=== PATIENT | female | born 1975 ===

== ENCOUNTER 2020-05-18 13:13 | Outpatient (REF) | payer MEDICAID, SELFPAY | END 2020-05-18 13:14 | disposition home or self-care (01) | LOC: HO.LAB 13:13 | PROVIDERS: PCP Family Medicine; Visit Provider Internal Medicine | DX: Z20.822 Contact with and (suspected) exposure to COVID-19 (principal) | CPT/HCPCS: 36415; C9803; U0003 ==

== ENCOUNTER 2020-07-07 15:19 | Outpatient (REF) | payer MEDICAID, SELFPAY | END 2020-07-07 15:20 | disposition home or self-care (01) | LOC: HO.LAB 15:19 | PROVIDERS: Visit Provider Internal Medicine | DX: Z20.822 Contact with and (suspected) exposure to COVID-19 (principal) | CPT/HCPCS: 36415; C9803; U0003; U0005 ==

== ENCOUNTER → 2020-09-07 11:08 | Outpatient (BNVA) | payer MEDICAID, SELFPAY | PROVIDERS: PCP Family Medicine; Referring Provider Family Medicine; Visit Provider Surgery | DX: K64.4 Residual hemorrhoidal skin tags (principal); K64.8 Other hemorrhoids | CPT/HCPCS: 46600; 99202 ==

== ENCOUNTER → 2020-11-08 10:01 | Outpatient (BNVA) | payer MEDICAID, SELFPAY | PROVIDERS: PCP Family Medicine; Visit Provider Surgery | DX: L29.0 Pruritus ani (principal) | CPT/HCPCS: 99212 ==

== ENCOUNTER 2020-12-19 09:24 | Outpatient (REF) | payer MEDICAID, SELFPAY ==
--- NOTE | ~2020-12-19 | US_ITS ---
EXAMINATION: US ABDOMEN COMPLETE CLINICAL INFORMATION: Right upper quadrant pain. COMPARISON: None TECHNIQUE: Real-time imaging of the abdominal viscera. FINDINGS: PANCREAS: Normal. ABDOMINAL AORTA: The proximal, mid, and distal segments are normal in caliber. INFERIOR VENA CAVA: Visualized portions are normal. LIVER: There is diffuse increased liver parenchymal echogenicity. No focal hepatic mass is seen. The liver is normal in size and contour. No biliary ductal dilatation. GALLBLADDER: A 5.0 cm maximal diameter is shadowing gallstone is seen. The gallbladder is physiologically distended. No evidence of gallbladder wall thickening or pericholecystic fluid. COMMON BILE DUCT: Normal in caliber measuring 0.3 cm in diameter. RIGHT KIDNEY: At the upper pole, an 8 mm anechoic, simple cyst is seen. No hydronephrosis or renal calculi. The kidney measures 10.7 cm in maximum dimension. LEFT KIDNEY: Normal. No hydronephrosis. No renal calculi or focal parenchymal lesions. The kidney measures 10.7 cm in maximum dimension. SPLEEN: Normal. The spleen measures 11.5 cm in maximum dimension. FREE FLUID: None. US/US abdomen complete IMPRESSION: 1. A large gallstone is seen, without cholecystitis or choledocholithiasis noted. 2. There is generalized increase in hepatic echotexture, consistent with fatty infiltration or hepatocellular disease. Please correlate clinically. No focal hepatic mass or intrahepatic biliary dilatation is seen. 3. A small simple right renal cyst is incidentally noted.
== END 2020-12-19 09:25 | disposition home or self-care (01) ==
LOC: HO.US 09:24
PROVIDERS: Visit Provider Family Medicine
DX: R10.11 Right upper quadrant pain (principal)
CPT/HCPCS: 76700

== ENCOUNTER 2021-01-10 09:30 | Outpatient (REF) | payer MEDICAID, SELFPAY ==
[2021-01-10 11:15] LABS: Blood Urea Nitrogen 12 mg/dL (9-16); Estimated Glomerular Filt Rate > 60
== END 2021-01-10 09:31 | disposition home or self-care (01) ==
LOC: HO.LAB 09:30
PROVIDERS: PCP Family Medicine; Referring Provider Family Medicine; Visit Provider Surgery
DX: R10.9 Unspecified abdominal pain (principal); L29.0 Pruritus ani; E66.01 Morbid (severe) obesity due to excess calories; K80.20 Calculus of gallbladder without cholecystitis without obstruction
CPT/HCPCS: 36415; 82565; 84520; 99212

== ENCOUNTER 2021-01-17 14:42 | Outpatient (REF) | payer MEDICAID, SELFPAY ==
--- NOTE | ~2021-01-17 | CT_ITS ---
EXAMINATION: CT ABDOMEN AND PELVIS WITH CONTRAST CLINICAL INFORMATION: Renal impairment COMPARISON: Ultrasound abdomen from 12/19/2020 TECHNIQUE: Multidetector volumetric images were obtained from the superior aspect of the liver through the pubic symphysis following administration 85 mL of Omnipaque 350 intravenous contrast. Sagittal and coronal reformatted images were obtained on the technologist's workstation. Oral contrast: No This CT examination was performed using dose optimization techniques as appropriate, variously including the following: *Automated exposure control *Adjustment of mA and/or kV according to patient size (this includes techniques or standardized protocols for targeted exams where dose is matched to indication/reason for exam; i.e. extremities or head) *Use of iterative reconstruction technique DLP: 578.2 mGy-cm FINDINGS: LUNG BASES: Atelectasis level of the lingula. The heart is not enlarged. No pericardial effusion. Coarse calcification within the left breast tissue. LIVER, GALLBLADDER, AND BILIARY TREE: The liver is normal in size and shape. Decreased hepatic attenuation suggesting hepatic steatosis. No focal hepatic lesion or biliary ductal dilatation is present. Intraluminal gallbladder calculi without wall thickening or pericholecystic fluid to suggest cholecystitis. PANCREAS: Unremarkable. SPLEEN: Unremarkable. ADRENAL GLANDS: Unremarkable. KIDNEYS AND URETERS: Hypodensity within the lateral aspect of the right renal interpolar region demonstrating fluid attenuation, statistically representing a cyst measuring up to 0.9 cm. The kidneys are normal in size, shape, and attenuation. No hydronephrosis, hydroureter, or calculi seen. No perinephric stranding. BLADDER: Unremarkable. GASTROINTESTINAL TRACT: The small and large bowel are unremarkable. The appendix is definitively visualized. No secondary signs of appendicitis. ABDOMINAL WALL: Fat filled umbilical hernia. LYMPH NODES: No enlarged lymph nodes per size criteria. Multiple subcentimeter nonenlarged lymph nodes are noted in the mid and right abdominal mesentery, nonspecific though may represent an element of mesenteric adenitis in the appropriate clinical setting. VASCULAR: Abdominal aorta is nonaneurysmal. Atherosclerotic calcifications of the abdominal aorta and its branches. PELVIC VISCERA: Anteverted uterus. Mildly prominent left periuterine vessels possibly representing an element of pelvic congestion syndrome. Correlation with symptomatology. OSSEOUS STRUCTURES: Multilevel degenerative changes of the thoracolumbar spine. No large lytic or blastic lesions are noted. Sclerotic focus in the right femoral head likely representing a bone island. Degenerative changes of the bilateral femoral acetabular and sacroiliac joints. CT/CT abdomen pelvis w con IMPRESSION: 1. Multiple subcentimeter nonenlarged lymph nodes are noted in the mid and right abdominal mesentery, nonspecific though may represent an element of mesenteric adenitis in the appropriate clinical setting. 2. Decreased hepatic attenuation suggesting hepatic steatosis. 3. Cholelithiasis without acute cholecystitis. 4. Hypodensity in the right renal interpolar region demonstrating fluid attenuation, statistically representing cysts. 5. Mildly prominent left periuterine vessels possibly representing an element of pelvic congestion syndrome. Correlation with symptomatology.
[2021-01-17] MEDS: iohexoL 350 MG/ML 100 ML INFUS..BTL 85 ML IV (16:44)
== END 2021-01-17 14:43 | disposition home or self-care (01) ==
LOC: HO.CT 14:42
PROVIDERS: Visit Provider Surgery
DX: R10.9 Unspecified abdominal pain (principal)
CPT/HCPCS: 74177; Q9967

== ENCOUNTER 2021-01-19 16:52 | Emergency (ER) | payer MEDICAID, SELFPAY ==
--- NOTE | 2021-01-19 | ECG_ITS ---
Test Reason : CHEST PAIN Blood Pressure : / mmHG Vent. Rate : 066 BPM Atrial Rate : 066 BPM P-R Int : 138 ms QRS Dur : 070 ms QT Int : 406 ms P-R-T Axes : 040 011 019 degrees QTc Int : 425 ms Normal sinus rhythm Normal ECG No previous ECGs available Referred By: Generic ED Physician Electronically Signed By:DAVION MARINA
[2021-01-19 17:08] VITALS: BP 165/80; PULSE 69; RESP 18; TEMP 36.6; O2SAT 97; BMI 39.4
[2021-01-19 19:53] VITALS: BP 140/82; PULSE 74; RESP 16; TEMP 36.4; O2SAT 99
[2021-01-19 19:53] LABS: Glucose, Whole Blood 95 mg/dL (60-115)
[2021-01-19 20:13] LABS: MANUAL DIFF FLAG NO
[2021-01-19 20:14] LABS: Basophils Absolute Auto 0.1 X10*3/uL (0.0-0.2); Basophils Percent Auto 0.6 % (0-2); Eosinophils Absolute Auto 0.6 X10*3/uL (0.0-0.4); Eosinophils Percent Auto 5.3 % (0-4); Hematocrit 44.4 % (37-47); Hemoglobin 14.6 g/dl (12.0-16.0); Imm Gran Abs Auto 0.04 X10*3/uL (0.00-0.03); Imm Gran Pct Auto 0.4 % (0.0-0.4); Lymphocytes Absolute Auto 3.7 X10*3/uL (1.2-4.9); Lymphocytes Percent Auto 33.9 % (20-40); Mean Corpuscular HGB Conc 32.9 g/dl (31.0-35.0); Mean Corpuscular Hemoglobin 28.4 pg (27.0-33.0); Mean Corpuscular Volume 86.4 fL (80-98); Mean Platelet Volume 10.7 fL (9.4-12.3); Monocytes Absolute Auto 0.8 X10*3/uL (0.1-1.2); Monocytes Percent Auto 7.2 % (2-11); Neutrophils Absolute Auto 5.8 X10*3/uL (2.0-8.3); Neutrophils Percent Auto 52.6 % (45-73); Platelet Count 273 X10*3/uL (160-400); Red Blood Count 5.14 X10*6/uL (4.20-5.50); Red Cell Distribution Width 14.6 % (11.0-16.0)
[2021-01-19 20:16] LABS: Appearance Urine CLEAR; Color Urine YELLOW; Glucose Urine UA NEG (NEG); Leukocyte Esterase Urine TRACE (NEG); Nitrite Urine NEG (NEG); UACC Culture Trigger YES; Urine Blood NEG (NEG); Urine Ketones NEG (NEG); Urine Protein NEG (NEG-TRACE)
[2021-01-19 20:18] LABS: UPreg QC Valid YES; Urine Pregnancy NEGATIVE (NEGATIVE)
[2021-01-19 20:31] LABS: Alanine Aminotransferase 69 U/L (0-31); Albumin Level 4.4 g/dL (3.5-5.0); Alkaline Phosphatase 137 U/L (39-117); Anion Gap 13 (12-20); Aspartate Amino Transferase 37 U/L (5-31); Blood Urea Nitrogen 11 mg/dL (9-16); Calcium 9.6 mg/dL (8.4-10.2); Carbon Dioxide 27 mmol/L (22-29); Chloride 106 mmol/L (96-108); Creatinine Clr Calc Pharmacy 76.2; Estimated Glomerular Filt Rate > 60; Glucose Random 98 mg/dL (60-115); Lipase 19 U/L (8-78); Potassium 3.9 mmol/L (3.3-5.1); Sodium 142 mmol/L (135-145); Total Protein 7.7 g/dL (6.5-8.0)
[2021-01-19 20:37] LABS: Squamous Epithelial Cell Urine 2+ /LPF
[2021-01-19 20:38] LABS: Bacteria Urine TRACE /LPF
[2021-01-19 20:39] LABS: Amorphous Sediment Urine 1+ /LPF
--- NOTE | 2021-01-19 20:45 | ED.ABDPAIN ---
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 This is a 45-year-old female came in with a right upper abdominal pain that started 3 weeks ago, pain is progressively getting worse, patient was diagnosed by her PCP with cholelithiasis, patient also was seen and evaluated by Dr. Dixon from General surgery had a CT scan of the abdomen done 2 days ago which showed noncomplicated cholelithiasis. Patient declined any fevers chills, but patient is complaining of nausea and vomiting with severe pain. Related Data Previous Rx's Medication Instructions Recorded menthol 0.44 %-zinc oxide 20.6 % 1 appl TOPICAL QID PRN #71 g 09/07/20 topical ointment (Calmoseptine) docusate sodium 100 mg capsule 100 mg PO DAILY #60 cap 10/30/20 (Colace) psyllium husk (with sugar) 3.4 1 tbsp PO DAILY #575 g 10/30/20 gram/12 gram oral powder (Metamucil (with sugar)) hydrocortisone 2.5 % topical cream 1 appl KS BID-QID PRN #30 g 11/08/20 with perineal applicator (Anusol-HC) Allergies Allergy/AdvReac Type Severity Reaction Status Date / Time No Known Allergies Allergy Verified 01/10/21 09:42 Review of Systems Review of Systems All other systems are reviewed and are negative Constitutional: Reports as per HPI and Reports no additional constitutional complaints Eyes: Reports as per HPI and Reports no additional eye complaints Reports system reviewed and no additional complaints, except as documented Cardiovascular: Reports as per HPI and Reports no additional cardiovascular complaints Respiratory: Reports as per HPI and Reports no additional respiratory complaints Gastrointestinal: Reports as per HPI and Reports no additional gastrointestinal complaints Genitourinary: Reports no additional female genitourinary complaints Musculoskeletal: Reports no additional musculoskeletal complaints Skin/Breast: Reports system reviewed and no additional complaints, except as docu Psychiatric: Reports no additional psychiatric complaints Endocrine: Reports no additional endocrine complaints Hematologic/Lymphatic: Reports no additional hematologic/lymphatic complaints Allergic/Immunologic: Reports no additional allergic/immunologic complaints Reports system reviewed and no additional complaints, except as documented and Reports Abnormal speech present Physical Exam Vital Signs: Vital Signs: Last Vital Signs Temp 97.6 F 01/19/21 19:53 Pulse 74 01/19/21 19:53 Resp 16 01/19/21 19:53 BP 140/82 H 01/19/21 19:53 Pulse Ox 99 01/19/21 19:53 Body Mass Index 39.4 Vital signs have been reviewed as appeared to be correct. Blood pressure normal. Heart rate normal. Respiration rate normal. Temperature normal. Oxygen saturation normal. Appearance: Alert. Oriented X3. No acute distress. Head: Normal external exam. Normocephalic. Atraumatic. No Mena signs noted. No raccoon eyes noted Eyes: PERRLA. EOMI. Conjunctiva and sclera normal. Eyelids normal. ENT: TM's Normal. Pharynx normal. Uvula midline. Moist mucous membranes. No trismus noted. No drooling noted. No muffled voice noted. Neck: Normal inspection. Neck supple. FROM. No adenopathy. Thyroid Normal. No meningeal signs. No neck mass noted. CVS: Normal heart rate and rhythm. Heart sound normal. No murmurs noted. Pulses normal throughout. Respiratory: No respiratory distress. Painless inspiration. Breath sounds normal. No wheezes/rales/rhonchi noted. Chest nontender. No accessory muscle usage noted or decreased air movement noted. Abdomen: Soft, mild right upper quadrant tenderness, no rebound tenderness, no guarding. Bowel sounds normal in all 4 quadrants. No distention noted. No organomegaly noted. No visible injury noted. Back: No CVA tenderness. Full range of motion noted. Skin: Skin warm and dry. Normal skin color. Normal skin turgor. No rashes/lesions/lacerations noted. Extremities: No lower extremity edema. Extremities exhibit normal range of motion. Extremities nontender. Neuro: Oriented X 3. Cranial nerve exam: II-XII are grossly intact No motor deficit. No sensory deficit. Reflexes normal. Course Course Course Narrative: Assessment and plan. This is a 45-year-old female known to have cholelithiasis without acute cholecystitis, patient had a full evaluation by surgery (Dr. Dixon), patient is already scheduled to have surgery on 02/06, the case discussed with Dr. Dixon over the phone who is very familiar with the patient, the plan is to control patient's symptoms in the emergency department then discharged and call Dr. Dixon on Friday to reschedule the surgery to a sooner date. Patient with few WBCs in the urine analysis but no symptoms to indicate UTI. MDM - Abdominal Pain Lab Data Attestation: I reviewed the patient's lab results. Result diagrams: 01/19/21 20:05 01/19/21 20:05 Labs: Lab Results 01/19/21 01/19/21 01/19/21 Range/Units 19:50 20:05 20:05 WBC 11.0 H (4.8-10.8) X10*3/uL RBC 5.14 (4.20-5.50) X10*6/uL Hgb 14.6 (12.0-16.0) g/dl Hct 44.4 (37-47) % MCV 86.4 (80-98) fL MCH 28.4 (27.0-33.0) pg MCHC 32.9 (31.0-35.0) g/dl RDW 14.6 (11.0-16.0) % Plt Count 273 (160-400) X10*3/uL MPV 10.7 (9.4-12.3) fL Immature Gran % (Auto) 0.4 (0.0-0.4) % Neut % (Auto) 52.6 (45-73) % Lymph % (Auto) 33.9 (20-40) % [place] % (Auto) 7.2 (2-11) % Eos % (Auto) 5.3 H (0-4) % Baso % (Auto) 0.6 (0-2) % Lymph # (Auto) 3.7 (1.2-4.9) X10*3/uL [place] # (Auto) 0.8 (0.1-1.2) X10*3/uL Eos # (Auto) 0.6 H (0.0-0.4) X10*3/uL Baso # (Auto) 0.1 (0.0-0.2) X10*3/uL Abs Immat Gran (auto) 0.04 H (0.00-0.03) X10*3/uL Absolute Neuts (auto) 5.8 (2.0-8.3) X10*3/uL Absolute Nucleated RBC 0.000 (0.0-0.012) X10*3/uL Nucleated RBC % (auto) 0.0 (0.0-0.2) /100WBC Sodium 142 (135-145) mmol/L Potassium 3.9 (3.3-5.1) mmol/L Chloride 106 (96-108) mmol/L Carbon Dioxide 27 (22-29) mmol/L Anion Gap 13 (12-20) BUN 11 (9-16) mg/dL Creatinine 0.92 (0.5-1.4) mg/dL Estim Creat Clear Calc 76.2 Estimated GFR > 60 POC Glucose 95 (60-115) mg/dL Random Glucose 98 (60-115) mg/dL Calcium 9.6 (8.4-10.2) mg/dL Total Bilirubin 1.0 (0.0-1.0) mg/dL AST 37 H (5-31) U/L ALT 69 H (0-31) U/L Alkaline Phosphatase 137 H (39-117) U/L Total Protein 7.7 (6.5-8.0) g/dL Albumin 4.4 (3.5-5.0) g/dL Lipase 19 (8-78) U/L Urine Color Urine Appearance Urine pH (5.0-8.0) Ur Specific [place] (1.005-1.025) Urine Protein (NEG-TRACE) MG/DL Urine Glucose (UA) (NEG) MG/DL Urine Ketones (NEG) MG/DL Urine Blood (NEG) Urine Nitrite (NEG) Ur Leukocyte Esterase (NEG) Urine RBC (0) /HPF Urine WBC (0-4) /HPF Ur Squamous Epith Cells /LPF Amorphous Sediment /LPF Urine Bacteria /LPF Urine Test (NEGATIVE) 01/19/21 01/19/21 Range/Units 20:05 20:07 WBC (4.8-10.8) X10*3/uL RBC (4.20-5.50) X10*6/uL Hgb (12.0-16.0) g/dl Hct (37-47) % MCV (80-98) fL MCH (27.0-33.0) pg MCHC (31.0-35.0) g/dl RDW (11.0-16.0) % Plt Count (160-400) X10*3/uL MPV (9.4-12.3) fL Immature Gran % (Auto) (0.0-0.4) % Neut % (Auto) (45-73) % Lymph % (Auto) (20-40) % [place] % (Auto) (2-11) % Eos % (Auto) (0-4) % Baso % (Auto) (0-2) % Lymph # (Auto) (1.2-4.9) X10*3/uL [place] # (Auto) (0.1-1.2) X10*3/uL Eos # (Auto) (0.0-0.4) X10*3/uL Baso # (Auto) (0.0-0.2) X10*3/uL Abs Immat Gran (auto) (0.00-0.03) X10*3/uL Absolute Neuts (auto) (2.0-8.3) X10*3/uL Absolute Nucleated RBC (0.0-0.012) X10*3/uL Nucleated RBC % (auto) (0.0-0.2) /100WBC Sodium (135-145) mmol/L Potassium (3.3-5.1) mmol/L Chloride (96-108) mmol/L Carbon Dioxide (22-29) mmol/L Anion Gap (12-20) BUN (9-16) mg/dL Creatinine (0.5-1.4) mg/dL Estim Creat Clear Calc Estimated GFR POC Glucose (60-115) mg/dL Random Glucose (60-115) mg/dL Calcium (8.4-10.2) mg/dL Total Bilirubin (0.0-1.0) mg/dL AST (5-31) U/L ALT (0-31) U/L Alkaline Phosphatase (39-117) U/L Total Protein (6.5-8.0) g/dL Albumin (3.5-5.0) g/dL Lipase (8-78) U/L Urine Color YELLOW Urine Appearance CLEAR Urine pH 8.0 (5.0-8.0) Ur Specific [place] 1.010 (1.005-1.025) Urine Protein NEG (NEG-TRACE) MG/DL Urine Glucose (UA) NEG (NEG) MG/DL Urine Ketones NEG (NEG) MG/DL Urine Blood NEG (NEG) Urine Nitrite NEG (NEG) Ur Leukocyte Esterase TRACE H (NEG) Urine RBC 1-4 (0) /HPF Urine WBC 5-9 H (0-4) /HPF Ur Squamous Epith Cells 2+ /LPF Amorphous Sediment 1+ /LPF Urine Bacteria TRACE /LPF Urine Test NEGATIVE (NEGATIVE) Discharge Plan Discharge Clinical Impression: Cholelithiasis Qualifiers: Cholelithiasis location: gallbladder Cholecystitis presence: without cholecystitis Biliary obstruction: without biliary obstruction Qualified Code(s): K80.20 - Calculus of gallbladder without cholecystitis without obstruction Patient Disposition: Home, Self-Care Instructions: Gallstones (ED) Additional Instructions: As we discussed call Dr. Dixon office early next week to reschedule the surgical date. Prescriptions: No Action docusate sodium [Colace] 100 mg capsule 100 mg PO DAILY Qty: 60 RF: 0 Metamucil (with sugar) 3.4 gram/12 gram powder 1 tbsp PO DAILY Qty: 575 RF: 0 Calmoseptine 0.44-20.6 % ointment 1 appl topical QID PRN (Reason: skin irritation) Qty: 71 RF: 0 hydrocortisone [Anusol-HC] 2.5 % cream with perineal applicator 1 appl KS BID-QID PRN (Reason: hemorrhoids) Qty: 30 RF: 0 Referrals: Libby Redd MD [Primary Care Provider] - 2 days Bobby Dixon MD [Physician] - 2 days (Call the office in 2 days to reschedule the surgical date.) [facility], LAT[facility] Past Medical History Medical History Gallstones Internal and external bleeding hemorrhoids Left sided abdominal pain Morbid obesity Pruritus ani Surgical History History of tubal ligation Family History Family History Father No problems noted. Sister Breast tumor Sister Pancreatic cancer Social History Social History Alcohol intake: never Advance Directives: No Advance Directives Information Provided: No
[2021-01-19 21:24] VITALS: BP 127/70; PULSE 74; RESP 16; TEMP 36.5; O2SAT 99
[2021-01-19] MEDS: oxyCODONE HCl Immed Release 5 MG TABLET PO (21:24)
== END 2021-01-19 21:26 | disposition home or self-care (01) ==
PROVIDERS: Emergency Provider Emergency Medicine; PCP Family Medicine
DX: K80.20 Calculus of gallbladder without cholecystitis without obstruction (principal); R10.11 Right upper quadrant pain; Z79.899 Other long term (current) drug therapy
CPT/HCPCS: 36415; 80053; 81001; 81025; 82947; 83690; 85025; 87086; 93005; 99284

== ENCOUNTER 2021-01-26 10:54 | Day surgery (SDC) | payer MEDICAID, SELFPAY ==
--- NOTE | 2021-01-25 08:59 | HO.ANESPROP2 ---
Documented by User: Maria R Roque NP 01/25/21 09:00 HPI - Anesthesia Eval Consult details Narrative: 45yo F for Cholecystectomy Laparoscopic, Poss Open PMFSH Active Problems Active Problems: All Active Problems (Updated 01/20/21 @ 00:02 by Background Daemon) Morbid obesity (Acute) Gallstones (Acute) Left sided abdominal pain (Acute) Pruritus ani (Acute) Internal and external bleeding hemorrhoids (Acute) Past Medical History Medical History Gallstones Internal and external bleeding hemorrhoids Left sided abdominal pain Morbid obesity Pruritus ani Family History Family History Father No problems noted. Sister Breast tumor Sister Pancreatic cancer Surgical History Surgical History History of tubal ligation Social History Social History Alcohol intake: never Patient Tobacco Use Status: Never used Tobacco Use of substances other than those prescribed or required for medical reasons: No Are you DNR?: No Advance Directives: No Advance Directives Information Provided: Yes Meds Allergies Allergy/AdvReac Type Severity Reaction Status Date / Time No Known Allergies Allergy Verified 01/26/21 11:09 Exam Exam Date and Time: January 25, 2021 0859 Pertinent Lab Results Pertinent Lab Results: Laboratory Tests 01/19/21 01/19/21 20:05 20:05 WBC 11.0 H Hgb 14.6 Hct 44.4 Plt Count 273 Sodium 142 Potassium 3.9 Chloride 106 Carbon Dioxide 27 BUN 11 Creatinine 0.92 Narrative Narrative: EKG 01/2021 Vent. Rate : 066 BPM ? ? Atrial Rate : 066 BPM ?? P-R Int : 138 ms? QRS Dur : 070 ms ? ? QT Int : 406 ms ? ? ? P-R-T Axes : 040 011 019 degrees ?? QTc Int : 425 ms ? Normal sinus rhythm Normal ECG No previous ECGs available Assessment and Plan Assessment Anesthesia Assessment: Chart Reviewed Documented by User: Jennifer Cervantes MD 01/26/21 11:50 PMF Past Medical History Medical History Gallstones Internal and external bleeding hemorrhoids Left sided abdominal pain Morbid obesity Pruritus ani Family History Family History Father No problems noted. Sister Breast tumor Sister Pancreatic cancer Family history of problems with anesthesia: No Surgical History Surgical History History of tubal ligation History of Problems with Anesthesia: No Social History Social History Alcohol intake: never Patient Tobacco Use Status: Never used Tobacco Use of substances other than those prescribed or required for medical reasons: No Are you DNR?: No Advance Directives: No Advance Directives Information Provided: Yes Meds Allergies Allergy/AdvReac Type Severity Reaction Status Date / Time No Known Allergies Allergy Verified 01/26/21 11:09 Exam Airway Mallampati Class: II TM Dist: >3cm Neck ROM: Full Assessment and Plan Assessment Anesthesia Assessment: Anesthesia Plan Discussed Final Anesthetic Review Family History of Problems with Anesthesia: No History of Problems with Anesthesia: No NPO: Yes ASA Class: II Final Preanesthetic Review: No Changes in Pt Med Stat, Meds/Allgs Chart Reviewed, Consent Obtained/Reviewed and Anes Risks/Benef Reviewed Patient Risk: Low Procedure Risk: Low Assessment/Block/Sedation in SS: Assess/Block/Sedation-SS Anesthetic Plan Anesthetic Plan: GA Disposition: Standard PACU
[2021-01-26] VITALS (12 sets, daily range): BP systolic 116–145; BP diastolic 63–83; PULSE 49–80; RESP 14–20; TEMP 36.1–37; O2SAT 94–100; BMI 39.4
[2021-01-26] MEDS: Lactated Ringers 1,000 ML 100 ML IVCONT (11:27)
[2021-01-26] MEDS: Acetaminophen 325 MG TABLET 650 MG PO ×2 (11:28→14:40)
--- NOTE | 2021-01-26 12:11 | MHC.SHP ---
Pre-Procedural Eval Section A Date of Service: 01/26/21 Section B Chief Complaint: Gallstones Allergies: Allergies Allergy/AdvReac Type Severity Reaction Status Date / Time No Known Allergies Allergy Verified 01/26/21 11:09 Plan I have reviewed the history and physical and performed a pertinent physical examination on my patient. No changes have occurred unless specified. Pt originally scheduled for Feb 06. She wanted this done sooner because of episodes of pain. She went to the ED last wee for one episode, She has a benign exam. She has an anicteric sclerae. CT reviewed -no other intraabdominal pathology.
--- NOTE | 2021-01-26 13:58 | W.PM.OPN ---
Operative Note Operative Note Date of Service: 01/26/21 Narrative: Preop diagnosis: Symptomatic gallstones Postop diagnosis: The same Procedure: Laparoscopic cholecystectomy Surgeon: Bobby Dixon MD training and development assistant: ASH Viera The patient is a 45 year female with gallstones, and periodic right upper quadrant pain and tenderness consistent with symptomatic gallstones. She understood the technique of laparoscopic cholecystectomy and possible open cholecystectomy. She was aware of the risks, benefits, and alternatives She was brought to the operating room and placed supine on the OR table under general anesthesia via endotracheal tube. The abdomen was prepped and draped in the usual sterile fashion. A surgical time-out was done. The patient received Cefotan 2 g IV preoperatively I made a short incision on the supraumbilical margin using a blade 15 and this was carried down through the full-thickness of the skin subcutaneous fat down to the fascia. The fascia was incised. The peritoneum was entered. Through this incision a Skylar port was introduced. Pneumoperitoneum was introduced to a pressure of 15 mm hg. From here on the rest of procedure was then vision with the laparoscope. With laparoscopic visualization, I proceeded to then insert a 5/12 mm port through a small incision in the epigastric area below the subcostal margin. 5 mm port introduced through small incisions below the subcostal margin along the anterior axillary line and the midclavicular line. Graspers were placed through these working ports. The patient is placed in head-up and [id number] position. The gallbladder was seen and this was supple and not inflamed. I was able to apply a grasper at the fundus and this was used to retract the gallbladder cephalad. By doing so was able to expose the anterior wall and there was note of filmy adhesions covering the anterior wall. We had to carefully dissect this with the [place] dissector to completely expose the anterior wall. By doing so was able to apply another grasper towards the pouch of the gallbladder and this was used to retract the gallbladder laterally. At this point therefore the gallbladder was being retracted in a cephalad and lateral fashion to put the cystic duct on stretch. I proceeded to gently dissect the fibroid areolar tissue surrounding the cystic duct until was able to clearly define this. This was done with the [place] dissector. By doing so was able to achieve a critical view of the hepatocystic triangle. I could see the cystic artery as well but there were no other structures in this area. With the confluence of the cystic duct with the neck of the gallbladder confirmed, I applied clips on the cystic duct with 2 clips being applied distally. The cystic duct was transected between clips using Endo scissors I gently dissected the thick artery with the [place] dissector. Once this was clearly define, applied clips as well with 2 clips being applied distally and the cystic artery was retracted in clips. With traction on the gallbladder away from the liver bed, I proceeded to then divide across the hilum with the cautery spatula. I then incised the peritoneum of the gallbladder with the electrocautery spatula and proceeded to gently define a plane of dissection between the gallbladder wall and the liver bed along this incision. We carefully the gallbladder from the liver bed along this plane using a combination of blunt dissection with the tip of the spatula and electrocautery itself. We proceeded with this dissection all way to the fundus until the entire gallbladder was completely . The gallbladder was retrieved through an endobag through the umbilical incision. I then reinserted all ports and re-insufflated. Examined all 4 quadrants and there was no other pathology or obvious bowel injury Examination of the have subhepatic space did not reveal any bleeding. Once hemostasis was therefore confirmed, proceeded to desufflate the port sites. I removed the ports under vision with laparoscope. The umbilical port was removed last. The fascia of the umbilical incision was closed with [id number] Dexon 0 stitch. Skin closure was achieved on all incisions using Dexon 4-0 subcuticular sutures. Steri-Strips and dressings were applied. All incisions were infiltrated with Marcaine 0.5% for postop analgesia. The procedure was then completed. The patient tolerated procedure well. There were no complication noted. Initial and final counts of sponges and instruments were correct. Estimated blood loss was about 20 cc The patient was extubated without difficulty and transferred to the recovery room with stable vital signs.
--- NOTE | 2021-01-26 14:07 | P.BOP_ITS ---
Brief Operative Note Date of Service: 01/26/21 Pre-op diagnosis: Gallstones Post-op diagnosis: same Procedure: Laparoscopic cholecystectomy Surgeon: Bobby Dixon MD Anesthesia: GETA Was an Nuclear Fuels Reclamation Engineer used for this Procedure?: Yes Nuclear Fuels Reclamation Engineer: Agatha Viera Estimated blood loss (mL): 20 Pathology: other (Gallbladder) Condition: stable Disposition: PACU
[2021-01-26] MEDS: oxyCODONE HCl Immed Release 5 MG TABLET PO (14:39)
[2021-01-26] MEDS: fentaNYL citrate/PF 100 MCG/2 ML VIAL 50 MCG IVPUSH (14:45)
== END 2021-01-26 16:28 | disposition home or self-care (01) ==
PROVIDERS: Visit Provider Surgery
PROC: 0FT44ZZ Resection of Gallbladder, Percutaneous Endoscopic Approach (ICD-10-PCS; CPT 47562; principal; 2021-01-26 13:00)
DX: K80.10 Calculus of gallbladder with chronic cholecystitis without obstruction (principal)
CPT/HCPCS: 47562; 88304; J0690; J1100; J1885; J2250; J2405; J3010

== ENCOUNTER → 2021-02-07 10:57 | Outpatient (BNVA) | payer MEDICAID, SELFPAY | PROVIDERS: PCP Family Medicine; Referring Provider Family Medicine; Visit Provider Surgery | DX: Z48.815 Encounter for surgical aftercare following surgery on the digestive system (principal); Z90.49 Acquired absence of other specified parts of digestive tract | CPT/HCPCS: 99212 ==

== ENCOUNTER 2021-03-15 10:19 | Emergency (ER) | payer MEDICAID, SELFPAY ==
--- NOTE | ~2021-03-15 | CT_ITS ---
EXAMINATION: CT ABDOMEN AND PELVIS WITHOUT CONTRAST CLINICAL INFORMATION: Right-sided flank pain. Recent lap cholecystectomy. COMPARISON: CT of the abdomen and pelvis done on 01/17/2021. TECHNIQUE: Multidetector volumetric imaging was performed from the superior aspect of the liver through the pubic symphysis. Sagittal and coronal reformatted images were obtained on the technologist's workstation. This CT examination was performed using dose optimization techniques as appropriate, variously including the following: *Automated exposure control *Adjustment of mA and/or kV according to patient size (this includes techniques or standardized protocols for targeted exams where dose is matched to indication/reason for exam; i.e. extremities or head) *Use of iterative reconstruction technique DLP: 852 mGy-cm FINDINGS: LUNG BASES: The visualized lung bases are unremarkable. LIVER, GALLBLADDER, AND BILIARY TREE: Diffuse hepatic hypodensity consistent with hepatic steatosis is present. No superimposed focal liver lesion on this nonenhanced study. The gallbladder is surgically absent. No evidence of any fluid collection within the gallbladder bed. No evidence of any intrahepatic or extrahepatic biliary ductal dilatation. PANCREAS: Unremarkable. SPLEEN: Unremarkable. ADRENAL GLANDS: Unremarkable. KIDNEYS AND URETERS: The kidneys are normal in size, shape, and attenuation. No hydronephrosis, hydroureter, or calculi seen. No perinephric stranding. BLADDER: Unremarkable. GASTROINTESTINAL TRACT: The small and large bowel are unremarkable. The appendix is unremarkable. ABDOMINAL WALL: No significant hernia is appreciated. 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 No change. VASCULAR: Unremarkable. PELVIC VISCERA: There is no pelvic mass present. No evidence of any free fluid and/or free air. OSSEOUS STRUCTURES: No suspicious focal lesion. CT/CT abdomen pelvis wo con IMPRESSION: 1. Surgically absent gallbladder the prior study dated 01/17/2021. No CT evidence of any fluid collection at the gallbladder bed or biliary ductal dilatation identified. 2. Diffuse hepatic steatosis. 3. Morphologically normal-appearing appendix. 4. Hazy appearance of the small bowel mesentery associated with subcentimeter lymph nodes, unchanged 01/17/2021.
[2021-03-15 10:29] VITALS: BP 141/69; PULSE 74; RESP 19; TEMP 36.6; O2SAT 98; BMI 39.0
[2021-03-15 12:31] LABS: MANUAL DIFF FLAG NO
[2021-03-15 12:32] LABS: Basophils Absolute Auto 0.1 X10*3/uL (0.0-0.2); Basophils Percent Auto 0.5 % (0-2); Eosinophils Absolute Auto 0.5 X10*3/uL (0.0-0.4); Eosinophils Percent Auto 5.2 % (0-4); Hematocrit 44.2 % (37.0-47.0); Hemoglobin 14.1 g/dl (12.0-16.0); Imm Gran Abs Auto 0.02 X10*3/uL (0.00-0.03); Imm Gran Pct Auto 0.2 % (0.0-0.4); Lymphocytes Percent Auto 32.4 % (20-40); Mean Corpuscular HGB Conc 31.9 g/dl (31.0-35.0); Mean Corpuscular Hemoglobin 28.3 pg (27.0-33.0); Mean Corpuscular Volume 88.8 fL (80.0-98.0); Mean Platelet Volume 10.5 fL (9.4-12.3); Monocytes Absolute Auto 0.7 X10*3/uL (0.1-1.2); Monocytes Percent Auto 7.6 % (2-11); Neutrophils Absolute Auto 4.9 x10*3/uL (2.0-8.3); Neutrophils Percent Auto 54.1 % (45-73); Platelet Count 250 X10*3/uL (160-400); Red Blood Count 4.98 X10*6/uL (4.20-5.50); Red Cell Distribution Width 15.1 % (11.0-16.0); White Blood Count 9.2 X10*3/uL (4.8-10.8)
[2021-03-15 12:37] LABS: Appearance Urine CLEAR; Color Urine YELLOW; Glucose Urine UA NEG (NEG); Leukocyte Esterase Urine NEG (NEG); Nitrite Urine NEG (NEG); Urine Blood NEG (NEG); Urine Ketones NEG (NEG); Urine Protein NEG (NEG-TRACE)
[2021-03-15 12:52] LABS: Alanine Aminotransferase 67 U/L (0-31); Albumin Level 4.3 g/dL (3.5-5.0); Alkaline Phosphatase 130 U/L (39-117); Anion Gap 12 (12-20); Aspartate Amino Transferase 37 U/L (5-31); Bilirubin Total 0.9 mg/dL (0.0-1.0); Blood Urea Nitrogen 15 mg/dL (9-16); Calcium 9.6 mg/dL (8.4-10.2); Carbon Dioxide 28 mmol/L (22-29); Chloride 106 mmol/L (96-108); Creatinine Clr Calc Pharmacy 86.1; Estimated Glomerular Filt Rate > 60; Glucose Random 96 mg/dL (60-115); Sodium 142 mmol/L (135-145); Total Protein 7.6 g/dL (6.5-8.0)
--- NOTE | 2021-03-15 13:48 | ED_ITS ---
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 Patient denies radiation of pain. No bowel or bladder incontinence. No saddle anesthesia. No numbness or tingling lower extremities. No abdominal pain, nausea, vomiting, diarrhea, urinary symptoms. No fevers or chills. Has not tried [id number] medication. Of note patient had a laparoscopic cholecystectomy on January [address] Dixon. No leg swelling or pain, no sob/cough. Related Data Previous Rx's Medication Instructions Recorded menthol 0.44 %-zinc oxide 20.6 % 1 appl TOPICAL QID PRN #71 g 09/07/20 topical ointment (Calmoseptine) docusate sodium 100 mg capsule 100 mg PO DAILY #60 cap 10/30/20 (Colace) psyllium husk (with sugar) 3.4 1 tbsp PO DAILY #575 g 10/30/20 gram/12 gram oral powder (Metamucil (with sugar)) hydrocortisone 2.5 % topical cream 1 appl ND BID-QID PRN #30 g 11/08/20 with perineal applicator (Anusol-HC) oxycodone-acetaminophen 5 mg-325 1 tab PO TID PRN #20 tab 01/22/21 mg tablet (Percocet) ibuprofen 600 mg tablet 600 mg PO Q6H PRN #30 tab 01/26/21 oxycodone-acetaminophen 5 mg-325 1 tab PO Q4-6H PRN #30 tab 01/26/21 mg tablet (Percocet) cyclobenzaprine 10 mg tablet 10 mg PO TID PRN #10 tab 03/15/21 ibuprofen 600 mg tablet 600 mg PO Q8H PRN #20 tab 03/15/21 lidocaine 5 % topical patch 1 patch TOPICAL DAILY #15 ea 03/15/21 (Lidoderm) Allergies Allergy/AdvReac Type Severity Reaction Status Date / Time No Known Allergies Allergy Verified 02/07/21 10:59 Review of Systems Review of Systems: Yes all other systems are reviewed and are negative Constitutional: Constitutional: Reports no additional constitutional complaints, Denies body ache(s), Denies chills, Denies fever(s), Denies headache(s) and Denies weakness Eyes: Eyes: Reports no additional eye complaints and Denies change in vision ENT: Reports system reviewed and no additional complaints, except as documented, Denies dizziness, Denies headache(s), Denies nasal congestion, Denies nasal discharge and Denies neck pain Cardiovascular: Cardiovascular: Reports no additional cardiovascular complaints, Denies chest pain, Denies leg edema and Denies dyspnea Respiratory: Respiratory: Reports no additional respiratory complaints, Denies cough and Denies dyspnea Gastrointestinal: Gastrointestinal: Reports no additional gastrointestinal complaints, Denies abdominal pain, Denies diarrhea, Denies nausea and Denies vomiting Genitourinary: Genitourinary: Reports no additional female genitourinary complaints and Denies urinary incontinence Musculoskeletal: Musculoskeletal: Reports no additional musculoskeletal complaints, Reports back pain, Denies arthralgias, Denies joint swelling, Denies neck pain, Denies numbness and Denies tingling Integumentary/Breasts: Skin/Breast: Reports system reviewed and no additional complaints, except as docu and Denies rash Neurologic: Reports system reviewed and no additional complaints, except as documented, Denies Abnormal speech present, Denies dizziness, Denies headache(s), Denies numbness, Denies tingling and Denies weakness PMFSH Past Medical History Attestation statement: The following information was validated with the patient. Source: old records reviewed and nursing notes reviewed Medical History Gallstones Internal and external bleeding hemorrhoids Left sided abdominal pain Morbid obesity Pruritus ani Surgical History History of laparoscopic cholecystectomy History of tubal ligation Family History Family History Father No problems noted. Sister Breast tumor Sister Pancreatic cancer Social History Social History Alcohol intake: never Patient Tobacco Use Status: Never used Tobacco Advance Directives: No Physical Exam Vital Signs: Vital Signs: Last Vital Signs Temp 98 F 03/15/21 16:21 Pulse 57 03/15/21 16:21 Resp 20 03/15/21 16:21 BP 146/87 H 03/15/21 16:21 Pulse Ox 94 03/15/21 16:21 Body Mass Index 39.0 Const: General: cooperative, healthy appearing, comfortable and no acute distress Orientation/consciousness: patient oriented x3 Limitations: no limitations HENMT: Head: Yes normal to inspection Ears: hearing grossly normal bilaterally General nose exam: Normal external nose present Face and sinus: Yes normal facial exam Mouth: Normal oral and palatal mucosa present Throat: Yes posterior oropharynx normal Eyes: General: appearance normal, both eyes and all related structures Pupils: Equal, round and reactive pupils present Neck: Neck: Yes normal visual inspection Chest: Chest palpation & inspection: normal inspection of the chest Resp: Effort & Inspection: normal respiratory effort Auscultation: clear to auscultation bilaterally Cardio: Rate: regular rate Rhythm: regular rhythm Peripheral pulses: Peripheral pulses 2+ throughout GI: Inspection: Yes normal to inspection Palpation (GI): Soft to palpation and nontender Auscultation: normal bowel sounds Back/Spine/Pelvis: Other: Right sided thoracic tenderness from midthoracic to lumbar spine with no midline tenderness, step-offs or deformities. Pain is worsened with rotation of the trunk and flexion extension of the lumbar spine. No pain with straight leg raise. Thoracic/Lumbar Spine: thoracic and lumbar spine normal to inspection Skin: General skin exam: no rashes or lesions noted Neuro: General: patient oriented x3, no focal motor deficits and normal sensation to monofilament Cranial nerves: Yes CN's II-XII intact bilaterally, Yes Equal, round and reactive pupils present, Yes Bilaterally intact EOM present, Yes Nystagmus not present, Yes Normal facial strength present and Yes Midline tongue present Cognition (Neuro): normal cognition Speech: No Abnormal speech present Gait exam (Neuro): Normal gait present Motor exam (neuro): 5/5 motor strength present throughout Sensory Exam: Normal double simultaneous stimulation for sensation Deep tendon reflexes (DTR's): Right patellar reflex intensity grade: 2+ and Left patellar reflex intensity grade: 2+ Extrem: General: Yes normal to inspection, Yes no pedal edema and Yes no calf tenderness Course Course Course Narrative: Atraumatic right-sided back pain for 2 weeks. Patient is 6 weeks postoperative from a cholecystectomy. Will need labs, UA, pain control 1640-Labs/UA negative. D dimer negative so less likely PE. CT A/P shows no acute finding. Pain is improved after 1 dose of Toradol. Likely musculoskeletal. Reviewed worrisome signs and symptoms of when to return to the emergency department. Comfortable discharge home. MDM - Female Genitourinary MDM Narrative Medical decision making narrative: MS pain, renal colic, pyelonephritis, PE (less likely with negative d dimer, no tachypnea/hypoxia or tachycardia) Medical Records Attestation: I reviewed the patient's medical records. Lab Data Attestation: I reviewed the patient's lab results. Result diagrams: 03/15/21 12:03/15/21 12: Labs: Lab Results 03/15/21 03/15/21 03/15/21 Range/Units 12:22 12:22 12:25 WBC 9.2 (4.8-10.8) X10*3/uL RBC 4.98 (4.20-5.50) X10*6/uL Hgb 14.1 (12.0-16.0) g/dl Hct 44.2 (37.0-47.0) % MCV 88.8 (80.0-98.0) fL MCH 28.3 (27.0-33.0) pg MCHC 31.9 (31.0-35.0) g/dl RDW 15.1 (11.0-16.0) % Plt Count 250 (160-400) X10*3/uL MPV 10.5 (9.4-12.3) fL Immature Gran % (Auto) 0.2 (0.0-0.4) % Neut % (Auto) 54.1 (45-73) % Lymph % (Auto) 32.4 (20-40) % Jewell % (Auto) 7.6 (2-11) % Eos % (Auto) 5.2 H (0-4) % Baso % (Auto) 0.5 (0-2) % Lymph # (Auto) 3.0 (1.2-4.9) X10*3/uL Jewell # (Auto) 0.7 (0.1-1.2) X10*3/uL Eos # (Auto) 0.5 H (0.0-0.4) X10*3/uL Baso # (Auto) 0.1 (0.0-0.2) X10*3/uL Abs Immat Gran (auto) 0.02 (0.00-0.03) X10*3/uL Absolute Neuts (auto) 4.9 (2.0-8.3) x10*3/uL Absolute Nucleated RBC 0.000 (0.0-0.012) X10*3/uL Nucleated RBC % (auto) 0.0 (0.0-0.2) /100WBC PT (9.9-13.0) SEC INR (0.9-1.1) D-Dimer NG/ML Sodium 142 (135-145) mmol/L Potassium 4.0 (3.3-5.1) mmol/L Chloride 106 (96-108) mmol/L Carbon Dioxide 28 (22-29) mmol/L Anion Gap 12 (12-20) BUN 15 (9-16) mg/dL Creatinine 0.81 (0.5-1.4) mg/dL Estim Creat Clear Calc 86.1 Estimated GFR > 60 Random Glucose 96 (60-115) mg/dL Calcium 9.6 (8.4-10.2) mg/dL Total Bilirubin 0.9 (0.0-1.0) mg/dL AST 37 H (5-31) U/L ALT 67 H (0-31) U/L Alkaline Phosphatase 130 H (39-117) U/L Total Protein 7.6 (6.5-8.0) g/dL Albumin 4.3 (3.5-5.0) g/dL Urine Color YELLOW Urine Appearance CLEAR Urine pH 6.0 (5.0-8.0) Ur Specific Callery 1.020 (1.005-1.025) Urine Protein NEG (NEG-TRACE) MG/DL Urine Glucose (UA) NEG (NEG) MG/DL Urine Ketones NEG (NEG) MG/DL Urine Blood NEG (NEG) Urine Nitrite NEG (NEG) Ur Leukocyte Esterase NEG (NEG) Urine Test (NEGATIVE) 03/15/21 03/15/21 Range/Units 12:25 14:08 WBC (4.8-10.8) X10*3/uL RBC (4.20-5.50) X10*6/uL Hgb (12.0-16.0) g/dl Hct (37.0-47.0) % MCV (80.0-98.0) fL MCH (27.0-33.0) pg MCHC (31.0-35.0) g/dl RDW (11.0-16.0) % Plt Count (160-400) X10*3/uL MPV (9.4-12.3) fL Immature Gran % (Auto) (0.0-0.4) % Neut % (Auto) (45-73) % Lymph % (Auto) (20-40) % Jewell % (Auto) (2-11) % Eos % (Auto) (0-4) % Baso % (Auto) (0-2) % Lymph # (Auto) (1.2-4.9) X10*3/uL Jewell # (Auto) (0.1-1.2) X10*3/uL Eos # (Auto) (0.0-0.4) X10*3/uL Baso # (Auto) (0.0-0.2) X10*3/uL Abs Immat Gran (auto) (0.00-0.03) X10*3/uL Absolute Neuts (auto) (2.0-8.3) x10*3/uL Absolute Nucleated RBC (0.0-0.012) X10*3/uL Nucleated RBC % (auto) (0.0-0.2) /100WBC PT 11.4 (9.9-13.0) SEC INR 1.0 (0.9-1.1) D-Dimer < 200 NG/ML Sodium (135-145) mmol/L Potassium (3.3-5.1) mmol/L Chloride (96-108) mmol/L Carbon Dioxide (22-29) mmol/L Anion Gap (12-20) BUN (9-16) mg/dL Creatinine (0.5-1.4) mg/dL Estim Creat Clear Calc Estimated GFR Random Glucose (60-115) mg/dL Calcium (8.4-10.2) mg/dL Total Bilirubin (0.0-1.0) mg/dL AST (5-31) U/L ALT (0-31) U/L Alkaline Phosphatase (39-117) U/L Total Protein (6.5-8.0) g/dL Albumin (3.5-5.0) g/dL Urine Color Urine Appearance Urine pH (5.0-8.0) Ur Specific Callery (1.005-1.025) Urine Protein (NEG-TRACE) MG/DL Urine Glucose (UA) (NEG) MG/DL Urine Ketones (NEG) MG/DL Urine Blood (NEG) Urine Nitrite (NEG) Ur Leukocyte Esterase (NEG) Urine Test NEGATIVE (NEGATIVE) Imaging Data CT scan - abdomen: Attestation: I personally reviewed and interpreted this imaging study as follows: Radiologist's impression: [address] [address] [address] Scan Report Signed Patient: Jany Welsh I MR#: [id number] : 1975 Acct:[id number] Age/Sex: 45 / F ADM Date: 03/15/21 Loc: .ED Attending Dr: Ordering Physician: Ariadna Blankenship NP Date of Service: 03/15/21 Procedure(s): CT abdomen pelvis wo con Accession Number(s): [id number] cc: Ariadna Blankenship NP~ EXAMINATION: CT ABDOMEN AND PELVIS WITHOUT CONTRAST? CLINICAL INFORMATION: Right-sided flank pain. Recent lap cholecystectomy.? COMPARISON: CT of the abdomen and pelvis done on 01/17/2021.? TECHNIQUE: Multidetector volumetric imaging was performed from the superior aspect of the liver through the pubic symphysis. Sagittal and coronal reformatted images were obtained on the technologist's workstation.? This CT examination was performed using dose optimization techniques as appropriate, variously including the following: *Automated exposure control *Adjustment of mA and/or kV according to patient size (this includes techniques or standardized protocols for targeted exams where dose is matched to indication/reason for exam; i.e. extremities or head) *Use of iterative reconstruction technique DLP: 852 mGy-cm FINDINGS: LUNG BASES: The visualized lung bases are unremarkable.? LIVER, GALLBLADDER, AND BILIARY TREE: Diffuse hepatic hypodensity consistent with hepatic steatosis is present. No superimposed focal liver lesion on this nonenhanced study. The gallbladder is surgically absent. No evidence of any fluid collection within the gallbladder bed. No evidence of any intrahepatic or extrahepatic biliary ductal dilatation.? PANCREAS: Unremarkable.? SPLEEN: Unremarkable.? ADRENAL GLANDS: Unremarkable.? KIDNEYS AND URETERS: The kidneys are normal in size, shape, and attenuation. No hydronephrosis, hydroureter, or calculi seen. No perinephric stranding. ? BLADDER: Unremarkable.? GASTROINTESTINAL TRACT: The small and large bowel are unremarkable. The appendix is unremarkable. ABDOMINAL WALL: No significant hernia is appreciated.? 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 No change. VASCULAR: Unremarkable. PELVIC VISCERA: There is no pelvic mass present. No evidence of any free fluid and/or free air.? OSSEOUS STRUCTURES: No suspicious focal lesion.? CT/CT abdomen pelvis wo con IMPRESSION: ? 1. Surgically absent gallbladder the prior study dated 01/17/2021. No CT evidence of any fluid collection at the gallbladder bed or biliary ductal dilatation identified. 2. Diffuse hepatic steatosis. 3. Morphologically normal-appearing appendix. 4. Hazy appearance of the small bowel mesentery associated with subcentimeter lymph nodes, unchanged 01/17/2021. Discharge Plan Discharge Clinical Impression: Strain of lumbar region Patient Disposition: Home, Self-Care Instructions: Acute Low Back Pain (ED) Additional Instructions: heat to area gentle stretching no heavy lifting or bending Prescriptions: New lidocaine [Lidoderm] 5 % adhesive patch,medicated 1 patch topical DAILY Qty: 15 RF: 0 ibuprofen 600 mg tablet 600 mg PO Q8H PRN (Reason: pain) Qty: 20 RF: 0 cyclobenzaprine 10 mg tablet 10 mg PO TID PRN (Reason: muscle spasm) Qty: 10 RF: 0 No Action docusate sodium [Colace] 100 mg capsule 100 mg PO DAILY Qty: 60 RF: 0 Metamucil (with sugar) 3.4 gram/12 gram powder 1 tbsp PO DAILY Qty: 575 RF: 0 oxycodone-acetaminophen [Percocet] 5-325 mg tablet 1 tab PO TID PRN (Reason: pain) Qty: 20 RF: 0 oxycodone-acetaminophen [Percocet] 5-325 mg tablet 1 tab PO Q4-6H PRN (Reason: pain) Qty: 30 RF: 0 ibuprofen 600 mg tablet 600 mg PO Q6H PRN (Reason: pain) Qty: 30 RF: 0 Calmoseptine 0.44-20.6 % ointment 1 appl topical QID PRN (Reason: skin irritation) Qty: 71 RF: 0 hydrocortisone [Anusol-HC] 2.5 % cream with perineal applicator 1 appl ND BID-QID PRN (Reason: hemorrhoids) Qty: 30 RF: 0 Referrals: Libby Redd MD [Primary Care Provider] - 2 days Interventions: ED Discharge Assessment Last Done: 03/15/21 16:37 Discharge Date/Time: 03/15/21 16:40
[2021-03-15] MEDS: Ketorolac Tromethamine 15 MG/ML VIAL 30 MG IVPUSH (14:13)
[2021-03-15 14:18] VITALS: BP 139/78; PULSE 80; RESP 18; TEMP 37.2; O2SAT 97
[2021-03-15 14:23] LABS: Prothrombin Time 11.4 SEC (9.9-13.0)
[2021-03-15 14:37] LABS: D Dimer < 200 NG/ML
[2021-03-15 15:05] LABS: UPreg QC Valid YES
[2021-03-15 15:06] LABS: Urine Pregnancy NEGATIVE (NEGATIVE)
[2021-03-15 16:21] VITALS: BP 146/87; PULSE 57; RESP 20; TEMP 36.6; O2SAT 94
== END 2021-03-15 16:40 | disposition home or self-care (01) ==
PROVIDERS: Nurse Practitioner Family; Emergency Provider Emergency Medicine; PCP Family Medicine
DX: S39.012A Strain of muscle, fascia and tendon of lower back, initial encounter (principal); R10.9 Unspecified abdominal pain; X58.XXXA Exposure to other specified factors, initial encounter; Y93.9 Activity, unspecified; Y92.9 Unspecified place or not applicable; Y99.9 Unspecified external cause status
CPT/HCPCS: 36415; 74176; 80053; 81003; 81025; 85025; 85379; 85610; 96374; 99284; J1885

== ENCOUNTER 2021-10-04 07:34 | Outpatient (REF) | payer MEDICAID, SELFPAY ==
[2021-10-04 08:51] LABS: MANUAL DIFF FLAG NO
[2021-10-04 09:44] LABS: Basophils Absolute Auto 0.1 X10*3/uL (0.0-0.2); Basophils Percent Auto 0.5 % (0-2); Eosinophils Absolute Auto 0.4 X10*3/uL (0.0-0.4); Eosinophils Percent Auto 4.2 % (0-4); Hematocrit 42.1 % (37.0-47.0); Hemoglobin 13.4 g/dl (12.0-16.0); Imm Gran Abs Auto 0.04 X10*3/uL (0.00-0.03); Imm Gran Pct Auto 0.4 % (0.0-0.4); Lymphocytes Absolute Auto 2.5 X10*3/uL (1.2-4.9); Lymphocytes Percent Auto 24.7 % (20-40); Mean Corpuscular HGB Conc 31.8 g/dl (31.0-35.0); Mean Corpuscular Hemoglobin 28.3 pg (27.0-33.0); Mean Corpuscular Volume 88.8 fL (80.0-98.0); Monocytes Absolute Auto 0.7 X10*3/uL (0.1-1.2); Monocytes Percent Auto 6.6 % (2-11); Neutrophils Absolute Auto 6.4 x10*3/uL (2.0-8.3); Neutrophils Percent Auto 63.6 % (45-73); Platelet Count 240 X10*3/uL (160-400); Red Blood Count 4.74 X10*6/uL (4.20-5.50); Red Cell Distribution Width 14.4 % (11.0-16.0); White Blood Count 10.1 X10*3/uL (4.8-10.8)
[2021-10-04 10:37] LABS: Alanine Aminotransferase 85 U/L (0-31); Albumin Level 3.9 g/dL (3.5-5.0); Alkaline Phosphatase 140 U/L (39-117); Anion Gap 13 (12-20); Aspartate Amino Transferase 48 U/L (5-31); Bilirubin Total 1.1 mg/dL (0.0-1.0); Blood Urea Nitrogen 17 mg/dL (9-16); C Reactive Protein 2.32 mg/dL (< or = 0.50); Calcium 9.4 mg/dL (8.4-10.2); Carbon Dioxide 26 mmol/L (22-29); Chloride 105 mmol/L (96-108); Erythrocyte Sedimentation Rate 39 MM/HR (0-20); Estimated Glomerular Filt Rate > 60; Glucose Random 182 mg/dL (60-115); Potassium 4.9 mmol/L (3.3-5.1); Sodium 139 mmol/L (135-145); Total Protein 7.2 g/dL (6.5-8.0)
[2021-10-04 10:39] LABS: Thyroid Stimulating Hormone 1.47 uIU/mL (0.32-4.0)
== END 2021-10-04 07:35 | disposition home or self-care (01) ==
LOC: HO.LAB 07:34
PROVIDERS: PCP Registered Nurse Community Health; Referring Provider Registered Nurse Community Health; Visit Provider Physician Assistant
DX: K64.4 Residual hemorrhoidal skin tags (principal); K59.09 Other constipation; K64.8 Other hemorrhoids; K21.9 Gastro-esophageal reflux disease without esophagitis; R10.9 Unspecified abdominal pain
CPT/HCPCS: 36415; 80053; 84443; 85025; 85652; 86140; 99202

== ENCOUNTER 2021-11-13 11:11 | Outpatient (REF) | payer MEDICAID, SELFPAY ==
--- NOTE | ~2021-11-13 | US_ITS ---
EXAMINATION: US COMPLETE ABDOMEN WITH LIVER ELASTOGRAPHY CLINICAL INFORMATION: Abdominal pain. Acute hepatic steatosis COMPARISON: Previous abdominal ultrasound December [address] of the abdomen and pelvis March 2021 TECHNIQUE: Real-time imaging of the abdominal viscera. Noninvasive ultrasound liver fibrosis assessment is performed using Catherine ElastPQ point quantification shear wave elastography (2D-SWE) with a C5-2 MHz transducer. Multiple elastography samples are obtained. FINDINGS: PANCREAS: Normal. ABDOMINAL AORTA: The proximal, middle, and distal aortic segments are normal in caliber. INFERIOR VENA CAVA: Visualized portions are normal. LIVER: Liver echotexture is increased. Liver size and contour is normal. No focal lesion or intrahepatic biliary duct dilatation. The right lobe measures 17 cm in length. The left lobe measures 10 cm in length. Portal flow is normal/hepatopedal Shear wave liver elastography median stiffness is 1.4 m/s (reference: normal median stiffness is 1.3 m/s or less). IQR/median stiffness to assess sampling precision is 0.08 (reference: good quality data set is IQR/median stiffness of 0.15 or less). GALLBLADDER: Surgically removed. COMMON BILE DUCT: Normal in caliber measuring 0.3 cm in diameter. RIGHT KIDNEY: There is a 1.1 x 0.9 x 1.4 cm simple cyst in the upper pole. No hydronephrosis. No renal calculi or focal parenchymal lesions. The kidney measures 10.6 cm in maximum dimension. LEFT KIDNEY: Normal. No hydronephrosis. No renal calculi or focal parenchymal lesions. The kidney measures 10.4 cm in maximum dimension. SPLEEN: Normal. The spleen measures 11.2 cm in maximum dimension. FREE FLUID: None. US/US abdomen comp w elastography IMPRESSION: 1. Impression: Echogenic liver probably representing fatty infiltration. Small right renal cyst. 2. Liver elastography: Adequate liver sampling. In the absence of other known clinical signs, rules out compensated advanced chronic liver disease. REFERENCE: Society of Radiologists in Ultrasound Liver Stiffness Thresholds (2020): LIVER STIFFNESS THRESHOLDS: *Liver Stiffness equal or less than 1.3 m/s: High probability of being normal. *Liver Stiffness less than 1.7 m/s: In the absence of other known clinical signs, rules out compensated advanced chronic liver disease. *Liver Stiffness 1.7-2.1 m/s: Suggestive of compensated advanced chronic liver disease but need further test for confirmation. *Liver Stiffness over 2.1 m/s: Rules in compensated advanced chronic liver disease. *Liver Stiffness over 2.4 m/s: Suggestive of clinically significant portal hypertension. QUALITY OF DATA SET: *IQR/Median value equal or less than 0.15 implies a quality data set. *IQR/Median value over 0.15 implies a poor quality data set. SIGNIFICANT CHANGE FROM PRIOR EXAM: Significant change if liver stiffness measurement is 10% or greater from prior exam. OTHER CONSIDERATIONS: The stage of liver fibrosis may be overestimated in the setting of acute hepatitis, liver inflammation, elevated liver function tests, hepatic vascular congestion, obstructive cholestasis, non-fasting state, and infiltrative diseases such as amyloidosis and lymphoma. In some patients with NAFLD, the liver stiffness thresholds for compensated advanced chronic liver disease may be lower. In causes other than viral hepatitis and NAFLD, liver stiffness thresholds are not well established.
== END 2021-11-13 11:12 | disposition home or self-care (01) ==
LOC: HO.US 11:11
PROVIDERS: Visit Provider Physician Assistant
DX: R10.9 Unspecified abdominal pain (principal); K76.0 Fatty (change of) liver, not elsewhere classified
CPT/HCPCS: 76705; 76981

== ENCOUNTER → 2021-11-22 11:23 | Outpatient (BNVA) | payer MEDICAID, SELFPAY | PROVIDERS: PCP Registered Nurse Community Health; Referring Provider Registered Nurse Community Health; Visit Provider Physician Assistant | DX: Z01.818 Encounter for other preprocedural examination (principal); K76.0 Fatty (change of) liver, not elsewhere classified; R10.9 Unspecified abdominal pain; K21.9 Gastro-esophageal reflux disease without esophagitis; K59.09 Other constipation; R79.82 Elevated C-reactive protein (CRP); R74.8 Abnormal levels of other serum enzymes | CPT/HCPCS: 99212 ==

== ENCOUNTER → 2022-05-15 13:41 | Outpatient (BNVA) | payer MEDICAID, SELFPAY | PROVIDERS: PCP Registered Nurse Community Health; Visit Provider Surgery | DX: L29.0 Pruritus ani (principal) | CPT/HCPCS: 99212 ==

== ENCOUNTER 2022-06-26 10:12 | Day surgery (SDC) | payer MEDICAID, SELFPAY ==
[2022-06-26 10:36] VITALS: BMI 37.0
--- NOTE | 2022-06-26 11:17 | MHC.SHP ---
Pre-Procedural Eval Section A Date of Service: 06/26/22 Section B Chief Complaint: reflux disease,constipation,abdominal pain, Relevant Family History (Specify if Yes): No Relevant Social History: None Present Medications: see Short Stay Collaborative assessment Medical History: Significant History (Gallstones Internal and external bleeding hemorrhoids Left sided abdominal pain Morbid obesity Pruritus ani) History of Previous Operations: Relevant previous surgery/procedure and date(s) (History of laparoscopic cholecystectomy History of tubal ligation) Allergies: Allergies Allergy/AdvReac Type Severity Reaction Status Date / Time No Known Allergies Allergy Verified 05/15/22 13:48 Review of Systems Sugical H&P ROS: Negative: Constitution, Cardiovascular, Respiratory, Neurological, Psychiatric, Hem-Onc, Allergic/Immunologic, Gastrointestinal, Genitourinary, Musculoskeletal, Integumentary, Endocrine and Eyes/Ears/Nose/Throat Exam Surgical H&P Exam: Normal: HEENT, Normal: Heart, Normal: Lungs, Normal: Extremities, Normal: Abdomen, Normal: Skin and Normal: Neurological Plan Diagnosis/Plan: Unchanged I have reviewed the history and physical and performed a pertinent physical examination on my patient. No changes have occurred unless specified. Time Spent With Patient Time: Total time managing care of this patient today ____ minutes.
[2022-06-26 11:41] VITALS: BP 114/70; PULSE 62; RESP 18; TEMP 36.4; O2SAT 98
--- NOTE | 2022-06-26 11:57 | HO.ANESPROP2 ---
HPI - Anesthesia Eval Consult details Narrative: 47 yo female patient for EGD, Colonoscopy PMF Active Problems Active Problems: All Active Problems (Updated 11/22/21 @ 13:53 by Bibi Mcclain PA-C) Elevated C-reactive protein (CRP) (Acute) Elevated liver enzymes (Acute) NAFLD (nonalcoholic fatty liver disease) (Acute) Abdominal pain (Acute) Chronic GERD (Acute) Encounter for screening colonoscopy (Acute) Chronic constipation (Acute) Morbid obesity (Acute) Gallstones (Acute) Left sided abdominal pain (Acute) Pruritus ani (Acute) Internal and external bleeding hemorrhoids (Acute) Past Medical History Medical History Gallstones Internal and external bleeding hemorrhoids Left sided abdominal pain Morbid obesity Pruritus ani Family History Family History Father No problems noted. Sister Breast tumor Sister Pancreatic cancer Family history of problems with anesthesia: No Surgical History Surgical History History of laparoscopic cholecystectomy History of tubal ligation History of Problems with Anesthesia: No Social History Social History Household Members: Spouse Alcohol intake: never Patient Tobacco Use Status: Never used Tobacco Use of substances other than those prescribed or required for medical reasons: No Are you DNR?: No Advance Directives: No Advance Directives Information Provided: Yes Meds Allergies Allergy/AdvReac Type Severity Reaction Status Date / Time No Known Allergies Allergy Verified 05/15/22 13:48 Home Medications Medication Instructions Recorded Confirmed Last Taken Type omeprazole 20 mg capsule,delayed 20 mg PO DAILY 10/04/21 05/15/22 Unknown History release polyethylene glycol 3350 17 17 g PO DAILY 10/04/21 05/15/22 Unknown History gram/dose oral powder (Miralax) Exam Exam Date and Time: June 26, 2022 1157 Height,Weight and Vital Signs: Height 5 ft Weight 86.183 kg Last Vital Signs Temp 97.5 F 06/26/22 11:41 Pulse 62 06/26/22 11:41 Resp 18 06/26/22 11:41 BP 114/70 06/26/22 11:41 Pulse Ox 98 06/26/22 11:41 O2 Del Method 06/26/22 11:41 Airway Mallampati Class: II TM Dist: >3cm Neck ROM: Full Loose/Missing/Broken Teeth: No (Denies broken, loose, missing teeth) Heart: RRR Lungs: CTAB Assessment and Plan Final Anesthetic Review Family History of Problems with Anesthesia: No History of Problems with Anesthesia: No Final Preanesthetic Review: No Changes in Pt Med Stat, Meds/Allgs Chart Reviewed, Consent Obtained/Reviewed and Anes Risks/Benef Reviewed Patient Risk: Low Procedure Risk: Low Assessment/Block/Sedation in SS: Assess/Block/Sedation-SS Anesthetic Plan Anesthetic Plan: MAC: Disposition: Standard PACU
--- NOTE | 2022-06-26 12:22 | W.PM.OPN ---
Operative Note Operative Note Date of Service: 06/26/22 Narrative: Operative Information Procedure Description: EGD, Colonoscopy Indication: reflux disease,constipation,abdominal pain, Anesthesia: MAC FLEXIBLE TRANSORAL UPPER GASTROINTESTINAL ENDOSCOPY AND COLONOSCOPY PROCEDURE NOTE UPPER ENDOSCOPY Consent: Indications for the procedure and potential complications of bleeding, perforation, reaction to medications and missed diagnosis were discussed with the patient and informed consent was obtained. Instrument: Olympus GIF H 190 J mid size upper endoscope Monitoring: Vital signs and clinical assessment, continuous EKG monitoring, Pulse oximetry, Carbon Dioxide monitoring and blood pressure monitoring were done throughout the procedure. Procedure: The patient was placed in the left lateral decubitis position and pre-procedure medications were administered and a bite block was placed. The endoscope was inserted into the mouth and advanced under direct vision to the third part of duodenum. A careful inspection was made as the upper endoscope was withdrawn including a retroflexed examination of the proximal stomach; Findings and interventions are described below. Findings: Larynx:normal Esophagus: GE junction at 38 cm, diaphragm hiatus at 38 cm, mild erythema at GEJ bx taken from here and distal esophagus in separate jars --lax LES Stomach: Patchy erythema. Biopsies were obtained. Grade 3 flap valve on retroflexed examination of the cardia. Duodenum: Normal bulb and descending duodenum, bx taken Intervention: Biopsies as noted above COLONOSCOPY Instrument: Olympus variable stiffness pediatric scope 190L Colonoscopy Monitoring: Vital signs and clinical assessment, continuous EKG monitoring, Pulse oximetry, Carbon Dioxide monitoring and blood pressure monitoring were done throughout the procedure. Colon withdrawal time was 14 minutes. Procedure: The patient was placed in the left lateral decubitis position and pre-procedure medications were administered. After a digital rectal examination of the ano-rectum, the video colonoscope was inserted into the rectum and advanced through the colon to the cecum/TI. The colonoscope was slowly withdrawn in a retrograde panoramic fashion and the colon mucosa was carefully examined including a retroflexed view of the rectum. Findings and interventions are described below. Procedure Difficulty: easy Findings: Terminal Ileum-normal, bx taken Random colon bx taken lack of colonic movement noted Cecum:normal Ascending Colon: normal Transverse Colon -normal Descending Colon:normal Sigmoid Colon: normal Rectum: Retroflexion with small internal hemorrhoids, grade I--Rectal biopsies taken with hot and cold snare to check for ganglion cells Anorectum - normal Colon preparation: Prescott Bowel Preparation Scale Right colon; 1 Transverse colon: 1-2 Left colon; 2 (0 = Unprepared colon segment with mucosa not seen due to solid stool that cannot be cleared. 1 = Portion of mucosa of the colon segment seen, but other areas of the colon segment not well seen due to staining, residual stool and/or opaque liquid. 2 = Minor amount of residual staining, small fragments of stool and/or opaque liquid, but mucosa of colon segment seen well. 3 = Entire mucosa of colon segment seen well with no residual staining, small fragments of stool or opaque liquid) Impression and Post Procedure Diagnosis: Endoscopy Findings: gastritis esophagitis incompetent LES Colonoscopy Findings: internal hemorrhoids with skin tags colonic inertia Plan: Await Pathology results Repeat Colonoscopy in 1-2 years or earlier if clinically indicated, next time might use reglan with prep or motegrity High fiber diet leaflet avoid straining at stool, epsom salts and sitz bath, anusol supps or cream if h pylori pos then treat Above findings were reviewed with the patient and relevant handouts were provided if indicated.
[2022-06-26 13:25] VITALS: BP 98/47; PULSE 56; RESP 12; TEMP 36.2; O2SAT 100
[2022-06-26 13:40] VITALS: BP 111/58; PULSE 58; RESP 16; TEMP 36.1; O2SAT 100
[2022-06-26 13:55] VITALS: BP 117/59; PULSE 52; RESP 16; TEMP 36.4; O2SAT 100
== END 2022-06-26 14:42 | disposition home or self-care (01) ==
PROVIDERS: PCP Nurse Practitioner Family; Visit Provider Internal Medicine Gastroenterology
PROC: (CPT 45385; principal; 2022-06-26 11:40)
DX: R10.9 Unspecified abdominal pain (principal); K59.01 Slow transit constipation; K64.0 First degree hemorrhoids; K64.4 Residual hemorrhoidal skin tags; L29.0 Pruritus ani; K21.9 Gastro-esophageal reflux disease without esophagitis; K29.50 Unspecified chronic gastritis without bleeding; K22.4 Dyskinesia of esophagus; K20.80 Other esophagitis without bleeding; K44.9 Diaphragmatic hernia without obstruction or gangrene; E66.01 Morbid (severe) obesity due to excess calories; Z68.39 Body mass index [BMI] 39.0-39.9, adult; K80.20 Calculus of gallbladder without cholecystitis without obstruction
CPT/HCPCS: 45385; 45380; 43239; 88305; 88342

== ENCOUNTER → 2022-07-11 09:30 | Outpatient (BNVA) | payer MEDICAID, SELFPAY | PROVIDERS: PCP General Practice; Visit Provider Physician Assistant | DX: K21.9 Gastro-esophageal reflux disease without esophagitis (principal); K59.09 Other constipation; K64.8 Other hemorrhoids | CPT/HCPCS: 99212 ==

== ENCOUNTER 2022-07-18 10:45 | Outpatient (RCR) | payer MEDICAID, SELFPAY | END 2022-07-25 11:21 | disposition home or self-care (01) | LOC: HO.PT 10:45 | PROVIDERS: PCP General Practice; Visit Provider General Practice | DX: M54.41 Lumbago with sciatica, right side (principal) | CPT/HCPCS: 97112; 97162 ==

== ENCOUNTER 2022-08-07 08:03 | Outpatient (REF) | payer MEDICAID, SELFPAY | END 2022-08-07 08:04 | disposition home or self-care (01) | LOC: HO.LNP 08:03 | PROVIDERS: PCP General Practice; Referring Provider General Practice; Visit Provider Physician Assistant | DX: A04.8 Other specified bacterial intestinal infections (principal) | CPT/HCPCS: 83013; 99211 ==

== ENCOUNTER 2022-08-22 09:25 | Outpatient (REF) | payer MEDICAID, SELFPAY ==
[2022-08-22 10:34] LABS: MANUAL DIFF FLAG NO
[2022-08-22 10:56] LABS: Basophils Percent Auto 0.5 % (0-2); Eosinophils Absolute Auto 0.4 X10*3/uL (0.0-0.4); Eosinophils Percent Auto 5.2 % (0-4); Hematocrit 43.5 % (37.0-47.0); Imm Gran Abs Auto 0.02 X10*3/uL (0.00-0.03); Imm Gran Pct Auto 0.3 % (0.0-0.4); Lymphocytes Absolute Auto 2.1 X10*3/uL (1.2-4.9); Lymphocytes Percent Auto 26.5 % (20-40); Mean Corpuscular HGB Conc 32.2 g/dl (31.0-35.0); Mean Corpuscular Hemoglobin 28.5 pg (27.0-33.0); Mean Corpuscular Volume 88.4 fL (80.0-98.0); Mean Platelet Volume 10.5 fL (9.4-12.3); Monocytes Absolute Auto 0.5 X10*3/uL (0.1-1.2); Monocytes Percent Auto 6.2 % (2-11); Neutrophils Absolute Auto 4.8 x10*3/uL (2.0-8.3); Neutrophils Percent Auto 61.3 % (45-73); Platelet Count 241 X10*3/uL (160-400); Red Blood Count 4.92 X10*6/uL (4.20-5.50); Red Cell Distribution Width 14.1 % (11.0-16.0); White Blood Count 7.9 X10*3/uL (4.8-10.8)
[2022-08-22 11:36] LABS: Alanine Aminotransferase 67 U/L (0-31); Albumin Level 4.1 g/dL (3.5-5.0); Alkaline Phosphatase 145 U/L (39-117); Anion Gap 11 (12-20); Aspartate Amino Transferase 41 U/L (5-31); Bilirubin Total 1.4 mg/dL (0.0-1.0); Blood Urea Nitrogen 13 mg/dL (9-16); C Reactive Protein 1.25 mg/dL (< or = 0.50); Calcium 9.3 mg/dL (8.4-10.2); Carbon Dioxide 28 mmol/L (22-29); Chloride 104 mmol/L (96-108); Cholesterol 160 mg/dL; Estimated Glomerular Filt Rate > 60; Glucose Random 156 mg/dL (60-115); HDL Cholesterol 31 mg/dL; LDL Cholesterol Calculated 115 mg/dl; Potassium 4.4 mmol/L (3.3-5.1); Sodium 139 mmol/L (135-145); Total Protein 6.8 g/dL (6.5-8.0); Triglycerides 72 mg/dL
[2022-08-22 11:43] LABS: Thyroid Stimulating Hormone 1.44 uIU/mL (0.32-4.0)
[2022-08-22 11:45] LABS: Erythrocyte Sedimentation Rate 20 MM/HR (0-20)
[2022-08-23 04:26] LABS: HBS Num1 0.45 mIU/mL (0-7.99); HBc Num1 0.14 S/CO (0.00-0.79); HBsAGNum1 0.46 S/CO (0.00-0.99); Hepatitis A Antibody IgM 0.23 Index (0-0.79); Hepatitis B Core Antibody Nonreactive (Nonreactive); Hepatitis B Surface Antigen Negative (Negative); ~HepC Num1 0.54 S/CO (0.00-0.79); ~Hepatitis A Antibody IgM Nonreactive (Nonreactive); ~Hepatitis B Surface Antibody NONREACTIVE (Nonreactive); ~Hepatitis C Antibody Nonreactive (Nonreactive)
[2022-08-26 13:23] LABS: Alpha 1 Anti-trypsin 153 mg/dL (83-199); Ceruloplasmin 30 mg/dL (18-53)
[2022-08-27 12:24] LABS: Anti Nuclear Antibody Screen NEGATIVE (NEGATIVE)
[2022-08-28 14:14] LABS: Mitochondrial Antibodies NEGATIVE (NEGATIVE)
[2022-08-29 14:18] LABS: Smooth Muscle Antibody 22 U (<20)
== END 2022-08-22 09:26 | disposition home or self-care (01) ==
LOC: HO.LAB 09:25
PROVIDERS: PCP General Practice; Visit Provider Physician Assistant
DX: R10.9 Unspecified abdominal pain (principal); K76.0 Fatty (change of) liver, not elsewhere classified; R74.8 Abnormal levels of other serum enzymes; R79.89 Other specified abnormal findings of blood chemistry; K59.09 Other constipation; K58.9 Irritable bowel syndrome, unspecified; R74.01 Elevation of levels of liver transaminase levels; R79.82 Elevated C-reactive protein (CRP); K21.9 Gastro-esophageal reflux disease without esophagitis
CPT/HCPCS: 36415; 80053; 80061; 82103; 82390; 84443; 85025; 85652; 86015; 86038; 86039; 86140; 86255; 86256; 86704; 86706; 86709; 86803; 87340; 99212

== ENCOUNTER 2022-09-11 09:09 | Outpatient (REF) | payer MEDICAID, SELFPAY ==
--- NOTE | ~2022-09-11 | US_ITS ---
EXAMINATION: US ABDOMEN COMPLETE CLINICAL INFORMATION: Unspecified abdominal pain. COMPARISON: Ultrasound abdomen complete 11/13/2021 and 12/19/2020. CT abdomen and pelvis 03/15/2021. TECHNIQUE: Real-time imaging of the abdominal viscera. FINDINGS: PANCREAS: Normal. ABDOMINAL AORTA: The proximal, mid, and distal segments are normal in caliber. INFERIOR VENA CAVA: Visualized portions are normal. LIVER: The liver is normal in size. The liver contour is normal. There is increased liver echogenicity. No focal hepatic lesion. There is no intrahepatic biliary duct dilatation seen. GALLBLADDER: Surgically absent. COMMON BILE DUCT: Normal in caliber measuring 0.4 cm in diameter. RIGHT KIDNEY: There is an anechoic cyst in the upper pole measuring 1.1 x 0.8 x 1.0 cm. No hydronephrosis or renal calculi. The kidney measures 10.0 cm in maximum dimension. LEFT KIDNEY: Normal. No hydronephrosis. No renal calculi or focal parenchymal lesions. The kidney measures 11.0 cm in maximum dimension. SPLEEN: Normal. The spleen measures 10.5 cm in maximum dimension. FREE FLUID: None. US/US abdomen complete IMPRESSION: 1. Anechoic cyst upper pole right kidney. 2. The rest of the abdominal ultrasound is unremarkable.
== END 2022-09-11 09:10 | disposition home or self-care (01) ==
LOC: HO.US 09:09
PROVIDERS: PCP General Practice; Visit Provider Physician Assistant
DX: R10.9 Unspecified abdominal pain (principal); R74.8 Abnormal levels of other serum enzymes; R74.01 Elevation of levels of liver transaminase levels
CPT/HCPCS: 76700

== ENCOUNTER 2022-11-11 12:41 | Outpatient (REF) | payer MEDICAID, SELFPAY ==
[2022-11-13 02:21] LABS: Syphilis Screen Nonreactive (Nonreactive)
== END 2022-11-11 12:42 | disposition home or self-care (01) ==
LOC: HO.HHCL 12:41
PROVIDERS: Visit Provider Emergency Medicine
DX: R21 Rash and other nonspecific skin eruption (principal)
CPT/HCPCS: 36415; 86780

== ENCOUNTER 2022-11-20 09:51 | Outpatient (AMB) | payer MEDICAID, SELFPAY ==
--- NOTE | 2022-11-20 10:03 | A.OFFVIS_ITS ---
Intake Vital Signs 11/20/22 10:10 Height 5 ft Weight 192 lb BMI 37.5 BP 135/68 Blood Pressure Location Lt brachial Position Sitting Pulse 59 Intake Visit Reasons: f/u labs Intake Note: Patient follow up for abdominal pain, lab and US. Patient cc: Nauseas, abdominal pain, bloating, GERD, and Constipation. Multimedia Instructional Designer Required: Yes Multimedia Instructional Designer Name: Sayra [facility] interpeter Accompanied by: Self / Same As Patient Allergies No Known Allergies Allergy (Verified 11/20/22 10:03) Medication List - Last Reconciled 11/20/22 by Bibi Mcclain PA-C bisacodyl (Dulcolax (bisacodyl)) 10 mg WI DAILY PRN cyclobenzaprine 10 mg PO TID PRN docusate sodium (Colace) 100 mg PO DAILY ibuprofen 600 mg PO Q8H PRN pantoprazole 40 mg (2 x 20 mg) PO ONCE 30 days HPI HPI Comments History of Present Illness Details 47-year-old very anxious female follows up with elevated liver enzymes- is present She admits she is very anxious- Reviewed labs ASMA22 ( n-20) Elevation liver enzymes and bilirubin No nausea, vomiting fever or chills PFSH Medical History (Updated 11/20/22 @ 13:49 by Bibi Mcclain PA-C) Gallstones Internal and external bleeding hemorrhoids Left sided abdominal pain Morbid obesity Pruritus ani Surgical History History of esophagogastroduodenoscopy (EGD) History of laparoscopic cholecystectomy History of tubal ligation Hx of colonoscopy Family History Father No problems noted. Sister Breast tumor Sister Pancreatic cancer Social History Household Members: Spouse Alcohol intake: never Patient Tobacco Use Status: Never used Tobacco Review of Systems Const All systems reviewed & are unremarkable except as noted in HPI and below Card Denies chest pain and Denies dyspnea Resp Denies dyspnea GI Reports abdominal pain (Diffuse nonspecific), Denies change in bowel habits, Denies nausea and Denies vomiting Psych Reports anxiety Physical Exam Vital Signs: Last Vital Signs Pulse 59 11/20/22 10:10 BP 135/68 11/20/22 10:10 BMI result Body Mass Index 37.5 Const General: cooperative, healthy appearing, comfortable and no acute distress Orientation/consciousness: patient oriented x3 Limitations: language barrier Eyes Sclerae: sclerae normal Resp Effort & Inspection: normal respiratory effort and able to speak in complete sentences Skin General skin exam: no rashes or lesions noted Neuro General: patient oriented x3 Extrem General: Yes full ROM Psych Appearance: grossly normal and well kempt Mental Status: mental status grossly normal Speech and movement: Normal speech and movement present Affect: Animated affect present and Anxious affect present Attitude: cooperative Thought content: Normal thought content present Results Reviewed Results Reviewed: ddendum Addendum #1 (B):? Repeat H pylori immunostain is negative with appropriate control. Electronically Signed By: Roslyn Mi ? 07/01/22 7614 Diagnosis A.? Duodenum, biopsy:? duodenal mucosa with preserved villi and no specific change. B.? Stomach, biopsy:? Gastric body mucosa with chronic gastritis with moderate activity; negative for H. pylori (repeat stain pending), intestinal metaplasia and dysplasia (see comment). C.? Gastro-esophageal junction, biopsy:? Squamous mucosa with hyperplasia and rare intraepithelial eosinophil (up to 1 per high power field) compatible with reflux, and columnar mucosa with mild chronic active inflammation; negative for intestinal metaplasia and dysplasia. D.? Esophagus, distal, biopsy:? Squamous mucosa with no specific change; no columnar mucosa present. E.? Terminal ileum, biopsy:? Ileal mucosa with no specific change. F.? Colon, random, biopsy:? Colonic mucosa with reactive lymphoid follicles and no specific change; no evidence of microscopic colitis, and one fragment of normal ileal mucosa. G.? Colon, rectum, biopsy:? Colonic mucosa with lymphoid aggregates, lamina propria hemorrhage, and easily identifiable ganglion cells; no evidence for Hirschprung's disease. Comment: (B):? H. pylori immunostain will be repeated; addendum to follow. 11/2021- GALLBLADDER: Surgically removed. COMMON BILE DUCT: Normal in caliber measuring 0.3 cm in diameter. RIGHT KIDNEY: There is a 1.1 x 0.9 x 1.4 cm simple cyst in the upper pole. No hydronephrosis. No renal calculi or focal parenchymal lesions. The kidney measures 10.6 cm in maximum dimension. LEFT KIDNEY: Normal. No hydronephrosis. No renal calculi or focal parenchymal lesions. The kidney measures 10.4 cm in maximum dimension. SPLEEN: Normal. The spleen measures 11.2 cm in maximum dimension. FREE FLUID: None.? US/US abdomen comp w elastography IMPRESSION: 1. Impression: Echogenic liver probably representing fatty infiltration. Small right renal cyst. ? 2. Liver elastography:? Adequate liver sampling.? In the absence of other known clinical signs, rules out compensated advanced chronic liver disease. ? ? REFERENCE: Society of Radiologists in Ultrasound Liver Stiffness Thresholds (2019): US/US abdomen complete IMPRESSION: ? 1.? Anechoic cyst upper pole right kidney. ? 2.? The rest of the abdominal ultrasound is unremarkable. ASMA 22- ? Assessment & Plan Assessment & Plan (1) Elevated liver enzymes: Comment: Elevated liver enzymes minimally elevated ASMA-cont w/u-R/o AIH- Hep B surface antibodies negative candidate for hepatitis-B vaccine ASMA-pos JENNYFER neg Code(s): R74.8 - Abnormal levels of other serum enzymes (2) Chronic GERD: Comment: continue pantoprazole to 40 mg daily reflux precautions-avoid culprits Code(s): K21.9 - Gastro-esophageal reflux disease without esophagitis (3) Chronic constipation: Comment: Improved-consistent with bowel regimen- Continue cream for hemorrhoids Code(s): K59.09 - Other constipation Orders: Orders Liver Panel 4 Weeks R10.11 - Right upper quadrant pain Smooth Muscle Antibody 4 Weeks R74.8 - Abnormal levels of other serum enzymes Patient Instructions: Will follow back in day Dr. Kaye available for consult Repeat liver enzymes before next visit Continue bowel regimen Continue usual medications Encouraged to call with any questions or concerns Multimedia Instructional Designer present-opportunity for questions answered to her satisfaction- Reassured Coding Level of Care Code Est Pt Level 4 (04493) Diagnoses Elevated liver enzymes R74.8 Chronic GERD K21.9 Chronic constipation K59.09 Time Spent (min) 30 Comment interactive web developer-Sayra
[2022-11-20 10:10] VITALS: BP 135/68; PULSE 59; BMI 37.5
== END 2022-11-20 10:58 | disposition home or self-care (01) ==
PROVIDERS: PCP General Practice; Visit Provider Physician Assistant
DX: R74.8 Abnormal levels of other serum enzymes (principal); K21.9 Gastro-esophageal reflux disease without esophagitis; K59.09 Other constipation
CPT/HCPCS: 99214

== ENCOUNTER → 2022-11-20 09:51 | Outpatient (BNVA) | payer MEDICAID, SELFPAY | PROVIDERS: PCP General Practice; Visit Provider Physician Assistant | DX: R74.8 Abnormal levels of other serum enzymes (principal); K21.9 Gastro-esophageal reflux disease without esophagitis; K59.09 Other constipation | CPT/HCPCS: 99214 ==

== ENCOUNTER 2023-01-10 09:40 | Outpatient (REF) | payer MEDICAID, SELFPAY ==
[2023-01-10 14:48] LABS: MANUAL DIFF FLAG NO
[2023-01-10 14:58] LABS: Basophils Absolute Auto 0.1 X10*3/uL (0.0-0.2); Basophils Percent Auto 0.5 % (0-2); Eosinophils Absolute Auto 0.4 X10*3/uL (0.0-0.4); Eosinophils Percent Auto 3.3 % (0-4); Imm Gran Abs Auto 0.04 X10*3/uL (0.00-0.03); Imm Gran Pct Auto 0.4 % (0.0-0.4); Lymphocytes Absolute Auto 1.6 X10*3/uL (1.2-4.9); Lymphocytes Percent Auto 15.5 % (20-40); Mean Corpuscular HGB Conc 31.8 g/dl (31.0-35.0); Mean Corpuscular Hemoglobin 28.3 pg (27.0-33.0); Mean Corpuscular Volume 89.1 fL (80.0-98.0); Mean Platelet Volume 11.7 fL (9.4-12.3); Monocytes Absolute Auto 0.7 X10*3/uL (0.1-1.2); Monocytes Percent Auto 6.8 % (2-11); Neutrophils Absolute Auto 7.8 x10*3/uL (2.0-8.3); Neutrophils Percent Auto 73.5 % (45-73); Platelet Count 217 X10*3/uL (160-400); Red Blood Count 4.94 X10*6/uL (4.20-5.50); Red Cell Distribution Width 14.6 % (11.0-16.0); White Blood Count 10.6 X10*3/uL (4.8-10.8)
[2023-01-10 15:09] LABS: Alanine Aminotransferase 50 U/L (0-31); Alkaline Phosphatase 130 U/L (39-117); Anion Gap 11 (12-20); Aspartate Amino Transferase 31 U/L (5-31); Bilirubin Total 0.9 mg/dL (0.0-1.0); Blood Urea Nitrogen 9 mg/dL (9-16); Calcium 9.5 mg/dL (8.4-10.2); Carbon Dioxide 27 mmol/L (22-29); Chloride 107 mmol/L (96-108); Estimated Glomerular Filt Rate > 60; Glucose Fasting 128 mg/dL (60-99); Potassium 4.1 mmol/L (3.3-5.1); Sodium 141 mmol/L (135-145); Total Protein 7.3 g/dL (6.5-8.0)
[2023-01-13 09:59] LABS: Immunoglobulin G 1145 mg/dL (600-1640)
[2023-01-14 15:12] LABS: Immunoglobulin E 42 kU/L (<OR=114)
[2023-01-15 17:49] LABS: VITAMIN D (1,25 OH) D3 68 pg/mL; Vit D (1,25-Dihydroxy) Total 68 pg/mL (18-72); Vitamin D (1,25 OH) D2 <8 pg/mL
== END 2023-01-10 09:41 | disposition home or self-care (01) ==
LOC: HO.CHCLDS 09:40
PROVIDERS: Visit Provider Family Medicine
DX: R74.01 Elevation of levels of liver transaminase levels (principal); L50.9 Urticaria, unspecified; E55.9 Vitamin D deficiency, unspecified
CPT/HCPCS: 36415; 80053; 82652; 82784; 82785; 85025

== ENCOUNTER 2023-01-16 12:34 | Outpatient (REF) | payer MEDICAID, SELFPAY ==
[2023-01-16 14:45] LABS: Gamma Glutamyl Transpeptidase 53 U/L (7-33); Iron 48 mcg/dL (30-160); Percent Iron Saturation 18 % (15-50); Total Iron Binding Capacity 263 mcg/dL (228-428); Unsaturated Iron Binding 215 ug/dL
[2023-01-16 14:59] LABS: Ferritin 156 ng/mL (10-250); TSH reflex Free T4 1.48 uIU/mL (0.32-4.0)
[2023-01-17 08:57] LABS: HBsAGNum1 0.35 S/CO (0.00-0.99); Hepatitis B Surface Antigen Negative (Negative); ~HepC Num1 0.53 S/CO (0.00-0.79); ~Hepatitis C Antibody Nonreactive (Nonreactive)
[2023-01-20 13:59] LABS: Calcium (PTHI) 9.4 mg/dL (8.6-10.2); PTHI 94 pg/mL (16-77)
[2023-01-21 17:09] LABS: VITAMIN D (1,25 OH) D3 66 pg/mL; Vit D (1,25-Dihydroxy) Total 66 pg/mL (18-72); Vitamin D (1,25 OH) D2 <8 pg/mL
== END 2023-01-16 12:35 | disposition home or self-care (01) ==
LOC: HO.CHCLDS 12:34
PROVIDERS: Visit Provider Family Medicine
DX: R74.01 Elevation of levels of liver transaminase levels (principal)
CPT/HCPCS: 36415; 82652; 82728; 82977; 83540; 83970; 84443; 86803; 87340

== ENCOUNTER 2023-03-17 08:49 | Outpatient (REF) | payer OTHER, SELFPAY ==
--- NOTE | ~2023-03-17 | US_ITS ---
EXAMINATION: US ABDOMEN LIMITED CLINICAL INFORMATION: History of transaminitis, elevated GGT. COMPARISON: Ultrasound abdomen complete 09/11/2022. Ultrasound abdomen complete with liver elastography 11/13/2021. CT abdomen and pelvis without contrast 03/15/2021. TECHNIQUE: Real-time imaging of the right upper quadrant abdominal viscera. Limited visualization due to bowel gas. FINDINGS: PANCREAS: Limited visualization of pancreatic tail and head. Imaged portion of pancreatic body is unremarkable. LIVER: Increased hepatic parenchymal heterogeneity and echogenicity which could be associated with hepatic steatosis or hepatocellular disease and substantially limits visualization. GALLBLADDER: Surgically absent. COMMON BILE DUCT: Normal in caliber measuring 0.5 cm in diameter. RIGHT KIDNEY: A 1.2 x 0.9 x 1.3 cm right renal [id number] pole cyst with benign features. There is no indication for followup imaging. No hydronephrosis or renal calculi. Limited visualization. The kidney measures 10.0 cm in maximum dimension. FREE FLUID: None. US/US abdomen limited IMPRESSION: 1. Increased hepatic parenchymal heterogeneity and echogenicity which could be associated with hepatic steatosis or hepatocellular disease and substantially limits visualization. 2. Gallbladder surgically absent.
== END 2023-03-17 08:50 | disposition home or self-care (01) ==
LOC: HO.US 08:49
PROVIDERS: PCP Family Medicine; Visit Provider Family Medicine
DX: K75.4 Autoimmune hepatitis (principal)
CPT/HCPCS: 76705

== ENCOUNTER 2023-06-01 09:33 | Emergency (ER) | payer OTHER, SELFPAY ==
--- NOTE | ~2023-06-01 | XR_ITS ---
EXAMINATION: XR LUMBOSACRAL SPINE CLINICAL INFORMATION: Pain, fall. COMPARISON: CT abdomen/pelvis 03/15/2021. TECHNIQUE: Three views of the lumbosacral spine. FINDINGS: No acute compression deformity or traumatic subluxation of the lumbar spine. Normal appearance of the posterior elements. Nonspecific deformity at the level of the upper sacrum which might be artifactual. Symmetric SI joints. Pelvic rim is intact. No significant paraspinal soft tissue abnormality. XR/XR lumbar spine 2-3V IMPRESSION: Nonspecific deformity of the upper sacrum on the lateral view, unsure if this is an artifactual finding. Recommend correlation with point tenderness and if indicated further evaluation with a CT pelvis without IV contrast.
--- NOTE | ~2023-06-01 | CT_ITS ---
EXAMINATION: CT ABDOMEN AND PELVIS WITHOUT CONTRAST CLINICAL INFORMATION: Right flank pain COMPARISON: Multiple previous including CT scan 03/15/2021 TECHNIQUE: Multidetector volumetric imaging was performed from the superior aspect of the liver through the pubic symphysis. Sagittal and coronal reformatted images were obtained on the technologist's workstation. This CT examination was performed using dose optimization techniques as appropriate, variously including the following: *Automated exposure control *Adjustment of mA and/or kV according to patient size (this includes techniques or standardized protocols for targeted exams where dose is matched to indication/reason for exam; i.e. extremities or head) *Use of iterative reconstruction technique DLP: 711 mGy-cm FINDINGS: LUNG BASES: The visualized lung bases are unremarkable. LIVER, GALLBLADDER, AND BILIARY TREE: Changes of diffuse metastatic steatosis. No biliary ductal dilatation. No deformity. Clips consistent with cholecystectomy. PANCREAS: Unremarkable. SPLEEN: Unremarkable. ADRENAL GLANDS: Unremarkable. KIDNEYS AND URETERS: The kidneys are normal in size, shape, and attenuation. No hydronephrosis, hydroureter, or calculi seen. No perinephric stranding. BLADDER: Unremarkable. GASTROINTESTINAL TRACT: The small and large bowel are unremarkable. The appendix is unremarkable. ABDOMINAL WALL: No significant hernia is appreciated. LYMPH NODES: Normal. VASCULAR: Unremarkable. PELVIC VISCERA: Unremarkable. OSSEOUS STRUCTURES: Unremarkable. CT/CT abdomen pelvis wo IV con IMPRESSION: No stones or obstructive uropathy. Hepatic steatosis. No fracture. Fleischner guidelines were followed.
--- NOTE | ~2023-06-01 | XR_ITS ---
EXAMINATION: XR RIBS, RIGHT CLINICAL INFORMATION: Pain, tenderness, fall. COMPARISON: None available. TECHNIQUE: 3 views of the right ribs were obtained. FINDINGS: Lungs are clear. No consolidation, pneumothorax, or pleural effusion. The cardiomediastinal silhouette and pulmonary vasculature are normal. Right upper quadrant surgical clips. Osseous structures are unremarkable. Ribs are intact. No fractures are identified. XR/XR ribs RT min 3V w CXR1V IMPRESSION: No acute cardiopulmonary findings. No displaced rib fractures.
[2023-06-01 09:56] VITALS: BP 129/76; PULSE 70; RESP 18; TEMP 37.2; O2SAT 98; BMI 37.6
--- NOTE | 2023-06-01 10:26 | ED_ITS ---
HPI - Back Pain/Injury General Chief Complaint: Back Pain/Injury Stated Complaint: R side back pain Time Seen by Provider: 06/01/23 10:09 Source: patient Mode of arrival: ambulatory Limitations: language barrier ( Yi-speaking certified court/medical interpreter utilized) History of Present Illness HPI Narrative: patient is a 47-year-old female who presents emergency department for evaluation of right-sided back pain. Right mid to lower back radiating into the buttock. Symptom onset was within the past week does not recall the exact day. She does report that she had a fall last week, she was standing on a chair while changing her window curtains and she lost her balance and subsequently fell and her right side struck the back of the chair. She also states she is having urinary frequency. Denies fevers, chills, burning with micturition, Dysuria, hematuria, bladder or bowel dysfunction, numbness or tingling of the perineum or bilateral legs. Denies any recent surgical procedures, any known immune compromising conditions, personal history of cancer, or IV drug usage. she has trialed Tylenol for pain management which does improve her pain some but it does return MD elicited complaint: back pain Related Data Previous Rx's Medication Instructions Recorded docusate sodium 100 mg capsule 100 mg PO DAILY #60 caps 10/30/20 (Colace) cyclobenzaprine 10 mg tablet 10 mg PO TID PRN muscle spasm #10 03/15/21 tabs ibuprofen 600 mg tablet 600 mg PO Q8H PRN pain #20 tabs 03/15/21 bisacodyl 10 mg rectal suppository 10 mg [place] DAILY PRN constipation 10/04/21 (Dulcolax (bisacodyl)) #20 ea pantoprazole 20 mg tablet,delayed 40 mg (2 x 20 mg) PO ONCE 30 days 07/11/22 release #60 tabs cyclobenzaprine 10 mg tablet 10 mg PO TID PRN muscle spasm #20 06/01/23 tabs naproxen 500 mg tablet 500 mg PO BID PRN pain #14 tabs 06/01/23 Allergies Allergy/AdvReac Type Severity Reaction Status Date / Time No Known Allergies Allergy Verified 06/01/23 09:58 Review of Systems 2 Review of Systems: Yes all other systems are reviewed and are negative PMFSH Past Medical History Attestation statement: The following information was validated with the patient. Source: old records reviewed Medical History Morbid obesity Gallstones Left sided abdominal pain Pruritus ani Internal and external bleeding hemorrhoids Surgical History Hx of colonoscopy History of esophagogastroduodenoscopy (EGD) History of laparoscopic cholecystectomy History of tubal ligation Family History Family History Father No problems noted. Sister Breast tumor Sister Pancreatic cancer Social History Social History Household Members: Spouse Alcohol intake: never Patient Tobacco Use Status: Never used Tobacco Advance Directives: No Physical Exam 2 Vital Signs: Vital Signs: Last Vital Signs Temp 98.9 F 06/01/23 09:56 Pulse 70 06/01/23 09:56 Resp 18 06/01/23 09:56 BP 129/76 06/01/23 09:56 Pulse Ox 98 06/01/23 09:56 O2 Del Method Room Air 06/01/23 09:56 BMI result Body Mass Index 37.6 Appearance: Alert.?Oriented to person, place and time. No acute distress.?Normal affect. Eyes: Pupils equal, round and reactive to light.? ENT: Pharynx normal.?? Neck: Normal inspection.? Neck supple.?? CVS: Heart sounds normal. Normal heart rate and rhythm.? Pulses normal; bilateral radial pulses 2+, bilateral posterior tibial/dorsalis pedis pulses 2+.? Respiratory: No respiratory distress.? Lung sounds clear to auscultation bilaterally?? Abdomen: Soft and non-tender. Normoactive bowel sounds. No pulsatile mass.?? Skin: Skin warm and dry.? Normal skin color.? Normal skin turgor.?? Extremities: No lower extremity edema.? No calf ttp? Back: + moderate right-sided thoracic and lumbar region tenderness upon light palpation.No midline spinal tenderness, step-off's, or deformity. Full ROM intact in bilateral lower extremities. Straight leg test Positive on right; Straight leg test negative on left. No rashes, lesions, areas of induration or fluctuance, or signs of infection noted., Neuro: Moves all extremities spontaneously. 5/5 strength in hip extension/flexion, abduction, adduction. Sensation to light touch intact bilaterally. Patellar and Achilles reflex 2+ bilaterally. No ataxia, gait normal and steady.. No focal neuro deficits. Course Reevaluation(s) Reevaluation #1: CBC is without leukocytosis. BMP overall unremarkable, mildly elevated BUN I suspect secondary to slight dehydration urinalysis with high normal spec grav 1+ leukocyte esterase and urine WBCs present, no urine bacteria seen, and there are squamous epithelial cells present. Concern for Likely urogenital contamination versus true urinary tract infection. I suspect that her pain is most consistent with muscular strain/contusion. XR of the ribs is without acute etiology. XR of the lumbar spine revealing nonspecific deformity of the upper sacrum on the lateral view, concern for possible artifactual finding, on physical exam has diffuse tenderness throughout mid/lower back on the right including over the sacrum, will obtain CT for further evaluation Time: 12:46 Reevaluation #2: CT is normal, no evidence of fracture. pain improved with Toradol. Discussed plan of care for discharge home, outpatient follow-up with primary care provider, strict return precautions. Time: 14:57 Medications Administered Discontinued Medications Generic Name Dose Route Start Last Admin Trade Name Freq PRN Reason Stop Dose Admin Ketorolac Tromethamine 30 mg 06/01/23 12:31 06/01/23 12:46 Ketorolac Tromethamine 30 Mg/Ml Vial IM 06/01/23 12:32 30 mg ONCE ONE Administration Medical Decision Making Medical Decision Making [facility] Narrative: patient is a 47-year-old female who presents emergency department for evaluation of right-sided back pain as per HPI, physical exam is notable for exquisite tenderness upon very light palpation all throughout the right thoracic and lumbar region and into the right buttock. I suspect pain is likely secondary to contusion from fall, though no visible hematoma or ecchymosis. will obtain XR of the lumbar spine and ribs However, she is also experiencing urinary frequency, therefore will obtain labs and urinalysis to exclude urinary tract infection / pyelonephritis / ectopic / renal colic. lower suspicion for pelvic infection, appendicitis. Discussed with patient can not completely exclude herniated disc, no neurological deficits, no concern for cauda equina syndrome upon examination, No high-risk past medical history no indication for emergent MRI/CT. low suspicion for spinal infection, epidural abscess, AAA, dissection. Differential Diagnosis Differential Diagnoses: The differential diagnosis associated with the presentation includes ( see narrative above) Admission/Observation Consideration of admission/observation: Escalation of care including admission/observation considered ( see narrative above) Lab Data MDM Lab Attestation statement: I reviewed the patient's lab results. ( see course narrative) 06/01/23 10:50 06/01/23 10:50 Labs: Lab Results 06/01/23 Range/Units 10:50 WBC 8.8 (4.8-10.8) X10*3/uL RBC 5.07 (4.20-5.50) X10*6/uL Hgb 14.5 (12.0-16.0) g/dl Hct 44.3 (37.0-47.0) % MCV 87.4 (80.0-98.0) fL MCH 28.6 (27.0-33.0) pg MCHC 32.7 (31.0-35.0) g/dl RDW 14.3 (11.0-16.0) % Plt Count 243 (160-400) X10*3/uL MPV 10.2 (9.4-12.3) fL Immature Gran % (Auto) 0.3 (0.0-0.4) % Neut % (Auto) 61.7 (45-73) % Lymph % (Auto) 28.1 (20-40) % [place] % (Auto) 5.8 (2-11) % Eos % (Auto) 3.5 (0-4) % Baso % (Auto) 0.6 (0-2) % Lymph # (Auto) 2.5 (1.2-4.9) X10*3/uL [place] # (Auto) 0.5 (0.1-1.2) X10*3/uL Eos # (Auto) 0.3 (0.0-0.4) X10*3/uL Baso # (Auto) 0.1 (0.0-0.2) X10*3/uL Abs Immat Gran (auto) 0.03 (0.00-0.03) X10*3/uL Absolute Neuts (auto) 5.4 (2.0-8.3) x10*3/uL Absolute Nucleated RBC 0.000 (0.0-0.012) X10*3/uL Nucleated RBC % (auto) 0.0 (0.0-0.2) /100WBC Sodium 140 (135-145) mmol/L Potassium 4.2 (3.3-5.1) mmol/L Chloride 105 (96-108) mmol/L Carbon Dioxide 26 (22-29) mmol/L Anion Gap 13 (12-20) BUN 20 H (9-16) mg/dL Creatinine 0.88 (0.5-1.4) mg/dL Estim Creat Clear Calc 76.0 Estimated GFR > 60 Random Glucose 107 (60-115) mg/dL Calcium 9.8 (8.4-10.2) mg/dL Total Bilirubin 1.3 H (0.0-1.0) mg/dL AST 25 (5-31) U/L ALT 35 H (0-31) U/L Alkaline Phosphatase 124 H (39-117) U/L Total Protein 8.1 H (6.5-8.0) g/dL Albumin 4.2 (3.5-5.0) g/dL Urine Color Yellow Urine Appearance Clear Urine pH 6.5 (5.0-9.0) Ur Specific [place] 1.025 (1.005-1.025) Urine Protein Negative (Neg-Trace) mg/dL Urine Glucose (UA) Negative (Negative) mg/dL Urine Ketones Negative (Negative) mg/dL Urine Blood Negative (Negative) Urine Nitrite Negative (Negative) Ur Leukocyte Esterase Small (1+) H (Negative) Urine RBC 0-2 (0-2) /HPF Urine WBC 6-10 H (0-5) /HPF Ur Squamous Epith Cells 6-10 (0-2) /HPF Urine Bacteria None Seen (None Seen) Hyaline Casts 0-2 (0-2) /LPF Urine Test NEGATIVE (NEGATIVE) Independent Interpretation I performed an independent interpretation of an: Plain X-Ray ( I personally interpreted XR imaging and agree with radiologist impression.) Radiology Impression Discussion of test interpretation with radiology: I have reviewed the radiologist's reading. Radiologist Impression: XR/XR ribs RT min 3V w CXR1V IMPRESSION: No acute cardiopulmonary findings. No displaced rib fractures. XR/XR lumbar spine 2-3V IMPRESSION: Nonspecific deformity of the upper sacrum on the lateral view, unsure if this is an artifactual finding. Recommend correlation with point tenderness and if indicated further evaluation with a CT pelvis without IV contrast. CT/CT abdomen pelvis wo IV con IMPRESSION: No stones or obstructive uropathy. Hepatic steatosis. No fracture. Fleischner guidelines were followed. Independent Historian Clinical information obtained from an independent historian. History obtained from or confirmed by: Spouse ( Present who confirms history) External Record Review External record reviewed: Outpatient record Tests considered The following testing was considered but not selected: CT/ MRI deferred, see narrative above Prescription Management I considered prescription management with: Pain Medication Discharge Plan Discharge Clinical Impression: Lumbar radiculopathy Patient Disposition: Home, Self-Care Instructions: Lumbar Radiculopathy (ED), Lower Back Exercises (ED) Additional Instructions: You can take Tylenol 500 mg, 2 tablets (1,000mg) every 4-6 hours as needed for pain, but not to exceed 3 doses daily (3,000mg).? I have also sent a prescription to the pharmacy for naproxen to take twice daily, this is an anti-inflammatory, do not take additional [id number] NSAID; ibuprofen, Aleve, Motrin, Advil, aspirin. for pain that is unrelieved with Tylenol/ naproxen I have sent a prescription for cyclobenzaprine/ Flexeril this is a muscle relaxer. This medication may make you drowsy. He should not drive, drink alcohol, or work while taking this medication. Contact your primary care provider to arrange for a follow-up visit. Return back to emergency department any new or worsening symptoms or concerns. Prescriptions: New naproxen 500 mg tablet 500 mg PO BID PRN (Reason: pain) Qty: 14 0RF cyclobenzaprine 10 mg tablet 10 mg PO TID PRN (Reason: muscle spasm) Qty: 20 0RF No Action docusate sodium [Colace] 100 mg capsule 100 mg PO DAILY Qty: 60 0RF ibuprofen 600 mg tablet 600 mg PO Q8H PRN (Reason: pain) Qty: 20 0RF cyclobenzaprine 10 mg tablet 10 mg PO TID PRN (Reason: muscle spasm) Qty: 10 0RF bisacodyl [Dulcolax (bisacodyl)] 10 mg suppository 10 mg [place] DAILY PRN (Reason: constipation) Qty: 20 0RF pantoprazole 20 mg tablet,delayed release (DR/EC) 40 mg PO ONCE 30 Days Qty: 60 6RF Referrals: Libby Redd MD [Primary Care Provider] -
[2023-06-01 11:02] LABS: MANUAL DIFF FLAG NO
[2023-06-01 11:03] LABS: Basophils Absolute Auto 0.1 X10*3/uL (0.0-0.2); Basophils Percent Auto 0.6 % (0-2); Eosinophils Absolute Auto 0.3 X10*3/uL (0.0-0.4); Eosinophils Percent Auto 3.5 % (0-4); Hematocrit 44.3 % (37.0-47.0); Hemoglobin 14.5 g/dl (12.0-16.0); Imm Gran Abs Auto 0.03 X10*3/uL (0.00-0.03); Imm Gran Pct Auto 0.3 % (0.0-0.4); Lymphocytes Absolute Auto 2.5 X10*3/uL (1.2-4.9); Lymphocytes Percent Auto 28.1 % (20-40); Mean Corpuscular HGB Conc 32.7 g/dl (31.0-35.0); Mean Corpuscular Hemoglobin 28.6 pg (27.0-33.0); Mean Corpuscular Volume 87.4 fL (80.0-98.0); Mean Platelet Volume 10.2 fL (9.4-12.3); Monocytes Absolute Auto 0.5 X10*3/uL (0.1-1.2); Monocytes Percent Auto 5.8 % (2-11); Neutrophils Absolute Auto 5.4 x10*3/uL (2.0-8.3); Neutrophils Percent Auto 61.7 % (45-73); Platelet Count 243 X10*3/uL (160-400); Red Blood Count 5.07 X10*6/uL (4.20-5.50); Red Cell Distribution Width 14.3 % (11.0-16.0); White Blood Count 8.8 X10*3/uL (4.8-10.8)
[2023-06-01 11:05] LABS: Appearance Urine Clear; Color Urine Yellow; Glucose Urine UA Negative (Negative); Leukocyte Esterase Urine Small (1+) (Negative); Nitrite Urine Negative (Negative); PH 6.5 (5.0-9.0); Specific Gravity - Urine 1.025 (1.005-1.025); UMIC TRIGGER UACC YES; Urine Blood Negative (Negative); Urine Ketones Negative (Negative); Urine Protein Negative (Neg-Trace)
[2023-06-01 11:07] LABS: Bacteria Urine None Seen (None Seen); Hyaline Casts Urine 0-2 /LPF (0-2); RBC Urine 0-2 /HPF (0-2); UACC Culture Trigger YES
[2023-06-01 11:08] LABS: UPreg QC Valid YES; Urine Pregnancy NEGATIVE (NEGATIVE)
[2023-06-01 11:26] LABS: Alanine Aminotransferase 35 U/L (0-31); Albumin Level 4.2 g/dL (3.5-5.0); Alkaline Phosphatase 124 U/L (39-117); Anion Gap 13 (12-20); Aspartate Amino Transferase 25 U/L (5-31); Bilirubin Total 1.3 mg/dL (0.0-1.0); Blood Urea Nitrogen 20 mg/dL (9-16); Calcium 9.8 mg/dL (8.4-10.2); Carbon Dioxide 26 mmol/L (22-29); Chloride 105 mmol/L (96-108); Estimated Glomerular Filt Rate > 60; Glucose Random 107 mg/dL (60-115); Potassium 4.2 mmol/L (3.3-5.1); Sodium 140 mmol/L (135-145); Total Protein 8.1 g/dL (6.5-8.0)
[2023-06-01] MEDS: Ketorolac Tromethamine 30 MG/ML VIAL IM (12:46)
== END 2023-06-01 15:15 | disposition home or self-care (01) ==
PROVIDERS: Nurse Practitioner Family; Emergency Provider Emergency Medicine; PCP Family Medicine
DX: M54.16 Radiculopathy, lumbar region (principal); R07.81 Pleurodynia; R35.0 Frequency of micturition; M54.50 Low back pain, unspecified; R10.2 Pelvic and perineal pain; R10.9 Unspecified abdominal pain; Z79.899 Other long term (current) drug therapy
CPT/HCPCS: 36415; 71101; 72100; 74176; 80053; 81001; 81025; 85025; 87086; 96372; 99283; 99284; J1885

== ENCOUNTER 2023-09-08 08:25 | Outpatient (REF) | payer MEDICAID, SELFPAY ==
--- NOTE | ~2023-09-08 | XR_ITS ---
EXAMINATION: XR KNEE, LEFT CLINICAL INFORMATION: Chronic pain of left knee COMPARISON: None available. TECHNIQUE: Four views of the left knee. FINDINGS: No fracture or joint effusion. Alignment is anatomic. Joint spaces are maintained. No abnormal soft tissue calcification. XR/XR knee LT 4V IMPRESSION: Normal left knee.
[2023-09-08 14:16] LABS: MANUAL DIFF FLAG NO
[2023-09-08 14:21] LABS: Basophils Absolute Auto 0.1 X10*3/uL (0.0-0.2); Basophils Percent Auto 0.6 % (0-2); Eosinophils Absolute Auto 0.3 X10*3/uL (0.0-0.4); Eosinophils Percent Auto 3.1 % (0-4); Hematocrit 45.2 % (37.0-47.0); Hemoglobin 14.3 g/dl (12.0-16.0); Imm Gran Abs Auto 0.05 X10*3/uL (0.00-0.03); Imm Gran Pct Auto 0.5 % (0.0-0.4); Lymphocytes Absolute Auto 2.4 X10*3/uL (1.2-4.9); Lymphocytes Percent Auto 25.7 % (20-40); Mean Corpuscular HGB Conc 31.6 g/dl (31.0-35.0); Mean Corpuscular Hemoglobin 28.5 pg (27.0-33.0); Mean Platelet Volume 11.2 fL (9.4-12.3); Monocytes Absolute Auto 0.6 X10*3/uL (0.1-1.2); Neutrophils Percent Auto 64.1 % (45-73); Platelet Count 248 X10*3/uL (160-400); Red Blood Count 5.02 X10*6/uL (4.20-5.50); Red Cell Distribution Width 14.1 % (11.0-16.0); White Blood Count 9.3 X10*3/uL (4.8-10.8)
[2023-09-08 14:45] LABS: Alanine Aminotransferase 38 U/L (0-31); Alkaline Phosphatase 129 U/L (39-117); Anion Gap 13 (12-20); Aspartate Amino Transferase 25 U/L (5-31); Bilirubin Total 0.8 mg/dL (0.0-1.0); Blood Urea Nitrogen 17 mg/dL (9-16); Calcium 9.7 mg/dL (8.4-10.2); Carbon Dioxide 27 mmol/L (22-29); Chloride 105 mmol/L (96-108); Cholesterol 133 mg/dL (<200); Estimated Glomerular Filt Rate > 60; Glucose Random 136 mg/dL (60-115); HDL Cholesterol 35 mg/dL (>40); LDL Cholesterol Calculated 88 mg/dL (<100); Potassium 4.2 mmol/L (3.3-5.1); Sodium 141 mmol/L (135-145); Total Protein 7.8 g/dL (6.5-8.0); Triglycerides 51 mg/dL (<150)
[2023-09-08 14:53] LABS: TSH reflex Free T4 2.17 uIU/mL (0.32-4.0)
[2023-09-08 15:00] LABS: Folate 10.7 ng/mL (> or = 4.0); Vitamin B12 676 pg/mL (200-900)
== END 2023-09-08 08:26 | disposition home or self-care (01) ==
LOC: HO.XRAY 08:25
PROVIDERS: PCP Family Medicine; Visit Provider Family Medicine
DX: M25.562 Pain in left knee (principal); G89.29 Other chronic pain; E66.09 Other obesity due to excess calories; Z68.37 Body mass index [BMI] 37.0-37.9, adult
CPT/HCPCS: 36415; 73564; 80053; 80061; 82607; 82746; 84443; 85025

== ENCOUNTER 2023-10-03 15:56 | Outpatient (REF) | payer MEDICAID, SELFPAY ==
[2023-10-03 19:04] LABS: Influenza A PCR NEGATIVE (Negative); Influenza B PCR NEGATIVE (Negative); Resp Syncy Virus RNA Qual PCR NEGATIVE (Negative); SARS COV2 PCR INHOUSE NEGATIVE (Negative)
== END 2023-10-03 15:57 | disposition home or self-care (01) ==
LOC: HO.CHCLNP 15:56
PROVIDERS: Visit Provider Family Medicine
DX: J06.9 Acute upper respiratory infection, unspecified (principal)
CPT/HCPCS: 0241U; 87070

== ENCOUNTER 2023-10-05 17:30 | Emergency (ER) | payer MEDICAID, SELFPAY ==
--- NOTE | ~2023-10-05 | XR_ITS ---
EXAMINATION: XR CHEST CLINICAL INFORMATION: Coughing. COMPARISON: None available. TECHNIQUE: Frontal view of the chest was obtained. FINDINGS: No significant abnormality is noted involving the heart, lungs, mediastinum, bony thorax or soft tissues. XR/XR chest 1V IMPRESSION: Unremarkable chest examination.
[2023-10-05 17:47] VITALS: BP 136/76; PULSE 89; RESP 20; TEMP 36.3; O2SAT 100; BMI 37.4
--- NOTE | 2023-10-05 17:53 | ED_ITS ---
HPI - General Adult General Chief complaint: General Medical Stated complaint: cough History of Present Illness HPI narrative: Patient left without completion of treatment by ED provider. Related Data Previous Rx's ?Medication ?Instructions ?Recorded docusate sodium 100 mg capsule 100 mg PO DAILY #60 caps 10/30/20 (Colace) cyclobenzaprine 10 mg tablet 10 mg PO TID PRN muscle spasm #10 03/15/21 tabs ibuprofen 600 mg tablet 600 mg PO Q8H PRN pain #20 tabs 03/15/21 bisacodyl 10 mg rectal suppository 10 mg [place] DAILY PRN constipation 10/04/21 (Dulcolax (bisacodyl)) #20 ea pantoprazole 20 mg tablet,delayed 40 mg (2 x 20 mg) PO ONCE 30 days 07/11/22 release #60 tabs cyclobenzaprine 10 mg tablet 10 mg PO TID PRN muscle spasm #20 06/01/23 tabs naproxen 500 mg tablet 500 mg PO BID PRN pain #14 tabs 06/01/23 Allergies Allergy/AdvReac Type Severity Reaction Status Date / Time No Known Allergies Allergy Verified 10/05/23 17:48 [facility] Past Medical History Medical History Morbid obesity Gallstones Left sided abdominal pain Pruritus ani Internal and external bleeding hemorrhoids Surgical History Hx of colonoscopy History of esophagogastroduodenoscopy (EGD) History of laparoscopic cholecystectomy History of tubal ligation Family History Family History Father No problems noted. Sister Breast tumor Sister Pancreatic cancer Social History Social History Household Members: Spouse Alcohol intake: never Patient Tobacco Use Status: Never used Tobacco Advance Directives: No Advance Directives Information Provided: No Physical Exam ED Vital Signs: Vital Signs - 24 hr 10/05/23 17:47 Temperature 97.4 F Pulse Rate 89 Respiratory Rate 20 Blood Pressure 136/76 Pulse Oximetry 100 Oxygen Delivery Method Room Air BMI result Body Mass Index 37.4 Course Course Course Narrative: RME: DOne by ASH Sow. [age] year female presents to ED for coughing with epigastric pain. Patient also states the abdominal pain with rectal bleeding. Patient states stool brown. Patient states blood is bright red. Patient denies any leg swelling, calf pain, pleurisy, recent long travel, or recent surgery. EKG labs chest x-ray ordered. Medical Decision Making Lab Data 10/05/23 18:10 10/05/23 18:10 Labs: Lab Results 10/05/23 Range/Units 18:10 WBC 8.3 (4.8-10.8) X10*3/uL RBC 4.84 (4.20-5.50) X10*6/uL Hgb 13.8 (12.0-16.0) g/dl Hct 41.9 (37.0-47.0) % MCV 86.6 (80.0-98.0) fL MCH 28.5 (27.0-33.0) pg MCHC 32.9 (31.0-35.0) g/dl RDW 14.2 (11.0-16.0) % Plt Count 213 (160-400) X10*3/uL MPV 10.4 (9.4-12.3) fL Immature Gran % (Auto) 0.4 (0.0-0.4) % Neut % (Auto) 60.8 (45-73) % Lymph % (Auto) 27.3 (20-40) % [place] % (Auto) 6.5 (2-11) % Eos % (Auto) 4.4 H (0-4) % Baso % (Auto) 0.6 (0-2) % Lymph # (Auto) 2.3 (1.2-4.9) X10*3/uL [place] # (Auto) 0.5 (0.1-1.2) X10*3/uL Eos # (Auto) 0.4 (0.0-0.4) X10*3/uL Baso # (Auto) 0.1 (0.0-0.2) X10*3/uL Abs Immat Gran (auto) 0.03 (0.00-0.03) X10*3/uL Absolute Neuts (auto) 5.1 (2.0-8.3) x10*3/uL Absolute Nucleated RBC 0.000 (0.0-0.012) X10*3/uL Nucleated RBC % (auto) 0.0 (0.0-0.2) /100WBC Sodium 140 (135-145) mmol/L Potassium 3.6 (3.3-5.1) mmol/L Chloride 105 (96-108) mmol/L Carbon Dioxide 26 (22-29) mmol/L Anion Gap 13 (12-20) BUN 18 H (9-16) mg/dL Creatinine 1.25 (0.5-1.4) mg/dL Estim Creat Clear Calc 54.8 Estimated GFR 45 Random Glucose 149 H (60-115) mg/dL Calcium 9.2 (8.4-10.2) mg/dL Total Bilirubin 1.0 (0.0-1.0) mg/dL AST 41 H (5-31) U/L ALT 60 H (0-31) U/L Alkaline Phosphatase 138 H (39-117) U/L Troponin I High Sens < 2.7 (<3.5-17.0) ng/L Total Protein 7.6 (6.5-8.0) g/dL Albumin 4.1 (3.5-5.0) g/dL Lipase 21 (8-78) U/L Beta HCG, Quant < 2 mIU/mL Influenza Type A (PCR) NEGATIVE (Negative) Influenza Type B (PCR) NEGATIVE (Negative) RSV RNA Qual (PCR) NEGATIVE (Negative) SARS-CoV-2 RNA (RT-PCR) NEGATIVE (Negative) Discharge Plan Discharge Clinical Impression: Abdominal pain Patient Disposition: Left W/O Completing Treatment Prescriptions: No Action docusate sodium [Colace] 100 mg capsule 100 mg PO DAILY Qty: 60 0RF ibuprofen 600 mg tablet 600 mg PO Q8H PRN (Reason: pain) Qty: 20 0RF cyclobenzaprine 10 mg tablet 10 mg PO TID PRN (Reason: muscle spasm) Qty: 10 0RF naproxen 500 mg tablet 500 mg PO BID PRN (Reason: pain) Qty: 14 0RF cyclobenzaprine 10 mg tablet 10 mg PO TID PRN (Reason: muscle spasm) Qty: 20 0RF bisacodyl [Dulcolax (bisacodyl)] 10 mg suppository 10 mg [place] DAILY PRN (Reason: constipation) Qty: 20 0RF pantoprazole 20 mg tablet,delayed release (DR/EC) 40 mg PO ONCE 30 Days Qty: 60 6RF Discharge Date/Time: 10/05/23 23:43
--- NOTE | 2023-10-05 17:53 | ECG_ITS ---
Test Reason : COUGH Blood Pressure : / mmHG Vent. Rate : 076 BPM Atrial Rate : 076 BPM P-R Int : 132 ms QRS Dur : 074 ms QT Int : 366 ms P-R-T Axes : 027 000 010 degrees QTc Int : 411 ms Normal sinus rhythm Minimal voltage criteria for LVH, may be normal variant ( R in aVL ) Cannot rule out Anterior infarct , age undetermined Abnormal ECG When compared with ECG of 19-JAN-2021 17:00, No significant change was found Referred By: Jt Sow Electronically Signed By:LASHA GALVEZ MD
[2023-10-05 18:18] LABS: MANUAL DIFF FLAG NO
[2023-10-05 18:30] LABS: Basophils Absolute Auto 0.1 X10*3/uL (0.0-0.2); Basophils Percent Auto 0.6 % (0-2); Eosinophils Absolute Auto 0.4 X10*3/uL (0.0-0.4); Eosinophils Percent Auto 4.4 % (0-4); Hematocrit 41.9 % (37.0-47.0); Hemoglobin 13.8 g/dl (12.0-16.0); Imm Gran Abs Auto 0.03 X10*3/uL (0.00-0.03); Imm Gran Pct Auto 0.4 % (0.0-0.4); Lymphocytes Absolute Auto 2.3 X10*3/uL (1.2-4.9); Lymphocytes Percent Auto 27.3 % (20-40); Mean Corpuscular HGB Conc 32.9 g/dl (31.0-35.0); Mean Corpuscular Hemoglobin 28.5 pg (27.0-33.0); Mean Corpuscular Volume 86.6 fL (80.0-98.0); Mean Platelet Volume 10.4 fL (9.4-12.3); Monocytes Absolute Auto 0.5 X10*3/uL (0.1-1.2); Monocytes Percent Auto 6.5 % (2-11); Neutrophils Absolute Auto 5.1 x10*3/uL (2.0-8.3); Neutrophils Percent Auto 60.8 % (45-73); Platelet Count 213 X10*3/uL (160-400); Red Blood Count 4.84 X10*6/uL (4.20-5.50); Red Cell Distribution Width 14.2 % (11.0-16.0); White Blood Count 8.3 X10*3/uL (4.8-10.8)
[2023-10-05 18:47] LABS: Alanine Aminotransferase 60 U/L (0-31); Albumin Level 4.1 g/dL (3.5-5.0); Alkaline Phosphatase 138 U/L (39-117); Anion Gap 13 (12-20); Aspartate Amino Transferase 41 U/L (5-31); Blood Urea Nitrogen 18 mg/dL (9-16); Calcium 9.2 mg/dL (8.4-10.2); Carbon Dioxide 26 mmol/L (22-29); Chloride 105 mmol/L (96-108); Creatinine Clr Calc Pharmacy 54.8; Estimated Glomerular Filt Rate 45; Glucose Random 149 mg/dL (60-115); HCG Quantitative < 2 mIU/mL; Lipase 21 U/L (8-78); Potassium 3.6 mmol/L (3.3-5.1); Sodium 140 mmol/L (135-145); Total Protein 7.6 g/dL (6.5-8.0)
[2023-10-05 18:52] LABS: Troponin-I High Sensitivity < 2.7 ng/L (<3.5-17.0)
[2023-10-05 19:00] LABS: Influenza A PCR NEGATIVE (Negative); Influenza B PCR NEGATIVE (Negative); Resp Syncy Virus RNA Qual PCR NEGATIVE (Negative); SARS COV2 PCR INHOUSE NEGATIVE (Negative)
== END 2023-10-05 23:43 | disposition left against medical advice (07) ==
PROVIDERS: Physician Assistant; Emergency Provider Emergency Medicine; PCP Family Medicine
DX: R05.9 Cough, unspecified (principal); R10.9 Unspecified abdominal pain; Z03.818 Encounter for observation for suspected exposure to other biological agents ruled out
CPT/HCPCS: 0241U; 36415; 71045; 80053; 83690; 84484; 84702; 85025; 93005; 99283

== ENCOUNTER → 2023-10-05 17:53 | Outpatient (BNV) | payer MEDICAID, SELFPAY | PROVIDERS: Emergency Provider Emergency Medicine; PCP Family Medicine; Visit Provider Internal Medicine Cardiovascular Disease | DX: R94.31 Abnormal electrocardiogram [ECG] [EKG] (principal) | CPT/HCPCS: 93010 ==

== ENCOUNTER 2023-10-08 15:31 | Outpatient (REF) | payer MEDICAID, SELFPAY ==
--- NOTE | ~2023-10-08 | MR_ITS ---
EXAMINATION: MR KNEE WITHOUT CONTRAST, LEFT CLINICAL INFORMATION: Severe pain and swelling. COMPARISON: X-rays of the left knee September 2023. TECHNIQUE: MRI of the knee without contrast was performed using routine sequences on a high-field scanner. FINDINGS: MENISCI: Medial Meniscus: Possible radial tear along the free edge of the middle third portion of the posterior horn suggested on a single coronal image 8 series 5. Meniscus is otherwise intact. Lateral Meniscus: Intact. LIGAMENTS: Cruciate: Intact. Collateral: Intact. EXTENSOR MECHANISM: Intact. ARTICULAR CARTILAGE/BONE: Patellofemoral Compartment: Normal. Medial Compartment: Minimal surface irregularity of the weightbearing femoral articular cartilage. Tibial cartilage normal. Overall minimal arthrosis. Lateral Compartment: Normal. JOINT FLUID AND BURSAE: Trace joint effusion. No Blevins's cyst. MR/MR knee LT wo con IMPRESSION: 1. Possible small radial tear along the free edge of the posterior horn of the medial meniscus. 2. Minimal arthrosis of the medial compartment. 3. Trace joint effusion.
== END 2023-10-08 15:32 | disposition home or self-care (01) ==
LOC: HO.MRI 15:31
PROVIDERS: PCP Family Medicine; Visit Provider Family Medicine
DX: M25.562 Pain in left knee (principal); G89.29 Other chronic pain
CPT/HCPCS: 73721

== ENCOUNTER 2023-11-28 09:32 | Outpatient (AMB) | payer MEDICAID, SELFPAY ==
--- NOTE | 2023-11-28 09:41 | MHC.OFFVIS ---
Vital Signs 11/28/23 09:44 Height 5 ft 1 in Weight 197 lb BMI 37.2 Intake Visit Reasons: N/P left knee /MRI done Intake Note: Jany is a 48 year old female who presents today as a new patient with complaints of left knee pain. Patient reports that she has had ongoing left knee pain for about 2 months now. Denies injury. MR/MR knee LT wo con IMPRESSION: 1. Possible small radial tear along the free edge of the posterior horn of the medial meniscus. 2. Minimal arthrosis of the medial compartment. 3. Trace joint effusion. Allergies No Known Allergies Allergy (Verified 10/05/23 17:48) HPI HPI N/P left knee /MRI done: Details: Jany is a 48 year old female who presents today as a new patient with complaints of left knee pain. Patient reports that she has had ongoing left knee pain for about 2 months now. Denies injury. She has pain with twisting activities it localized to the medial aspect of the left knee. This has been going on for 5 months. She describes difficulty standing and twisting and has sharp pain when she does so. [facility] Medical History Morbid obesity Gallstones Left sided abdominal pain Pruritus ani Internal and external bleeding hemorrhoids Surgical History Hx of colonoscopy History of esophagogastroduodenoscopy (EGD) History of laparoscopic cholecystectomy History of tubal ligation Family History Father No problems noted. Sister Breast tumor Sister Pancreatic cancer Social History Household Members: Spouse Alcohol intake: never Patient Tobacco Use Status: Never used Tobacco Physical Exam Vital Signs: BMI result Body Mass Index 37.2 Extrem Other: Sharp medial joint line tenderness to palpation. Positive medial Naa's Trace effusion Full range of motion with pain on flexion past 120 degrees Stable to varus and valgus stress Results Reviewed Results Reviewed: 1. radial tear along the free edge of the posterior horn of the medial meniscus. 2. Minimal arthrosis of the medial compartment. 3. Trace joint effusion. Assessment & Plan Assessment & Plan (1) Tear of medial meniscus of left knee: Code(s): S83.242A - Other tear of medial meniscus, current injury, left knee, initial encounter Category: Medical Plan: This is a 48-year-old woman with a six-month history of left knee pain. It is worse with twisting and her MRI shows a small tear at this location. I reviewed these findings with her. Given the duration and severity of her sharp medial-sided symptoms and the MRI findings I recommend knee arthroscopy. I had a long conversation with her regarding the risks, benefits and alternatives including, but not limited to, infection, stiffness, incomplete symptom resolution, medical complications such as blood clots. She expressed understanding and we will proceed forward accordingly. Coding Level of Care Code New Pt Level 4 (34353) Diagnoses Tear of medial meniscus of left knee S83.242A
[2023-11-28 09:44] VITALS: BMI 37.2
== END 2023-11-28 11:36 | disposition home or self-care (01) ==
PROVIDERS: PCP Family Medicine; Referring Provider Family Medicine; Visit Provider Orthopaedic Surgery
DX: S83.242A Other tear of medial meniscus, current injury, left knee, initial encounter (principal)
CPT/HCPCS: 99204

== ENCOUNTER → 2023-11-28 09:32 | Outpatient (BNVA) | payer MEDICAID, SELFPAY | PROVIDERS: PCP Family Medicine; Visit Provider Orthopaedic Surgery | DX: M25.562 Pain in left knee (principal); S83.242A Other tear of medial meniscus, current injury, left knee, initial encounter; X50.1XXA Overexertion from prolonged static or awkward postures, initial encounter; Y93.9 Activity, unspecified; Y92.9 Unspecified place or not applicable; Y99.9 Unspecified external cause status | CPT/HCPCS: 99202 ==

== ENCOUNTER 2023-12-17 05:53 | Day surgery (SDC) | payer MEDICAID, SELFPAY ==
[2023-12-15 12:56] VITALS: BMI 37.2
--- NOTE | 2023-12-16 09:01 | HO.ANESPROP2 ---
Documented by User: Maria R Roque NP 12/16/23 09:02 HPI - Anesthesia Eval Consult details Narrative: 48yo F for Left Knee Arthroscopy Anesthesia Pre-Procedure Meds Is the patient on any of the following meds?: GLP1/DPP4 PMFSH Active Problems Active Problems: All Active Problems Tear of medial meniscus of left knee (Acute) Internal hemorrhoids (Acute) Elevated C-reactive protein (CRP) (Acute) Elevated liver enzymes (Acute) NAFLD (nonalcoholic fatty liver disease) (Acute) Abdominal pain (Acute) Chronic GERD (Acute) Encounter for screening colonoscopy (Acute) Chronic constipation (Acute) Gallstones (Acute) Left sided abdominal pain (Acute) Pruritus ani (Acute) Morbid obesity (Acute) Internal and external bleeding hemorrhoids (Acute) Past Medical History Medical History Asthma Diabetes NAFLD (nonalcoholic fatty liver disease) GERD (gastroesophageal reflux disease) Morbid obesity Internal and external bleeding hemorrhoids Family History Family History Father No problems noted. Sister Breast tumor Sister Pancreatic cancer Family history of problems with anesthesia: No Surgical History Surgical History Hx of colonoscopy History of esophagogastroduodenoscopy (EGD) History of laparoscopic cholecystectomy History of tubal ligation History of Problems with Anesthesia: No Social History Social History Household Members: Spouse Are you a primary care transitions manager to a significant other at home: No Do you presently have visiting nurse or other home services: No Alcohol intake: never Comment: COUNTS CORRECT Patient Tobacco Use Status: Never used Tobacco Meds Allergies Allergy/AdvReac Type Severity Reaction Status Date / Time No Known Allergies Allergy Verified 12/17/23 06:29 Home Medications ?Medication ?Instructions ?Recorded ?Confirmed ?Last Taken ?Type albuterol sulfate 90 mcg/actuation 2 puff inhalation Q4-6H PRN 12/15/23 12/15/23 Unknown History aerosol inhaler (Ventolin HFA) wheezing cholecalciferol (vitamin D3) 25 25 mcg PO QAM 12/15/23 12/15/23 Unknown History mcg (1,000 unit) capsule (Vitamin D3) doxepin 10 mg capsule 10 mg PO BEDTIME 12/15/23 12/15/23 Unknown History dulaglutide 1.5 mg/0.5 mL 1.5 mg subcut QWEEK 12/15/23 12/17/23 12/08/23 History subcutaneous pen injector (Trulicity) fluticasone propionate 50 2 spray intranasal BID 12/15/23 12/15/23 Unknown History mcg/actuation nasal spray,suspension hydroxyzine HCl 25 mg tablet 25 mg PO BEDTIME PRN itch 12/15/23 12/15/23 Unknown History metformin 500 mg tablet,extended 1,000 mg PO BID 12/15/23 12/17/23 12/12/23 History release 24 hr pantoprazole 20 mg tablet,delayed 40 mg PO DAILY 12/15/23 12/15/23 Unknown History release trazodone 50 mg tablet 50 mg PO BEDTIME 12/15/23 12/15/23 Unknown History Exam Height,Weight and Vital Signs: Height 5 ft 1 in Weight 89.358 kg Pertinent Lab Results Pertinent Lab Results: Laboratory Tests 10/05/23 18:10 WBC 8.3 Hgb 13.8 Hct 41.9 Plt Count 213 Sodium 140 Potassium 3.6 Chloride 105 Carbon Dioxide 26 BUN 18 H Creatinine 1.25 Narrative Narrative: EKG 10/2023 Vent. Rate : 076 BPM Atrial Rate : 076 BPM P-R Int : 132 ms QRS Dur : 074 ms QT Int : 366 ms P-R-T Axes : 027 000 010 degrees QTc Int : 411 ms Normal sinus rhythm Minimal voltage criteria for LVH, may be normal variant ( R in aVL ) Cannot rule out Anterior infarct , age undetermined Abnormal ECG When compared with ECG of 19-JAN-2021 17:00, No significant change was found Assessment and Plan Assessment Anesthesia Assessment: Chart Reviewed Final Anesthetic Review Family History of Problems with Anesthesia: No History of Problems with Anesthesia: No Documented by User: Lisa Wetzel MD 12/17/23 08:28 HPI - Anesthesia Eval Anesthesia Pre-Procedure Meds Is the patient on any of the following meds?: GLP1/DPP4 (Last dose of trulicity 12/08/23) If yes to any meds - educate patient: Pt education - increased risk of aspiration and/or euvolemic DKA PMFSH Active Problems Active Problems: All Active Problems Tear of medial meniscus of left knee (Acute) Internal hemorrhoids (Acute) Elevated C-reactive protein (CRP) (Acute) Elevatsed liver enzymes (Acute) NAFLD (nonalcoholic fatty liver disease) (Acute) Abdominal pain (Acute) Chronic GERD (Acute) Encounter for screening colonoscopy (Acute) Chronic constipation (Acute) Gallstones (Acute) Left sided abdominal pain (Acute) Pruritus ani (Acute) Morbid obesity (Acute) Internal and external bleeding hemorrhoids (Acute) Past Medical History Medical History Asthma Diabetes NAFLD (nonalcoholic fatty liver disease) GERD (gastroesophageal reflux disease) Morbid obesity Internal and external bleeding hemorrhoids Family History Family History Father No problems noted. Sister Breast tumor Sister Pancreatic cancer Family history of problems with anesthesia: No Surgical History Surgical History Hx of colonoscopy History of esophagogastroduodenoscopy (EGD) History of laparoscopic cholecystectomy History of tubal ligation History of Problems with Anesthesia: No Social History Social History Household Members: Spouse Are you a primary care transitions manager to a significant other at home: No Do you presently have visiting nurse or other home services: No Alcohol intake: never Comment: COUNTS CORRECT Patient Tobacco Use Status: Never used Tobacco Meds Allergies Allergy/AdvReac Type Severity Reaction Status Date / Time No Known Allergies Allergy Verified 12/17/23 06:29 Home Medications ?Medication ?Instructions ?Recorded ?Confirmed ?Last Taken ?Type albuterol sulfate 90 mcg/actuation 2 puff inhalation Q4-6H PRN 12/15/23 12/15/23 Unknown History aerosol inhaler (Ventolin HFA) wheezing cholecalciferol (vitamin D3) 25 25 mcg PO QAM 12/15/23 12/15/23 Unknown History mcg (1,000 unit) capsule (Vitamin D3) doxepin 10 mg capsule 10 mg PO BEDTIME 12/15/23 12/15/23 Unknown History dulaglutide 1.5 mg/0.5 mL 1.5 mg subcut QWEEK 12/15/23 12/17/23 12/08/23 History subcutaneous pen injector (Trulicity) fluticasone propionate 50 2 spray intranasal BID 12/15/23 12/15/23 Unknown History mcg/actuation nasal spray,suspension hydroxyzine HCl 25 mg tablet 25 mg PO BEDTIME PRN itch 12/15/23 12/15/23 Unknown History metformin 500 mg tablet,extended 1,000 mg PO BID 12/15/23 12/17/23 12/12/23 History release 24 hr pantoprazole 20 mg tablet,delayed 40 mg PO DAILY 12/15/23 12/15/23 Unknown History release trazodone 50 mg tablet 50 mg PO BEDTIME 12/15/23 12/15/23 Unknown History Exam Height,Weight and Vital Signs: Height 5 ft 1 in Weight 89.358 kg Vital Signs Temp Pulse Resp BP Pulse Ox O2 Del Method 12/17/23 06:39 98.7 F 69 16 124/75 96 Room Air Pertinent Lab Results Pertinent Lab Results: Laboratory Tests 10/05/23 18:10 WBC 8.3 Hgb 13.8 Hct 41.9 Plt Count 213 Sodium 140 Potassium 3.6 Chloride 105 Carbon Dioxide 26 BUN 18 H Creatinine 1.25 Lab Results 12/17/23 Range/Units 06:41 POC Glucose 120 H (60-115) mg/dL Airway Mallampati Class: II TM Dist: >3cm Neck ROM: Full Loose/Missing/Broken Teeth: No (Denies broken, loose, missing teeth) Heart: RRR Lungs: CTAB Assessment and Plan Assessment Anesthesia Assessment: Anesthesia Plan Discussed and Chart Reviewed Final Anesthetic Review Family History of Problems with Anesthesia: No History of Problems with Anesthesia: No NPO: Yes ASA Class: II Final Preanesthetic Review: No Changes in Pt Med Stat, Meds/Allgs Chart Reviewed, Consent Obtained/Reviewed and Anes Risks/Benef Reviewed Patient Risk: Intermediate Procedure Risk: Low Assessment/Block/Sedation in SS: Assess/Block/Sedation-SS Anesthetic Plan Anesthetic Plan: GA Disposition: Standard PACU
[2023-12-17] VITALS (10 sets, daily range): BP systolic 92–147; BP diastolic 61–85; PULSE 57–71; RESP 16–18; TEMP 36.2–37.1; O2SAT 92–98
[2023-12-17 06:47] LABS: Glucose, Whole Blood 120 mg/dL (60-115)
[2023-12-17] MEDS: Lactated Ringers 1,000 ML 100 ML IVCONT (07:13)
--- NOTE | 2023-12-17 07:27 | MHC.SHP ---
Pre-Procedural Eval Section A - 24 Hr Update-Section A only Date of Service: 12/17/23 The patient is an INPATIENT: No Changes since office visit: No Cold of Flu in the past 2 weeks, No New Medical Problems, No Changes in Medication and No Patient answered all questions The patient has been examined within 24 hours of the surgical procedure. The History & Physical has been completed within 30 days and I have reviewed it.: Yes Section B - Complete if H&P > 30 days Chief Complaint: Other tear of medial meniscus, current injury Allergies: Allergies Allergy/AdvReac Type Severity Reaction Status Date / Time No Known Allergies Allergy Verified 12/17/23 06:29 Plan I have reviewed the history and physical and performed a pertinent physical examination on my patient. No changes have occurred unless specified. Time Spent With Patient Time: Total time managing care of this patient today ____ minutes.
--- NOTE | 2023-12-17 08:30 | P.BOP_ITS ---
Brief Operative Note Date of Service: 12/17/23 Pre-op diagnosis: Left knee MMT Post-op diagnosis: other (left knee mmt. left knee plica. Left knee MFC chondromalacia) Procedure: Chondroplasty with partial medial meniscectomy and plica excision Implants: none Surgeon: Jossue Blanco MD Anesthesia: GLMA and local Was an Master Control Operator used for this Procedure?: No Estimated blood loss (mL): 5 Tourniquet time (min): 20 IV fluids (mL): 500 Pathology: none sent Condition: stable Disposition: PACU
--- NOTE | 2023-12-17 08:37 | P.OP_ITS ---
Operative Note Operative Note Date of Service: 12/17/23 Narrative: Date of Service: 12/17/23 Pre-op diagnosis: Left knee MMT Post-op diagnosis: other (left knee mmt. left knee plica. Left knee MFC chondromalacia) Procedure: Chondroplasty with partial medial meniscectomy and plica excision Implants: none Surgeon: Jossue Blnaco MD Anesthesia: GLMA and local Was an Swimming Pool Maintenance Supervisor used for this Procedure?: No Estimated blood loss (mL): 5 Tourniquet time (min): 20 IV fluids (mL): 500 Pathology: none sent Condition: stable Disposition: PACU Procedure in detail: Patient was brought to the operating room placed supine on the arthroscopic table and prepped and draped in standard sterile fashion. A time-out was called to identify proper site proper procedure proper surgeon and IV antibiotics per weight were administered. I began by exsanguinating the limb and insufflating tourniquet to 300 mm Hg. Then made a standard anterolateral stab incision. The knee was insufflated with water and 30 degree arthroscope was placed. There was grade 0 fibrillations of the patella and overall suprapatellar pouch and the gutters were clean. There was a medial plica tyhat abstructed my descent into the medial compartment. I descended into the medial compartment anteriorly where I made my medial portal under direct visualization. There was a 1 cm x 1 cm G3 lesion of the weight bearing portion of the MFC. The ticial plateau had G1 changes that were minimal. The meniscus was stable, the root was intact and there were small central tears of the body and posterior horn. These were debrided with a shaver and the chondral damage was also debrided down to stable edges. The plica was then removed with a shaver. The notch and ACL were examined and found to be normal. The lateral compartment was normal. I then removed all instrumentation and closed the portals with skin glue. 25 mL of 2% Marcaine with epinephrine was injected into the joint and the surrounding soft tissues. Patient was then placed in sterile dressing extubated brought recovery room stable condition. There were no known complications.
[2023-12-17] MEDS: fentaNYL citrate/PF 100 MCG/2 ML VIAL 25 MCG IVPUSH (09:15)
[2023-12-17] MEDS: oxyCODONE HCl Immed Release 5 MG TABLET PO (09:20)
== END 2023-12-17 11:09 | disposition home or self-care (01) ==
PROVIDERS: PCP Family Medicine; Visit Provider Orthopaedic Surgery
PROC: (CPT 29870; principal; 2023-12-17 07:30)
DX: S83.242A Other tear of medial meniscus, current injury, left knee, initial encounter (principal); M67.52 Plica syndrome, left knee; M94.262 Chondromalacia, left knee; M17.12 Unilateral primary osteoarthritis, left knee; M25.462 Effusion, left knee; X58.XXXA Exposure to other specified factors, initial encounter; Y93.9 Activity, unspecified; Y92.9 Unspecified place or not applicable; Y99.9 Unspecified external cause status; E11.9 Type 2 diabetes mellitus without complications; J45.909 Unspecified asthma, uncomplicated; K76.0 Fatty (change of) liver, not elsewhere classified; E66.01 Morbid (severe) obesity due to excess calories; Z68.37 Body mass index [BMI] 37.0-37.9, adult; Z79.51 Long term (current) use of inhaled steroids; Z79.85 Long-term (current) use of injectable non-insulin antidiabetic drugs; Z79.899 Other long term (current) drug therapy; Z98.890 Other specified postprocedural states
CPT/HCPCS: 29881; 82947; J0131; J0171; J0690; J1100; J2250; J2405; J2704; J2795; J3010

== ENCOUNTER → 2023-12-17 05:53 | Outpatient (BNV) | payer MEDICAID, SELFPAY | PROVIDERS: PCP Family Medicine; Visit Provider Orthopaedic Surgery | DX: S83.242A Other tear of medial meniscus, current injury, left knee, initial encounter (principal) | CPT/HCPCS: 29881 ==

== ENCOUNTER 2023-12-26 10:25 | Outpatient (AMB) | payer MEDICAID, SELFPAY ==
--- NOTE | 2023-12-26 10:28 | A.OFFVIS_ITS ---
Intake Visit Reasons: PO LT knee 12/17/23 NE Intake Note: Jany is a 48 year old female who presents today for a post op appointment s/p left knee 12/17/23 NE. Patient reports she feels she is doing well. She mentions having some discomfort and some swelling. Allergies No Known Allergies Allergy (Verified 12/17/23 06:29) HPI HPI PO LT knee 12/17/23 NE: Details: 48-year-old female, who is Paraguayan speaking, presents in the office today 9 days status post left knee chondroplasty with partial medial meniscectomy and plica excision, which was performed on 12/17/[address] Blanco.? ? While in the office today, the patient reports she feels she is doing better but does reports mild discomfort and edema. ? PFSH Medical History Asthma Diabetes NAFLD (nonalcoholic fatty liver disease) GERD (gastroesophageal reflux disease) Morbid obesity Internal and external bleeding hemorrhoids Surgical History Hx of colonoscopy History of esophagogastroduodenoscopy (EGD) History of laparoscopic cholecystectomy History of tubal ligation Family History Father No problems noted. Sister Breast tumor Sister Pancreatic cancer Social History Household Members: Spouse Are you a primary patient care representative to a significant other at home: No Do you presently have visiting nurse or other home services: No Alcohol intake: never Comment: COUNTS CORRECT Patient Tobacco Use Status: Never used Tobacco Review of Systems Const All systems reviewed & are unremarkable except as noted in HPI and below Physical Exam Const General: cooperative, healthy appearing and no acute distress Resp Effort & Inspection: normal respiratory effort and able to speak in complete sentences Cardio Rate: regular rate Peripheral pulses: Peripheral pulses 2+ throughout GI Palpation (GI): Soft to palpation Skin Lesions: no lesions Rashes: no rashes Extrem Other: Left knee: Incision site is clean, dry, and intact.? ROM Is 45-60 degrees. NVI. Assessment & Plan Assessment & Plan (1) S/P left knee arthroscopy: Comment: Left knee chondroplasty with partial medial meniscectomy and plica excision 12/17/23 NE Code(s): Z98.890 - Other specified postprocedural states Category: Surgical Plan Ms. Jaime Navarrete is a 48-year-old female, who is [place]ayan speaking, presents in the office today 9 days status post left knee chondroplasty with partial medial meniscectomy and plica excision, which was performed on 12/17/[address] Blanco.? ? While in the office today, the patient reports she feels she is doing better but does reports mild discomfort and edema.? ? I stressed the importance of working on ROM to avoid stiffness. The patient is extremely apprehensive to perform any ROM in the office. I have placed a referral for stat PT. Follow-up will be in four weeks for a ROM check, or sooner if needed. ? Orders: Orders PT Evaluation and Treatment Today S83.242A - Other tear of medial meniscus, current injury, left knee, initial encounter Patient Instructions: Scribed by Lalitha Parekh medical manager, for Key Estevez PA-C on 12/26/2023 at 10:45 am, EST.? Coding Level of Care Code Global (18549) Diagnoses S/P left knee arthroscopy Z98.890
== END 2023-12-26 10:43 | disposition home or self-care (01) ==
LOC: HO.HOS 10:25
PROVIDERS: PCP Family Medicine; Visit Provider Physician Assistant
DX: Z98.890 Other specified postprocedural states (principal)
CPT/HCPCS: 99024

== ENCOUNTER → 2023-12-26 10:25 | Outpatient (BNVA) | payer MEDICAID, SELFPAY | PROVIDERS: PCP Family Medicine; Visit Provider Physician Assistant | DX: S83.242D Other tear of medial meniscus, current injury, left knee, subsequent encounter (principal); X58.XXXD Exposure to other specified factors, subsequent encounter; Z98.890 Other specified postprocedural states | CPT/HCPCS: 99212 ==

== ENCOUNTER 2024-01-30 10:18 | Outpatient (AMB) | payer MEDICAID, SELFPAY ==
--- NOTE | 2024-01-30 10:26 | MHC.OFFVIS ---
Intake Visit Reasons: PO - Left Knee w/ NE 12/17/23 Intake Note: Jany is a 48 year old female who presents today for a post op appointment s/p left knee 12/17/23 NE. Patient continues to ambulate partial weight bearing with crutches as she continues to have significant pain. Allergies No Known Allergies Allergy (Verified 01/30/24 10:36) HPI HPI PO - Left Knee w/ NE 12/17/23: Details: Jany is a 48 year old female who presents today for a post op appointment s/p left knee 12/17/23 NE. Patient continues to ambulate partial weight bearing with crutches as she continues to have significant pain. [facility] Medical History Asthma Diabetes NAFLD (nonalcoholic fatty liver disease) GERD (gastroesophageal reflux disease) Morbid obesity Internal and external bleeding hemorrhoids Surgical History Hx of colonoscopy History of esophagogastroduodenoscopy (EGD) History of laparoscopic cholecystectomy History of tubal ligation Family History Father No problems noted. Sister Breast tumor Sister Pancreatic cancer Social History Household Members: Spouse Are you a primary child care attendant to a significant other at home: No Do you presently have visiting nurse or other home services: No Alcohol intake: never Comment: COUNTS CORRECT Patient Tobacco Use Status: Never used Tobacco Physical Exam Extrem Other: [id number] effusion. 0-90 degrees of motion. Portals clean dry and intact Assessment & Plan Assessment & Plan (1) S/P left knee arthroscopy: Comment: Left knee chondroplasty with partial medial meniscectomy and plica excision 12/17/23 NE Code(s): Z98.890 - Other specified postprocedural states Category: Surgical Plan: Status post knee arthroscopy. She had findings of significant chondromalacia intraoperatively. I explained this to her and how this can lead to slow recovery. Expressed understanding. I recommend aggressive physical therapy and follow up in 6 weeks. Coding Level of Care Code Global (04558) Diagnoses S/P left knee arthroscopy Z98.890
== END 2024-01-30 11:06 | disposition home or self-care (01) ==
PROVIDERS: PCP Family Medicine; Visit Provider Orthopaedic Surgery
DX: Z98.890 Other specified postprocedural states (principal)
CPT/HCPCS: 99024

== ENCOUNTER → 2024-01-30 10:18 | Outpatient (BNVA) | payer MEDICAID, SELFPAY | PROVIDERS: PCP Family Medicine; Visit Provider Orthopaedic Surgery | DX: M25.562 Pain in left knee (principal); Z47.89 Encounter for other orthopedic aftercare; Z98.890 Other specified postprocedural states | CPT/HCPCS: 99212 ==

== ENCOUNTER 2024-03-15 08:26 | Outpatient (AMB) | payer MEDICAID, SELFPAY ==
--- NOTE | 2024-03-15 08:27 | A.OFFVIS_ITS ---
Vital Signs 03/15/24 08:31 Height 5 ft Weight 200 lb BMI 39.1 Intake Visit Reasons: PO - Left Knee w/ NE 12/17/23 Intake Note: Jany is a 48 year old bangladeshi speaking female who presents today for a post op appointment s/p left knee 12/17/23 NE. Slow recovery due to findings of significant chondromalacia intraoperatively was discussed. Patient presents today using one crutch for ambulation due to pain. Increased pain with ambulation of stairs, significantly struggling with this. The left knee is giving out on her but she has not taken any recent falls. She is taking Ibuprofen & Tylenol with no relief. Commissioner Of Conciliation Required: Yes Commissioner Of Conciliation Name: Kera Lund - LMT Allergies No Known Allergies Allergy (Verified 03/15/24 08:33) HPI HPI PO - Left Knee w/ NE 12/17/23: Details: Jany is a 48 year old bangladeshi speaking female who presents today for a post op appointment s/p left knee 12/17/23 NE. Slow recovery due to findings of significant chondromalacia intraoperatively was discussed. Patient presents today using one crutch for ambulation due to pain. Increased pain with ambulation of stairs, significantly struggling with this. The left knee is giving out on her but she has not taken any recent falls. She is taking Ibuprofen & Tylenol with no relief. [facility] Medical History Asthma Diabetes NAFLD (nonalcoholic fatty liver disease) GERD (gastroesophageal reflux disease) Morbid obesity Internal and external bleeding hemorrhoids Surgical History Hx of colonoscopy History of esophagogastroduodenoscopy (EGD) History of laparoscopic cholecystectomy History of tubal ligation Family History Father No problems noted. Sister Breast tumor Sister Pancreatic cancer Social History Household Members: Spouse Are you a primary home care provider to a significant other at home: No Do you presently have visiting nurse or other home services: No Alcohol intake: never Comment: COUNTS CORRECT Patient Tobacco Use Status: Never used Tobacco Physical Exam Vital Signs: BMI result Body Mass Index 39.1 Extrem Other: Motion has improved but still with apef-cm-gtdzolix effusion and tenderness to palpation anterolaterally over the knee. Assessment & Plan Assessment & Plan (1) S/P left knee arthroscopy: Comment: Left knee chondroplasty with partial medial meniscectomy and plica excision 12/17/23 NE Code(s): Z98.890 - Other specified postprocedural states Category: Surgical Plan: Jany is improving but slowly. Her ambulatory capacity is limited because of poor gait mechanics. She continues to have pain and swelling but less than prior. I had a long discussion with her regarding my recommendations which are to continue activity and exercise. I recommend she go to the gym. I explained to her the importance of normalizing her gait and her muscle mechanics. I recommend discontinuing the crutch and I will see her back in 8 weeks. I recommend NSAIDs and ice for swelling. Coding Level of Care Code Global (51538) Diagnoses S/P left knee arthroscopy Z98.890
[2024-03-15 08:31] VITALS: BMI 39.1
== END 2024-03-15 09:07 | disposition home or self-care (01) ==
PROVIDERS: PCP Family Medicine; Visit Provider Orthopaedic Surgery
DX: Z98.890 Other specified postprocedural states (principal)
CPT/HCPCS: 99024

== ENCOUNTER → 2024-03-15 08:26 | Outpatient (BNVA) | payer MEDICAID, SELFPAY | PROVIDERS: PCP Family Medicine; Visit Provider Orthopaedic Surgery | DX: Z47.89 Encounter for other orthopedic aftercare (principal); Z98.890 Other specified postprocedural states | CPT/HCPCS: 99212 ==

== ENCOUNTER 2024-03-29 12:40 | Outpatient (RCR) | payer MEDICAID, SELFPAY ==
--- NOTE | 2024-01-02 14:35 | MHC.PT.EP ---
[facility] [place] [facility] [place] [facility] [place] [facility] [address] John Bassett [address] [phone] F: [phone] F: [phone] F: [phone] F: [phone] Physical Therapy Plan of Care Date of Evaluation: 01/02/24 Date of Surgery: 12/17/23 Diagnosis: LEFT knee tear of medial meniscus s/p chondroplasty with partial medial meniscectomy and plica excision (DOS: 12/17/23) (RS) Assessment: Patient is a pleasant Cypriot speaking 48 y.o. female who is referred to PT by Key Estevez PA-C, surgery performed by Dr. Jossue Blanco MD, with Dx of LEFT knee tear of medial meniscus s/p chondroplasty with partial medial meniscectomy and plica excision (DOS: 12/17/23). Patient impairments include increased post surgical pain and swelling, very limited knee ROM, reduced mobility of patellofemoral and tibiofemoral joint, significant quad weakness, antalgic gait. Patient current functional limitations are needs help with lower body dressing, bathing (to step into tub), cleaning, cooking, driving, walking, stair use. Patient will benefit from skilled PT to address aforementioned impairments and functional limitations to meet established goals. Frequency and Duration: The patient will be seen 2x/week for 6 weeks Short Term Goals: 3 weeks Patient demonstrates consistency and independence with HEP to self manage symptoms. Patient presents with increased L knee extension 0 degrees to normalize gait pattern with LRAD on level surfaces. Patient presents with increased L knee swelling 41cm to be able to perform greater knee flexion AAROM to 60 degrees. Dope Firer Goals: 6 weeks Patient presents with increased L knee flexion AROM 110 degrees to be able to perform sit to stand from low chair without difficulty. Patient presents with increased L knee quad strength 4+/5 to be able to perform stair climbing with railing step over step. Treatment Plan: Modalities to reduce pain, spasms and effusion. Manual therapy to restore motion and function. Therapeutic exercise to improve strength and flexibility. Neuromuscular re-education for posture and balance. Therapeutic activities to return to functional activities of daily living. Electronically signed by: Corona Schmitt PT, DPT Please sign and return to therapist. Thank you for your referral.
--- NOTE | 2024-06-09 15:00 | MHC.PT.DC ---
[facility] [place] Office [place] Office [place] Office [address] John Bassett [address] [phone] F: [phone] F: [phone] F: [phone] F: [phone] Physical Therapy Discharge Report Diagnosis: LEFT knee tear of medial meniscus s/p chondroplasty with partial medial meniscectomy and plica excision (DOS: 12/17/23) (RS) Date of Surgery: 12/17/23 Date of Evaluation: 01/02/24 Date of Discharge: 06/09/24 Treatments to Date: 16 Cancellations to Date: 1 No Shows to Date: 3 Discharge Status: Improved Function Independent with HEP Patient Elected to Stop Recommend MD Follow-up Visit Non-compliance Discharge Summary: Jany last attended PT on 03/29/24 and the assessment read, Jany is showing continued progress with PT interventions as she is slowly gaining ROM and strength in her L knee but remains limited by pain. She is able to tolerate more WBing exercises and we worked on pre-gait movements to then work on normalizing her gait pattern with proper wt shifting. Also working on step ups and mini squats to incorporate function. She is still unable to ambulate without AD without compensations, recommend continued PT to restore functional mobility and normalize gait pattern. Recommend PT 2x/week for 4 weeks. However, Jany did not attend any scheduled PT visits after this session, no showing or cancelling many visits. And is therefore discharged from PT. Electronically signed by: Corona Schmitt, PT, DPT Please sign and return to therapist. Thank you for your referral.
== END 2024-06-09 15:01 | disposition home or self-care (01) ==
LOC: HO.PT 12:40
PROVIDERS: PCP Family Medicine; Visit Provider Physician Assistant
DX: S83.242D Other tear of medial meniscus, current injury, left knee, subsequent encounter (principal)
CPT/HCPCS: 97014; 97110; 97112; 97116; 97140; 97161; 97530; 97535

== ENCOUNTER 2024-04-21 10:15 | Outpatient (REF) | payer MEDICAID, SELFPAY ==
[2024-04-21 14:10] LABS: MANUAL DIFF FLAG NO
[2024-04-21 14:21] LABS: Basophils Absolute Auto 0.1 X10*3/uL (0.0-0.2); Basophils Percent Auto 0.7 % (0-2); Eosinophils Absolute Auto 0.3 X10*3/uL (0.0-0.4); Eosinophils Percent Auto 2.4 % (0-4); Hematocrit 42.8 % (37.0-47.0); Hemoglobin 13.9 g/dl (12.0-16.0); Imm Gran Abs Auto 0.06 X10*3/uL (0.00-0.03); Imm Gran Pct Auto 0.5 % (0.0-0.4); Lymphocytes Absolute Auto 3.4 X10*3/uL (1.2-4.9); Lymphocytes Percent Auto 28.8 % (20-40); Mean Corpuscular HGB Conc 32.5 g/dl (31.0-35.0); Mean Corpuscular Hemoglobin 28.8 pg (27.0-33.0); Mean Corpuscular Volume 88.6 fL (80.0-98.0); Mean Platelet Volume 10.4 fL (9.4-12.3); Monocytes Absolute Auto 0.8 X10*3/uL (0.1-1.2); Monocytes Percent Auto 6.8 % (2-11); Neutrophils Absolute Auto 7.1 x10*3/uL (2.0-8.3); Neutrophils Percent Auto 60.8 % (45-73); Platelet Count 259 X10*3/uL (160-400); Red Blood Count 4.83 X10*6/uL (4.20-5.50); Red Cell Distribution Width 14.5 % (11.0-16.0); White Blood Count 11.6 X10*3/uL (4.8-10.8)
[2024-04-21 14:34] LABS: Alanine Aminotransferase 72 U/L (0-31); Albumin Level 3.9 g/dL (3.5-5.0); Alkaline Phosphatase 109 U/L (39-117); Anion Gap 8 (12-20); Aspartate Amino Transferase 44 U/L (5-31); Blood Urea Nitrogen 14 mg/dL (9-16); Calcium 8.7 mg/dL (8.4-10.2); Carbon Dioxide 29 mmol/L (22-29); Chloride 106 mmol/L (96-108); Cholesterol 134 mg/dL (<200); Estimated Glomerular Filt Rate > 60; Glucose Random 99 mg/dL (60-115); HDL Cholesterol 30 mg/dL (>40); LDL Cholesterol Calculated 90 mg/dL (<100); Potassium 3.9 mmol/L (3.3-5.1); Sodium 139 mmol/L (135-145); Total Protein 7.3 g/dL (6.5-8.0); Triglycerides 72 mg/dL (<150)
== END 2024-04-21 10:16 | disposition home or self-care (01) ==
LOC: HO.CHCLDS 10:15
PROVIDERS: Visit Provider Family Medicine
DX: E11.65 Type 2 diabetes mellitus with hyperglycemia (principal)
CPT/HCPCS: 36415; 80053; 80061; 84443; 85025

== ENCOUNTER 2024-05-10 08:53 | Outpatient (AMB) | payer MEDICAID, SELFPAY ==
[2024-05-10 08:55] VITALS: BMI 39.1
--- NOTE | 2024-05-10 08:55 | MHC.OFFVIS ---
Vital Signs 05/10/24 08:55 Height 5 ft Weight 200 lb BMI 39.1 Intake Visit Reasons: OV - Left Knee 12/17/23 Intake Note: Jany is a 48 year old Mauritian speaking female who presents today for a follow up of her left knee. Hx of Left Knee Arthroscopy (Chondroplasty w/ Partial Medial Menisectomy & Plica Excision) 12/17/2023, Slow recovery due to findings of significant chondromalacia intraoperatively was discussed. Patient continues to ambulate with one crutch, she continues to have pain and swelling of the lateral aspect of the knee. Allergies No Known Allergies Allergy (Verified 05/10/24 08:56) HPI HPI OV - Left Knee 12/17/23: Details: Jany is a 48 year old Mauritian speaking female who presents today for a follow up of her left knee. Hx of Left Knee Arthroscopy (Chondroplasty w/ Partial Medial Menisectomy & Plica Excision) 12/17/2023, Slow recovery due to findings of significant chondromalacia intraoperatively was discussed. Patient continues to ambulate with one crutch, she continues to have pain and swelling of the lateral aspect of the knee. She is mostly worried about falling and feels that she can not walk normally. [facility] Medical History Asthma Diabetes NAFLD (nonalcoholic fatty liver disease) GERD (gastroesophageal reflux disease) Morbid obesity Internal and external bleeding hemorrhoids Surgical History Hx of colonoscopy History of esophagogastroduodenoscopy (EGD) History of laparoscopic cholecystectomy History of tubal ligation Family History Father No problems noted. Sister Breast tumor Sister Pancreatic cancer Social History Household Members: Spouse Are you a primary team primary care physician to a significant other at home: No Do you presently have visiting nurse or other home services: No Alcohol intake: never Comment: COUNTS CORRECT Patient Tobacco Use Status: Never used Tobacco Physical Exam Vital Signs: BMI result Body Mass Index 39.1 Extrem Other: On exam she has 0-125 degrees of motion. Well-healed portals. Mild effusion at worst. Gait antalgia present with abnormal gait. Assessment & Plan Assessment & Plan (1) S/P left knee arthroscopy: Comment: Left knee chondroplasty with partial medial meniscectomy and plica excision 12/17/23 NE Code(s): Z98.890 - Other specified postprocedural states Category: Surgical Plan: This is a 48-year-old woman who has a fear of falling and continues to use a crutch. She feels better but still can not walk normally. I am surprised that she is still using a crutch and a fully understand her fear of falling as she is otherwise as robust in relatively healthy. I had a long discussion with her regarding the importance of regaining normal gait mechanics. I am not sure she can do this on her own and I reordered physical therapy Coding Level of Care Code Est Pt Level 3 (69798) Diagnoses S/P left knee arthroscopy Z98.890
== END 2024-05-10 12:28 | disposition home or self-care (01) ==
PROVIDERS: PCP Family Medicine; Visit Provider Orthopaedic Surgery
DX: S83.242D Other tear of medial meniscus, current injury, left knee, subsequent encounter (principal)
CPT/HCPCS: 99213

== ENCOUNTER → 2024-05-10 08:53 | Outpatient (BNVA) | payer MEDICAID, SELFPAY | PROVIDERS: PCP Family Medicine; Visit Provider Orthopaedic Surgery | DX: Z98.890 Other specified postprocedural states (principal) | CPT/HCPCS: 99212 ==

== ENCOUNTER 2024-05-14 08:32 | Outpatient (REF) | payer MEDICAID, SELFPAY | END 2024-05-14 08:33 | disposition home or self-care (01) | LOC: HO.MAMMO 08:32 | PROVIDERS: PCP Family Medicine; Visit Provider Family Medicine | DX: Z12.31 Encounter for screening mammogram for malignant neoplasm of breast (principal) | CPT/HCPCS: 77063; 77067 ==

== ENCOUNTER → 2024-05-14 09:15 | Outpatient (BNV) | payer MEDICAID, SELFPAY | PROVIDERS: PCP Family Medicine; Visit Provider Internal Medicine | DX: Z12.31 Encounter for screening mammogram for malignant neoplasm of breast (principal) | CPT/HCPCS: 77063; 77067 ==

== ENCOUNTER 2024-05-28 08:19 | Outpatient (AMB) | payer MEDICAID, SELFPAY ==
[2024-05-28 08:21] VITALS: BP 122/70; PULSE 68; O2SAT 98; BMI 36.8
--- NOTE | 2024-05-28 08:21 | MHC.OFFVIS ---
Vital Signs 05/28/24 08:21 Height 5 ft Weight 188 lb 4.396 oz BMI 36.8 BP 122/70 Blood Pressure Location Rt brachial Position Sitting Pulse 68 Pulse Source Pulse Oximeter Pulse Oximetry (%) 98 Oxygen Delivery Method Room Air Intake Visit Reasons: pre colonoscopy/Bibi pt Intake Note: NEW PATIENT Reason; Screening. Prior hx of colo/egd? Via Dr. Kaye 2022. Concerns/Questions? Pt has been having a significant pain in their abdomen which radiates from upper to lower quadrants. Pt also experiences bloating, abd distention, and diarrhea. Community Leader Required: Yes Community Leader Services: Community Leader Offered & Declined Community Leader Name: [id number] Heather Allergies No Known Allergies Allergy (Verified 05/28/24 08:21) HPI HPI pre colonoscopy/Bibi pt: Details: LAST COLONOSCOPY AND UPPER ENDOSCOPY 06/26/21 Findings: Larynx:normal Esophagus: GE junction at 38 cm, diaphragm hiatus at 38 cm, mild erythema at GEJ bx taken from here and distal esophagus in separate jars --lax LES Stomach: Patchy erythema. Biopsies were obtained. Grade 3 flap valve on retroflexed examination of the cardia. Duodenum: Normal bulb and descending duodenum, bx taken Intervention: Biopsies as noted above Findings: Terminal Ileum-normal, bx taken Random colon bx taken lack of colonic movement noted Cecum:normal Ascending Colon: normal Transverse Colon -normal Descending Colon:normal Sigmoid Colon: normal Rectum: Retroflexion with small internal hemorrhoids, grade I--Rectal biopsies taken with hot and cold snare to check for ganglion cells Anorectum - normal Colon preparation: Mcarthur Bowel Preparation Scale Right colon; 1 Transverse colon: 1-2 Left colon; 2 (0 = Unprepared colon segment with mucosa not seen due to solid stool that cannot be cleared. 1 = Portion of mucosa of the colon segment seen, but other areas of the colon segment not well seen due to staining, residual stool and/or opaque liquid. 2 = Minor amount of residual staining, small fragments of stool and/or opaque liquid, but mucosa of colon segment seen well. 3 = Entire mucosa of colon segment seen well with no residual staining, small fragments of stool or opaque liquid) Impression and Post Procedure Diagnosis: Endoscopy Findings: gastritis esophagitis incompetent LES Colonoscopy Findings: internal hemorrhoids with skin tags colonic inertia Plan: Await Pathology results Repeat Colonoscopy in 1-2 years or earlier if clinically indicated, next time might use reglan with prep or motegrity High fiber diet leaflet avoid straining at stool, epsom salts and sitz bath, anusol supps or cream if h pylori pos then treat Patient is here today for evaluation and to discuss going for colonoscopy again. Patient reports ongoing symptoms of postprandial abdominal pain and bloating. Patient reports frequent loose stools, however she is still feels like she is constipated. Her bowel movements are usually after meals. No diarrhea loose. Patient is not taking any fiber. She mostly Naur[place] food. Patient denies any melena, hematochezia, unintentional weight loss or ribbon like stools.? Denies any personal or family history of gastrointestinal disease, colon polyps, or CRC.? Diagnosed with fatty liver. Last liver enzymes 04/21/2024 AST 44 and ALT 72. Workup done in the past by previous GI provider who is no longer here. Patient was previously seen by Lacey ALEMAN. patient reports epigastric pain. Previously on omeprazole now on pantoprazole. Patient reports epigastric pain about 2 hours after she takes the medication. Sometimes reflux is so bad that patient feels like it is coming up all the way to her throat. Patient reports that she was diagnosed with either hernia was she was a child. Patient denies any nausea or vomiting. Reports occasional dyspepsia without dysphagia or odynophagia. [facility] Medical History (Updated 05/28/24 @ 10:22 by MARTÍNEZ Quiroz-ALICIA) Postprandial abdominal bloating Asthma Diabetes NAFLD (nonalcoholic fatty liver disease) GERD (gastroesophageal reflux disease) Morbid obesity Internal and external bleeding hemorrhoids Surgical History Hx of colonoscopy History of esophagogastroduodenoscopy (EGD) History of laparoscopic cholecystectomy History of tubal ligation Family History Father No problems noted. Sister Breast tumor Sister Pancreatic cancer Social History Household Members: Spouse Are you a primary pediatric care coordinator to a significant other at home: No Do you presently have visiting nurse or other home services: No Alcohol intake: never Comment: COUNTS CORRECT Patient Tobacco Use Status: Never used Tobacco Review of Systems Const Denies weight gain and Denies weight loss ENT Reports no additional complaints, Denies dysphagia and Denies odynophagia Card Reports no additional complaints Resp Reports no additional complaints GI Reports abdominal pain, Denies belching, Denies melena, Reports bloating, Denies change in bowel habits, Reports constipation, Denies dysphagia, Denies excessive flatus, Denies dyspepsia, Reports heartburn, Denies diarrhea, Reports loose stools, Denies nausea, Denies odynophagia and Denies vomiting Reports no additional complaints Musc Reports no additional complaints Neuro Reports no additional complaints Psych Reports no additional complaints Endo Reports no additional complaints Physical Exam Vital Signs: Last Vital Signs Pulse 68 05/28/24 08:21 BP 122/70 05/28/24 08:21 Pulse Ox 98 05/28/24 08:21 Oxygen Delivery Method Room Air 05/28/24 08:21 BMI result Body Mass Index 36.8 Const General: healthy appearing and no acute distress Nutritional Appearance: obese Orientation/consciousness: patient oriented x3 Resp Effort & Inspection: normal respiratory effort, able to speak in complete sentences, no tracheal deviation and symmetric chest movement Auscultation: clear to auscultation bilaterally Cardio Rate: regular rate GI Inspection: Yes normal to inspection, No distended and Yes obesity Palpation (GI): Soft to palpation, not firm, nontender and No hepatosplenomegaly present Auscultation: normal bowel sounds General: Yes no CVA tenderness Back/Spine/Pelvis Back: no CVA tenderness Skin General skin exam: elasticity normal, turgor normal and dry skin Neuro General: patient oriented x3 Psych Appearance: grossly normal Mental Status: mental status grossly normal Assessment & Plan Assessment & Plan (1) Screen for colon cancer: Code(s): Z12.11 - Encounter for screening for malignant neoplasm of colon (2) Elevated liver enzymes: Code(s): R74.8 - Abnormal levels of other serum enzymes Category: Medical (3) NAFLD (nonalcoholic fatty liver disease): Comment: Overweight Code(s): K76.0 - Fatty (change of) liver, not elsewhere classified Category: Medical (4) Abdominal pain: Code(s): R10.9 - Unspecified abdominal pain Category: Medical Qualifiers: Abdominal location: epigastric Qualified Code(s): R10.13 - Epigastric pain (5) Chronic GERD: Code(s): K21.9 - Gastro-esophageal reflux disease without esophagitis Category: Medical (6) Chronic constipation: Comment: Improved-consistent with bowel regimen- Continue cream for hemorrhoids Code(s): K59.09 - Other constipation Category: Medical (7) Postprandial abdominal bloating: Code(s): R14.0 - Abdominal distension (gaseous) Category: Medical (8) Postprandial epigastric pain: Code(s): R10.13 - Epigastric pain Plan Patient reports multiple GI symptoms. Postprandial epigastric pain and bloating. Frequent postprandial diarrhea and feeling like she still is not emptying her bowels well. She admits to constipation. Message sent to surgical schedulers to book procedure for patient, however we will send her to get some lab work. Will check H pylori. Currently on pantoprazole and it is not working. Previously was on omeprazole and states that also she did not have a good effect. Patient will start esomeprazole daily. Avoid dietary triggers and late night snacking. Staying upright for minimum 3 hours after meals discussed with patient. Patient will start Citrucel to help her bulk stools every morning after breakfast. She will take Dulcolax tablets to help her with bowel movements. Check B12, folate, vitamin-D level. Transglutaminase celiac. Check liver fibrosis panel and will out autoimmune disorders similar lab work was done back 2021 was all normal except mild elevation smooth muscle will send her for ultrasound with liver elastography as well as upper GI series with barium swallow to check for reflux and hiatal hernia. Discussed with patient low FODMAP diet to help her with bloating. Discussed with patient also weight loss and following low-fat, low carb low-salt and high-protein diet. Patient will follow-up in 10 weeks. We will discuss going for upper endoscopy and colonoscopy as well as review results. Patient is agreeable to plan of care and verbalizes understanding of instructions. She was given the opportunity to ask questions and all questions answered. Thank you for allowing me to participate in her care Orders: Orders H pylori Ag Stool Today K21.9 - Gastro-esophageal reflux disease without esophagitis Transglutaminase IgA Today R10.9 - Unspecified abdominal pain IRON PROFILE Today D64.9 - Anemia, unspecified Ceruloplasmin Today R79.89 - Other specified abnormal findings of blood chemistry Ferritin Today R74.8 - Abnormal levels of other serum enzymes Mitochondrial Antibody Today R79.89 - Other specified abnormal findings of blood chemistry Vitamin D 25-OH (D2 and D3) Today E55.9 - Vitamin D deficiency, unspecified Smooth Muscle Antibody Today R79.89 - Other specified abnormal findings of blood chemistry FL upper GI w Ba Swallow Today K21.9 - Gastro-esophageal reflux disease without esophagitis Liver Fibrosis Pnl Today K76.0 - Fatty (change of) liver, not elsewhere classified Liver Panel Today R74.01 - Elevation of levels of liver transaminase levels Vitamin B12 and Folate Today R19.7 - Diarrhea, unspecified US abdomen chan w elastography Today K76.0 - Fatty (change of) liver, not elsewhere classified Medications: New bisacodyl (Dulcolax (bisacodyl)) 10 mg (2 x 5 mg) PO BEDTIME 180 tabs 4RF methylcellulose (laxative) (Citrucel) take it with full glass of water 500 mg PO DAILY 30 tabs 2RF K59.00 - Constipation, unspecified esomeprazole magnesium (Nexium) 40 mg PO DAILY 30 caps 5RF K21.9 - Gastro-esophageal reflux disease without esophagitis Discontinued docusate sodium (Colace) Discontinued Reason: Patient no longer taking 100 mg PO DAILY 60 caps 0RF bisacodyl (Dulcolax (bisacodyl)) Discontinued Reason: Patient no longer taking 10 mg OK DAILY PRN 20 ea 0RF constipation Coding Level of Care Code Est Pt Level 4 (01096) Complex EM visit Add On G2211 Diagnoses Screen for colon cancer Z12.11 Elevated liver enzymes R74.8 NAFLD (nonalcoholic fatty liver disease) K76.0 Epigastric pain R10.13 Abdominal location: epigastric Chronic GERD K21.9 Chronic constipation K59.09 Postprandial abdominal bloating R14.0 Postprandial epigastric pain R10.13 Time Spent (min) 40 Comment 25 minutes spent with patient and additional 15 minutes spent reviewing her records
--- OUTSIDE RECORDS SUMMARY | 2024-05-28 08:32 | XMS_ITS | Encounter Summary ---
Author Organization [facility] Address [address] [place] [address] Care Team Providers Care Ict Business Analyst Name Role Phone Nina Haider MD Primary Care Provider [phone] Libby Redd MD Primary Care Provider Encounter Details Date Type Department Care Team (Late st Contact Info) Description 07/12/2022 Orders Only [facility] CHC MED & PEDS [address] [place], [place] [phone] Sondra Valera LPN Social History Tobacco Use Types Packs/Day Years Used Date Smoking Tobacco: Never Assessed Comments Unknown Sex and Gender Information Value Date Recorded Sex Assigned at Female 03/04/2022 10:37 AM EDT Legal Sex Female 10:37 AM EDT Gender Identity Female 03/04/2022 10:37 AM EDT Sexual Orientation Straight 06/12/2023 4: 51 PM EST documented as of this encounter Plan of Treatment Upcoming Encounters Date Type Department Care Team (Late Contact Info) Description 05/28/2024 1:30 PM EST Nurse Only [facility] MEDICINE [address] [place], [place] [phone] 09/07/2024 1:00 PM EDT Office Visit [facility] OPTOMETRY [address] [place], [place] [phone] Abel, Shira, OD [address] [place], [place] [phone] documented as of this encounter Visit Diagnoses Not on filedocumented in this encounter Care Teams Ict Business Analyst Relationship Specialty Start Date End Date Nina Haider MD [address] [place] [address] PCP - General Family Medicine 10/31/21 01/08/23 Libby Redd MD [address] [place] [address] PCP - General Family Medicine 01/09/23 documented as of this encounter
--- OUTSIDE RECORDS SUMMARY | 2024-05-28 08:32 | XMS_ITS | Encounter Summary ---
Author Organization [facility] Address [address] [place] [address] Care Team Providers Care Tag Stringer Name Role Phone Nnia Haider MD Primary Care Provider [phone] Libby Redd MD Primary Care Provider [phone] Encounter Details Date Type Department Care Team (Late Contact Info) Description 07/31/2022 Orders Only [facility] CHC MED & PEDS [address] [place], [place] [phone] Sondra Valera LPN Social History Tobacco Use Types Packs/Day Years Used Date Smoking Tobacco: Never Assessed Comments Unknown Sex and Gender Information Value Date Recorded Sex Assigned at Female 03/04/2022 10:37 AM EDT Legal Sex Female 10:37 AM EDT Gender Identity Female 03/04/2022 10:37 AM EDT Sexual Orientation Straight 06/12/2023 4: 51 PM EST COVID-19 Exposure Response Date Recorded In the last 10 days, have yo u been in contact with someone who was confirmed or suspected to have Coronavirus/COVID-19? No / Unsure 08/02/2022 10:49 AM EDT documented as of this encounter Plan of Treatment Upcoming Encounters Date Type Department Care Team (Late Contact Info) Description 05/28/2024 1:30 PM EST Nurse Only [facility] MEDICINE [address] [place], [place] [phone] 09/07/2024 1:00 PM EDT Office Visit [facility] OPTOMETRY [address] [place], [place] [phone] Shira Roman, OD [address] [place] [address] documented as of this encounter Visit Diagnoses Not on filedocumented in this encounter Care Teams Tag Stringer Relationship Specialty Start Date End Date Nnia Haider MD [address] [place] [id number] PCP - General Family Medicine 10/31/21 01/08/23 Libby Redd MD [address] [place] [id number] PCP - General Family Medicine 01/09/23 documented as of this encounter
--- OUTSIDE RECORDS SUMMARY | 2024-05-28 08:32 | XMS_ITS | Clinical Summary ---
Author Organization [employer] Address [address] [facility] [address] [place] [address] Care Team Providers Care Traffic Ii Manager Name Role Phone Libby Redd MD Primary Care Provider [phone] Allergies No known active allergies Medications * This document contains information received from the source organization and may not represent a complete record from that organization. Bisacodyl EC 5 MG EC tablet TAKE 2 TABLETS BY MOUTH AT NOON THE DAY BEFORE PROCEDURE 06/25/19 23 Active bismuth subsalicylate (Pepto Bismol) 262 MG/15ML suspension Take 17 ml orally 4 times a day for 14 days 11/28/19 21 Active SM Fiber Laxative 500 MG tablet Take 1 tablet by mouth in the morning. 90 tablet 3 08/27/19 23 Active Spacer/Aero-Holdi ng Chambers (OptiChamber Liliana) misc 1 each every 4 (four) hours if needed (asthma). 1 each 11/12/19 23 Active Alcohol Swabs padsIndications:T ype 2 diabetes mellitus with hyperglycemia, without long-term current use of insulin (CMS/[facility]) 1 each if needed (to clean skin). 100 each 11 12/05/19 23 Active FREESTYLE LITE test stripIndications: Type 2 diabetes mellitus with hyperglycemia, without long-term current use of insulin (CMS/HCC) Use to check blood sugar twice daily or more as needed 100 each 12 12/05/19 23 Active Blood Glucose Monitoring Suppl (FreeStyle Lite) w/Device kitIndications:Ty pe 2 diabetes mellitus with hyperglycemia, without long-term current use of insulin (CMS/HCC) 1 each in the morning. 1 kit 12/05/19 23 Active triamcinolone (Kenalog) 0.5 % ointment Apply topically 2 times daily. 90 g 01/11/20 23 Active Ventolin HFA 108 (90 Base) MCG/ACT inhaler INHALE 2 PUFFS BY MOUTH EVERY 4 TO 6 HOURS NEEDED FOR WHEEZING 18 g 2 01/11/20 23 Active hydrOXYzine HCl (Atarax) 25 MG tabletIndications :Urticaria Take 1 tablet (25 mg) by mouth if needed at bedtime for itching. 90 tablet 3 02/08/20 23 Active loratadine (Claritin) 10 MG tablet TAKE 1 TABLET BY MOUTH DAILY IN THE MORNING 90 tablet 1 03/05/20 23 Active fluticasone (Flonase) 50 MCG/ACT nasal sprayIndications: Allergic rhinitis, unspecified seasonality, unspecified trigger USE 2 SPRAYS IN EACH NOSTRIL TWICE DAILY 48 g 1 04/03/20 23 Active lidocaine (Lidoderm) 5 % patch Apply 1 patch topically in the morning. Remove & discard patch within 12 hours or as directed by MD. 30 patch 2 06/13/19 24 Active pantoprazole (ProtoNix) 40 MG EC tabletIndications :Gastroesophageal reflux disease without esophagitis Take 1 tablet (40 mg) by mouth before breakfast. Do not crush, chew, or split. 90 tablet 3 09/04/19 24 Active Vitamin D High Potency 25 MCG (1000 UT) capsule TAKE 1 CAPSULE BY MOUTH DAILY IN THE MORNING 90 capsule 1 09/08/19 24 Active fexofenadine (Tianna) 180 MG tabletIndications :Urticaria TAKE 1 TABLET BY MOUTH DAILY NEEDED FOR ALLERGIES 90 tablet 1 09/25/19 24 Active butamben-tetracai ne-benzocaine (Cetacaine) 2-2-14 % spray Apply 1 spray topically if needed for irritation. 20 g 10/03/19 24 Active traZODone (Desyrel) 50 MG tablet TAKE 1 TABLET BY MOUTH EVERY DAY AT BEDTIME 30 tablet 1 11/26/19 24 Active doxepin (SINEquan) 10 MG capsule Take 10 mg by mouth at bedtime. 10/31/19 24 Active metFORMIN XR (Glucophage-XR) 500 MG 24 hr tablet Take 1 tablet (500 mg) by mouth at bedtime. Do not crush, chew, or split. 90 tablet 1 01/29/20 24 Active dulaglutide (Trulicity) 3 MG/0.5ML solution pen-injector Inject 3 mg under the skin 1 (one) time per week. 4 each 01/29/20 24 Active Magnesium 400 MG capsule Take 400 mg by mouth at bedtime. 90 capsule 1 01/29/20 24 Active diclofenac (Cataflam) 50 MG tablet TAKE 1 TABLET BY MOUTH THREE TIMES DAILY 90 tablet 05/21/19 25 Active diclofenac (Cataflam) 50 MG tablet Take 1 tablet (50 mg) by mouth 3 times daily. 90 tablet 04/19/20 24 025 Discontinued Active Problems Problem Noted Date Diagnosed Date Hypertension 04/19/2024 Assessment & Plan (04/19/2024 4:36 PM EST): BP is controlled. Continue on current medications. Dry skin dermatitis 04/19/2024 Assessment & Plan (04/19/2024 4:37 PM EST): Advised to use moisturizer without fragrance for dry skin. 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 Referral to Orthopaedic for further treatment. Advised on Physical Therapy for aid with symptoms. Continue monitoring BP at home and f/u in 3 months. Cough 10/03/2023 Assessment & Plan (10/06/2023 3:32 AM EDT): Pt had a persistent cough at the time of the visit -Prescribed : Guaifenesin-codeine (Robitussin-AC) 100-10 MG/5ML syrup Bpeojmsy-xhwgbzvuhn-rwgbkxqspz (Cetacaine) 2-2-14 % spray Insomnia 10/03/2023 Assessment & Plan (10/06/2023 3:30 AM EDT): Pt was educated on the importance of having a sleep routine. -Advised the pt to do the following: No television and cell phone use at least 30 minutes prior to bed time. Prescribed: Trazodone (Desyrel) 50 MG tablet Internal and external bleeding hemorrhoids 09/03 Metabolic dysfunction-associ ated steatotic liver disease (MASLD) 09/04/2023 Strain of lumbar region 09/04/2023 Chronic pain of left knee 09/04/2023 Assessment & Plan (09/04/2023 1:51 PM EDT): Ordering XR imaging of Left Knee for further investigation of symptoms. Referring Orthopaedic for further evaluation. Discussed possible joint aspiration for later date. Continue current Ibuprofen medication for relief of symptoms. Elevated parathyroid hormone 01/21/2023 Vitamin D deficiency 01/10/2023 Uses Tristanian as primary spoken language 10/19/19 23 Obesity 10/18/2022 Assessment & Plan (04/19/2024 4:38 PM EST): Discussed nutritional and lifestyle modifications to help with weight loss. Assessment & Plan (10/06/2023 3:48 AM EDT): Pt's triglycerides were high. Pt's liver was determined to be inflamed. -Pt was educated in the importance of incorporating healthy life style choices and regular exercise. Pt's BP was 148/88 - f/u in 1 month and asked the pt to monitor BP levels daily using BP monitor already provided. Discussed calorie deficit, recommended reduction of 20-30% of maintenance calories; meat pumper referral offered. Recommended to decrease soda and sugary beverage consumption. Recommended at least 20 g per meal of protein to assist with satiety. Recommended at least 150 min/week of moderate intensity exercise. Assessment & Plan (01/10/2023 9:10 AM EDT): Advised patient to maintain active with physical activity with alternative workout methods. Referred to a Branch Mechanic. History of tubal ligation 10/18/2022 Allergic reaction 10/18/2022 Assessment & Plan (01/10/2023 9:14 AM EDT): Will send labs for allergy testing Assessment & Plan (10/18/2022 11:08 AM EDT): Itchy rash with reaction to plants? Not sure otherwise detergents and soaps are the same - antihistamine, long-acting - steroid cream to lesions Autoimmune hepatitis 10/18/2022 Assessment & Plan (10/18/2022 11:58 AM EDT): Elevated smooth muscle antibody Needs GI followup Other constipation 08/27/2022 Assessment & Plan (08/27/2022 1:17 PM EDT): Increase fiber, supplement sent Schedule RUQ US followup with GI after US exam, for RUQ pain/abnl liver enzymes Apocrine metaplasia of breast 08/09/2022 Assessment & Plan (08/27/2022 1:18 PM EDT): Continue followup with gynecology, Dr Davis, next appt 09/2022 Pap and mammo with this provider Type 2 diabetes mellitus wit h hyperglycemia, without long-term current use of insulin 11/19/2019 Assessment & Plan (04/19/2024 4:39 PM EST): A1c improve, 6.4% today. Referral to Eye care for further evaluation. Follow up in 4 months. Assessment & Plan (03/15/2024 8:19 PM EST): Lab Results Component Value Date HGBA1C 8.6 (A) 01/29/2024 Uncontrolled. Target A1c < 7%. Adjust regimen. F.up in 3 months No future appointments. Assessment & Plan (01/10/2023 9:13 AM EDT): Advised patient of healthy eating to moderate glucose levels. ALT (SGPT) level raised 10/20/2019 Arthritis of hand 10/20/2019 Breast lump 10/20/2019 Encounters * This document contains information received from the source organization and may not represent a complete record from that organization. Date Type Department Care Team Description 05/21/2024 Refill [facility] [address] [place] [address] Libby Redd MD 05/06/2024 Telephone [facility] MEDICINE [address] [place] [address] Libby Redd MD Med Refill 04/27/2024 Telephone [facility] [address] [place] [address] Libby Redd MD 04/19/2024 3:45 PM EST Office Visit [facility] [address] [place] [address] Libby Redd MD Type 2 diabetes mellitus with hyperglycemia, without long-term current use of insulin (CMS/HCC) (Primary Dx); Hypertension, unspecified type; Dry skin dermatitis; Colon cancer screening; Breast cancer screening by mammogram; Encounter for immunization; Dietary counseling; Exercise counseling; Class 3 severe obesity with serious comorbidity and body mass index (BMI) of 50.0 to 59.9 in adult, unspecified obesity type (CMS/HCC) 04/19/2024 Travel 03/05/2024 Patient Outreach [facility] [address] [place] [address] Libby Redd MD Pre-visit Planning (SDOH screening completed on 09/24/2023, Pre-visit planning - LVM//) from Last 3 Months Immunizations Name Administration Dates Next Due Hep A, Adult 04/19/2024 Hep B, adult 10/19/2020,07/27/2020,06/29/2020 Influenza injectable quadriv alent IIV4 with preservative 01/10/2023 Influenza, seasonal, injecta ble, preservative free 01/29/2024 Pneumococcal Conjugate PCV 20 01/29/2024 Tdap 04/19/2024 Family History Medical History Relation Name Comments Diabetes Father Liver cancer Father Diabetes Mother Bone cancer Sister Lupus Sister Relation Name Status Comments Father Mother Sister Social History Tobacco Use Types Packs/Day Years Used Date Smoking Tobacco: Never Passive Smoke Exposure: Never Smokeless Tobacco: Never Tobacco Cessation:Counseling Given: Not Answered Alcohol Use Standard Drinks/Week Comments Never 0 (1 standard drink = 0.6 oz pur e alcohol) Depression Answer Date Recorded Patient Health Questionnaire-9 Score 21 02/05/2024 Patient Health Questionnaire-9 Score 21 02/05/2024 Last PHQ-9: Questionnaire Data Not on file 1 Housing Stability Answer Date Recorded What is your housing situation today? I have tex cutler 09/24/[address] you li ve. Do you have problems with any of the following? None of the above 09/24/2023 Food Insecurity Answer Date Recorded Within the past 12 months, y ou worried that your food would run out before you got money to buy more: Never True 09/24/2023 Within the past 12 months,th e food you bought just didn't last and you didn't have enough money to get more: Never True Transportation Answer Date Recorded In the past 12 months, has l ack of transportation kept you from medical appts, meetings, work or from getting things needed for daily living? No 09/24/2023 Utilities Answer Date Recorded In the past 12 months, has t he electric, gas, oil or water company threatened to shut off services in your home? No 09/24/2023 Depression Answer Date Recorded Patient Health Questionnaire-2 Score 6 02/05/2024 Comments Unknown Sex and Gender Information Value Date Recorded Sex Assigned at Female 03/04/2022 10:37 AM EDT Legal Sex Female 10:37 AM EDT Gender Identity Female 03/04/2022 10:37 AM EDT Sexual Orientation Straight 06/12/2023 4: 51 PM EST Last Filed Vital Signs Vital Sign Reading Time Taken Comments Blood Pressure 134/80 04/19/2024 3:51 PM EST Pulse 76 04/19/2024 3:51 PM EST Temperature 36.6 ??C (97.8 ??F) 04/19/2024 3:51 PM ES T Respiratory Rate 20 04/19/2024 3:51 PM EST Oxygen Saturation 98% 04/19/2024 3:51 PM EST Inhaled Oxygen Concentration - - Weight 91.3 kg (201 lb 3.2 oz) 04/19/2024 3:51 P M EST Height 157.5 cm (5' 2 ) 04/19/2024 3:51 PM EST Body Mass Index 36.8 04/19/2024 3:51 PM EST Plan of Treatment Upcoming Encounters Date Type Department Care Team (Late st Contact Info) Description 05/28/2024 1:30 PM EST Nurse Only [facility] MEDICINE [address] [place] [address] 09/07/2024 1:00 PM EDT Office Visit [facility] OPTOMETRY [address] [place] [address] Shira Roman, OD [address] [place] [address] Health Maintenance Due Date Last Done Comments CT Colonography 1973 FIT DNA/Cologuard 1973 FIT 1973 FOBT 1973 Sigmoidoscopy 1973 Eye Exam 1983 Alcohol/Substance Use Screening 1985 Family Planning (PISQ) 1988 Diabetes: Urine Protein Screening 1992 Pap Smear 1994 Cervical Cancer Screening 2003 HPV/Cotest 2003 Diabetes: Foot Exam 01/08/2023 Zoster Vaccines (1 of 2) 2023 Colonoscopy 06/26/2023 Colorectal Cancer Screening 06/26/2023 Diabetes: Hemoglobin A1C 04/29/2024 024, 10/03/2023, 06/12/2023, Additional history exists Depression Monitoring (PHQ-9) 08/05/2024 02/05/2024, 02/05/2024 SDOH Screening 09/23/2024 09/24/2023 Hepatitis A Vaccines (2 of 2 - Risk 2-dose series) 10/18/2024 04/19/2024 Depression Screening 02/04/2025 02/05/2024, 02/05/20 24 COVID-19 Vaccine ( season) 2025 05/29/2021, 09/15/2020, 08/18/2020 Postponed from 01/04/2024 (Patient Refused) Tobacco Screening 04/19/2025 04/19/2024 Lipid Panel 04/21/2025 04/21/2024, 05/0 10/2023, 08/22/2022, Additional history exists Mammogram 05/14/2026 05/14/2024 DTaP/Tdap/Td Vaccines (2 - Td or Tdap) 04/19/2034 04/19/2024 RSV Patients and Patients Aged 60 years or older (1 - 1-dose 75+ series) 2048 HIV Screening Completed 11/18/2019 Hepatitis B Vaccines Completed 10/19/2020, 07/27/2020, 06/29/2020 Hepatitis C Screening Completed 01/16/2023 , 08/22/2022, 10/14/2019 Influenza Vaccine Completed 01/29/2024, 01/10/2023 Pneumococcal Vaccine: Pediatrics (0 to 5 Years) and At-Risk Patients (6 to 64 Years) Completed 01/29/2024 HIB Vaccines Aged Out No longer eligi ble based on patient's age to complete this topic HPV Vaccines Aged Out No longer eligi ble based on patient's age to complete this topic IPV Vaccines Aged Out No longer eligi ble based on patient's age to complete this topic Meningococcal Vaccine Aged Out No li michelle eligible based on patient's age to complete this topic RSV under 20 months Aged Out No longe r eligible based on patient's age to complete this topic Rotavirus Vaccines Aged Out No longer eligible based on patient's age to complete this topic Procedures Procedure Name Priority Date/Time Associated Diagnosis Comments BI MAMMOGRAM SCREENING TOMOSYNTHESIS BILATERAL Routine 05/14/2024 8:50 AM EST Breast cancer screening by mammogram TSH W/REFLEX TO FT4 Routine 04/21/2024 1 0:16 AM EST Type 2 diabetes mellitus with hyperglycemia, without long-term current use of insulin (CMS/HCC) LIPID PANEL, STANDARD Routine 04/21/2024 10:16 AM EST Type 2 diabetes mellitus with hyperglycemia, without long-term current use of insulin (CMS/HCC) COMPREHENSIVE METABOLIC PANEL Routine 04/21/2024 10:16 AM EST Type 2 diabetes mellitus with hyperglycemia, without long-term current use of insulin (CMS/HCC) CBC WITH AUTO DIFFERENTIAL Routine 04/21/2024 10:16 AM EST Type 2 diabetes mellitus with hyperglycemia, without long-term current use of insulin (CMS/HCC) POCT GLYCATED HEMOGLOBIN, TOTAL Routine 01/29/2024 12:02 PM EDT Type 2 diabetes mellitus with hyperglycemia, without long-term current use of insulin (CMS/HCC) HEPATITIS C ANTIBODY Routine 01/16/2023 12:40 PM EDT Transaminitis HIV 1/2 ANTIGEN/ANTIBODY, FOURTH GENERATION W/RFL Routine 11/18/2019 2:28 PM EDT from Last 3 Months or Most Recently Relevant to Health Maintenance Results * BI Mammogram Screening Tomosynthesis Bilateral (05/14/2024 8:50 AM EST) Anatomical Region Laterality Modality Breast Bilateral Mammography 05/14/2024 8:50 AM EST Narrative 05/21/2024 12:38 PM EST ? [facility] [place] ? [address] ?[place] [address] ? Mammography Report ? Signed ? Patient: Sandoval Navarrete,Jany I ?MR#: [id number] ?? [id number] ? : 1975 ?Acct:[id number] ? Age/Sex: 48 / F ?ADM Date: 01/10/25 ? Loc: HO.MAMMO ? Attending Dr: Libby Redd MD ? Ordering Physician: Libby Redd MD ?Results: 1Nega ?? tive ? Date of Service: /10/25 ?Follow Up: 1 Year From Orig ?? inal Mammogram ? Procedure(s): MM tomosynthesis screening BI ?? Accession Number(s): [id number] ? cc: Libby Redd MD ? EXAMINATION: ?? MM SCREENING DIGITAL BREAST TOMOSYNTHESIS, BILATERAL ? CLINICAL INFORMATION: ? Screening. Asymptomatic. ? COMPARISON: ?? Mammography: Comparison is made with available priors ? TECHNIQUE: ?? Digital breast mammography with tomosynthesis is performed in both the ?? craniocaudal and mediolateral oblique views along with computer-aided ?? detection (CAD). ? FINDINGS: ?? The breasts are heterogeneously dense, which may obscure small masses ?? (ACR BI-RADS breast composition Category c). ? There are no significant masses, abnormal calcifications, or other ?? abnormalities. ? MM/MM tomosynthesis screening BI ?? IMPRESSION: ?? No mammographic evidence of malignancy. ? ASSESSMENT: ? BI-RADS BI-RADS 1 - Negative ? RECOMMENDATION: ?? Routine annual mammography screening. ? 1 year F/U ? This examination should not preclude the clinical evaluation of a ?? suspicious palpable abnormality. ? This patient's information was entered into a reminder system with a ?? target due date for their next mammogram. ? Electronically signed by: ??Radha Aguirre DO ??05/21/2024 12:35 PM EST ?? RP ? Dictated By: ?Radha Aguirre DO ? Signed By: ?<Electronically signed by Radha Aguirre, DO in OV> ? 05/21/24 1235 ? DD/ 0850 ? TD/TT: 05/14/24 0910 ? Insulation Installer: ? Procedure Note Kiki, Image - 05/21/2024 [facility] [address] [place] [address] Dr. [place]ung, [place] [address] Mammography Report Signed Patient: Jany Welsh IMR#: [id number] : 1975Acct:[id number] Age/Sex: 48 / FADM Date: 05/14/24 Loc: HO.MAMMO Attending Dr: Libby Redd MD Ordering Physician: Libby Redd MDResults: 1Nega tive Date of Service: 05/14/24Follow Up: 1 Year From Orig inal Mammogram Procedure(s): MM tomosynthesis screening BI Accession Number(s): [id number] cc: Libby Redd MD EXAMINATION: MM SCREENING DIGITAL BREAST TOMOSYNTHESIS, BILATERAL CLINICAL INFORMATION: Screening. Asymptomatic. COMPARISON: Mammography: Comparison is made with available priors TECHNIQUE: Digital breast mammography with tomosynthesis is performed in both the craniocaudal and mediolateral oblique views along with computer-aided detection (CAD). FINDINGS: The breasts are heterogeneously dense, which may obscure small masses (ACR BI-RADS breast composition Category c). There are no significant masses, abnormal calcifications, or other abnormalities. MM/MM tomosynthesis screening BI IMPRESSION: No mammographic evidence of malignancy. ASSESSMENT: BI-RADS BI-RADS 1 - Negative RECOMMENDATION: Routine annual mammography screening. 1 year F/U This examination should not preclude the clinical evaluation of a suspicious palpable abnormality. This patient's information was entered into a reminder system with a target due date for their next mammogram. Electronically signed by: Radha Aguirre DO 05/21/2024 12:35 PM EST Dictated By: Radha Aguirre DO Signed By: <Electronically signed by Radha Aguirre DO in OV> 05/21/24 1235 DD/ 0850 TD/TT: 05/14/24 0910 Insulation Installer: Libby Redd MD IMG BI PROCEDURES Edited Resu lt - Final * TSH W/Reflex to FT4 (04/21/2024 10:16 AM EST) TSH reflex Free T4 1.00 0.32 - 4.0 uIU/mL [facility] Blood Venous blood specimen / Unknown 04/21/2024 10:16 AM EST 04/21/2024 2:06 PM EST Libby Redd MD LAB BLOOD ORDERABLES Final Re sult [facility] [address] [place], [place] [id number] [phone] * (ABNORMAL) CBC auto differential (04/21/2024 10:16 AM EST) White Blood Count 11.6(H) 4.8 - 10.8 X10*3/uL [facility] Red Blood Count 4.83 4.20 - 5.50 X10*6/uL [facility] Hemoglobin 13.9 12.0 - 16.0 g/dl [facility] Hematocrit 42.8 37.0 - 47.0 % [facility] Mean Corpuscular Volume 88.6 80.0 - 98.0 fL [facility] Mean Corpuscular Hemoglobin 28.8 27.0 - 33.0 pg [facility] Mean Corpuscular HGB Conc 32.5 31.0 - 35.0 g/dl [facility] Red Cell Distribution Width 14.5 11.0 - 16.0 % [facility] Platelet Count 259 160 - 400 X10*3/uL [facility] Mean Platelet Volume 10.4 9.4 - 12.3 fL [facility] Neutrophils Percent Auto 60.8 45 - 73 % [facility] Imm Gran Pct Auto 0.5(H) 0.0 - 0.4 % [facility] Lymphocytes Percent Auto 28.8 20 - 40 % [facility] Monocytes Percent Auto 6.8 2 - 11 % [facility] Eosinophils Percent Auto 2.4 0 - 4 % [facility] Basophils Percent Auto 0.7 0 - 2 % [facility] NRBC Pct Auto 0.0 0.0 - 0.2 /100WBC [facility] Neutrophils Absolute Auto 7.1 2.0 - 8.3 x10*3/uL [facility] Imm Gran Abs Auto 0.06(H) 0.00 - 0.03 X10*3/uL [facility] Lymphocytes Absolute Auto 3.4 1.2 - 4.9 X10*3/uL [facility] Monocytes Absolute Auto 0.8 0.1 - 1.2 X10*3/uL [facility] Eosinophils Absolute Auto 0.3 0.0 - 0.4 X10*3/uL [facility] Basophils Absolute Auto 0.1 0.0 - 0.2 X10*3/uL [facility] NRBC Abs Auto 0.000 0.0 - 0.012 X10*3/uL [facility] Blood Venous blood specimen / Unknown 04/21/2024 10:16 AM EST 04/21/2024 2:06 PM EST us Libby Redd MD LAB BLOOD ORDERABLES Final Re sult [facility] [address] [place] [address] [phone] * (ABNORMAL) Lipid Panel, Standard (04/21/2024 10:16 AM EST) Triglycerides 72 <150 mg/dL [facility] Comment:Desirable Triglyceri de: less than 150 mg/dLBorderline High Triglyceride 150-199 mg/dLHigh Triglyceride: 200-499 mg/dLVery High Triglyceride: greater than or equal to 5OO mg/dL Cholesterol 134 <200 mg/dL [facility] Comment:Desirable Cholestero l: less than 200 mg/dLBorderline High Cholesterol: 200-239 mg/dLHigh Cholesterol: greater than 239 mg/dL LDL Cholesterol Calculated 90 <100 mg/dL [facility] Comment:Desirable LDL: less than 100 mg/dLNear Optimal/Above Optimal LDL: 110- 129 mg/dLBorderline High LDL: 130-159 mg/dLHigh LDL: 160-189 mg/dLVery High LDL: greater than or equal to 190 mg/dL HDL Cholesterol 30(L) >40 mg/dL [facility] Comment:Desirable HDL: great er than 40 mg/dL Note: This HDL assay may give artificially low results in patients with liver disease. Blood Venous blood specimen / Unknown 04/21/2024 10:16 AM EST 04/21/2024 2:06 PM EST us Libby Redd MD LAB BLOOD ORDERABLES Final Re sult [facility] [address] [place] [address] [phone] * (ABNORMAL) Comprehensive Metabolic Panel (04/21/2024 10:16 AM EST) Sodium 139 135 - 145 mmol/L [facility] Potassium 3.9 3.3 - 5.1 mmol/L [facility] Chloride 106 96 - 108 mmol/L [facility] Carbon Dioxide 29 22 - 29 mmol/L [facility] Anion Gap 8(L) 12 - 20 [facility] Urea Nitrogen (BUN) 14 9 - 16 mg/dL [facility] Creatinine, Serum 0.74 0.5 - 1.4 mg/dL [facility] Estimated Glomerular Filt Rate >60 [facility] Comment:Chronic Kidney Disea se: Estimated GFR < 60 mL/min/1.73b5Pmiihe Kidney Disease: Estimated GFR < 15 mL/min/1.73m2 Glucose 99 60 - 115 mg/dL [facility] Calcium 8.7 8.4 - 10.2 mg/dL [facility] Bilirubin, Total 1.0 0.0 - 1.0 mg/dL [facility] Aspartate Amino Transferase 44(H) 5 - 31 U/L [facility] Alanine Aminotransferase 72(H) 0 - 31 U/L [facility] Total Protein 7.3 6.5 - 8.0 g/dL [facility] Albumin Level 3.9 3.5 - 5.0 g/dL [facility] Alkaline Phosphatase 109 39 - 117 U/L [facility] Blood Venous blood specimen / Unknown 04/21/2024 10:16 AM EST 04/21/2024 2:06 PM EST us Libby Redd MD LAB BLOOD ORDERABLES Final Re sult Performing Organization Address [facility] Co de Phone Number [facility] [address] [place] [address] [phone] * (ABNORMAL) POCT HGB A1C (01/29/2024 12:02 PM EDT) Pathologist [facility] Hemoglobin A1C 8.6(A) 4.0 - 6.0 % QC Media Lot # [id number] Lot# Expiration Date [id number] Blood 01/29/2024 12:0 2 PM EDT Libby Redd MD POINT OF CARE TEST ENTER/EDIT ORDERABLES Final Result * Hepatitis C Ab (01/16/2023 12:40 PM EDT) Pathologist [facility] Hepatitis C Antibody Nonreactive Nonreactive [facility] Comment:Antibodies to HCV no t detected; does not exclude early acuteHCV infection. Blood 01/16/2023 12:4 0 PM EDT 01/16/2023 2:08 PM EDT Libby Redd MD LAB BLOOD ORDERABLES Final Re sult Performing Organization Address [facility] Co de Phone Number [facility] [address] [place] [address] [phone] * HIV 1/2 ANTIGEN/ANTIBODY,FOURTH GENERATION W/RFL (11/18/2019 2:28 PM EDT) Pathologist [facility] HIV-1/2 ANTIGEN AND ANTIBODIES, 4TH GENERATION W/ REFLEX NON-REACT LORA NON-REACT LORA [facility] Comment: HIV-1 antigen and HIV-1/HIV-2 antibodies were not detected. There is no laboratory evidence of HIV infection. ?? PLEASE NOTE: This information has been disclosed to you from records whose confidentiality may be protected by state law. ??If your state requires such protection, then the state law prohibits you from making any further disclosure of the information without the specific written consent of the person to whom it pertains, or as otherwise permitted by law. A general authorization for the release of medical or other information is NOT sufficient for this purpose. ? For additional information please refer to http://Kovio.Helixbind/faq/GIX526 (This link is being provided for informational/ educational purposes only.) ? The performance of this assay has not been clinically validated in patients less than 2 years old. ?? HIV-1/2 ANTIGEN AND ANTIBODIES, 4TH GENERATION W/ REFLEX NON-REACT [facility]ACT [facility] Comment: HIV-1 antigen and HIV-1/HIV-2 antibodies were not detected. There is no laboratory evidence of HIV infection. ?? PLEASE NOTE: This information has been disclosed to you from records whose confidentiality may be protected by state law. ??If your state requires such protection, then the state law prohibits you from making any further disclosure of the information without the specific written consent of the person to whom it pertains, or as otherwise permitted by law. A general authorization for the release of medical or other information is NOT sufficient for this purpose. ? For additional information please refer to http://Transporeon/faq/FGA709 (This link is being provided for informational/ educational purposes only.) ? The performance of this assay has not been clinically validated in patients less than 2 years old. ?? HIV-1/2 ANTIGEN AND ANTIBODIES, 4TH GENERATION W/ REFLEX NON-REACT [facility] NON-REACT [facility] Comment: HIV-1 antigen and HIV-1/HIV-2 antibodies were not detected. There is no laboratory evidence of HIV infection. ?? PLEASE NOTE: This information has been disclosed to you from records whose confidentiality may be protected by state law. ??If your state requires such protection, then the state law prohibits you from making any further disclosure of the information without the specific written consent of the person to whom it pertains, or as otherwise permitted by law. A general authorization for the release of medical or other information is NOT sufficient for this purpose. ? For additional information please refer to http://Transporeon/faq/HCN296 (This link is being provided for informational/ educational purposes only.) ? The performance of this assay has not been clinically validated in patients less than 2 years old. ?? HIV-1/2 ANTIGEN AND ANTIBODIES, 4TH GENERATION W/ REFLEX NON-REACT LORA NON-REACT LORA [facility] Comment: HIV-1 antigen and HIV-1/HIV-2 antibodies were not detected. There is no laboratory evidence of HIV infection. ?? PLEASE NOTE: This information has been disclosed to you from records whose confidentiality may be protected by state law. ??If your state requires such protection, then the state law prohibits you from making any further disclosure of the information without the specific written consent of the person to whom it pertains, or as otherwise permitted by law. A general authorization for the release of medical or other information is NOT sufficient for this purpose. ? For additional information please refer to http://education.Helixbind/faq/ZFT271 (This link is being provided for informational/ educational purposes only.) ? The performance of this assay has not been clinically validated in patients less than 2 years old. ?? 11/18/2019 2:28 PM EDT us Kirstin Collier MD LAB BLOOD ORDERABLES Final Resul t [facility] [address] from Last 3 Months or Most Recently Relevant to Health Maintenance Insurance [facility] [address] [address] [facility] C3 Care Teams Traffic Ii Manager Relationship Specialty Start Date End Date Libby Redd MD [address] [place] [id number] PCP - General Family Medicine 01/09/23
--- OUTSIDE RECORDS SUMMARY | 2024-05-28 08:32 | XMS_ITS | Encounter Summary ---
Author Organization [employer] Address [address] [facility] 7t [place] [address] Care Team Providers Care Beverage Inspection Machine Tender Name Role Phone Nina Haider MD Primary Care Provider [phone] Libby Redd MD Primary Care Provider [phone] Encounter Details Date Type Department Care Team (Late st Contact Info) Description 05/08/2022 Telephone [facility] [address] [place] [address] [phone] Nina Haider MD [address], [place] [phone] Social History Tobacco Use Types Packs/Day Years [...] was confirmed or suspected to have Coronavirus/COVID-19? Unable to assess 04/17/2022 2:18 PM EST documented as of this encounter Plan of Treatment Upcoming Encounters Date Type Department Care Team (Late st Contact Info) Description 05/28/2024 1:30 PM EST Nurse Only [facility] [address] [place], [place] [phone] 09/07/2024 1:00 PM EDT Office Visit [facility] OPT[facility] [address] [place] [phone] Shira Roman, OD [address] [place] [address] documented as of this encounter Visit Diagnoses Not on filedocumented in this encounter Care Teams Beverage Inspection Machine Tender Relationship Specialty Start Date End Date Nina Haider MD [address], [place] [phone] PCP - General Family Medicine 10/31/21 01/08/23 Libby Redd MD [address], [place] [phone] PCP - General Family Medicine 01/09/23 documented as of this encounter
--- OUTSIDE RECORDS SUMMARY | 2024-05-28 08:32 | XMS_ITS | Encounter Summary ---
Author Organization [employer] Address 75 [facility] 7t [place] [address] Care Team Providers Care Prototyper Name Role Phone Libby Redd MD Primary Care Provider [phone] Reason for Referral * Consultation (Routine) - Closed Specialty Diagnoses / Procedures Referred By [facility] Referred To Contact Optometry Diagnoses Eye exam, routine Libby Redd MD [address] [place] [address] Phone: tel: fax: [facility] OPTOMETRY [address] [place] [address] Phone: tel: fax: Referral ID Status Reason Start Date Expiration Date V isits Requested Visits Authorized [id number] Closed Consult and Treat 05/07/2024 05/07/2025 1 1 Reason for Visit * Reason Onset Date Comments Med Refill 05/06/2024 Encounter Details Date Type Department Care Team (Late st Contact Info) Description 05/06/2024 Telephone [facility] MEDICINE [address] [place] [address] Libby Redd MD [address] [place], [place] [phone] Med Refill Social History Tobacco Use Types Packs/Day Years Used Date Smoking Tobacco: Never Passive Smoke Exposure: Never Smokeless Tobacco: Never Alcohol Use Standard Drinks/Week Comments Never 0 [...] PM EST documented as of this encounter Miscellaneous Notes * Telephone Encounter - Amee Carter RN - 05/07/2024 2:06 PM EST Referral to optometry at [facility] Vision Center ordered on 05/07/2024. TC placed to pt with [facility] electrician control equipment Korin #[id number] to inform pt that the referral was placed and pt will be contacted to schedule appt. Pt stated understanding and had no further questions or concerns. * Telephone Encounter - Tony Merlos - 05/06/2024 12:57 PM EST Tc from [facility] requesting a vision referral for [facility] vision center. If any questions you can contact pt at [phone]. documented in this encounter Plan of Treatment Upcoming Encounters Date Type Department Care Team (Late st Contact Info) Description 05/28/2024 1:30 PM EST Nurse Only [facility] MEDICINE [address] [place] [address] 09/07/2024 1:00 PM EDT Office Visit [facility] OPTOMETRY [address] [place], [place] [phone] Abel, Shira, OD [address] [place] [address] Scheduled Referrals Name Type Priority Associated Diagnoses Orde r Schedule Referral to Optometry Outpatient Referral Routine Eye exam, routine Expected: 05/07/2024 (Approximate), Expires: 05/07/2025 documented as of this encounter Visit Diagnoses Diagnosis Eye exam, routine documented in this encounter Additional Health Concerns Assessment Noted Time PHQ-9 Depression Total Score: 21 024 8:35 AM EDT documented as of this encounter Care Teams Prototyper Relationship Specialty Start Date End Date Libby Redd MD [address] [place] [address] PCP - General Family Medicine 01/09/23 documented as of this encounter
--- OUTSIDE RECORDS SUMMARY | 2024-05-28 08:32 | XMS_ITS | Encounter Summary ---
Author Organization [employer] Address 75 [facility] 7t [place] [address] Care Team Providers Care Engine Lathe Set Up Operator Name Role Phone Nina Haider MD Primary Care Provider [phone] Libby Redd MD Primary Care Provider [phone] Encounter Details Date Type Department Care Team (Late st Contact Info) Description 08/13/2022 Telephone [facility] MEDICINE [address] [place], [place] [phone] Nina Haider MD [address] [place], [place] [phone] Social History Tobacco Use Types Packs/Day Years Used Date Smoking Tobacco: Never Passive Smoke Exposure: Never Smokeless Tobacco: Never Comments Unknown Sex and Gender Information Value [...] Description 05/28/2024 1:30 PM EST Nurse Only [facility] MEDICINE [address] [place], [place] [phone] 09/07/2024 1:00 PM EDT Office Visit [facility] OPTOMETRY [address] [place] [address] Shira Roman, OD [address] [place] [address] documented as of this encounter Visit Diagnoses Not on filedocumented in this encounter Care Teams Engine Lathe Set Up Operator Relationship Specialty Start Date End Date Nina Haider MD [address] [place] [address] PCP - General Family Medicine 10/31/21 01/08/23 Libby Redd MD [address] [place] [address] PCP - General Family Medicine 01/09/23 documented as of this encounter
--- OUTSIDE RECORDS SUMMARY | 2024-05-28 08:33 | XMS_ITS | Encounter Summary ---
Author Organization [employer] Address 75 [facility] 7t [place] [address] Care Team Providers Care Nutrition Services Aide Name Role Phone Libby Redd MD Primary Care Provider [phone] Reason for Visit * Reason Comments Med Refill Encounter Details Date Type Department Care Team ([facility] st Contact Info) Description 05/21/2024 Refill [facility] PEDS [address] [place], [place] [phone] Libby Redd MD [address] [place] [address] Social History Tobacco Use Types Packs/Day Years [...] Description 05/28/2024 1:30 PM EST Nurse Only [facility] MEDICINE [address] [place] [address] 09/07/2024 1:00 PM EDT Office Visit [facility] OPTOMETRY [address] [place] [address] Abel, Shira, OD [address] [place] [address] documented as of this encounter Visit Diagnoses Not on filedocumented in this encounter Additional Health Concerns Assessment Noted Time PHQ-9 Depression Total Score: 21 024 8:35 AM EDT documented as of this encounter Care Teams Nutrition Services Aide Relationship Specialty Start Date End Date Libby Redd MD [address] [place] [address] PCP - General Family Medicine 01/09/23 documented as of this encounter
--- OUTSIDE RECORDS SUMMARY | 2024-05-28 08:33 | XMS_ITS | Encounter Summary ---
Author Organization [employer] Address [address] [facility] 7t [place] [address] Care Team Providers Care Clinic Licensed Practical Nurse Name Role Phone Nina Haider MD Primary Care Provider [phone] Libby Redd MD Primary Care Provider [phone] Reason for Visit * Reason Onset Date Comments Nurse Triage 10/14/2022 Encounter Details Date Type Department Care Team (Late st Contact Info) Description 10/14/2022 Telephone [facility] MEDICINE [address] [place], [place] [phone] Nina Haider MD [address] [place], [place] [phone] Nurse Triage Social History Tobacco Use Types Packs/Day Years Used Date Smoking Tobacco: Never Passive Smoke Exposure: Never Smokeless Tobacco: Never Alcohol Use Standard Drinks/Week Comments Never 0 (1 standard drink = 0.6 oz pur e alcohol) PHQ-2 Answer Date Recorded Patient Health Questionnaire-2 Score 0 08/26/2022 Depression Answer Date Recorded Patient Health Questionnaire-2 Score 0 08/26/2022 Comments Unknown Sex and Gender Information Value [...] suspected to have Coronavirus/COVID-19? No / Unsure 10/14/2022 3:02 PM EDT documented as of this encounter Miscellaneous Notes * Telephone Encounter - Marleny Coffey RN - 10/14/2022 2:45 PM EDT Triage call with pacific [place] Trimmer [place] [id number] Pt reports wide spread rash all over body. Rash is red, bumpy and very itchy. Pt reports it has increased in itchiness each day. Pt denies fever, sore throat, or difficulty breathing. Pt hasn't changed detergent or started using some other soaps or body wash. Pt is advised to come to [facility] to be seenby provider and Pt agrees. Pt agrees with disposition and home care reviewed. Insurance is verified as active. Protocol Used: Rash or Redness - Widespread (Adult) Protocol-Based Disposition: See in Office or Video Visit Today Video visit not offered Positive Triage Questions: * Severe itching * Patient wants to be seen * All higher-acuity triage questions were negative Care Advice Discussed: * Reassurance and Education - Widespread Rash * Antihistamine Medicines for Moderate to Severe Itching * Reducing the Itch - Oatmeal (Aveeno) Bath * Hydrocortisone Cream for Itching * Contagiousness * Reasons To Call Back - Rash becomes purple or blood-colored or blister-like - Fever occurs or severe itching - You become worse * Telephone Encounter - Juana Nuñez - 10/14/2022 2:29 PM EDT Symptom: Rash or Redness - Widespread Outcome: Schedule a same-day appointment or talk to a nurse or provider today Reason: Caller denied all higher acuity questions The caller accepted this outcome Patient speak indonesian documented in this encounter Plan of Treatment Upcoming Encounters Date Type Department Care Team (Late st Contact Info) Description 05/28/2024 1:30 PM EST Nurse Only [facility] MEDICINE [address] [place] [address] 09/07/2024 1:00 PM EDT Office Visit [facility] OPTOMETRY [address] [place] [address] Shira Roman, OD [address] [place] [address] documented as of this encounter Visit Diagnoses Not on filedocumented in this encounter Care Teams Clinic Licensed Practical Nurse Relationship Specialty Start Date End Date Nina Haider MD [address] [place] [address] PCP - General Family Medicine 10/31/21 01/08/23 Libby Redd MD [address] [place] [address] PCP - General Family Medicine 01/09/23 documented as of this encounter
== END 2024-05-28 11:50 | disposition home or self-care (01) ==
PROVIDERS: PCP Family Medicine; Visit Provider Nurse Practitioner Family
DX: K59.09 Other constipation (principal); K21.9 Gastro-esophageal reflux disease without esophagitis; R74.01 Elevation of levels of liver transaminase levels; Z12.11 Encounter for screening for malignant neoplasm of colon; K76.0 Fatty (change of) liver, not elsewhere classified; R14.0 Abdominal distension (gaseous)
CPT/HCPCS: 99214

== ENCOUNTER → 2024-05-28 08:19 | Outpatient (BNVA) | payer MEDICAID, SELFPAY | PROVIDERS: PCP Family Medicine; Visit Provider Nurse Practitioner Family ==

== ENCOUNTER 2024-05-28 09:16 | Outpatient (REF) | payer MEDICAID, SELFPAY ==
[2024-05-28 12:24] LABS: Folate 18.4 ng/mL (> or = 4.0); Vitamin B12 691 pg/mL (200-900)
[2024-05-28 15:14] LABS: Alanine Aminotransferase 59 U/L (0-31); Albumin Level 3.8 g/dL (3.5-5.0); Alkaline Phosphatase 113 U/L (39-117); Aspartate Amino Transferase 36 U/L (5-31); Bilirubin Direct 0.3 mg/dL (0.0-0.5); Bilirubin Total 0.8 mg/dL (0.0-1.0); Ferritin 162 ng/mL (10-250); Iron 56 mcg/dL (30-160); Percent Iron Saturation 24 % (15-50); Total Iron Binding Capacity 229 mcg/dL (228-428); Total Protein 7.3 g/dL (6.5-8.0); Unsaturated Iron Binding 173 ug/dL
[2024-05-31 15:04] LABS: Ceruloplasmin 28 mg/dL (14-48); Mitochondrial Antibodies NEGATIVE (NEGATIVE)
[2024-05-31 17:18] LABS: Transglutaminase IgA <1.0 U/mL
[2024-06-01 12:13] LABS: Smooth Muscle Antibody <20 U (<20)
[2024-06-01 15:32] LABS: Vitamin D 25-OH, D2 <4 ng/mL; Vitamin D 25-OH, D3 29 ng/mL; Vitamin D 25-OH, Total 29 ng/mL (30-100)
[2024-06-03 22:08] LABS: FIB-ALT 46 U/L (6-29); FIB-Alpha-2-Macroglobulin 123 mg/dL (106-279); FIB-Apolipoprotein A1 115 mg/dL (101-198); FIB-GGT 52 U/L (3-70); FIB-Haptoglobin 178 mg/dL (43-212); FIB-Total Bilirubin 0.7 mg/dL (0.2-1.2); Liver Fibrosis Score 0.14; Liver Fibrosis Stage F0; Nec Inflam Act Grade A0-A1; Nec Inflam Act Score 0.22; Reference ID 5311115
== END 2024-05-28 09:17 | disposition home or self-care (01) ==
LOC: HO.LAB 09:16
PROVIDERS: PCP Family Medicine; Visit Provider Nurse Practitioner Family
DX: R79.89 Other specified abnormal findings of blood chemistry (principal); R74.8 Abnormal levels of other serum enzymes; K76.0 Fatty (change of) liver, not elsewhere classified; R19.7 Diarrhea, unspecified; R10.9 Unspecified abdominal pain; D64.9 Anemia, unspecified; E55.9 Vitamin D deficiency, unspecified; R74.01 Elevation of levels of liver transaminase levels
CPT/HCPCS: 36415; 80076; 81596; 82306; 82390; 82607; 82728; 82746; 83540; 86015; 86364; 86381; 99212

== ENCOUNTER 2024-06-01 11:23 | Outpatient (REF) | payer MEDICAID, SELFPAY | END 2024-06-01 11:24 | disposition home or self-care (01) | LOC: HO.LNP 11:23 | PROVIDERS: Visit Provider Nurse Practitioner Family | DX: K21.9 Gastro-esophageal reflux disease without esophagitis (principal) | CPT/HCPCS: 87338 ==

== ENCOUNTER 2024-08-04 08:38 | Outpatient (REF) | payer MEDICAID, SELFPAY ==
--- NOTE | ~2024-08-04 | US_ITS ---
EXAMINATION: US ABDOMEN LIMITED WITH LIVER ELASTOGRAPHY HISTORY: K76.0 - Fatty (change of) liver, not elsewhere classified TECHNIQUE: Real-time grayscale ultrasound imaging of the right upper quadrant was performed and images were reviewed. COMPARISON: Comparison is made with the prior examination dated 03/17/2023. FINDINGS: Liver: The right lobe of the liver measures 15.9 cm in size. The left lobe of the liver measures 8.7 cm in size. The liver demonstrates increased echotexture, consistent with steatosis. No focal mass or intrahepatic biliary ductal dilatation is identified. There is normal hepatopedal flow in the portal vein. Ultrasound elastography of the liver was performed with 10 separate measurements of the liver parenchyma with the patient in the supine position. Measurements were obtained approximately 2 cm below Bertrand's capsule and perpendicular to the capsule. Images are of satisfactory quality. The median shear wave velocity is 1.24 m/s. The interquartile range/median (IQR/median) is 0.05. Gallbladder and biliary tree: The gallbladder is surgically absent. The common bile duct is normal in caliber measuring 5 mm. Right Kidney: The right kidney measures 10.4 cm in length and demonstrates a 10 x 9 x 11 mm cyst at the upper pole. The right kidney is otherwise unremarkable, without evidence of solid masses, hydronephrosis, or calculi. Pancreas: The pancreatic head, neck, and body are unremarkable. The pancreatic tail is obscured by bowel gas. Abdominal aorta and inferior vena cava: The visualized portions of the abdominal aorta and inferior vena cava are normal in caliber. There is no free fluid in the right upper quadrant. US/US abdomen chan w elastography IMPRESSION: Mild hepatomegaly. Hepatic steatosis. The median shear wave velocity in the liver is 1.24 m/s, corresponding to a median liver stiffness of 4.63 kPa. The IQR/median value is 0.05. This is indicative of a quality data set. Findings are indicative of a normal elastography value with a low likelihood of severe fibrosis or cirrhosis. REFERENCE: Society of Radiologists in Ultrasound Liver Stiffness Thresholds (2019): LIVER STIFFNESS THRESHOLDS: *Shear wave velocity less than 1.3 m/s (Liver Stiffness equal or less than 5 kPa): High probability of being normal. *Shear wave velocity less than 1.7 m/s (Liver Stiffness less than 9 kPa): In the absence of other known clinical signs, rules out compensated advanced chronic liver disease. *Shear wave velocity between 1.7-2.1 m/s (Liver Stiffness 9-13 kPa): Suggestive of compensated advanced chronic liver disease but need further test for confirmation. *Shear wave velocity between 2.1-2.4 m/s (Liver Stiffness 13-17 kPa): Rules in compensated advanced chronic liver disease. *Shear wave velocity greater than 2.4 m/s (Liver Stiffness over 17 kPa): Suggestive of clinically significant portal hypertension. QUALITY OF DATA SET: *IQR/Median value equal or less than 0.15 implies a quality data set. *IQR/Median value over 0.15 implies a poor quality data set. SIGNIFICANT CHANGE FROM PRIOR EXAM: Significant change if liver stiffness measurement is 10% or greater from prior exam. OTHER CONSIDERATIONS: The stage of liver fibrosis may be overestimated in the setting of acute hepatitis, liver inflammation, elevated liver function tests, hepatic vascular congestion, obstructive cholestasis, non-fasting state, and infiltrative diseases such as amyloidosis and lymphoma. In some patients with NAFLD, the liver stiffness thresholds for compensated advanced chronic liver disease may be lower. In causes other than viral hepatitis and NAFLD, liver stiffness thresholds are not well established. Electronically signed by: Charanjit Hayes MD 08/04/2024 09:44 AM EDT
--- OUTSIDE RECORDS SUMMARY | 2024-08-04 09:04 | XMS_ITS | Encounter Summary ---
Author Organization [employer] Address 75 [facility] 7t [place] [address] Care Team Providers Care Software Implementation Project Manager Name Role Phone Nina Haider MD Primary Care Provider [phone] Libby Redd MD Primary Care Provider [phone] Reason for Visit * Reason Onset Date Comments Nurse Triage 10/14/2022 Encounter Details Date Type Department Care Team (Late st Contact Info) Description 10/14/2022 Telephone [facility] MEDICINE [address] [place], [place] [phone] Nina Haider MD [address] [place] [address] [phone] Nurse Triage Social History Tobacco Use Types [...] 2:45 PM EDT Triage call with pacific Neonatal Icu Coordinator ID [id number] Pt reports wide spread rash all over body. Rash is red, bumpy and very itchy. Pt reports it has increased in itchiness each day. Pt denies fever, sore throat, or difficulty breathing. Pt hasn't changed detergent or started using some other soaps or body wash. Pt is advised to come to [facility] to be seenby provider and Pt [...] The caller accepted this outcome Patient speak mosotho documented in this encounter Plan of Treatment Upcoming Encounters Date Type Department Care Team (Late st Contact Info) Description 09/07/2024 1:00 PM EDT Office Visit [facility] OPTOMETRY [address] [place], [place] [phone] AbelShira purvis, OD [address] [place], [place] [phone] documented as of this encounter Visit Diagnoses Not on filedocumented in this encounter Care Teams Software Implementation Project Manager Relationship Specialty Start Date End Date Nina Haider MD [address] [place] [address] PCP - General Family Medicine 10/31/21 01/08/23 Libby Redd MD [address] [place] [address] PCP - General Family Medicine 01/09/23 documented as of this encounter
--- OUTSIDE RECORDS SUMMARY | 2024-08-04 09:04 | XMS_ITS | Clinical Summary ---
Author Organization [employer] Address [address] [place] [address] Care Team Providers Care Casino Operations Supervisor Name Role Phone Libby Redd MD Primary Care Provider [phone] Allergies No known active allergies Medications * [...] morning. 90 tablet 3 08/27/19 23 Active Spacer/Aero-Hold ing Chambers (OptiChamber Liliana) misc 1 each every 4 (four) hours if needed (asthma). 1 each 11/12/19 23 Active Alcohol Swabs padsIndications: Type 2 diabetes mellitus with hyperglycemia, without long-term current use of insulin (CMS/[facility]) 1 each if needed (to clean skin). 100 each 11 12/05/19 23 Active FREESTYLE LITE test stripIndications :Type 2 diabetes mellitus with hyperglycemia, without long-term current use of insulin (CMS/[facility]) Use to check blood sugar twice daily or more as needed 100 each 12 12/05/19 23 Active Blood Glucose Monitoring Suppl (FreeStyle Lite) w/Device kitIndications:T ype 2 diabetes mellitus with hyperglycemia, without [...] 23 Active hydrOXYzine HCl (Atarax) 25 MG tabletIndication s:Urticaria Take 1 tablet (25 mg) by mouth if needed at bedtime for itching. 90 tablet 3 02/08/20 23 Active loratadine (Claritin) 10 MG tablet TAKE 1 TABLET BY MOUTH DAILY IN THE MORNING 90 tablet 1 03/05/20 23 Active fluticasone (Flonase) 50 MCG/ACT nasal sprayIndications :Allergic rhinitis, unspecified seasonality, unspecified trigger USE 2 SPRAYS IN EACH NOSTRIL TWICE DAILY 48 g 1 04/03/20 23 Active pantoprazole (ProtoNix) 40 MG EC tabletIndication s:Gastroesophage al reflux disease without esophagitis Take 1 tablet (40 mg) by mouth before breakfast. Do not crush, chew, or split. 90 tablet 3 09/04/19 24 Active fexofenadine (Tianna) 180 MG tabletIndication s:Urticaria TAKE 1 TABLET BY MOUTH DAILY NEEDED FOR ALLERGIES 90 tablet 1 09/25/19 24 Active butamben-tetraca ine-benzocaine (Cetacaine) 2-2-14 % spray Apply 1 spray topically if needed for irritation. 20 g 10/03/19 24 Active traZODone (Desyrel) 50 MG tablet TAKE 1 TABLET BY MOUTH EVERY DAY AT BEDTIME 30 tablet 1 11/26/19 24 Active doxepin (SINEquan) 10 MG capsule Take 10 mg by mouth at bedtime. 10/31/19 24 Active dulaglutide (Trulicity) 3 MG/0.5ML solution pen-injector Inject 3 mg under the skin 1 (one) time per week. 4 each 01/29/20 24 Active Magnesium 400 MG capsule Take 400 mg by mouth at bedtime. 90 capsule 1 01/29/20 24 Active lidocaine (Lidoderm) 5 % patch Apply 1 patch topically Once per day. Remove & discard patch within 12 hours or as directed by . 30 patch 2 06/08/19 25 Active D3-1000 25 MCG (1000 UT) capsule TAKE 1 CAPSULE BY MOUTH EVERY MORNING 90 capsule 1 06/22/19 25 Active diclofenac (Cataflam) 50 MG tablet Take 1 tablet (50 mg) by mouth 3 times daily. 90 tablet 07/11/19 25 Active magnesium oxide (Mag-Ox) 400 MG tablet TAKE 1 TABLET BY MOUTH AT BEDTIME 90 tablet 1 07/20/19 25 Active metFORMIN XR (Glucophage-XR) 500 MG 24 hr tablet TAKE 1 TABLET BY MOUTH AT BEDTIME. DO NOT BREAK, CRUSH, DISSOLVE OR CHEW 90 tablet 1 07/20/19 25 Active metFORMIN XR (Glucophage-XR) 500 MG 24 hr tablet Take 1 tablet (500 mg) by mouth at bedtime. Do not crush, chew, or split. 90 tablet 1 01/29/20 24 025 Discontinued diclofenac (Cataflam) 50 MG tablet TAKE 1 TABLET BY MOUTH THREE TIMES DAILY 90 tablet 05/21/19 25 025 Discontinued(R eorder (will not trigger notification to Pharmacy)) Active Problems Problem Noted Date Diagnosed Date [...] -Prescribed : Guaifenesin-codeine (Robitussin-AC) 100-10 MG/5ML syrup Unewabmo-ygbbfmmbix-aavicobcdg (Cetacaine) 2-2-14 % spray Insomnia 10/03/2023 Assessment [...] hormone 01/21/2023 Vitamin D deficiency 01/10/2023 Uses French as primary spoken language 10/19/19 23 Obesity [...] recommended reduction of 20-30% of maintenance calories; heavy machinery assembler referral offered. Recommended to decrease soda and sugary beverage consumption. Recommended at least 20 g per meal of protein to assist with satiety. Recommended at least 150 min/week of moderate intensity exercise. Assessment & Plan (01/10/2023 9:10 AM EDT): Advised patient to maintain active with physical activity with alternative workout methods. Referred to a Sawmill Equipment Operator. History of tubal ligation 10/18/2022 Allergic reaction [...] of hand 10/20/2019 Breast lump 10/20/2019 Encounters Date Type Department Care Team Description 07/18/2024 Refill [facility] PEDS [address] [place] [address] Libby Redd MD 07/16/2024 Population [facility] (C3) Department [address] [address] Provider, Population Health Generic 07/10/2024 9:00 AM EST Office Visit [facility] [address] [place] [phone] Name, MD Jh Chronic pain of left knee (Primary Dx); Chondromalacia of knee, left 07/10/2024 Travel 07/09/2024 Telephone [facility] MEDICINE [address] [place] [phone] Libby Redd MD Nurse Triage 06/20/2024 Refill [facility] PED[facility] [address] [place] [address] Libby Redd MD 06/10/2024 Telephone [facility] [address] [place] [address] Libby Redd MD 06/07/2024 Refill [facility] [address] [place] [address] Libby Redd MD 06/07/2024 Telephone [facility] [address] [place] [address] Libby Redd MD Results 05/28/2024 Orders Only GENERIC EXTERNAL DATA DEPARTMENT Provider, Generic External Data 05/21/2024 Refill [facility] [address] [place] [address] Libby Redd MD 05/06/2024 Telephone [facility] [address] [place] [phone] Libby Redd MD Med Refill from Last 3 Months Immunizations Name Administration Dates Next Due Hep A, Adult 04/19/2024 Hep B, adult 10/19/2020,07/27/2020,06/29/2020 Influenza injectable quadriv alent IIV4 with preservative 01/10/2023 Influenza, seasonal, injecta ble, preservative free 01/29/2024 Pneumococcal Conjugate PCV 20 01/29/2024 Tdap 04/19/2024 Zoster, Recombinant 05/28/2024 Family History Medical History Relation Name Comments [...] Sign Reading Time Taken Comments Blood Pressure 130/74 07/10/2024 8:46 AM EST Pulse 73 07/10/2024 8:46 AM EST Temperature 37 ??C (98.6 ??F) 07/10/2024 8:46 AM EST Respiratory Rate 20 07/10/2024 8:46 AM EST Oxygen Saturation 98% 07/10/2024 8:46 AM EST Inhaled Oxygen Concentration - - Weight 93.1 kg (205 lb 4 oz) 07/10/2024 8:46 AM EST Height 157.5 cm (5' 2 ) 07/10/2024 8:46 AM EST Body Mass Index 37.54 07/10/2024 8:46 AM EST Plan of Treatment Upcoming Encounters Date Type Department Care Team (Late st Contact Info) Description 09/07/2024 1:00 PM EDT Office Visit [facility] OPTOMETRY [address] [place] [address] Abel, Shira, OD [address] [place] [address] Health Maintenance Due Date Last Done Comments CT Colonography 1973 FIT DNA/Cologuard 1973 FIT 1973 FOBT 1973 Sigmoidoscopy 1973 Eye Exam 1983 Alcohol/Substance Use Screening 1985 Family Planning (PISQ) 1988 Diabetes: Urine Protein Screening 1992 Pap Smear 1994 Cervical Cancer Screening 2003 HPV/Cotest 2003 Diabetes: Foot Exam 01/08/2023 Colonoscopy 06/26/2023 Colorectal Cancer Screening 06/26/2023 Diabetes: Hemoglobin A1C 04/29/2024 024, 10/03/2023, 06/12/2023, Additional history exists Zoster Vaccines (2 of 2) 07/23/2024 05/28/2024 Depression Monitoring (PHQ-9) 08/05/2024 02/05/2024, 02/05/2024 SDOH Screening 09/23/2024 09/24/2023 Hepatitis A Vaccines (2 of 2 - Risk 2-dose series) 10/18/2024 04/19/2024 Depression Screening 02/04/2025 02/05/2024, 02/05/20 COVID-19 Vaccine ( season) 2025 05/29/2021, 09/15/2020, 08/18/2020 Postponed from 01/04/2024 (Patient Refused) Lipid Panel 04/21/2025 04/21/2024, 05/0 10/2023, 08/22/2022, Additional history exists Tobacco Screening 07/10/2025 07/10/2024 Mammogram 05/14/2026 05/14/2024 DTaP/Tdap/Td Vaccines (2 - Td or Tdap) 04/19/2034 04/19/2024 RSV Patients and Patients Aged 60 years or older (1 - 1-dose 75+ series) 2048 HIV Screening Completed 11/18/2019 Hepatitis B Vaccines Completed 10/19/2020, 07/27/2020, 06/29/2020 Hepatitis C Screening Completed 01/16/2023 , 08/22/2022, 10/14/2019 Influenza Vaccine Completed 01/29/2024, 01/10/2023 Pneumococcal Vaccine: 50+ Years Completed 01/29/2024 HIB Vaccines Aged Out No [...] Procedure Name Priority Date/Time Associated Diagnosis Comments LIVER FIBROSIS, FIBROTEST ACTITEST PANEL Routine 05/28/2024 9:55 AM EST VITAMIN D 25-OH (D2 AND D3) Routine 05/28/2024 9:55 AM EST ACTIN (SMOOTH MUSCLE) ANTIBODY (IGG) Routine 05/28/2024 9:55 AM EST TISSUE TRANSGLUTAMINASE AB, IGA Routine 05/28/2024 9:55 AM EST MITOCHONDRIAL ANTIBODY WITH REFLEX TO TITER Routine 05/28/2024 9:55 AM EST CERULOPLASMIN Routine 05/28/2024 9:55 AM EST IRON AND TOTAL IRON BINDING CAPACITY Routine 05/28/2024 9:55 AM EST HEPATIC FUNCTION PANEL Routine 9:55 AM EST FERRITIN Routine 05/28/2024 9:55 AM EST VITAMIN B12/FOLATE, SERUM PANEL Routine 05/28/2024 9:55 AM EST BI MAMMOGRAM SCREENING TOMOSYNTHESIS BILATERAL Routine 05/14/2024 8:50 AM EST Breast cancer screening by mammogram LIPID PANEL, STANDARD Routine 04/21/2024 10:16 AM [...] Recently Relevant to Health Maintenance Results * (ABNORMAL) VITAMIN D 25-OH (D2 AND D3) (05/28/2024 9:55 AM EST) Vitamin D, 25-OH, D2 <4 ng/mL [facility] Comment:This test was harika agosto and its analytical performancecharacteristics have been determined by [facility] [place], [place]. It hasnot been cleared or approved by the U.S. Food and DrugAdministration. This assay has been validated pursuantto the CLIA regulations and is used for clinicalpurposes.THIS TEST WAS PERFORMED AT:[employer] [id number] [place] [address]MXUREVXRISHI RENNER MD,PHD Vitamin D, 25-OH, D3 29 ng/mL [facility] Comment:This test was develo ped and its analytical performancecharacteristics have been determined by [facility] [place], [place]. It hasnot been cleared or approved by the U.S. Food and DrugAdministration. This assay has been validated pursuantto the CLIA regulations and is used for clinicalpurposes. Vitamin D, 25-OH, Total 29(A) 30 - 100 ng/mL [facility] Comment:Vitamin D, 25-Hydrox y reports concentrations of twocommon forms, 25-OHD2 and 25-OHD3. 25-OHD3 indicatesboth endogenous production and supplementation.25-OHD2 is an indicator of exogenous sources such asdiet or supplementation. Therapy is based onmeasurement of Total 25-OHD, with levels <20 ng/mLindicative of Vitamin D deficiency, while levelsbetween 20 ng/mL and 30 ng/mL suggest insufficiency.Optimal levels are > or = 30 ng/mL.For additional information, please refer tohttp://[email or web address]/faq/[email or web address](This link is being provided for informational/educational purposes only.) 05/28/2024 9:55 AM EST 05/28/2024 9:55 AM EST us Generic External Data Provider LAB BLOOD ORDERAB LES Final Result [facility] [address] [place] [phone] * Vitamin B12 (Cobalamin) and Folate Panel, Serum (05/28/2024 9:55 AM EST) Vitamin B12 691 200 - 900 pg/mL [facility] Comment:NORMAL 200-900 PG/ML INDETERMINATE 160-199 PG/ML DEFICIENT < 160 PG/ML Folate 18.4 > or = 4.0 ng/mL [facility] Comment:Reference Values:> o r = 4.0 ng/mL< 4.0 ng/mL suggests folate deficiency Methotrexate, aminopterin and folinic acid(leucovorin) are chemotherapeutic agents whose molecularstructures are similar to folate; therefore, the Architectfolate assay cannot be used for patients using these drugs. 05/28/2024 9:55 AM EST 05/28/2024 9:55 AM EST us Generic External Data Provider LAB BLOOD ORDERAB LES Final Result [facility] [address] [place] [phone] * (ABNORMAL) Liver Fibrosis (HCV), FibroTest-ActiTest Panel (05/28/2024 9:55 AM EST) Pathologist [facility] Liver Fibrosis Score 0.14 [facility] Liver Fibrosis Stage F0 [facility] Liver Fibrosis Interpretation SEE NOTE [facility] Comment:no fibrosisFibro Nany t Score (f) Metavir Score f>=0 and f<=0.21 : F0 (no fibrosis)f>0.21 and f<=0.27 : F0-F1 (no fibrosis)f>0.27 and f<=0.31 : F1 (minimal fibrosis)f>0.31 and f<=0.48 : F1-F2 (minimal fibrosis)f>0.48 and f<=0.58 : F2 (moderate fibrosis)f>0.58 and f<=0.72 : F3 (advanced fibrosis)f>0.72 and f<=0.74 : F3-F4 (advanced fibrosis)f>0.74 and f<=1.00 : F4 (severe fibrosis) Nec Inflam Act Score 0.22 [facility] Nec Inflam Act Grade A0-A1 [facility] Nec Inflam Act Interpretation SEE NOTE [facility] Comment:no activityActiTest Score (a) Metavir Score a>=0 and a<=0.17 : A0 (no activity)a>0.17 and a<=0.29 : A0-A1 (no activity)a>0.29 and a<=0.36 : A1 (minimal activity)a>0.36 and a<=0.52 : A1-A2 (minimal activity)a>0.52 and a<=0.60 : A2 (significant activity)a>0.60 and a<=0.62 : A2-A3 (significant activity)a>0.62 and a<=1.00 : A3 (severe activity) XSI-Ytlgw-1-Macroglo bulin 123 106 - 279 mg/dL [facility] FIB-Haptoglobin 178 43 - 212 mg/dL [facility] FIB-Apolipoprotein A1 115 101 - 198 mg/dL [facility] FIB-Total Bilirubin 0.7 0.2 - 1.2 mg/dL [facility] FIB-GGT 52 3 - 70 U/L [facility] FIB-ALT 46(A) 6 - 29 U/L [facility] Reference ID [id number] [facility] Footnote SEE NOTE [facility] Comment: The reliability of results is dependent on compliance withthe preanalytical and analytical conditions recommended by[employer]. The tests have to be deferred for: acutehemolysis, acute hepatitis, acute inflammation, extrahepatic cholestasis. The advice of a specialist should besought for interpretation in chronic hemolysis and Gilbert'ssyndrome. The test interpretation is not validated in livertransplant patients. Isolated extreme values of one of thecomponents should lead to caution in interpreting theresults. In case of discordance between a biopsy result cristy test, it is recommended to seek the advice of aspecialist. The causes of these discordances could be due toa flaw of the test or to a flaw in the biopsy: i.e. a liverbiopsy has a 33% variability rate for one fibrosis stage.FibroTest is interpretable for chronic hepatitis B and C,alcoholic and non alcoholic steatosis. ActiTest isinterpretable for chronic hepatitis B and C.The performance characteristics have been determined by[facility]. Ithas not been cleared or approved by the U.S. Food and DrugAdministration. Performance characteristics refer to theanalytical performance of the test.[employer], [employer], the associated logo, [employer] and all associated [employer] are theregistered trademarks of [employer]. All third partymarks - (R) and (TM) - are the property of their respectiveowners. (C) 5878-1697 [employer]. Allrights reserved.THIS TEST WAS PERFORMED AT:[employer] [id number] [facility], [place] ??[phone] CARLOS MD,PHD,ASHLIE 05/28/2024 9:55 AM EST 05/28/2024 9:55 AM EST Generic External Data Provider LAB BLOOD ORDERAB LES Final Result Performing Organization Address City/[facility]/ZIP Co de Phone Number [facility] [address] [place] [phone] * Iron And Total Iron Binding Capacity (05/28/2024 9:55 AM EST) Iron 56 30 - 160 mcg/dL [facility] Total Iron Binding Capacity 229 228 - 428 mcg/dL [facility] Percent Iron Saturation 24 15 - 50 % [facility] Unsaturated Iron Binding 173 ug/dL [facility] 05/28/2024 9:55 AM EST 05/28/2024 9:55 AM EST Generic External Data Provider LAB BLOOD ORDERAB LES Final Result Performing Organization Address [facility] Co de Phone Number [facility] [address] [place] [phone] * Actin (Smooth Muscle) Antibody (IgG) (05/28/2024 9:55 AM EST) Smooth Muscle Antibody <20 <20 U [facility] Comment:Reference Range: <20 U: Negative>or=20 U: PositiveAntibodies recognizing actin are the main componentof smooth muscle antibodies associated with auto- immune liver disease. Actin antibodies are found inapproximately 75% of patients with autoimmunehepatitis (AIH) type 1, approximately 65% of patientswith autoimmune cholangitis, approximately 30% ofpatients with primary biliary cirrhosis andapproximately 2% of healthy controls. High values areclosely correlated with AIH type 1.THIS TEST WAS PERFORMED AT:[id number] [place] [address]CLWIYFRRISHI RENNER MD,PHD 05/28/2024 9:55 AM EST 05/28/2024 9:55 AM EST Generic External Data Provider LAB BLOOD ORDERAB LES Final Result Performing Organization Address [facility] Phone Number [facility] [address] [place] [address] [phone] * Tissue Transglutaminase Antibody, IgA (05/28/2024 9:55 AM EST) Transglutaminase IgA <1.0 U/mL [facility] Comment:Value Interpretatio n----- <15.0 Antibody not detected> or = 15.0 Antibody detectedTHIS TEST WAS PERFORMED AT:[employer] [address] [address]AZITPIAN MEDRANO MD 05/28/2024 9:55 AM EST 05/28/2024 9:55 AM EST Generic External Data Provider LAB BLOOD ORDERAB LES Final Result Performing Organization Address [facility] Co de Phone Number [facility] [address] [place] [address] [phone] * Ceruloplasmin (05/28/2024 9:55 AM EST) Ceruloplasmin 28 14 - 48 mg/dL [facility] Comment:THIS TEST WAS PERFOR MED AT:[employer] [address] [address]KCERJIAN MEDRANO MD 05/28/2024 9:55 AM EST 05/28/2024 9:55 AM EST us Generic External Data Provider LAB BLOOD ORDERAB LES Final Result Performing Organization Address [facility] Co de Phone Number [facility] [address] [place] [phone] * Mitochondrial Antibody with Reflex to Titer (05/28/2024 9:55 AM EST) Mitochondrial Antibodies NEGATIVE NEGATIVE [facility] Comment:THIS TEST WAS PERFOR MED AT:[employer] [address] [address]SFTVYCARMEN MEDRANO MD Mitochondrial Ab Titer TNP [facility] 05/28/2024 9:55 AM EST 05/28/2024 9:55 AM EST us Generic External Data Provider LAB BLOOD ORDERAB LES Final Result Performing Organization Address [facility] Co de Phone Number [facility] [address] [place] [phone] * Ferritin (05/28/2024 9:55 AM EST) Ferritin 162 10 - 250 ng/mL [facility] 05/28/2024 9:55 AM EST 05/28/2024 9:55 AM EST us Generic External Data Provider LAB BLOOD ORDERAB LES Final Result Performing Organization Address [facility] Co de Phone Number [facility] [address] [place] [phone] * (ABNORMAL) Hepatic Function Panel (05/28/2024 9:55 AM EST) Pathologist [facility] Bilirubin, Total 0.8 0.0 - 1.0 mg/dL [facility] Bilirubin, Direct 0.3 0.0 - 0.5 mg/dL [facility] Aspartate Amino Transferase 36(H) 5 - 31 U/L [facility] Alanine Aminotransferase 59(H) 0 - 31 U/L [facility] Total Protein 7.3 6.5 - 8.0 g/dL [facility] Albumin Level 3.8 3.5 - 5.0 g/dL [facility] Alkaline Phosphatase 113 39 - 117 U/L [facility] 05/28/2024 9:55 AM EST 05/28/2024 9:55 AM EST us Generic External Data Provider LAB BLOOD ORDERAB LES Final Result Performing Organization Address City/State/[facility] Co de Phone Number [facility] [address] [place] [phone] * BI Mammogram Screening Tomosynthesis Bilateral (05/14/2024 8:50 AM EST) Anatomical Region Laterality Modality Breast Bilateral Mammography 05/14/2024 8:50 AM EST Narrative 05/21/2024 12:38 PM EST ? [facility] [place] ? [address] ?[place] [address] ? Mammography Report ? Signed ? Patient: Sandoval Navarrete,Jany I ?MR#: M ?? [id number] ? : 1975 ?Acct:[id number] ? Age/Sex: 48 / F ?ADM Date: 01/10/25 ? Loc: HO.MAMMO ? Attending Dr: Libby Redd MD ? Ordering Physician: Libby Redd MD ?Results: 1Nega ?? tive ? Date of Service: 05/14/24 ?Follow Up: 1 Year From Orig ?? inal Mammogram ? Procedure(s): MM tomosynthesis screening BI ?? Accession Number(s): [id number] ? cc: Libby Redd MD ? EXAMINATION: [...] DD/ 0850 ? TD/TT: 05/14/24 0910 ? College Teacher: ? Procedure Note Donotuseinterpreter, Image - 05/21/2024 [facility] [address] [place] [address] Mammography Report Signed Patient: Jany Welsh [facility]#: M [id number] : 1975Acct:[id number] Age/Sex: 48 / FADM Date: 05/14/24 Loc: HO.MAMMO Attending Dr: Libby Redd MD Ordering Physician: Libby Redd MDResults: 1Nega tive Date of Service: 05/14/24Follow Up: 1 Year From Orig inal Mammogram Procedure(s): MM tomosynthesis screening BI Accession Number(s): [id number] cc: Libby Redd MD EXAMINATION: MM SCREENING [...] 05/21/24 1235 DD/ 0850 TD/TT: 05/14/24 0910 College Teacher: us Libby Redd MD IMG BI PROCEDURES Edited Resu lt - Final * (ABNORMAL) Lipid Panel, Standard (04/21/2024 10:16 AM EST) Triglycerides 72 <150 mg/dL [facility] Comment:Desirable Triglyceri de: less than 150 mg/dLBorderline High Triglyceride 150-199 mg/dLHigh Triglyceride: 200-499 mg/dLVery High Triglyceride: greater than or equal to 5OO mg/dL Cholesterol 134 <200 mg/dL [facility] Comment:Desirable Cholestero l: less than 200 mg/dLBorderline High Cholesterol: 200-239 mg/dLHigh Cholesterol: greater than 239 mg/dL LDL Cholesterol Calculated 90 <100 mg/dL [facility] Comment:Desirable LDL: less than 100 mg/dLNear Optimal/Above Optimal LDL: 110- 129 mg/dLBorderline High LDL: 130-159 mg/dLHigh LDL: 160-189 mg/dLVery High LDL: greater than or equal to 190 mg/dL HDL Cholesterol 30(L) >40 mg/dL [facility] Comment:Desirable HDL: great er than 40 mg/dL Note: This HDL assay may give artificially low results in patients with liver disease. Blood Venous blood specimen / Unknown 04/21/2024 10:16 AM EST 04/21/2024 2:06 PM EST Libby Redd MD LAB BLOOD ORDERABLES Final Re sult [facility] [address] [place] [phone] * (ABNORMAL) POCT HGB A1C (01/29/2024 12:02 PM EDT) Hemoglobin A1C 8.6(A) 4.0 - 6.0 % QC Media Lot # [id number] Lot# Expiration Date [id number] Blood 01/29/2024 12:0 2 PM EDT Libby Redd MD POINT OF CARE TEST ENTER/EDIT ORDERABLES Final Result * Hepatitis C Ab (01/16/2023 12:40 PM EDT) Hepatitis C Antibody Nonreactive Nonreactive [facility] Comment:Antibodies to HCV no t detected; does not exclude early acuteHCV infection. Blood 01/16/2023 12:4 0 PM EDT 01/16/2023 2:08 PM EDT us Libby Redd MD LAB BLOOD ORDERABLES Final Re sult [facility] [address] [place] [address] [phone] * HIV 1/2 ANTIGEN/ANTIBODY,FOURTH GENERATION W/RFL (11/18/2019 2:28 PM EDT) HIV-1/2 ANTIGEN AND ANTIBODIES, 4TH GENERATION W/ [...] ? For additional information please refer to http://education.[email or web address]/faq/RXO799 (This link is being provided for informational/ [...] ? For additional information please refer to http://[employer]/faq/YZJ949 (This link is being provided for informational/ [...] ? For additional information please refer to http://[employer]/faq/PPP338 (This link is being provided for informational/ [...] ? For additional information please refer to http://[employer]/faq/SNY368 (This link is being provided for informational/ educational purposes only.) ? The performance of this assay has not been clinically validated in patients less than 2 years old. ?? 11/18/2019 2:28 PM EDT us Kirstin Collier MD LAB BLOOD ORDERABLES Final Resul t [facility] [address] from Last 3 Months or Most Recently Relevant to Health Maintenance [facility] Care Teams Casino Operations Supervisor Relationship Specialty Start Date End Date Libby Redd MD [address] [place] [address] PCP - General Family Medicine 01/09/23
--- OUTSIDE RECORDS SUMMARY | 2024-08-04 09:04 | XMS_ITS | Encounter Summary ---
Author Organization [employer] Address 75 [facility] 7 [place] [address] Care Team Providers Care Social Service Assistant Name Role Phone Nina Haider MD Primary Care Provider [phone] Libby Redd MD Primary Care Provider [phone] Encounter Details Date Type Department Care Team (Late Contact Info) Description 07/12/2022 Orders Only [facility] MED & PEDS [address] [place], [place] [phone] Sondra Valera LPN Social History Tobacco Use [...] Department Care Team (Late Contact Info) Description 09/07/2024 1:00 PM EDT Office Visit [facility] OPTOMETRY [address] [place], [place] [phone] Shira Roman, OD [address] [place], [place] [phone] documented as of this encounter Visit Diagnoses Not on filedocumented in this encounter Care Teams Social Service Assistant Relationship Specialty Start Date End Date Nina Haider MD [address] [place], [place] [phone] PCP - General Family Medicine 10/31/21 01/08/23 Libby Redd MD [address] [place] [address] PCP - General Family Medicine 01/09/23 documented as of this encounter
--- OUTSIDE RECORDS SUMMARY | 2024-08-04 09:04 | XMS_ITS | Encounter Summary ---
Author Organization [employer] Address 75 [facility] 7t [place] [address] Care Team Providers Care Fire Crew Specialist Name Role Phone Nina Haider MD Primary Care Provider [phone] Libby Redd MD Primary Care Provider [phone] Encounter Details Date Type Department Care Team (Late Contact Info) Description 05/08/2022 Telephone [facility] MEDICINE [address] [place] [address] Nina Haider MD [address] [place] [address] Social History Tobacco Use Types Packs/Day Years [...] Description 09/07/2024 1:00 PM EDT Office Visit [facility] OPTOMETRY [address] [place], [place] [phone] Shira Roman, OD [address] [place] [address] documented as of this encounter Visit Diagnoses Not on filedocumented in this encounter Care Teams Fire Crew Specialist Relationship Specialty Start Date End Date Nina Haider MD [address] [place] [address] PCP - General Family Medicine 10/31/21 01/08/23 Libby Redd MD [address] [place] [address] PCP - General Family Medicine 01/09/23 documented as of this encounter
--- OUTSIDE RECORDS SUMMARY | 2024-08-04 09:04 | XMS_ITS | Encounter Summary ---
Author Organization [employer] Address 75 [facility] 7t [place] [address] Care Team Providers Care Industrial Safety And Health Manager Name Role Phone Libby Redd MD Primary Care Provider [phone] Reason for Visit * Reason Onset Date Comments Results 06/07/2024 Encounter Details Date Type Department Care Team ([facility] Contact Info) Description 06/07/2024 Telephone [facility] CHC MED & PEDS [address] [place], [place] [phone] Libby Redd MD [address] [place] [address] Results Social History Tobacco Use Types Packs/Day Years [...] encounter Miscellaneous Notes * Telephone Encounter - Raeann Potts - 06/07/2024 3:19 PM EST TC from pt requesting call back regarding Results. Type of results: mammogram Date when done: 2-3 weeks Facility: [facility] documented in this encounter Plan of Treatment Upcoming Encounters Date Type Department Care Team (Late st Contact Info) Description 09/07/2024 1:00 PM EDT Office Visit [facility] OPTOMETRY [address] [place] [address] Abel, Shira, OD [address] [place] [address] documented as of this encounter Visit Diagnoses Not on filedocumented in this encounter Additional Health Concerns Assessment Noted Time PHQ-9 Depression Total Score: 21 024 8:35 AM EDT documented as of this encounter Care Teams Industrial Safety And Health Manager Relationship Specialty Start Date End Date Libby Redd MD [address] [place] [address] PCP - General Family Medicine 01/09/23 documented as of this encounter
--- OUTSIDE RECORDS SUMMARY | 2024-08-04 09:04 | XMS_ITS | Encounter Summary ---
Author Organization [employer] Address 75 [facility] 7t [place] [address] Care Team Providers Care Coordinate Measuring Machine Technician Name Role Phone Nina Haider MD Primary Care Provider [phone] Libby Redd MD Primary Care Provider Encounter Details Date Type Department Care Team (Late Contact Info) Description 08/13/2022 Telephone [facility] MEDICINE [address] [place] [address] Nina Haider MD [address] [place] [address] Social History Tobacco Use Types Packs/Day Years [...] Description 09/07/2024 1:00 PM EDT Office Visit [facility] OPTOMETRY [address] [place] [address] Shira Roman OD [address] [place] [address] documented as of this encounter Visit Diagnoses Not on filedocumented in this encounter Care Teams Coordinate Measuring Machine Technician Relationship Specialty Start Date End Date Nina Haider MD [address] [place] [address] PCP - General Family Medicine 10/31/21 01/08/23 Libby Redd MD [address] [place] [address] PCP - General Family Medicine 01/09/23 documented as of this encounter
--- OUTSIDE RECORDS SUMMARY | 2024-08-04 09:04 | XMS_ITS | Encounter Summary ---
Author Organization [employer] Address 75 [facility] 7t [place] [address] Care Team Providers Care Optical Instrument Repairer Name Role Phone Nina Haider MD Primary Care Provider [phone] Libby Redd MD Primary Care Provider [phone] Encounter Details Date Type Department Care Team (Late Contact Info) Description 07/31/2022 Orders Only [facility] CHC MED & PEDS [address] [place], [place] [phone] Sondra Valera LPN Social History Tobacco Use [...] Upcoming Encounters Date Type Department Care Team ([facility] Contact Info) Description 09/07/2024 1:00 PM EDT Office Visit [facility] OPTOMETRY [address] [place], [place] [phone] Abel, Shira, OD [address] [place], [place] [phone] documented as of this encounter Visit Diagnoses Not on filedocumented in this encounter Care Teams Optical Instrument Repairer Relationship Specialty Start Date End Date Nina Haider MD [address] [place] [address] PCP - General Family Medicine 10/31/21 01/08/23 Libby Redd MD [address] [place] [address] PCP - General Family Medicine 01/09/23 documented as of this encounter
== END 2024-08-04 08:39 | disposition home or self-care (01) ==
LOC: HO.US 08:38
PROVIDERS: PCP Family Medicine; Visit Provider Nurse Practitioner Family
DX: K76.0 Fatty (change of) liver, not elsewhere classified (principal)
CPT/HCPCS: 76705; 76981

== ENCOUNTER → 2024-08-04 08:41 | Outpatient (BNV) | payer MEDICAID, SELFPAY | PROVIDERS: PCP Family Medicine; Visit Provider Radiology Diagnostic Radiology | DX: R16.0 Hepatomegaly, not elsewhere classified (principal); K76.0 Fatty (change of) liver, not elsewhere classified | CPT/HCPCS: 76705; 76981 ==

== ENCOUNTER 2024-08-13 07:15 | Outpatient (REF) | payer MEDICAID, SELFPAY ==
--- NOTE | ~2024-08-13 | FL_ITS ---
EXAMINATION: XR GI SERIES CLINICAL INFORMATION: Gastroesophageal reflux disease. COMPARISON: None available. TECHNIQUE: Routine upper GI air contrast study with barium swallow was performed in upright and lying position. FINDINGS: Following oral administration of thick barium and effervescent granules is normal propagation of bolus from the oral cavity through the pharynx, esophagus into stomach without any evidence of obstruction, narrowing or stricture. Following placing patient in supine and prone lying there is moderate gastroesophageal reflux without hiatal hernia. The course, caliber and peristalsis of the stomach is normal. Mucosal pattern of the esophagus, stomach and the duodenum is normal. FLUOROSCOPY TIME: 1 minute 54 seconds DOSE AREA PRODUCT: 185 uGy-m2 (microgray-meter squared) FL/FL upper GI w Ba Swallow IMPRESSION: There is moderate gastroesophageal reflux. Otherwise unremarkable upper GI air contrast study. Electronically signed by: Matthew Noland MD 08/13/2024 01:40 PM EDT
== END 2024-08-13 07:16 | disposition home or self-care (01) ==
LOC: HO.XRAY 07:15
PROVIDERS: PCP Family Medicine; Visit Provider Nurse Practitioner Family
DX: K21.9 Gastro-esophageal reflux disease without esophagitis (principal)
CPT/HCPCS: 74240

== ENCOUNTER → 2024-08-13 07:17 | Outpatient (BNV) | payer MEDICAID, SELFPAY | PROVIDERS: PCP Family Medicine; Visit Provider Radiology Diagnostic Radiology | DX: K21.9 Gastro-esophageal reflux disease without esophagitis (principal) | CPT/HCPCS: 74246 ==

== ENCOUNTER 2024-09-13 12:00 | Outpatient (RCR) | payer MEDICAID, SELFPAY ==
--- NOTE | 2024-07-29 09:57 | MHC.PT.EP ---
[facility] [place] Office [place] Office [place] Office [address] John Bassett [address] [phone] F: [phone] F: [phone] F: [phone] F: [phone] Physical Therapy Plan of Care Date of Evaluation: 07/29/24 Date of Surgery: 12/16/24 Diagnosis: chondromalacia of left knee (RL) Assessment: pt is a 49 y/o female presenting to physical therapy w/ referring diagnosis of chondromalacia of left knee. pt's signs and symptoms are more consistent w/ persistent weakness secondary to sedentary lifestyle. We discussed the importance of compliance and resiliency in order to improve her condition. pt verbalized and appeared more motivated to participate in PT at this time. Impairments include pain, decreased range of motion, decreased strength, impaired functional mobility, impaired postural awareness, and altered ambulation mechanics. pt is a good candidate for skilled PT due to age, potential remediation of impairments, typical disease/condition progression and prognosis, comorbidities, and motivation. pt would benefit from skilled PT intervention to provide a tailored strengthening and stretching exercise program, functional training, gait training, postural re-training, neuromuscular re-education, modalities as needed for pain, equipment safety demonstration. Frequency and Duration: The patient will be seen 2x/wk for 5 wks Short Term Goals: pt will be I w/ HEP to promote self-management of condition. pt will improve L knee AROM to at least 100* to promote ease in tolerating sitting position. pt will improve L quad strength by 1 MMT grade to promote ease in sit<>stand transfers without using UE assist. French Cord Binder Goals: pt will ascend/descend 4 stairs using railing and reciprocal pattern to promote ease in accessing her home. pt will report a statistically significant improvement in self-reported outcome measure, LEFI, to promote return to PLOF. pt will ambulate x300' w/o AD and no instability of L knee to promote improved tolerance for community ambulation. Treatment Plan: Modalities to reduce pain, spasms and effusion. Manual therapy to restore motion and function. Therapeutic exercise to improve strength and flexibility. Neuromuscular re-education for posture and balance. Therapeutic activities to return to functional activities of daily living. Electronically signed by: Apurva Faustin PT, DPT Please sign and return to therapist. Thank you for your referral.
--- NOTE | 2024-10-21 15:28 | MHC.PT.DC ---
[facility] [place] Office [place] Office [place] Office [address] John Bassett [address] [phone] F: [phone] F: [phone] F: [phone] F: [phone] Physical Therapy Discharge Report Diagnosis: chondromalacia of left knee (RL) Date of Surgery: 12/16/24 Date of Evaluation: 07/29/24 Date of Discharge: 10/21/24 Treatments to Date: 9 Cancellations to Date: 2 No Shows to Date: 3 Discharge Status: Improved Function Independent with HEP Discharge Summary: The patient took better initiative of her post-operative recovery this plan of care. She progressed to being able to ambulate without an assistive device and navigate a six inch step. She no showed her last scheduled appointment and did not follow-up with any additional visits. She is discharged at this time. Electronically signed by: Apurva Faustin PT, DPT Please sign and return to therapist. Thank you for your referral.
== END 2024-10-21 15:29 | disposition home or self-care (01) ==
LOC: HO.PT 12:00
PROVIDERS: PCP Family Medicine; Visit Provider Internal Medicine Geriatric Medicine
DX: M25.562 Pain in left knee (principal); G89.29 Other chronic pain; M94.262 Chondromalacia, left knee
CPT/HCPCS: 97110; 97112; 97162; 97530

== ENCOUNTER 2024-10-05 17:20 | Outpatient (REF) | payer MEDICAID, SELFPAY ==
--- OUTSIDE RECORDS SUMMARY | 2024-10-05 17:23 | XMS_ITS | Encounter Summary ---
Author Organization [employer] Address [address] [facility] [address] [place] [address] Care Team Providers Care Cyanide Pot Hardener Name Role Phone Nina Haider MD Primary Care Provider [phone] Libby Redd MD Primary Care Provider [phone] Encounter Details Date Type Department Care Team (Late Contact Info) Description 05/08/[address] [facility] MEDICINE [address] [place] [address] Nina Haider MD [address] [place] [address] Social History Tobacco Use Types Packs/Day Years [...] Department Care Team (Late Contact Info) Description 10/20/2024 10:30 AM EDT Office Visit [facility] CHC MED & PEDS [address] [place] [address] Libby Redd MD [address] [place], [place] [phone] documented as of this encounter Visit Diagnoses Not on filedocumented in this encounter Care Teams Cyanide Pot Hardener Relationship Specialty Start Date End Date Nina Haider MD [address] [place] [address] PCP - General Family Medicine 10/31/21 01/08/23 Libby Redd MD [address] [place] [address] PCP - General Family Medicine 01/09/23 documented as of this encounter
[2024-10-11 13:21] LABS: HPV Genotype 16 Negative (Negative); HPV Genotype 18 Negative (Negative); HPV High Risk Negative (Negative)
== END 2024-10-05 17:21 | disposition home or self-care (01) ==
LOC: HO.HHCLNP 17:20
PROVIDERS: Visit Provider Advanced Practice Midwife
DX: Z12.4 Encounter for screening for malignant neoplasm of cervix (principal); Z11.51 Encounter for screening for human papillomavirus (HPV)
CPT/HCPCS: 87626; 88175

== ENCOUNTER 2024-11-26 09:44 | Outpatient (REF) | payer MEDICAID, SELFPAY ==
--- NOTE | ~2024-11-26 | XR_ITS ---
EXAMINATION: XR KNEE, RIGHT CLINICAL INFORMATION: 49 yo F with right knee pain, DJD send to [facility] COMPARISON: None available. TECHNIQUE: AP lateral and sunrise views of the right knee. FINDINGS: No acute cortical disruption or malalignment. Joint space narrowing involving the medial compartment. No suprapatellar bursa joint effusion. Small exostosis at the quadriceps tendon insertion and the patellar tendon insertion. No lytic or blastic lesions. No subcutaneous emphysema. XR/XR knee RT 3V IMPRESSION: Medial compartment osteoarthrosis, mild. Enthesopathy, quadriceps tendon and patellar tendon. Electronically signed by: Trenton Kohli MD 11/26/2024 10:16 AM EDT
[2024-11-26 09:55] LABS: MANUAL DIFF FLAG NO
--- OUTSIDE RECORDS SUMMARY | 2024-11-26 09:59 | XMS_ITS | Encounter Summary ---
Author Organization [employer] Address [address] [facility] 7t [place] [address] Care Team Providers Care Catalogue Clerk Name Role Phone Nina Haider MD Primary Care Provider [phone] Libby Redd MD Primary Care Provider [phone] Encounter Details Date Type Department Care Team (Late st Contact Info) Description 05/08/2022 Telephone [facility] MEDICINE [address] [place], [place] [phone] Nina Haider MD [address] [place], [place] [phone] Social History Tobacco Use Types Packs/Day Years [...] as of this encounter Plan of Treatment Not on file documented as of this encounter Visit Diagnoses Not on filedocumented in this encounter Care Teams Catalogue Clerk Relationship Specialty Start Date End Date Nina Haider MD [address] [place] [address] [phone] PCP - General Family Medicine 10/31/21 01/08/23 Libby Redd MD [address] [place] [phone] PCP - General Family Medicine 01/09/23 Jodee Jean [employer] Nurse Practitioner Gastroenterology 10/20/24 documented as of this encounter
[2024-11-26 10:41] LABS: Hematocrit 42.1 % (37.0-47.0); Hemoglobin 13.8 g/dl (12.0-16.0); Imm Gran Abs Auto 0.06 X10*3/uL (0.00-0.03); Imm Gran Pct Auto 0.6 % (0.0-0.4); Lymphocytes Absolute Auto 2.9 X10*3/uL (1.2-4.9); Mean Corpuscular HGB Conc 32.8 g/dl (31.0-35.0); Mean Corpuscular Hemoglobin 28.6 pg (27.0-33.0); Mean Corpuscular Volume 87.3 fL (80.0-98.0); NRBC Abs Auto 0.000 X10*3/uL (0.0-0.012); NRBC Pct Auto 0.0 /100WBC (0.0-0.2); Platelet Count 239 X10*3/uL (160-400); Red Blood Count 4.82 X10*6/uL (4.20-5.50); White Blood Count 10.2 X10*3/uL (4.8-10.8)
[2024-11-26 11:18] LABS: Alanine Aminotransferase 61 U/L (0-31); Albumin Level 4.3 g/dL (3.5-5.0); Alkaline Phosphatase 134 U/L (39-117); Anion Gap 12 (12-20); Aspartate Amino Transferase 36 U/L (5-31); Blood Urea Nitrogen 14 mg/dL (9-16); Calcium 9.3 mg/dL (8.4-10.2); Carbon Dioxide 28 mmol/L (22-29); Chloride 106 mmol/L (96-108); Estimated Glomerular Filt Rate > 60; Potassium 4.5 mmol/L (3.3-5.1); Sodium 141 mmol/L (135-145); Total Protein 7.4 g/dL (6.5-8.0)
[2024-11-26 11:42] LABS: Folate 11.7 ng/mL (> or = 4.0); Vitamin B12 810 pg/mL (200-900)
== END 2024-11-26 09:45 | disposition home or self-care (01) ==
LOC: HO.LAB 09:44
PROVIDERS: PCP Family Medicine; Visit Provider Family Medicine
DX: E11.65 Type 2 diabetes mellitus with hyperglycemia (principal); E55.9 Vitamin D deficiency, unspecified; M25.561 Pain in right knee; G89.29 Other chronic pain
CPT/HCPCS: 36415; 73562; 80053; 82306; 82607; 82746; 84443; 85025

== ENCOUNTER → 2024-11-26 09:56 | Outpatient (BNV) | payer MEDICAID, SELFPAY | PROVIDERS: PCP Family Medicine; Visit Provider Radiology Diagnostic Radiology | DX: M76.51 Patellar tendinitis, right knee (principal) | CPT/HCPCS: 73562 ==

== ENCOUNTER 2024-12-02 06:45 | Day surgery (SDC) | payer MEDICAID, SELFPAY ==
--- OUTSIDE RECORDS SUMMARY | 2024-08-31 16:35 | XMS_ITS | Encounter Summary ---
Author Organization [employer] Address 75 [facility] 7t [place] [address] Care Team Providers Care Antenna Specialist Name Role Phone Nina Haider MD Primary Care Provider [phone] Libby Redd MD Primary Care Provider [phone] Encounter Details Date Type Department Care Team (Late Contact Info) Description 08/13/2022 Telephone [facility] MEDICINE [address] [place] [address] iNna Haider MD [address] [place] [address] Social History Tobacco Use Types Packs/Day Years [...] Description 09/07/2024 1:00 PM EDT Office Visit [facility] OPTOMETRY [address] [place] [address] Shira Roman OD [address] [place] [address] documented as of this encounter Visit Diagnoses Not on filedocumented in this encounter Care Teams Antenna Specialist Relationship Specialty Start Date End Date Nina Haider MD [address] [place] [address] PCP - General Family Medicine 10/31/21 01/08/23 Libby Redd MD [address] [place] [address] PCP - General Family Medicine 01/09/23 documented as of this encounter
--- OUTSIDE RECORDS SUMMARY | 2024-08-31 16:35 | XMS_ITS | Encounter Summary ---
Author Organization [employer] Address 75 [facility] 7 [place] [address] Care Team Providers Care Arterial Embalmer Name Role Phone Nina Haider MD Primary Care Provider [phone] Libby Redd MD Primary Care Provider [phone] Encounter Details Date Type Department Care Team (Late Contact Info) Description 07/12/2022 Orders Only [facility] CHC MED & PEDS [address] [place], [place] [phone] Sondra Valera LPN Social History Tobacco Use [...] Description 09/07/2024 1:00 PM EDT Office Visit [facility] OPTOMETRY [address] [place], [place] [phone] Shira Roman, OD [address] [place], [place] [phone] documented as of this encounter Visit Diagnoses Not on filedocumented in this encounter Care Teams Arterial Embalmer Relationship Specialty Start Date End Date Nina Haider MD [address] [place], [place] [phone] PCP - General Family Medicine 10/31/21 01/08/23 Libby Redd MD [address] [place] [address] PCP - General Family Medicine 01/09/23 documented as of this encounter
--- OUTSIDE RECORDS SUMMARY | 2024-08-31 16:35 | XMS_ITS | Encounter Summary ---
Author Organization [employer] Address 75 [facility] 7t [place] [address] Care Team Providers Care Flexographic Press Set Up Operator Name Role Phone Nina Haider MD Primary Care Provider [phone] Libby Redd MD Primary Care Provider [phone] Encounter Details Date Type Department Care Team (Late Contact Info) Description 07/31/[address] Orders [address] [facility] CHC MED & PEDS [address] [place], [place] [phone] Sondra Valera LPN Social History Tobacco Use [...] Upcoming Encounters Date Type Department Care Team ([facility] Contact Info) Description 09/07/2024 1:00 PM EDT Office Visit [facility] OPTOMETRY [address] [place], [place] [phone] Abel, Shira, OD [address] [place], [place] [phone] documented as of this encounter Visit Diagnoses Not on filedocumented in this encounter Care Teams Flexographic Press Set Up Operator Relationship Specialty Start Date End Date Nina Haider MD [address] [place] [address] PCP - General Family Medicine 10/31/21 01/08/23 Libby Redd MD [address] [place] [address] PCP - General Family Medicine 01/09/23 documented as of this encounter
--- OUTSIDE RECORDS SUMMARY | 2024-08-31 16:35 | XMS_ITS | Clinical Summary ---
Author Organization [employer] Address [address] [place] [address] Care Team Providers Care Hull Molder Name Role Phone Libby Redd MD Primary Care Provider [phone] Allergies No known active allergies Medications * This document contains information received from the source organization and may not represent a complete record from that organization. Bisacodyl EC 5 MG EC tablet TAKE 2 TABLETS BY MOUTH AT NOON THE DAY BEFORE PROCEDURE 3 Active bismuth subsalicylate (Pepto Bismol) 262 MG/15ML suspension Take 17 ml orally 4 times a day for 14 days 1 Active SM Fiber Laxative 500 MG tablet Take 1 tablet by mouth in the morning. 90 tablet 3 3 Active Spacer/Aero-Holdin g Chambers (OptiChamber Liliana) misc 1 each every 4 (four) hours if needed (asthma). 1 each 3 Active Alcohol Swabs padsIndications:Ty pe 2 diabetes mellitus with hyperglycemia, without long-term current use of insulin (CMS/[facility]) 1 each if needed (to clean skin). 100 each 11 3 Active FREESTYLE LITE test stripIndications:T ype 2 diabetes mellitus with hyperglycemia, without long-term current use of insulin (CMS/HCC) Use to check blood sugar twice daily or more as needed 100 each 12 3 Active Blood Glucose Monitoring Suppl (FreeStyle Lite) w/Device kitIndications:Typ e 2 diabetes mellitus with hyperglycemia, without long-term current use of insulin (CMS/HCC) 1 each in the morning. 1 kit 3 Active triamcinolone (Kenalog) 0.5 % ointment Apply topically 2 times daily. 90 g 3 Active Ventolin HFA 108 (90 Base) MCG/ACT inhaler INHALE 2 PUFFS BY MOUTH EVERY 4 TO 6 HOURS NEEDED FOR WHEEZING 18 g 2 3 Active hydrOXYzine HCl (Atarax) 25 MG tabletIndications: Urticaria Take 1 tablet (25 mg) by mouth if needed at bedtime for itching. 90 tablet 3 3 Active loratadine (Claritin) 10 MG tablet TAKE 1 TABLET BY MOUTH DAILY IN THE MORNING 90 tablet 1 3 Active fluticasone (Flonase) 50 MCG/ACT nasal sprayIndications:A llergic rhinitis, unspecified seasonality, unspecified trigger USE 2 SPRAYS IN EACH NOSTRIL TWICE DAILY 48 g 1 3 Active pantoprazole (ProtoNix) 40 MG EC tabletIndications: Gastroesophageal reflux disease without esophagitis Take 1 tablet (40 mg) by mouth before breakfast. Do not crush, chew, or split. 90 tablet 3 4 Active fexofenadine (Tianna) 180 MG tabletIndications: Urticaria TAKE 1 TABLET BY MOUTH DAILY NEEDED FOR ALLERGIES 90 tablet 1 4 Active butamben-tetracain e-benzocaine (Cetacaine) 2-2-14 % spray Apply 1 spray topically if needed for irritation. 20 g 4 Active traZODone (Desyrel) 50 MG tablet TAKE 1 TABLET BY MOUTH EVERY DAY AT BEDTIME 30 tablet 1 4 Active doxepin (SINEquan) 10 MG capsule Take 10 mg by mouth at bedtime. 4 Active dulaglutide (Trulicity) 3 MG/0.5ML solution pen-injector Inject 3 mg under the skin 1 (one) time per week. 4 each 11 4 Active Magnesium 400 MG capsule Take 400 mg by mouth at bedtime. 90 capsule 1 4 Active lidocaine (Lidoderm) 5 % patch Apply 1 patch topically Once per day. Remove & discard patch within 12 hours or as directed by . 30 patch 2 5 Active D3-1000 25 MCG (1000 UT) capsule TAKE 1 CAPSULE BY MOUTH EVERY MORNING 90 capsule 1 Active diclofenac (Cataflam) 50 MG tablet Take 1 tablet (50 mg) by mouth 3 times daily. 90 tablet Active magnesium oxide (Mag-Ox) 400 MG tablet TAKE 1 TABLET BY MOUTH AT BEDTIME 90 tablet 1 Active metFORMIN XR (Glucophage-XR) 500 MG 24 hr tablet TAKE 1 TABLET BY MOUTH AT BEDTIME. DO NOT BREAK, CRUSH, DISSOLVE OR CHEW 90 tablet 1 5 Active Active Problems Problem Noted Date Diagnosed Date Hypertension 04/19/2024 Assessment & Plan (04/19/2024 4:36 PM EST): BP is controlled. Continue on current medications. Dry skin dermatitis 04/19/2024 Assessment & Plan (04/19/2024 4:37 PM EST): Advised to use moisturizer without fragrance for dry skin. 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 Recommended to decrease soda and sugary beverage consumption. Recommended at least 20 g per meal of protein to assist with satiety. Recommended at least 150 min/week of moderate intensity exercise. Assessment & Plan (01/10/2023 9:10 AM EDT): Advised patient to maintain active with physical activity with alternative workout methods. Referred to a Pallet Sorter. History of tubal ligation 10/18/2022 Allergic reaction [...] Encounters Date Type Department Care Team Description 08/04/2024 Orders Only [facility] External Provider, [facility] 07/18/2024 Refill [facility] [address] [place] [address] Libby Redd MD 07/16/2024 Population Health Risk Score Community Care [facility] ([facility]) Department [address] [place] [phone] Provider, Population Health Generic 07/10/2024 9:00 AM EST Office Visit [facility] [address] [place] [address] NameJh MD Chronic pain of left knee (Primary Dx); Chondromalacia of knee, left 07/10/2024 Travel 07/09/2024 Telephone [facility] [address] [place] [address] Libby Redd MD Nurse Triage 06/20/2024 Refill [facility] [address] [place] [address] Libby Redd MD 06/10/2024 Telephone [facility] [address] [place] [address] Libby Redd MD 06/07/2024 Refill [facility] [address] [place] [address] Libby Redd MD 06/07/2024 Telephone [facility] [address] [place] [address] Libby Redd MD Results from Last 3 Months Immunizations Name Administration Dates Next Due Hep A, Adult 04/19/2024 Hep B, adult 10/19/2020,07/27/2020,06/29/2020 Influenza injectable quadriv alent IIV4 with preservative 01/10/2023 Influenza, seasonal, injecta ble, preservative free 01/29/2024 Pneumococcal Conjugate PCV 20 01/29/2024 Tdap 04/19/2024 Zoster, Recombinant 08/26/2024,05/28/2024 Family History Medical History Relation Name Comments [...] Description 09/07/2024 1:00 PM EDT Office Visit [facility] [address] [place] [address] Shira Roman, OD [address] [place] [address] Health Maintenance Due Date Last Done Comments [...] 04/29/2024 024, 10/03/2023, 06/12/2023, Additional history exists SDOH Screening 09/23/2024 09/24/2023 Hepatitis A Vaccines [...] 01/10/2023 Pneumococcal Vaccine: 50+ Years Completed 01/29/2024 Zoster Vaccines Completed 08/26/2024, 05/28/2024 HIB Vaccines Aged Out No longer eligi [...] Procedure Name Priority Date/Time Associated Diagnosis Comments FL UPPER GI W BARIUM SWALLOW Routine 08/13/2024 7:17 AM EDT US ABDOMEN WAHL W ELASTOGRAPHY Routine 08/04/2024 9:02 AM EDT BI MAMMOGRAM SCREENING TOMOSYNTHESIS BILATERAL Routine 05/14/2024 [...] Recently Relevant to Health Maintenance Results * FL Upper GI w/Barium Swallow (08/13/2024 7:17 AM EDT) Anatomical Region Laterality Modality Body Radiographic Cookie ging 08/13/2024 7:17 AM EDT Narrative 08/13/2024 1:43 PM EDT ? [facility] ?[address] ?[place] [address] ? Fluoroscopy Report ? Signed ? Patient: Sandoval Navarrete,Jany I ?MR#: M ?? [id number] ? : 1975 ?Acct:[id number] ? Age/Sex: 49 / F ?ADM Date: 08/13/24 ? Loc: HO.XRAY ? Attending Dr: Jodee GAONA ? Ordering Physician: Jodee Jean ?? Date of Service: 08/13/24 ?? Procedure(s): FL upper GI w Ba Swallow ?? Accession Number(s): [id number] ? cc: Jodee Jean; Libby Redd MD ? EXAMINATION: ?? XR GI SERIES ? CLINICAL INFORMATION: ?? Gastroesophageal reflux disease. ? COMPARISON: ?? None available. ? TECHNIQUE: ?? Routine upper GI air contrast study with barium swallow was performed ?? in upright and lying position. ? FINDINGS: ?? Following oral administration of thick barium and effervescent granules ?? is normal propagation of bolus from the oral cavity through the ?? pharynx, esophagus into stomach without any evidence of obstruction, ?? narrowing or stricture. ?? Following placing patient in supine and prone lying there is moderate ?? gastroesophageal reflux ??without hiatal hernia. The course, caliber and ?? peristalsis of the stomach is normal. Mucosal pattern of the esophagus, ?? stomach and the duodenum is normal. ? FLUOROSCOPY TIME: ?? 1 minute 54 seconds ? DOSE AREA PRODUCT: ?? 185 uGy-m2 (microgray-meter squared) ? FL/FL upper GI w Ba Swallow ?? IMPRESSION: ?? There is moderate gastroesophageal reflux. Otherwise unremarkable upper ?? GI air contrast study. ? Electronically signed by: ??Matthew Nuzhat MD ??08/13/2024 01:40 PM EDT RP ? Dictated By: ?Nuzhat,Matthew S MD ? Signed By: ?<Electronically signed by Matthew S Nuzhat, MD in OV> ?08/13/24 1340 ? DD/ 0717 ? TD/TT: 08/13/24 0745 ? Legal Collector: MSM ? Procedure Note Donotivaninterpreter, Image - 08/13/[address] [address] Fluoroscopy Report Signed Patient: Jany Welsh IMR#: M [id number] : 1975Acct:[id number] Age/Sex: 49 / FADM Date: 08/13/24 Loc: [facility] Attending Dr: Jodee SOLIZ- Ordering Physician: Jodee Jean Date of Service: 08/13/24 Procedure(s): FL upper GI w Ba Swallow Accession Number(s): [id number] cc: Jodee Jean-ALICIA; Libby Redd MD EXAMINATION: XR GI SERIES CLINICAL INFORMATION: Gastroesophageal reflux disease. COMPARISON: None available. TECHNIQUE: Routine upper GI air contrast study with barium swallow was performed in upright and lying position. FINDINGS: Following oral administration of thick barium and effervescent granules is normal propagation of bolus from the oral cavity through the pharynx, esophagus into stomach without any evidence of obstruction, narrowing or stricture. Following placing patient in supine and prone lying there is moderate gastroesophageal reflux without hiatal hernia. The course, caliber and peristalsis of the stomach is normal. Mucosal pattern of the esophagus, stomach and the duodenum is normal. FLUOROSCOPY TIME: 1 minute 54 seconds DOSE AREA PRODUCT: 185 uGy-m2 (microgray-meter squared) FL/FL upper GI w Ba Swallow IMPRESSION: There is moderate gastroesophageal reflux. Otherwise unremarkable upper GI air contrast study. Electronically signed by: Matthew Noland MD 08/13/2024 01:40 PM EDT Dictated By: Matthew Noland MD Signed By: <Electronically signed by Matthew Noland MD in OV> 08/13/24 1340 DD/ 0717 TD/TT: 08/13/24 0745 Legal Collector: MSM us [facility] External Provider IMG FLU OROSCOPY PROCEDURES Final Result * US ABDOMEN WAHL W ELASTOGRAPHY (08/04/2024 9:02 AM EDT) Anatomical Region Laterality Modality Abdomen Ultrasound 08/04/2024 9:02 AM EDT Narrative 08/04/2024 9:48 AM EDT ? [facility] ?[address] ?[place], [place] [address] ? Ultrasound Report ? Signed ? Patient: Jany Welsh I ?MR#: M ?? [id number] ? : 1975 ?Acct:[id number] ? Age/Sex: 49 / F ?ADM Date: 08/04/24 ? Loc: HO.US ? Attending Dr: Jodee GAONA ? Ordering Physician: Jodee Jean ?? Date of Service: 08/04/24 ?? Procedure(s): US abdomen wahl w elastography ?? Accession Number(s): [id number] ? cc: Jodee Jean; Libby Redd MD ? EXAMINATION: ??US ABDOMEN LIMITED WITH LIVER ELASTOGRAPHY ? HISTORY: K76.0 - Fatty (change of) liver, not elsewhere classified ? TECHNIQUE: Real-time grayscale ultrasound imaging of the right upper ?? quadrant was performed and images were reviewed. ? COMPARISON: Comparison is made with the prior examination dated ?? 03/17/2023. ? FINDINGS: ?? Liver: ?? The right lobe of the liver measures 15.9 cm in size. The left ?? lobe of the liver measures 8.7 cm in size. The liver demonstrates ?? increased echotexture, consistent with steatosis. ??No focal mass or ?? intrahepatic biliary ductal dilatation is identified. ??There is normal ?? hepatopedal flow in the portal vein. ? Ultrasound elastography of the liver was performed with 10 separate ?? measurements of the liver parenchyma with the patient in the supine ?? position. ??Measurements were obtained approximately 2 cm below ?? Bertrand's capsule and perpendicular to the capsule. ??Images are of ?? satisfactory quality. ? The median shear wave velocity is 1.24 m/s. ?? The interquartile range/median (IQR/median) is 0.05. ? Gallbladder and biliary tree: The gallbladder is surgically absent. ? The common bile duct is normal in caliber measuring 5 mm. ? Right Kidney: ??The right kidney measures 10.4 cm in length and ?? demonstrates a 10 x 9 x 11 mm cyst at the upper pole. ??The right kidney ?? is otherwise unremarkable, without evidence of solid masses, ?? hydronephrosis, or calculi. ? Pancreas: The pancreatic head, neck, and body are unremarkable. The ?? pancreatic tail is obscured by bowel gas. ? Abdominal aorta and inferior vena cava: The visualized portions of the ?? abdominal aorta and inferior vena cava are normal in caliber. ? There is no free fluid in the right upper quadrant. ? US/US abdomen wahl w elastography ?? IMPRESSION: ? Mild hepatomegaly. Hepatic steatosis. ? The median shear wave velocity in the liver is 1.24 m/s, corresponding ?? to a median liver stiffness of 4.63 kPa. ??The IQR/median value is 0.05. ?? This is indicative of a quality data set. ?? Findings are indicative of a normal elastography value with a low ?? likelihood of severe fibrosis or cirrhosis. ? REFERENCE: ?? Society of Radiologists in Ultrasound Liver Stiffness Thresholds (2019): ? LIVER STIFFNESS THRESHOLDS: ?? *Shear wave velocity less than 1.3 m/s (Liver Stiffness equal or less ?? than 5 kPa): ??High probability of being normal. ?? *Shear wave velocity less than 1.7 m/s (Liver Stiffness less than 9 ?? kPa): ??In the absence of other known clinical signs, rules out ?? compensated advanced chronic liver disease. ?? *Shear wave velocity between 1.7-2.1 m/s (Liver Stiffness 9-13 kPa): ? Suggestive of compensated advanced chronic liver disease but need ?? further test for confirmation. ?? *Shear wave velocity between 2.1-2.4 m/s (Liver Stiffness 13-17 kPa): ? Rules in compensated advanced chronic liver disease. ?? *Shear wave velocity ??greater than 2.4 m/s (Liver Stiffness over 17 ?? kPa): ??Suggestive of clinically significant portal hypertension. ? QUALITY OF DATA SET: ?? *IQR/Median value equal or less than 0.15 implies a quality data set. ?? *IQR/Median value over 0.15 implies a poor quality data set. ? SIGNIFICANT CHANGE FROM PRIOR EXAM: ?? Significant change if liver stiffness measurement is 10% or greater ?? from prior exam. ? OTHER CONSIDERATIONS: ?? The stage of liver fibrosis may be overestimated in the setting of ?? acute hepatitis, liver inflammation, elevated liver function tests, ?? hepatic vascular congestion, obstructive cholestasis, non-fasting ?? state, and infiltrative diseases such as amyloidosis and lymphoma. ??In ?? some patients with NAFLD, the liver stiffness thresholds for ?? compensated advanced chronic liver disease may be lower. ??In causes ?? other than viral hepatitis and NAFLD, liver stiffness thresholds are ?? not well established. ? Electronically signed by: ??Charanjit Hayes MD ??08/04/2024 09:44 AM EDT ? Dictated By: ?Charanjit Hayes MD ? Signed By: ?<Electronically signed by Charanjit Hayes MD in OV> ?08/04/24 0944 ? DD/ 0902 ? TD/TT: 08/04/24 0911 ? Legal Collector: ? Procedure Note Kiki, Image - 08/04/2024 [place] [address] Ultrasound Report Signed Patient: Jany Welsh [facility]#: M [id number] : 1975Acct:[id number] Age/Sex: 49 / FADM Date: 08/04/24 Loc: HO.US Attending Dr: Jodee GAONA Ordering Physician: Jodee Jean Date of Service: 08/04/24 Procedure(s): US abdomen wahl w elastography Accession Number(s): [id number] cc: Jodee Jean; Libby Redd MD EXAMINATION: US ABDOMEN LIMITED WITH LIVER ELASTOGRAPHY HISTORY: K76.0 - Fatty (change of) liver, not elsewhere classified TECHNIQUE: Real-time grayscale ultrasound imaging of the right upper quadrant was performed and images were reviewed. COMPARISON: Comparison is made with the prior examination dated 03/17/2023. FINDINGS: Liver: The right lobe of the liver measures 15.9 cm in size. The left lobe of the liver measures 8.7 cm in size. The liver demonstrates increased echotexture, consistent with steatosis. No focal mass or intrahepatic biliary ductal dilatation is identified. There is normal hepatopedal flow in the portal vein. Ultrasound elastography of the liver was performed with 10 separate measurements of the liver parenchyma with the patient in the supine position. Measurements were obtained approximately 2 cm below Bertrand's capsule and perpendicular to the capsule. Images are of satisfactory quality. The median shear wave velocity is 1.24 m/s. The interquartile range/median (IQR/median) is 0.05. Gallbladder and biliary tree: The gallbladder is surgically absent. The common bile duct is normal in caliber measuring 5 mm. Right Kidney: The right kidney measures 10.4 cm in length and demonstrates a 10 x 9 x 11 mm cyst at the upper pole. The right kidney is otherwise unremarkable, without evidence of solid masses, hydronephrosis, or calculi. Pancreas: The pancreatic head, neck, and body are unremarkable. The pancreatic tail is obscured by bowel gas. Abdominal aorta and inferior vena cava: The visualized portions of the abdominal aorta and inferior vena cava are normal in caliber. There is no free fluid in the right upper quadrant. US/US abdomen wahl w elastography IMPRESSION: Mild hepatomegaly. Hepatic steatosis. The median shear wave velocity in the liver is 1.24 m/s, corresponding to a median liver stiffness of 4.63 kPa. The IQR/median value is 0.05. This is indicative of a quality data set. Findings are indicative of a normal elastography value with a low likelihood of severe fibrosis or cirrhosis. REFERENCE: Society of Radiologists in Ultrasound Liver Stiffness Thresholds (2019): LIVER STIFFNESS THRESHOLDS: *Shear wave velocity less than 1.3 m/s (Liver Stiffness equal or less than 5 kPa): High probability of being normal. *Shear wave velocity less than 1.7 m/s (Liver Stiffness less than 9 kPa): In the absence of other known clinical signs, rules out compensated advanced chronic liver disease. *Shear wave velocity between 1.7-2.1 m/s (Liver Stiffness 9-13 kPa): Suggestive of compensated advanced chronic liver disease but need further test for confirmation. *Shear wave velocity between 2.1-2.4 m/s (Liver Stiffness 13-17 kPa): Rules in compensated advanced chronic liver disease. *Shear wave velocity greater than 2.4 m/s (Liver Stiffness over 17 kPa): Suggestive of clinically significant portal hypertension. QUALITY OF DATA SET: *IQR/Median value equal or less than 0.15 implies a quality data set. *IQR/Median value over 0.15 implies a poor quality data set. SIGNIFICANT CHANGE FROM PRIOR EXAM: Significant change if liver stiffness measurement is 10% or greater from prior exam. OTHER CONSIDERATIONS: The stage of liver fibrosis may be overestimated in the setting of acute hepatitis, liver inflammation, elevated liver function tests, hepatic vascular congestion, obstructive cholestasis, non-fasting state, and infiltrative diseases such as amyloidosis and lymphoma. In some patients with NAFLD, the liver stiffness thresholds for compensated advanced chronic liver disease may be lower. In causes other than viral hepatitis and NAFLD, liver stiffness thresholds are not well established. Electronically signed by: Charanjit Hayes MD 08/04/2024 09:44 AM EDT Dictated By: Charanjit Hayes MD Signed By: <Electronically signed by Charanjit Hayes MD in OV> 08/04/24 0944 DD/ 0902 TD/TT: 08/04/24 0911 Legal Collector: [facility] External Provider IMG US PROCEDURES Edited Result - Final * BI Mammogram Screening Tomosynthesis Bilateral (05/14/2024 8:50 AM EST) Anatomical Region Laterality Modality Breast Bilateral Mammography 05/14/2024 8:50 AM EST Narrative 05/21/2024 12:38 PM EST ? [facility] ? [address] ?[place] [address] ? Mammography Report ? Signed ? Patient: Sandoval Navarrete,Jany I ?MR#: M ?? [id number] ? : 1975 ?Acct:[id number] ? Age/Sex: 48 / F ?ADM Date: 01/10/25 ? Loc: HO.MAMMO ? Attending Dr: Libby Redd MD ? Ordering Physician: Libby Redd MD ?Results: 1Nega ?? tive ? Date of Service: 05/14/24 ?Follow Up: 1 Year From Orig ?? inal Mammogram ? Procedure(s): MM tomosynthesis screening BI ?? Accession Number(s): [id number] ? cc: Libby Redd MD ? EXAMINATION: [...] DD/ 0850 ? TD/TT: 05/14/24 0910 ? Legal Collector: ? Procedure Note Donotivaninterpreter, Image - 05/21/2024 [facility] [address] [place] [address] Mammography Report Signed Patient: Jany Welsh IMR#: M [id number] : 1975Acct:[id number] Age/Sex: 48 / FADM Date: 05/14/24 Loc: HO.MAMMO Attending Dr: Libby Redd MD Ordering Physician: Libby Redd MDResults: 1Nega tive Date of Service: 05/14/24Follow Up: 1 Year From Orig inal Mammogram Procedure(s): MM tomosynthesis screening BI Accession Number(s): [id number] cc: Libby Redd MD EXAMINATION: MM SCREENING [...] 05/21/24 1235 DD/ 0850 TD/TT: 05/14/24 0910 Legal Collector: us Libby Redd MD IMG BI PROCEDURES Edited Resu lt - Final * (ABNORMAL) Lipid Panel, Standard (04/21/2024 10:16 AM EST) Triglycerides 72 <150 mg/dL [facility] Comment:Desirable Triglyceri de: less than 150 mg/dLBorderline High Triglyceride 150-199 mg/dLHigh Triglyceride: 200-499 mg/dLVery High Triglyceride: greater than or equal to 5OO mg/dL Cholesterol 134 <200 mg/dL [facility] Comment:Desirable Cholestero l: less than 200 mg/dLBorderline High Cholesterol: 200-239 mg/dLHigh Cholesterol: greater than 239 mg/dL LDL Cholesterol Calculated 90 <100 mg/dL [facility] Comment:Desirable LDL: less than 100 mg/dLNear Optimal/Above Optimal LDL: 110- 129 mg/dLBorderline High LDL: 130-159 mg/dLHigh LDL: 160-189 mg/dLVery High LDL: greater than or equal to 190 mg/dL HDL Cholesterol 30(L) >40 mg/dL [facility] Comment:Desirable HDL: great er than 40 mg/dL Note: This HDL assay may give artificially low results in patients with liver disease. Blood Venous blood specimen / Unknown 04/21/2024 10:16 AM EST 04/21/2024 2:06 PM EST us Libby Redd MD LAB BLOOD ORDERABLES Final Re sult [facility] [address] [place], [place] [phone] * (ABNORMAL) POCT HGB A1C (01/29/2024 12:02 PM EDT) Hemoglobin A1C 8.6(A) 4.0 - 6.0 % QC Media Lot # [id number] Lot# Expiration Date [id number] Blood 01/29/2024 12:0 2 PM EDT Libby Redd MD POINT OF CARE TEST ENTER/EDIT ORDERABLES Final Result * Hepatitis C Ab (01/16/2023 12:40 PM EDT) Pathologist [facility] Hepatitis C Antibody Nonreactive Nonreactive [facility] Comment:Antibodies to HCV no t detected; does not exclude early acuteHCV infection. Blood 01/16/2023 12:4 0 PM EDT 01/16/2023 2:08 PM EDT Result [facility] Libby Redd MD LAB BLOOD ORDERABLES Final Re sult [facility] [address] [place] [phone] * HIV 1/2 ANTIGEN/ANTIBODY,FOURTH GENERATION W/RFL (11/18/2019 2:28 PM EDT) Pathologist [facility] HIV-1/2 ANTIGEN AND ANTIBODIES, 4TH GENERATION W/ REFLEX NON-REACT LORA NON-REACT LORA [facility] Comment: HIV-1 antigen and HIV-1/HIV-2 [...] ? For additional information please refer to http://education.Volumental.ChipX/faq/WBU457 (This link is being provided for informational/ [...] ? For additional information please refer to http://Gratci/faq/BVW904 (This link is being provided for informational/ [...] ? For additional information please refer to http://Wire.Delivery Agent/faq/DCM662 (This link is being provided for informational/ [...] ? For additional information please refer to http://education.Delivery Agent/faq/PKR618 (This link is being provided for informational/ educational purposes only.) ? The performance of this assay has not been clinically validated in patients less than 2 years old. ?? 11/18/2019 2:28 PM EDT us Kirstin Collier MD LAB BLOOD ORDERABLES Final Resul t Performing Organization Address City/State/RUST Co de Phone Number [facility] [address] from Last 3 Months or Most Recently Relevant to Health Maintenance Insurance [facility] C3 Care Teams Hull Molder Relationship Specialty Start Date End Date Libby Redd MD [address] [place] [id number] PCP - General Family Medicine 01/09/23
--- OUTSIDE RECORDS SUMMARY | 2024-08-31 16:35 | XMS_ITS | Encounter Summary ---
Author Organization [employer] Address [address] [facility] 7t [place] [address] Care Team Providers Care Vat Overhauler Name Role Phone Libby Redd MD Primary Care Provider [phone] Reason for Visit * Reason Onset Date Comments Results 06/07/2024 Encounter Details Date Type Department Care Team ([facility] Contact Info) Description 06/07/2024 Telephone [facility] CH[facility] MED & PEDS [address] [place], [place] [phone] Libby Redd MD [address] [place] [address] Results Social History Tobacco Use Types Packs/Day [...] mammogram Date when done: 2-3 weeks Facility: [facility] documented in this encounter Plan of Treatment Upcoming Encounters Date Type Department Care Team (Late st Contact Info) Description 09/07/2024 1:00 PM EDT Office Visit [facility] OPTOMETRY [address] [place] [address] Abel, Shira, OD [address] [place] [address] documented as of this encounter Visit Diagnoses Not on filedocumented in this encounter Additional Health Concerns Assessment Noted Time PHQ-9 Depression Total Score: 21 024 8:35 AM EDT documented as of this encounter Care Teams Vat Overhauler Relationship Specialty Start Date End Date Libby Redd MD [address] [place] [address] PCP - General Family Medicine 01/09/23 documented as of this encounter
--- OUTSIDE RECORDS SUMMARY | 2024-08-31 16:35 | XMS_ITS | Encounter Summary ---
Author Organization [employer] Address [address] [facility] 7t [place] [address] Care Team Providers Care Bun Machine Operator Name Role Phone Nina Haider MD Primary Care Provider [phone] Libby Redd MD Primary Care Provider [phone] Reason for Visit * Reason Onset Date Comments Nurse Triage 10/14/2022 Encounter Details Date Type Department Care Team (Late st Contact Info) Description 10/14/2022 Telephone [facility] MEDICINE [address] [place], [place] [phone] Nina Haider MD [address] [place] [address] [phone] Nurse Triage Social History Tobacco Use Types [...] 2:45 PM EDT Triage [place] with [place] [id number] Pt reports wide spread rash all over body. Rash is red, bumpy and very itchy. Pt reports it has increased in itchiness each day. Pt denies fever, sore throat, or difficulty breathing. Pt hasn't changed detergent or started using some other soaps or body wash. Pt is advised to come to [facility] to be seenby provider and Pt [...] The caller accepted this outcome Patient speak latvian documented in this encounter Plan of Treatment Upcoming Encounters Date Type Department Care Team (Late st Contact Info) Description 09/07/2024 1:00 PM EDT Office Visit [facility] OPTOMETRY [address] [place], [place] [phone] AbelShira purvis, OD [address] [place], [place] [phone] documented as of this encounter Visit Diagnoses Not on filedocumented in this encounter Care Teams Bun Machine Operator Relationship Specialty Start Date End Date Nina Haider MD [address] [place] [address] PCP - General Family Medicine 10/31/21 01/08/23 Libby Redd MD [address] [place] [address] PCP - General Family Medicine 01/09/23 documented as of this encounter
--- OUTSIDE RECORDS SUMMARY | 2024-08-31 16:35 | XMS_ITS | Encounter Summary ---
Author Organization [employer] Address [address] [facility] 7t [place] [address] Care Team Providers Care Diesel Engineer Name Role Phone Nina Haider MD Primary Care Provider [phone] Libby Redd MD Primary Care Provider [phone] Encounter Details Date Type Department Care Team (Late Contact Info) Description 05/08/2022 Telephone [facility] MEDICINE [address] [place] [address] Nina Haider MD [address] [place] [address] Social History Tobacco Use Types Packs/Day Years [...] 09/07/2024 1:00 PM EDT Office Visit [facility] OPTOMETRY [address] [place], [place] [phone] Shira Roman, OD [address] [place] [address] documented as of this encounter Visit Diagnoses Not on filedocumented in this encounter Care Teams Diesel Engineer Relationship Specialty Start Date End Date Nina Haider MD [address] [place] [address] PCP - General Family Medicine 10/31/21 01/08/23 Libby Redd MD [address] [place] [address] PCP - General Family Medicine 01/09/23 documented as of this encounter
[2024-09-02 14:43] VITALS: BMI 36.7
--- NOTE | 2024-10-11 10:34 | P.CONAN_ITS ---
HPI - Anesthesia Eval Consult details Narrative: 49yo F for Upper Endoscopy and Colonoscopy Anesthesia Pre-Procedure Meds Is the patient on any of the following meds?: GLP1/DPP4 PMFSH Active Problems Active Problems: All Active Problems Abnormal gait (Acute) S/P left knee arthroscopy (Acute) Tear of medial meniscus of left knee (Acute) Internal hemorrhoids (Acute) Elevated C-reactive protein (CRP) (Acute) Elevated liver enzymes (Acute) NAFLD (nonalcoholic fatty liver disease) (Acute) Abdominal pain (Acute) Chronic GERD (Acute) Encounter for screening colonoscopy (Acute) Chronic constipation (Acute) Gallstones (Acute) Left sided abdominal pain (Acute) Pruritus ani (Acute) Postprandial abdominal bloating (Acute) Morbid obesity (Acute) Internal and external bleeding hemorrhoids (Acute) Past Medical History Medical History (Updated 05/28/24 @ 10:22 by Jodee Jean [facility]) Postprandial abdominal bloating Asthma Diabetes NAFLD (nonalcoholic fatty liver disease) GERD (gastroesophageal reflux disease) Morbid obesity Internal and external bleeding hemorrhoids Family History Family History Father No problems noted. Sister Breast tumor Sister Pancreatic cancer Family history of problems with anesthesia: No Surgical History Surgical History (Updated 09/02/24 @ 14:40 by Marla Hicks RN) Hx of arthroscopic knee surgery Hx of colonoscopy History of esophagogastroduodenoscopy (EGD) History of laparoscopic cholecystectomy History of tubal ligation History of Problems with Anesthesia: No Social History Social History Household Members: Spouse Are you a primary child daycare worker to a significant other at home: No Do you presently have visiting nurse or other home services: No Alcohol intake: never Comment: COUNTS CORRECT Patient Tobacco Use Status: Never used Tobacco Meds Allergies Allergy/AdvReac Type Severity Reaction Status Date / Time No Known Allergies Allergy Verified 05/28/24 08:21 Home Medications ?Medication ?Instructions ?Recorded ?Confirmed ?Last Taken ?Type albuterol sulfate 90 mcg/actuation 2 puff inhalation Q4-6H PRN 12/15/23 09/02/24 Unknown History aerosol inhaler (Ventolin HFA) wheezing cholecalciferol (vitamin D3) 25 25 mcg PO QAM 12/15/23 09/02/24 Unknown History mcg (1,000 unit) capsule (Vitamin D3) doxepin 10 mg capsule 10 mg PO BEDTIME 12/15/23 09/02/24 Unknown History fluticasone propionate 50 2 spray intranasal BID 12/15/23 09/02/24 Unknown History mcg/actuation nasal spray,suspension hydroxyzine HCl 25 mg tablet 25 mg PO BEDTIME PRN itch 12/15/23 09/02/24 Unknown History metformin 500 mg tablet,extended 1,000 mg PO BID 12/15/23 09/02/24 12/12/23 History release 24 hr trazodone 50 mg tablet 50 mg PO BEDTIME 12/15/23 09/02/24 Unknown History dulaglutide 3 mg/0.5 mL 3 mg subcut QWEEK 05/28/24 09/02/24 Unknown History subcutaneous pen injector (Trulicity) fexofenadine 180 mg tablet 180 mg PO DAILY PRN allergies 05/28/24 09/02/24 Unknown History Exam Height,Weight and Vital Signs: Height 5 ft Weight 85.275 kg Assessment and Plan Assessment Anesthesia Assessment: Chart Reviewed Final Anesthetic Review Family History of Problems with Anesthesia: No History of Problems with Anesthesia: No
--- NOTE | 2024-12-01 09:37 | HO.ANESPROP2 ---
HPI - Anesthesia Eval Consult details Narrative: 49yo F for Upper Endoscopy and Colonoscopy Anesthesia Pre-Procedure Meds Is the patient on any of the following meds?: GLP1/DPP4 PMFSH Active Problems Active Problems: All Active Problems Abnormal gait (Acute) S/P left knee arthroscopy (Acute) Tear of medial meniscus of left knee (Acute) Internal hemorrhoids (Acute) Elevated C-reactive protein (CRP) (Acute) Elevated liver enzymes (Acute) NAFLD (nonalcoholic fatty liver disease) (Acute) Abdominal pain (Acute) Chronic GERD (Acute) Encounter for screening colonoscopy (Acute) Chronic constipation (Acute) Gallstones (Acute) Left sided abdominal pain (Acute) Pruritus ani (Acute) Postprandial abdominal bloating (Acute) Morbid obesity (Acute) Internal and external bleeding hemorrhoids (Acute) Past Medical History Medical History Postprandial abdominal bloating Asthma Diabetes NAFLD (nonalcoholic fatty liver disease) GERD (gastroesophageal reflux disease) Morbid obesity Internal and external bleeding hemorrhoids Family History Family History Father No problems noted. Sister Breast tumor Sister Pancreatic cancer Family history of problems with anesthesia: No Surgical History Surgical History Hx of arthroscopic knee surgery Hx of colonoscopy History of esophagogastroduodenoscopy (EGD) History of laparoscopic cholecystectomy History of tubal ligation History of Problems with Anesthesia: No Social History Social History Household Members: Spouse Are you a primary career orientation teacher to a significant other at home: No Do you presently have visiting nurse or other home services: No Alcohol intake: never Comment: COUNTS CORRECT Patient Tobacco Use Status: Never used Tobacco Meds Allergies Allergy/AdvReac Type Severity Reaction Status Date / Time No Known Allergies Allergy Verified 12/06/24 08:57 Home Medications ?Medication ?Instructions ?Recorded ?Confirmed ?Last Taken ?Type albuterol sulfate 90 mcg/actuation 2 puff inhalation Q4-6H PRN 12/15/23 09/02/24 Unknown History aerosol inhaler (Ventolin HFA) wheezing cholecalciferol (vitamin D3) 25 25 mcg PO QAM 12/15/23 09/02/24 Unknown History mcg (1,000 unit) capsule (Vitamin D3) doxepin 10 mg capsule 10 mg PO BEDTIME 12/15/23 09/02/24 Unknown History fluticasone propionate 50 2 spray intranasal BID 12/15/23 09/02/24 Unknown History mcg/actuation nasal spray,suspension hydroxyzine HCl 25 mg tablet 25 mg PO BEDTIME PRN itch 12/15/23 09/02/24 Unknown History metformin 500 mg tablet,extended 1,000 mg PO BID 12/15/23 09/02/24 12/12/23 History release 24 hr trazodone 50 mg tablet 50 mg PO BEDTIME 12/15/23 09/02/24 Unknown History dulaglutide 3 mg/0.5 mL 3 mg subcut QWEEK 05/28/24 09/02/24 Unknown History subcutaneous pen injector (Trulicity) fexofenadine 180 mg tablet 180 mg PO DAILY PRN allergies 05/28/24 09/02/24 Unknown History Exam Height,Weight and Vital Signs: Height 5 ft Weight 85.275 kg Pertinent Lab Results Pertinent Lab Results: Laboratory Tests 11/26/24 09:54 WBC 10.2 Hgb 13.8 Hct 42.1 Plt Count 239 Sodium 141 Potassium 4.5 Chloride 106 Carbon Dioxide 28 BUN 14 Creatinine 0.92 Assessment and Plan Assessment Anesthesia Assessment: Chart Reviewed Final Anesthetic Review Family History of Problems with Anesthesia: No History of Problems with Anesthesia: No
[2024-12-02 07:26] VITALS: BP 140/82; PULSE 69; RESP 16; TEMP 36.3; O2SAT 97
[2024-12-02 07:28] LABS: Glucose, Whole Blood 194 mg/dL (60-115)
--- NOTE | 2024-12-02 07:41 | HO.ANESPROP2 ---
[facility] Active Problems Active Problems: All Active Problems (Updated 05/28/24 @ 10:22 by Jodee Jean [facility]) Abnormal gait (Acute) S/P left knee arthroscopy (Acute) Tear of medial meniscus of left knee (Acute) Internal hemorrhoids (Acute) Elevated C-reactive protein (CRP) (Acute) Elevated liver enzymes (Acute) NAFLD (nonalcoholic fatty liver disease) (Acute) Abdominal pain (Acute) Chronic GERD (Acute) Encounter for screening colonoscopy (Acute) Chronic constipation (Acute) Gallstones (Acute) Left sided abdominal pain (Acute) Pruritus ani (Acute) Postprandial abdominal bloating (Acute) Morbid obesity (Acute) Internal and external bleeding hemorrhoids (Acute) Past Medical History Medical History Postprandial abdominal bloating Asthma Diabetes NAFLD (nonalcoholic fatty liver disease) GERD (gastroesophageal reflux disease) Morbid obesity Internal and external bleeding hemorrhoids Functional capacity: independent ambulation Patient : No Family History Family History Father No problems noted. Sister Breast tumor Sister Pancreatic cancer Family history of problems with anesthesia: No Surgical History Surgical History Hx of arthroscopic knee surgery Hx of colonoscopy History of esophagogastroduodenoscopy (EGD) History of laparoscopic cholecystectomy History of tubal ligation History of Problems with Anesthesia: No Social History Social History Household Members: Spouse Are you a primary healthcare project manager to a significant other at home: No Do you presently have visiting nurse or other home services: No Alcohol intake: never Comment: COUNTS CORRECT Patient Tobacco Use Status: Never used Tobacco Use of substances other than those prescribed or required for medical reasons: No Advance Directives: No Advance Directives Information Provided: Yes Meds Allergies Allergy/AdvReac Type Severity Reaction Status Date / Time No Known Allergies Allergy Verified 05/28/24 08:21 Active Medications: Current Medications Albuterol Sulfate (Albuterol Sulfate (0.083%) 2.5 Mg/3 Ml Vial.Neb) 2.5 mg INHALE ONCE PRN PRN Reason: Shortness of Breath/Wheezing Lactated Ringer's (Lr) 1,000 mls @ 100 mls/hr IVCONT .Q10H MAY Home Medications ?Medication ?Instructions ?Recorded ?Confirmed ?Last Taken ?Type albuterol sulfate 90 mcg/actuation 2 puff inhalation Q4-6H PRN 12/15/23 09/02/24 Unknown History aerosol inhaler (Ventolin HFA) wheezing cholecalciferol (vitamin D3) 25 25 mcg PO QAM 12/15/23 09/02/24 Unknown History mcg (1,000 unit) capsule (Vitamin D3) doxepin 10 mg capsule 10 mg PO BEDTIME 12/15/23 09/02/24 Unknown History fluticasone propionate 50 2 spray intranasal BID 12/15/23 09/02/24 Unknown History mcg/actuation nasal spray,suspension hydroxyzine HCl 25 mg tablet 25 mg PO BEDTIME PRN itch 12/15/23 09/02/24 Unknown History metformin 500 mg tablet,extended 1,000 mg PO BID 12/15/23 09/02/24 12/12/23 History release 24 hr trazodone 50 mg tablet 50 mg PO BEDTIME 12/15/23 09/02/24 Unknown History dulaglutide 3 mg/0.5 mL 3 mg subcut QWEEK 05/28/24 09/02/24 Unknown History subcutaneous pen injector (Trulicity) fexofenadine 180 mg tablet 180 mg PO DAILY PRN allergies 05/28/24 09/02/24 Unknown History Exam Height,Weight and Vital Signs: Height 5 ft Weight 85.275 kg Last Vital Signs Temp 97.3 F 12/02/24 07:26 Pulse 69 12/02/24 07:26 Resp 16 12/02/24 07:26 BP 140/82 H 12/02/24 07:26 Pulse Ox 97 12/02/24 07:26 O2 Del Method Room Air 12/02/24 07:26 Pertinent Lab Results Pertinent Lab Results: Laboratory Tests 12/02/24 07:24 POC Glucose 194 H Airway Mallampati Class: II TM Dist: >3cm Neck ROM: Full Heart: RRR Lungs: CTA Assessment and Plan Final Anesthetic Review Family History of Problems with Anesthesia: No History of Problems with Anesthesia: No NPO: Yes ASA Class: III Final Preanesthetic Review: Meds/Allgs Chart Reviewed, Consent Obtained/Reviewed and Anes Risks/Benef Reviewed Patient Risk: Intermediate Procedure Risk: Low Anesthetic Plan Anesthetic Plan: MAC: Disposition: Standard PACU
--- NOTE | 2024-12-02 07:41 | MHC.SHP ---
Pre-Procedural Eval Section A - 24 Hr Update-Section A only Date of Service: 12/02/24 Section B - Complete if H&P > 30 days Chief Complaint: gerd, abd pain, fam hx of colon ca Details of Present Illness: ostprandial abdominal bloating Asthma Diabetes NAFLD (nonalcoholic fatty liver disease) GERD (gastroesophageal reflux disease) Morbid obesity Internal and external bleeding hemorrhoids Present Medications: see Short Stay Collaborative assessment Allergies: Allergies Allergy/AdvReac Type Severity Reaction Status Date / Time No Known Allergies Allergy Verified 05/28/24 08:21 Review of Systems Review of Systems Comment: Ten point ROS negative Exam Exam Comment: Gen appear: No acute distress HEENT: no icterus Chest: No overt resp distress Abd: soft, nontender, nondistended Psych: Stable affect, answering questions appropriately Neuro: A/Ox3 noted to move all extremities spontaneously Ext: no peripheral edema Plan Diagnosis/Plan: Unchanged I have reviewed the history and physical and performed a pertinent physical examination on my patient. No changes have occurred unless specified. Time Spent With Patient Time: Total time managing care of this patient today ____ minutes.
[2024-12-02] MEDS: Lactated Ringers 1,000 ML 100 ML IVCONT (07:42)
--- NOTE | 2024-12-02 09:06 | P.OPN-COLO_ITS ---
Colonoscopy Operative Note Operative Note Date of Service: 12/02/24 Narrative: Procedure: Upper endoscopy and colonoscopy Indication: GERD, fam hx of colon ca Endoscopist: Belinda Murray MD Anesthesia Provider: Dr Toshia Haynes Anesthesia type: MAC Instrument: [id number] and [id number] EGD Procedure:?? The procedure, indications, preparation and potential complications were reviewed with the patient, who indicated understanding and gave written informed consent to proceed. The endoscope was introduced through the mouth, and advanced to the 2nd part of the duodenum. The mucosa was carefully examined on slow withdrawal of the endoscope. The patient tolerated the procedure well. There were no immediate complications.? EGD Findings:? * Esophagus:? Normal esophageal mucosa was noted. The Z-line was at 37 cm with a tongue of SCM extending to 35 cm. This was examined under high definition white light and NBI with no underlying nodularity appreciated. Cold forceps biopsies were taken from GE junction to rule out Bazzi's esophagus. A tissue cypher will also be sent if metaplasia present. * Stomach:? Edema and geographical erythema in the body of the stomach suspicious for H Pylori infection. Retroflexion was performed in the cardia. Cold forceps biopsies were taken from the antrum and body of the stomach. * Duodenum:? Normal duodenal mucosa. Colonoscopy Procedure:? That abdominal binder was affixed to the lower abdomen, the patient was then turned for the colonoscopy. A digital rectal exam was performed which was abnormal for external hemorrhoids.? A distal attachment cap was affixed to the tip of the scope and the colonoscope was then inserted through the anus and advanced through the colon and advanced to the cecum at 75 cm and terminal ileum.? Appendiceal orifice and ileocecal valve were identified. Mucosa was carefully examined under high definition white light as the instrument was slowly withdrawn in a retrograde panoramic fashion. Retroflexion was performed in rectum. The procedure was not difficult. The quality of the prep was BBPS: 2+3+3 = adequate Withdrawal time 10 minutes Limitations: No limitations Findings: Mucosa: Normal colon and terminal ileum mucosa. Protruding lesions: * 1 polyp of size 2 mm in sigmoid colon. Cold forceps polypectomy was performed. The polyp was completely removed and retrieved. * Large internal hemorrhoids without stigmata of recent bleeding. Impression: 1. Irregular Z line (biopsy, tissue cypher) 2. Gastritis (biopsy) 3. Normal duodenum 4. Normal colon and terminal ileum mucosa 5. One polyp removed 6. Internal and external hemorrhoids Recommendations:?? * Follow-up path results * Avoid NSAIDs * H Pylori treatment if biopsies + * Repeat colonoscopy for CRC screening in 5 years due to family history. (Pt reported hx of colon ca in father and sister)
[2024-12-02 09:15] VITALS: BP 118/68; PULSE 82; RESP 16; TEMP 36.3; O2SAT 94
[2024-12-02 09:30] VITALS: BP 133/74; PULSE 56; RESP 12; O2SAT 98
[2024-12-02 09:45] VITALS: BP 155/84; PULSE 56; RESP 12; O2SAT 98
[2024-12-02 10:00] VITALS: BP 155/80; PULSE 50; RESP 12; O2SAT 100
[2024-12-02 10:15] VITALS: BP 153/79; PULSE 56; RESP 14; TEMP 36.9; O2SAT 100
--- NOTE | 2024-12-02 10:38 | PC.NURSE ---
MANAGER CARDIOLOGY USED.
--- NOTE | 2024-12-02 11:17 | HO.POSTANES ---
Post Anesthesia Evaluation Post Anesthesia Evaluation Date of Service: 12/02/24 Vital Signs: Vital Signs Temp Pulse Resp BP Pulse Ox O2 Del Method 12/02/24 10:15 98.4 F 56 14 153/79 H 100 Room Air 12/02/24 10:00 50 12 155/80 H 100 Room Air 12/02/24 09:45 56 12 155/84 H 98 Room Air 12/02/24 09:30 56 12 133/74 98 Room Air 12/02/24 09:15 97.3 F 82 16 118/68 94 Room Air 12/02/24 07:26 97.3 F 69 16 140/82 H 97 Room Air Anesthesia: Monitored Mental Status: Awake Pain Control: Satisfactory Nausea/Vomiting: None Hydration: Adequate Anesthesia-Related Issues: No Anes. Related Issues
== END 2024-12-02 10:28 | disposition home or self-care (01) ==
PROVIDERS: PCP Family Medicine; Visit Provider Internal Medicine
PROC: (CPT 45380; principal; 2024-12-02 08:30)
DX: Z12.11 Encounter for screening for malignant neoplasm of colon (principal); Z80.0 Family history of malignant neoplasm of digestive organs; K63.5 Polyp of colon; K64.0 First degree hemorrhoids; K64.4 Residual hemorrhoidal skin tags; R10.13 Epigastric pain; K29.50 Unspecified chronic gastritis without bleeding; B96.81 Helicobacter pylori [H. pylori] as the cause of diseases classified elsewhere; K22.89 Other specified disease of esophagus; K21.9 Gastro-esophageal reflux disease without esophagitis; K76.0 Fatty (change of) liver, not elsewhere classified; E11.9 Type 2 diabetes mellitus without complications; J45.909 Unspecified asthma, uncomplicated; E66.01 Morbid (severe) obesity due to excess calories; Z68.36 Body mass index [BMI] 36.0-36.9, adult; Z79.84 Long term (current) use of oral hypoglycemic drugs; Z79.85 Long-term (current) use of injectable non-insulin antidiabetic drugs
CPT/HCPCS: 45380; 43239; 82947; 88305; 88313; 88342; J2003; J2704

== ENCOUNTER → 2024-12-02 06:45 | Outpatient (BNV) | payer MEDICAID, SELFPAY | PROVIDERS: PCP Family Medicine; Visit Provider Internal Medicine | DX: K22.89 Other specified disease of esophagus (principal); K29.70 Gastritis, unspecified, without bleeding; Z12.11 Encounter for screening for malignant neoplasm of colon; K63.5 Polyp of colon; K64.8 Other hemorrhoids | CPT/HCPCS: 43239; 45385 ==

== ENCOUNTER 2024-12-06 08:54 | Outpatient (AMB) | payer MEDICAID, SELFPAY ==
--- NOTE | 2024-12-06 08:56 | A.OFFVIS_ITS ---
Intake Visit Reasons: OV-Left Knee 12/17/23-limping/pain Intake Note: Jany is a 49 year old female who presents today for a follow up of her Left Knee, she is s/p Left Knee Arthroscopy (Chondroplasty w/ Partial Medial Menisectomy & Plica Excision) 12/17/2023. At her last visit in May 2024 we re-ordered Physical therapy to work work on gait mechanics. Today patient reports that she is having continued pain and limping, feels that her knee is filled with fluid and is asking about possible aspiration. Allergies No Known Allergies Allergy (Verified 12/06/24 08:57) HPI HPI OV-Left Knee 12/17/23-limping/pain: Details: Jany is a 49 year old female who presents today for a follow up of her Left Knee, she is s/p Left Knee Arthroscopy (Chondroplasty w/ Partial Medial Men isectomy & Plica Excision) 12/17/2023. At her last visit in May 2024 we re- ordered Physical therapy to work work on gait mechanics. Today patient reports that she is having continued pain and limping, feels that her knee is filled with fluid and is asking about possible aspiration. She describes losing her balance a lot and feeling weak in the left side. She had surgery a year ago and at that time there was chondromalacia and a plica but no significant osteoarthritis. [facility] Medical History Postprandial abdominal bloating Asthma Diabetes NAFLD (nonalcoholic fatty liver disease) GERD (gastroesophageal reflux disease) Morbid obesity Internal and external bleeding hemorrhoids Surgical History Hx of arthroscopic knee surgery Hx of colonoscopy History of esophagogastroduodenoscopy (EGD) History of laparoscopic cholecystectomy History of tubal ligation Family History Father No problems noted. Sister Breast tumor Sister Pancreatic cancer Social History Household Members: Spouse Are you a primary healthcare applications analyst to a significant other at home: No Do you presently have visiting nurse or other home services: No Alcohol intake: never Comment: COUNTS CORRECT Patient Tobacco Use Status: Never used Tobacco Physical Exam Extrem Other: There is a unsteady gait. She has no clonus but 4+5 motion with hip flexion. Her knee and ankle strength is complicated by pain but she seems slightly weak in ankle dorsiflexion as well. With respect of the upper extremities she is 4/5 strength with wrist extension and deltoid on the left. She has positive diadochokinesia on the left (unable to rapidly supinate/pronate). neg Mai's sign/. + Spurling's on left. Left knee with trace effusion Assessment & Plan Assessment & Plan (1) Myelopathy: Code(s): G95.9 - Disease of spinal cord, unspecified Category: Medical Plan: 49-year-old with lack of coordination for balance over the past 6 months. She is worried about her knee which is noncontributory. Her exam and clinical history are concerning for spinal cord involvement and an MRI was ordered. Orders: Orders MR cervical spine wo con Today G95.9 - Disease of spinal cord, unspecified Coding Level of Care Code Est Pt Level 4 (61902) Diagnoses Myelopathy G95.9
--- OUTSIDE RECORDS SUMMARY | 2024-12-06 09:16 | XMS_ITS | Encounter Summary ---
Author Organization [employer] Address [address] [facility] 7t [place] [address] Care Team Providers Care Registered Nurse Fetal Name Role Phone Nina Haider MD Primary Care Provider [phone] Libby Redd MD Primary Care Provider [phone] Encounter Details Date Type Department Care Team (Late st Contact Info) Description 05/08/2022 Telephone [facility] MEDICINE [address] [place], [place] [phone] Nina Haider MD [address] [place], [place] [phone] Social History Tobacco Use Types Packs/Day Years [...] on filedocumented in this encounter Care Teams Registered Nurse Fetal Relationship Specialty Start Date End Date Nina Haider MD [address] [place] [address] [phone] PCP - General Family Medicine 10/31/21 01/08/23 Libby Redd MD [address] [place] [id number] PCP - General Family Medicine 01/09/23 Jodee Jean KIER HAND Nurse Practitioner Gastroenterology 10/20/24 documented as of this encounter
== END 2024-12-06 09:39 | disposition home or self-care (01) ==
LOC: HO.HOS 08:55
PROVIDERS: PCP Family Medicine; Visit Provider Orthopaedic Surgery
DX: G95.9 Disease of spinal cord, unspecified (principal)
CPT/HCPCS: 99214

== ENCOUNTER → 2024-12-06 08:54 | Outpatient (BNVA) | payer MEDICAID, SELFPAY | PROVIDERS: PCP Family Medicine; Visit Provider Orthopaedic Surgery | DX: M25.562 Pain in left knee (principal); R26.81 Unsteadiness on feet; G95.9 Disease of spinal cord, unspecified | CPT/HCPCS: 99212 ==

== ENCOUNTER → 2024-12-09 19:44 | Outpatient (BNV) | payer MEDICAID, SELFPAY | PROVIDERS: PCP Family Medicine; Visit Provider Radiology Diagnostic Radiology | DX: M47.812 Spondylosis without myelopathy or radiculopathy, cervical region (principal) | CPT/HCPCS: 72141 ==

== ENCOUNTER 2024-12-09 19:46 | Outpatient (REF) | payer MEDICAID, SELFPAY ==
--- NOTE | ~2024-12-09 | MR_ITS ---
EXAMINATION: MR CERVICAL SPINE WITHOUT CONTRAST CLINICAL INFORMATION: Disease of the spinal cord. COMPARISON: None available. TECHNIQUE: MRI of the cervical spine was obtained using routine sequences without contrast. FINDINGS: Craniocervical junction is intact. Normal position of the cerebellar tonsils. No bone marrow STIR signal abnormality. S-shaped curvature of the cervical thoracic spine. Cervical spinal cord signal is normal. There is disc desiccation at C5-6 and to a lesser extent C4-5. Grade 1 anterolisthesis C7-T1. C2-3: No herniated disc. No neuroforamina stenosis. C3-4: Broad-based disc osteophyte complex formation resulting in ventral deformity of the thecal sac. Facet joint hypertrophy. No cord compression. Left neuroforamina narrowing. C4-5: Broad-based disc osteophyte complex formation resulting in ventral deformity of the thecal sac. No cord compression. Bilateral neuroforamina narrowing. Facet joint hypertrophy. C5-6: Broad-based disc osteophyte complex formation resulting in ventral deformity of the thecal sac. No cord compression. No neuroforamina stenosis. C6-7: Central disc osteophyte complex formation resulting in ventral deformity of the spinal cord. No cord compression. No neuroforamina stenosis. C7-T1: No disc herniation. No neuroforamina stenosis. No prevertebral compartment hematoma, mass or fluid collections. Flow-void signal within the main vessels is normal. Left vertebral artery is slightly dominant. Bilateral multiple, nonspecific prominent cervical lymph nodes, the largest at the right 2 level. MR/MR cervical spine wo con IMPRESSION: Multilevel cervical spondylosis C3 C7 pronounced at C4-5, C3-4 and C5-6 without cord compression, cord edema and or myelopathy. Prominent cervical lymph nodes, nonspecific. Electronically signed by: Trenton Kohli MD 12/10/2024 07:26 AM EDT
== END 2024-12-09 19:47 | disposition home or self-care (01) ==
LOC: HO.MRI 19:46
PROVIDERS: PCP Family Medicine; Visit Provider Orthopaedic Surgery
DX: G95.9 Disease of spinal cord, unspecified (principal)
CPT/HCPCS: 72141

== ENCOUNTER 2024-12-20 10:11 | Outpatient (RCR) | payer MEDICAID, SELFPAY | END 2025-02-25 07:32 | disposition home or self-care (01) | LOC: HO.PT 10:11 | PROVIDERS: PCP Family Medicine; Visit Provider Family Medicine | DX: M25.562 Pain in left knee (principal); M25.561 Pain in right knee; M54.6 Pain in thoracic spine; G89.29 Other chronic pain | CPT/HCPCS: 97110; 97112; 97116; 97162; 97530; 97535 ==

== ENCOUNTER 2024-12-27 13:31 | Outpatient (AMB) | payer MEDICAID, SELFPAY ==
--- NOTE | 2024-12-27 13:38 | MHC.OFFVIS ---
Vital Signs 12/27/24 13:46 Height 5 ft Weight 199 lb BMI 38.9 BP 140/68 H Blood Pressure Location Rt brachial Position Sitting Pulse 72 Pulse Source Pulse Oximeter Pulse Oximetry (%) 96 Oxygen Delivery Method Room Air Intake Visit Reasons: Discuss H Pylori Tx. Intake Note: Established patient for mgmt of GERD, abd pain. Discuss H Pylori tx. Recent + test. CC; Pt is here to discuss tx for recent H Pylori dx. No additional concerns per pt. Cloth Shrinking Supervisor Required: Yes Cloth Shrinking Supervisor Services: Cloth Shrinking Supervisor Present Cloth Shrinking Supervisor Name: Rowena [id number] [place] [facility] Information Interpreted: clinical only Accompanied by: Significant Other Allergies No Known Allergies Allergy (Verified 12/27/24 13:38) HPI HPI Discuss H Pylori Tx.: Details: LAST VISIT: Screen for colon cancer Elevated liver enzymes NAFLD (nonalcoholic fatty liver disease) Abdominal pain Chronic GERD Chronic constipation Postprandial abdominal bloating Postprandial epigastric pain Plan Patient reports multiple GI symptoms. Postprandial epigastric pain and bloating. Frequent postprandial diarrhea and feeling like she still is not emptying her bowels well. She admits to constipation. Message sent to surgical schedulers to book procedure for patient, however we will send her to get some lab work. Will check H pylori. Currently on pantoprazole and it is not working. Previously was on omeprazole and states that also she did not have a good effect. Patient will start esomeprazole daily. Avoid dietary triggers and late night snacking. Staying upright for minimum 3 hours after meals discussed with patient. Patient will start Citrucel to help her bulk stools every morning after breakfast. She will take Dulcolax tablets to help her with bowel movements. Check B12, folate, vitamin-D level. Transglutaminase celiac. Check liver fibrosis panel and will out autoimmune disorders similar lab work was done back 2021 was all normal except mild elevation smooth muscle will send her for ultrasound with liver elastography as well as upper GI series with barium swallow to check for reflux and hiatal hernia. Discussed with patient low FODMAP diet to help her with bloating. Discussed with patient also weight loss and following low-fat, low carb low-salt and high-protein diet. Patient will follow-up in 10 weeks. We will discuss going for upper endoscopy and colonoscopy as well as review results. Patient is agreeable to plan of care and verbalizes understanding of instructions. She was given the opportunity to ask questions and all questions answered. ? Thank you for allowing me to participate in her care Orders H pylori Ag Stool Today K21.9 Transglutaminase IgA Today R10.9 IRON PROFILE Today D64.9 Ceruloplasmin Today R79.89 Ferritin Today R74.8 Mitochondrial Antibody Today R79.89 Vitamin D 25-OH (D2 and D3) Today E55.9 Smooth Muscle Antibody Today R79.89 FL upper GI w Ba Swallow Today K21.9 Liver Fibrosis Pnl Today K76.0 Liver Panel Today R74.01 Vitamin B12 and Folate Today R19.7 US abdomen chan w elastography Today K76.0 New bisacodyl (Dulcolax (bisacodyl)) 10 mg (2 x 5 mg) PO BEDTIME 180 tabs 4RF methylcellulose (laxative) (Citrucel) take it with full glass of water 500 mg PO DAILY 30 tabs 2RF K59.00 esomeprazole magnesium (Nexium) 40 mg PO DAILY 30 caps 5RF K21.9 Discontinued docusate sodium (Colace) Discontinued Reason: Patient no longer taking 100 mg PO DAILY 60 caps 0RF bisacodyl (Dulcolax (bisacodyl)) Discontinued Reason: Patient no longer taking 10 mg [place] DAILY PRN 20 ea 0RF constipation UPPER ENDOSCOPY AND COLONOSCOPY: EGD Findings:? Esophagus:? Normal esophageal mucosa was noted. The Z-line was at 37 cm with a tongue of SCM extending to 35 cm. This was examined under high definition white light and NBI with no underlying nodularity appreciated. Cold forceps biopsies were taken from GE junction to rule out Bazzi's esophagus. A tissue cypher will also be sent if metaplasia present. Stomach:? Edema and geographical erythema in the body of the stomach suspicious for H Pylori infection. Retroflexion was performed in the cardia. Cold forceps biopsies were taken from the antrum and body of the stomach. Duodenum:? Normal duodenal mucosa. Colonoscopy Procedure:? That abdominal binder was affixed to the lower abdomen, the patient was then turned for the colonoscopy. A digital rectal exam was performed which was abnormal for external hemorrhoids.? A distal attachment cap was affixed to the tip of the scope and the colonoscope was then inserted through the anus and advanced through the colon and advanced to the cecum at 75 cm and terminal ileum.? Appendiceal orifice and ileocecal valve were identified. Mucosa was carefully examined under high definition white light as the instrument was slowly withdrawn in a retrograde panoramic fashion. Retroflexion was performed in rectum. The procedure was not difficult. The quality of the prep was BBPS: 2+3+3 = adequate Withdrawal time 10 minutes Limitations: No limitations Findings: Mucosa: Normal colon and terminal ileum mucosa. Protruding lesions: 1 polyp of size 2 mm in sigmoid colon. Cold forceps polypectomy was performed. The polyp was completely removed and retrieved. Large internal hemorrhoids without stigmata of recent bleeding.Impression: 1. Irregular Z line (biopsy, tissue cypher) 2. Gastritis (biopsy) 3. Normal duodenum 4. Normal colon and terminal ileum mucosa 5. One polyp removed 6. Internal and external hemorrhoids Recommendations:?? Follow-up path results Avoid NSAIDs H Pylori treatment if biopsies + Repeat colonoscopy for CRC screening in 5 years due to family history. (Pt reported hx of colon ca in father and sister) PATHOLOGY: Diagnosis A. Stomach, antrum, biopsy: - Antral-type mucosa with moderate chronic, focally active, inflammation. - Positive for H pylori. B. Stomach, body, biopsy: - Antral-type mucosa with moderate chronic inactive inflammation. - Positive for H pylori. C. EG junction, biopsy: - Cardiac-type mucosa with moderate chronic inactive inflammation; no intestinal metaplasia seen. - Active esophagitis (maximum eosinophil count 1 per high powered field). D. Colon, sigmoid, polypectomy: Colonic mucosa with mild surface hyperplastic change TODAY'S VISIT: Is here today for follow-up. Patient had upper endoscopy and colonoscopy. Upper endoscopy showed H pylori. PCP started patient on quadruple therapy, however patient has not started it to take the medication to yet. Patient reports epigastric pain postprandially as well as abdominal bloating. Denies dyspepsia without dysphagia or odynophagia. Patient reports also abdominal bloating postprandially. Patient had normal colonoscopy, however due to family history of CRC patient was recommended to return in 5 years. Patient reports that she is moving her bowels well. Denies melena, hematochezia, unintentional weight loss or ribbon like stools. Patient denies dyspepsia, dysphagia or odynophagia. History of transaminitis. Labs discussed with patient. No out immune disorders identified. No celiac. [facility] Medical History Postprandial abdominal bloating Asthma Diabetes NAFLD (nonalcoholic fatty liver disease) GERD (gastroesophageal reflux disease) Morbid obesity Internal and external bleeding hemorrhoids Surgical History Hx of arthroscopic knee surgery Hx of colonoscopy History of esophagogastroduodenoscopy (EGD) History of laparoscopic cholecystectomy History of tubal ligation Family History Father No problems noted. Sister Breast tumor Sister Pancreatic cancer Social History Household Members: Spouse Are you a primary physician locums urgent care to a significant other at home: No Do you presently have visiting nurse or other home services: No Alcohol intake: never Comment: COUNTS CORRECT Patient Tobacco Use Status: Never used Tobacco Review of Systems Const Denies weight gain and Denies weight loss ENT Reports no additional complaints, Denies dysphagia and Denies odynophagia Card Reports no additional complaints Resp Reports no additional complaints GI Reports abdominal pain, Denies belching, Denies melena, Reports bloating, Denies change in bowel habits, Reports constipation, Denies dysphagia, Denies excessive flatus, Denies dyspepsia, Reports heartburn, Denies diarrhea, Reports loose stools, Denies nausea, Denies odynophagia and Denies vomiting Reports no additional complaints Musc Reports no additional complaints Neuro Reports no additional complaints Psych Reports no additional complaints Endo Reports no additional complaints Physical Exam Vital Signs: Last Vital Signs Pulse 72 12/27/24 13:46 BP 140/68 H 12/27/24 13:46 Pulse Ox 96 12/27/24 13:46 Oxygen Delivery Method Room Air 12/27/24 13:46 BMI result Body Mass Index 38.9 Const General: healthy appearing and no acute distress Nutritional Appearance: obese Orientation/consciousness: patient oriented x3 Resp Effort & Inspection: normal respiratory effort, able to speak in complete sentences, no tracheal deviation and symmetric chest movement Auscultation: clear to auscultation bilaterally Cardio Rate: regular rate GI Inspection: Yes normal to inspection, No distended and Yes obesity Palpation (GI): Soft to palpation, not firm, nontender and No hepatosplenomegaly present Auscultation: normal bowel sounds General: Yes no CVA tenderness Back/Spine/Pelvis Back: no CVA tenderness Skin General skin exam: elasticity normal, turgor normal and dry skin Neuro General: patient oriented x3 Psych Appearance: grossly normal Mental Status: mental status grossly normal Results Reviewed Results Reviewed: Laboratory Tests 05/28/24 11/26/24 09:55 09:54 Total Bilirubin 1.0 AST 36 H ALT 61 H Alkaline Phosphatase 134 H Anti-Mitochondrial Ab NEGATIVE Anti-Smooth Muscle Ab <20 Tiss Transglutamin IgA <1.0 Assessment & Plan Assessment & Plan (1) Elevated liver enzymes: Code(s): R74.8 - Abnormal levels of other serum enzymes Category: Medical (2) NAFLD (nonalcoholic fatty liver disease): Comment: Overweight Code(s): K76.0 - Fatty (change of) liver, not elsewhere classified Category: Medical (3) Abdominal pain: Code(s): R10.9 - Unspecified abdominal pain Category: Medical Qualifiers: Abdominal location: epigastric Qualified Code(s): R10.13 - Epigastric pain (4) Chronic GERD: Code(s): K21.9 - Gastro-esophageal reflux disease without esophagitis Category: Medical (5) Chronic constipation: Comment: Improved-consistent with bowel regimen- Continue cream for hemorrhoids Code(s): K59.09 - Other constipation Category: Medical (6) Postprandial abdominal bloating: Code(s): R14.0 - Abdominal distension (gaseous) Category: Medical (7) Encounter for screening for malignant neoplasm of colon: Code(s): Z12.11 - Encounter for screening for malignant neoplasm of colon (8) Postprandial epigastric pain: Code(s): R10.13 - Epigastric pain Plan Continue Nexium. Patient will stop taking tetracycline and will take doxycycline instead. Continue metronidazole and bismuth. Patient was encouraged to take Zofran in the morning and in the afternoon to help with nausea if needed. Take medication with food. Patient was also encouraged to avoid dietary triggers and late night snacking. Staying upright for minimal 3 hours after meals discussed with patient. Patient was encouraged to increase fluid intake and activity to promote better bowel motility. Explained to patient that she is on Trulicity and sometimes that can cause constipation. She was encouraged to increase fiber in his diet as well. Patient will return to the office in 5 weeks so we can schedule retesting for H pylori. Patient is agreeable to this plan and verbalizes understanding of instructions. She was given the opportunity to ask questions and all questions answered. Thank you for allowing me to participate in her care Medications: New ondansetron 4 mg PO Q8H PRN 30 tabs 0RF nausea and vomiting doxycycline hyclate 100 mg PO BID 28 caps 0RF 14 days Refilled esomeprazole magnesium (Nexium) 40 mg PO DAILY 90 caps 3RF K21.9 - Gastro-esophageal reflux disease without esophagitis Coding Level of Care Code Est Pt Level 4 (09559) Complex EM visit Add On G2211 Diagnoses Elevated liver enzymes R74.8 NAFLD (nonalcoholic fatty liver disease) K76.0 Epigastric pain R10.13 Abdominal location: epigastric Chronic GERD K21.9 Chronic constipation K59.09 Postprandial abdominal bloating R14.0 Encounter for screening for malignant neoplasm of colon Z12.11 Postprandial epigastric pain R10.13 Time Spent (min) 40 Comment 25 minutes spent with patient and additional 10 minutes spent reviewing her records
[2024-12-27 13:46] VITALS: BP 140/68; PULSE 72; O2SAT 96; BMI 38.9
--- OUTSIDE RECORDS SUMMARY | 2024-12-27 14:50 | XMS_ITS | Encounter Summary ---
Author Organization [employer] Address [address] [facility] [address] [place] [address] Care Team Providers Care Stamping Machine Operator Name Role Phone Nina Haider MD Primary Care Provider [phone] Libby Redd MD Primary Care Provider [phone] Encounter Details Date Type Department Care Team (Late st Contact Info) Description 05/08/2022 Telephone [facility] MEDICINE [address] [place], [place] [phone] Nina Haider MD [address] [place], [place] [phone] Social History Tobacco Use Types Packs/Day Years [...] on filedocumented in this encounter Care Teams Stamping Machine Operator Relationship Specialty Start Date End Date Nina Haider MD [address] [place] [address] [phone] PCP - General Family Medicine 10/31/21 01/08/23 Libby Redd MD [address] [place] [id number] PCP - General Family Medicine 01/09/23 Jodee Jean SAND SLINGER OPERATOR Nurse Practitioner Gastroenterology 10/20/24 documented as of this encounter
--- OUTSIDE RECORDS SUMMARY | 2024-12-27 14:50 | XMS_ITS | Encounter Summary ---
Author Organization [employer] Address [address] [facility] [address] [place] [address] Care Team Providers Care One Piece Expansion Maker Hand Name Role Phone Libby Redd MD Primary Care Provider [phone] Reason for Visit * Reason Onset Date Comments Results 06/07/2024 Encounter Details Date Type Department Care Team ([facility] Contact Info) Description 06/07/2024 Telephone [facility] P[facility]S [address] [place], [place] [phone] Libby Redd MD [address] [place] [address] Results Social History Tobacco Use Types Packs/Day [...] mammogram Date when done: 2-3 weeks Facility: [facility] documented in this encounter Plan of Treatment Not on file documented as of this encounter Visit Diagnoses Not on filedocumented in this encounter Additional Health Concerns Assessment Noted Time PHQ-9 Depression Total Score: 21 024 8:35 AM EDT documented as of this encounter Care Teams One Piece Expansion Maker Hand Relationship Specialty Start Date End Date Libby Redd MD [address] [place] [id number] PCP - General Family Medicine 01/09/23 Jodee Jean ESTATE PLANNING DIRECTOR Nurse Practitioner Gastroenterology 10/20/24 documented as of this encounter
--- OUTSIDE RECORDS SUMMARY | 2024-12-27 14:50 | XMS_ITS | Encounter Summary ---
Author Organization [employer] Address [address] [facility] 7t [place] [address] Care Team Providers Care Art Education Professor Name Role Phone Nina Haider MD Primary Care Provider [phone] Libby Redd MD Primary Care Provider [phone] Reason for Visit * Reason Onset Date Comments Nurse Triage 10/14/2022 Encounter Details Date Type Department Care Team (Late st Contact Info) Description 10/14/2022 Telephone [facility] MEDICINE [address] [place], [place] [phone] Nina Haider MD [address] [place] [address] [phone] Nurse Triage Social History Tobacco Use Types [...] 10/14/2022 2:45 PM EDT Triage call with [facility] [place] [id number] Pt reports wide spread rash all over body. Rash is red, bumpy and very itchy. Pt reports it has increased in itchiness each day. Pt denies fever, sore throat, or difficulty breathing. Pt hasn't changed detergent or started using some other soaps or body wash. Pt is advised to come to [facility] to be seenby provider and Pt [...] The caller accepted this outcome Patient speak romanian documented in this encounter Plan of Treatment Not on file documented as of this encounter Visit Diagnoses Not on filedocumented in this encounter Care Teams Art Education Professor Relationship Specialty Start Date End Date Nina Haider MD [address] [place] [id number] PCP - General Family Medicine 10/31/21 01/08/23 Libby Redd MD [address] [place] [address] PCP - General Family Medicine 01/09/23 Jodee Jean BUDDHIST MONK Nurse Practitioner Gastroenterology 10/20/24 documented as of this encounter
--- OUTSIDE RECORDS SUMMARY | 2024-12-27 14:50 | XMS_ITS | Clinical Summary ---
Author Organization [employer] Address [address] [facility] [facility] [address] [place] [address] Care Team Providers Care Urology Teacher Name Role Phone Libby Redd MD Primary Care Provider [phone] Allergies No known active allergies Medications * This document contains information received from the source organization and may not represent a complete record from that organization. Bisacodyl EC 5 MG EC tablet TAKE 2 TABLETS BY MOUTH AT NOON THE DAY BEFORE PROCEDURE 023 Active SM Fiber Laxative 500 MG tablet Take 1 tablet by mouth in the morning. 90 tablet 3 023 Active Spacer/Aero-Hold ing Chambers (OptiChamber Liliana) misc 1 each every 4 (four) hours if needed (asthma). 1 each 023 Active Alcohol Swabs padsIndications: Type 2 diabetes mellitus with hyperglycemia, without long-term current use of insulin ([facility]) 1 each if needed (to clean skin). 100 each 11 023 Active Blood Glucose Monitoring Suppl (FreeStyle Lite) w/Device kitIndications:T ype 2 diabetes mellitus with hyperglycemia, without long-term current use of insulin (CMS/HCC) 1 each in the morning. 1 kit 023 Active triamcinolone (Kenalog) 0.5 % ointment Apply topically 2 times daily. 90 g 023 Active Ventolin HFA 108 (90 Base) MCG/ACT inhaler INHALE 2 PUFFS BY MOUTH EVERY 4 TO 6 HOURS NEEDED FOR WHEEZING 18 g 2 023 Active hydrOXYzine HCl (Atarax) 25 MG tabletIndication s:Urticaria Take 1 tablet (25 mg) by mouth if needed at bedtime for itching. 90 tablet 3 023 Active fluticasone (Flonase) 50 MCG/ACT nasal sprayIndications :Allergic rhinitis, unspecified seasonality, unspecified trigger USE 2 SPRAYS IN EACH NOSTRIL TWICE DAILY 48 g 1 023 Active fexofenadine (Tianna) 180 MG tabletIndication s:Urticaria TAKE 1 TABLET BY MOUTH DAILY NEEDED FOR ALLERGIES 90 tablet 1 024 Active D3-1000 25 MCG (1000 UT) capsule TAKE 1 CAPSULE BY MOUTH EVERY MORNING 90 capsule 1 025 Active magnesium oxide (Mag-Ox) 400 MG tablet TAKE 1 TABLET BY MOUTH AT BEDTIME 90 tablet 1 025 Active metFORMIN XR (Glucophage-XR) 500 MG 24 hr tablet TAKE 1 TABLET BY MOUTH AT BEDTIME. DO NOT BREAK, CRUSH, DISSOLVE OR CHEW 90 tablet 1 025 Active lidocaine (Lidoderm) 5 % patch APPLY 1 PATCH TOPICALLY TO SKIN, LEAVE ON FOR 12 HOURS AND OFF FOR 12 HOURS DIRECTED 30 patch 2 025 Active esomeprazole (NexIUM) [address] capsule Take 1 capsule by mouth Once per day. 025 Active diclofenac (Cataflam) 50 MG tabletIndication s:Chronic bilateral thoracic back pain Take 1 tablet (50 mg) by mouth 3 times daily. 90 tablet 025 Active Ozempic, 0.25 or 0.5 MG/DOSE, 2 MG/3ML solution pen-injector INJECT 0.25 MG SUBCUTANEOUSLY ONCE WEEKLY 3 mL 2 025 Active glucose blood (FREESTYLE LITE) test stripIndications :Type 2 diabetes mellitus with hyperglycemia, without long-term current use of insulin ([facility]) USE DIRECTED TO TEST BLOOD SUGAR TWICE DAILY 100 strip 11 025 Active cyclobenzaprine (Flexeril) 10 MG tabletIndication s:Chronic bilateral thoracic back pain TAKE 1 TABLET BY MOUTH AT BEDTIME 30 tablet 025 Active loratadine (Claritin) 10 MG tablet Take 1 tablet (10 mg) by mouth Once per day. TAKE 1 TABLET BY MOUTH DAILY IN THE MORNING 90 tablet 1 025 Active pantoprazole (Protonix) 40 MG EC tablet Take 1 tablet (40 mg) by mouth 2 times daily for 14 days. Do not crush, chew, or split. 28 tablet 025 Active pantoprazole (ProtoNix) 40 MG EC tabletIndication s:Gastroesophage al reflux disease without esophagitis Take 1 tablet (40 mg) by mouth before breakfast. Do not crush, chew, or split. 90 tablet 3 025 Active bismuth subsalicylate (Pepto Bismol) 262 MG/15ML suspension Take 17 mL by mouth every 4 (four) hours if needed for indigestion. 360 mL Active glipiZIDE (Glucotrol) 5 MG tablet TAKE 1 TABLET BY MOUTH TWICE DAILY BEFORE BREAKFAST AND BEFORE SUPPER 180 tablet Active bismuth subsalicylate (Pepto Bismol) 262 MG/15ML suspension Take 17 ml orally 4 times a day for 14 days 021 2024 Discontinued(R eorder (will not trigger notification to Pharmacy)) loratadine (Claritin) 10 MG tablet TAKE 1 TABLET BY MOUTH DAILY IN THE MORNING 90 tablet 1 023 2024 Discontinued(R eorder (will not trigger notification to Pharmacy)) pantoprazole (ProtoNix) 40 MG EC tabletIndication s:Gastroesophage al reflux disease without esophagitis Take 1 tablet (40 mg) by mouth before breakfast. Do not crush, chew, or split. 90 tablet 3 024 2024 Discontinued(R eorder (will not trigger notification to Pharmacy)) glipiZIDE (Glucotrol) 5 MG tablet Take 1 tablet (5 mg) by mouth before breakfast and before evening meal. 60 tablet 1 025 2024 Discontinued tetracycline 500 MG capsule Take 1 capsule (500 mg) by mouth 4 times daily for 14 days. 56 capsule 025 2024 metroNIDAZOLE (Flagyl) 500 MG tablet Take 1 tablet (500 mg) by mouth 3 times daily for 14 days. 42 tablet 025 2024 bismuth subsalicylate (Pepto-Bismol) 262 MG chewable tablet Chew 1 tablet (262 mg) before breakfast, before lunch, before evening meal, and at bedtime for 14 days. 56 tablet 025 2024 glipiZIDE (Glucotrol) 5 MG tablet TAKE 1 TABLET BY MOUTH TWICE DAILY BEFORE BREAKFAST AND BEFORE SUPPER 60 tablet 1 025 2024 Discontinued meclizine (Antivert) 25 MG tabletIndication s:Vertigo Take 1 tablet (25 mg) by mouth if needed in the morning, at noon, and at bedtime for dizziness for up to 10 days. 30 tablet 025 2024 Active Problems Problem Noted Date Diagnosed Date Chronic pain of right knee 10/20/2024 Assessment & Plan (10/20/2024 1:19 PM EDT): Patient has a history of knee surgery and continues to experience pain, swelling, and limited mobility in the left knee. She uses a cane for ambulation. The altered gait mechanics due to favoring the left knee have led to compensatory issues, including right knee pain, hip rotation, and back pain. Previous physical therapy has provided limited benefit. The patient expresses reluctance to consider further surgical intervention due to fear of complications. Plan: - Referral to orthopedics for re-evaluation of left knee and assessment of right knee - Recommend resumption of physical therapy for both knees and gait training - Prescribe muscle relaxant for pain management - Prescribe diclofenac for pain relief - Educate patient on the importance of gradually reducing dependence on the cane as tolerated - Encourage non-weight bearing exercises Hypertension 04/19/2024 Assessment & Plan (04/19/2024 4:36 [...] -Prescribed : Guaifenesin-codeine (Robitussin-AC) 100-10 MG/5ML syrup Hcfxzows-rcbiviyxoe-mtkuvsdanc (Cetacaine) 2-2-14 % spray Insomnia 10/03/2023 Assessment [...] dysfunction-associ ated steatotic liver disease (MASLD) 09/04/2023 Assessment & Plan (10/20/2024 1:19 PM EDT): Patient has a known diagnosis of fatty liver disease, confirmed by a residential director. Previous liver function tests showed inflammation. The condition is likely exacerbated by uncontrolled diabetes and potentially by diet. Plan: - Reinforce dietary recommendations: reduce sugar intake, limit artificial sweeteners - Encourage weight loss through diet modifications and tolerated exercise - Monitor liver function tests - following with GI in [facility] Strain of lumbar region 09/04/2023 Chronic pain of left knee 09/04/2023 Assessment & Plan (09/04/2023 1:51 PM EDT): Ordering XR imaging of Left Knee for further investigation of symptoms. Referring Orthopaedic for further evaluation. Discussed possible joint aspiration for later date. Continue current Ibuprofen medication for relief of symptoms. Elevated parathyroid hormone 01/21/2023 Vitamin D deficiency 01/10/2023 Uses Estonian as primary spoken language 10/19/19 23 Obesity [...] recommended reduction of 20-30% of maintenance calories; grey washer referral offered. Recommended to decrease soda and sugary beverage consumption. Recommended at least 20 g per meal of protein to assist with satiety. Recommended at least 150 min/week of moderate intensity exercise. Assessment & Plan (01/10/2023 9:10 AM EDT): Advised patient to maintain active with physical activity with alternative workout methods. Referred to a [employer]. History of tubal ligation 10/18/2022 Allergic reaction [...] use of insulin 11/19/2019 Assessment & Plan (10/20/2024 1:18 PM EDT): Patient's blood glucose levels are poorly controlled with recent readings ranging from 120 to 400 mg/dL. Current HbA1c is 9.5%. Patient reports gastrointestinal side effects (vomiting, diarrhea, weakness) from current diabetes medications, particularly dulaglutide and metformin. The uncontrolled diabetes poses a significant risk for complications and requires immediate intervention. Plan: - Discontinue dulaglutide 3 mg weekly injection - Start semaglutide (Ozempic) - pending insurance approval - Continue metformin 500 mg PO at bedtime - Start glipizide 5 mg PO BID with meals - Monitor blood glucose levels at least twice daily, especially in the morning - Referral to grey washer for diabetic diet education - Follow-up in 6 weeks for diabetes management - Patient to bring glucose logs for review - Laboratory tests ordered: Comprehensive metabolic panel, lipid panel, HbA1c - Pt will followup then with new PCP in [facility] due to location Assessment & Plan (04/19/2024 4:39 PM EST): [...] of healthy eating to moderate glucose levels. Arthritis of hand 10/20/2019 Breast lump 10/20/2019 Resolved Problems Problem Noted Date Diagnosed Date Resolved Date ALT (SGPT) level raised 10/20/201910/03 Encounters Date Type Department Care Team Description 12/14/2024 3:00 PM EDT Office Visit [facility] [address] [place] [id number] Tamanna Chaparro MD Vertigo (Primary Dx); Dizziness; H. pylori infection; Heart murmur 12/14/2024 Telephone [facility] [address] [place] [phone] Libby Redd MD Referral 12/14/2024 Telephone [facility] [address] [place] [phone] Libby Redd MD In person triage 12/14/2024 Travel 12/14/2024 Telephone [facility] [address] [place], [place] [phone] Libby Redd MD Nurse Triage 12/13/2024 Refill [facility] [address] [place], [place] [phone] Debbie Gil FNP 12/12/2024 Refill [facility] [address] [place], [place] [phone] Libby Redd MD 12/08/2024 Telephone [facility] [address] [place] [address] Libby Redd MD 12/07/[address] [phone] Libby Redd MD 12/07/2024 Results Follow-Up [facility] [address] [place], [place] [phone] Libby Redd MD Glucose, Whole Blood, Hematoxylin and Eosin Stain 12/02/2024 Orders Only GENERIC EXTERNAL DATA DEPARTMENT Provider, Generic External Data 12/01/2024 Telephone [facility] [address] [place] [address] Matthew Zhu MD No Show 11/30/2024 Telephone [facility] [address] [place] [address] Libby Redd MD Chart Prep 11/29/[address] [phone] Libby Redd MD Referral 11/29/2024 Telephone [facility] [address] [place] [address] Libby Redd MD Nurse Triage 11/25/2024 Telephone [facility] [address] [place] [address] Libby Redd MD order for referral 11/25/2024 Refill [facility] [address] [place] [address] Libby Redd MD Chronic bilateral thoracic back pain 11/12/2024 Refill [facility] [address] [place] [address] Libby Redd MD Chronic bilateral thoracic back pain 11/03/2024 Telephone [facility] [address] [place] [address] Libby Redd MD 10/22/2024 Refill [facility] [address] [place] [address] Celeste Lake ANP Type 2 diabetes mellitus with hyperglycemia, without long-term current use of insulin (CMS/HCC) 10/20/2024 10:30 AM EDT Office Visit [facility] [address] [place] [address] Libby Redd MD Chronic pain of left knee (Primary Dx); Type 2 diabetes mellitus with hyperglycemia, without long-term current use of insulin (CMS/HCC); Chronic pain of right knee; Dietary counseling; Exercise counseling; Class 2 severe obesity with serious comorbidity and body mass index (BMI) of 36.0 to 36.9 in adult, unspecified obesity type (CMS/HCC); Chronic bilateral thoracic back pain; Metabolic dysfunction-associat ed steatotic liver disease (MASLD); Vitamin D deficiency 10/20/2024 Refill [facility] [address] [place] [address] Libby Redd MD 10/20/2024 Travel 10/19/2024 Telephone [facility] [address] [place] [address] Libby Redd MD chart prep 10/11/2024 9:15 AM EDT Office Visit [facility] [address] [place] [address] Abel, Shira, OD Presbyopia (Primary Dx) 10/11/2024 Patient Outreach [facility] [address] [place] [address] Libby Redd MD Care Coordination (CHW outreach SDOH pest control - referral completed ) 10/11/2024 Patient Outreach [facility] [address] [place] [address] Libby Redd MD Pre-visit Planning (SDOH screening positive and Tobacco screening negative) 10/11/2024 Travel 10/11/2024 Results Follow-Up [address] [address] Adriana Abraham CNM Pap Smear 10/05/2024 10:15 AM EDT Office Visit [address] [phone] Adriana Abraham CNM Cervical cancer screening (Primary Dx); Menopausal and female climacteric states 10/05/2024 Orders Only [address] [address] Adriana Abraham CNM 10/05/2024 Travel 10/04/[address] [address] Libby Redd MD from Last 3 Months Immunizations Immunization Administration Dates Next Due Hep A, Adult [...] Answer Date Recorded Patient Health Questionnaire-9 Score 15 10/20/2024 Patient Health Questionnaire-9 Score 15 10/20/2024 Last PHQ-9: Questionnaire Data Not on file 0 10/20/2024 Housing Stability Answer Date Recorded What is your housing situation today? I have tex cutler 10/11/[address] you li ve. Do you have problems with any of the following? Pests such as bugs, ants, or mice 10/11/2024 Food Insecurity Answer Date Recorded Within the past 12 months, y ou worried that your food would run out before you got money to buy more: Never True 10/11/2024 Within the past 12 months,th e food you bought just didn't last and you didn't have enough money to get more: Never True 01/2025 Transportation Answer Date Recorded In the past 12 months, has l ack of transportation kept you from medical appts, meetings, work or from getting things needed for daily living? No 10/11/2024 Utilities Answer Date Recorded In the past 12 months, has t he electric, gas, oil or water company threatened to shut off services in your home? No 10/11/2024 Depression Answer Date Recorded Patient Health Questionnaire-2 Score 4 10/20/2024 Internet Access Answer Date Recorded Internet Access Q1 Yes 10/11/2024 Internet Access Q2 Not on file 10/11/2024 Comments No Intention Date Recorded No desire to become (finding) 0 10/05/2024 Sex and Gender Information Value Date Recorded Sex Assigned at Female 03/04/2022 10:37 AM EDT Legal Sex Female 10:37 AM EDT Gender Identity Female 03/04/2022 10:37 AM EDT Sexual Orientation Straight 06/12/2023 4: 51 PM EST Last Filed Vital Signs Vital Sign Reading Time Taken Comments Blood Pressure 132/91 12/14/2024 4:03 PM EDT Pulse 65 12/14/2024 4:03 PM EDT Temperature 36.5 C (97.7 F) 12/14/2024 2:17 PM EDT Respiratory Rate 17 12/14/2024 2:17 PM EDT Oxygen Saturation 98% 12/14/2024 2:17 PM EDT Inhaled Oxygen Concentration - - Weight 90.3 kg (199 lb) 10/20/2024 10:06 AM EDT Height 157.5 cm (5' 2 ) 10/20/2024 10:06 AM EDT Body Mass Index 36.4 10/20/2024 10:06 AM EDT Plan of Treatment Health Maintenance Due Date Last Done Comments CT Colonography 1973 FIT DNA/Cologuard 1973 FIT 1973 FOBT 1975 Sigmoidoscopy 1975 Disability Screening 1973 Alcohol/Substance Use Screening 1985 Diabetes: Urine Protein Screening 1992 Diabetes: Foot Exam 01/08/2023 Colonoscopy 06/26/2023 Colorectal Cancer Screening 06/26/2023 Hepatitis A Vaccines (2 of 2 - Risk 2-dose series) 10/18/2024 04/19/2024 Influenza Vaccine (#1) 2025 01/29/2024, 2022 Diabetes: Hemoglobin A1C 01/20/2025 025, 01/29/2024, 10/03/2023, Additional history exists COVID-19 Vaccine () 04/19/2025 05/29/2021, 09/15/2020, 08/18/2020 Postponed from 01/04/2024 (Patient Refused) Depression Monitoring 04/21/2025 10/20/2024, 025 Lipid Panel 04/21/2025 04/21/2024, 05/0 10/2023, 08/22/2022, Additional history exists Family Planning (PISQ) 10/05/2025 10/05/2024 SDOH Screening 10/11/2025 10/11/2024 Tobacco Screening 10/20/2025 10/20/2024 Mammogram 05/14/2026 05/14/2024 Eye Exam 09/07/2026 09/07/2024, 05/0 10/2024, 09/07/2024, Additional history exists Cervical Cancer Screening 10/05/2029 HPV/Cotest 10/05/2029 10/05/2024 Pap Smear 10/05/2029 10/05/2024 DTaP/Tdap/Td Vaccines (2 - Td or Tdap) 04/19/2034 04/19/2024 RSV Patients and Patients Aged 60 years or older (1 - 1-dose 75+ series) 2048 HIV Screening Completed 11/18/2019 Hepatitis B Vaccines Completed 10/19/2020, 07/27/2020, 06/29/2020 Hepatitis C Screening Completed 01/16/2023 , 08/22/2022, 10/14/2019 Pneumococcal Vaccine: 50+ Years Completed 01/29/2024 Zoster Vaccines Completed 08/26/2024, 05/28/2024 HIB Vaccines Aged Out No longer eligi ble based on patient's age to complete this topic HPV Vaccines Aged Out No longer eligi ble based on patient's age to complete this topic IPV Vaccines Aged Out No longer eligi ble based on patient's age to complete this topic Meningococcal B Vaccine Aged Out No l onger eligible based on patient's age to complete [...] Procedure Name Priority Date/Time Associated Diagnosis Comments POCT GLUCOSE Routine 12/14/2024 3:16 PM EDT Dizziness MR CERVICAL SPINE WO CONTRAST Routine 12/09/2024 7:03 PM EDT HEMATOXYLIN AND EOSIN STAIN Routine 12/02/2024 8:52 AM EDT GLUCOSE, WHOLE BLOOD Routine 12/02/2024 7:24 AM EDT XR KNEE 3 VIEWS RIGHT Routine 11/26/2024 9:56 AM EDT Chronic pain of right knee TSH W/REFLEX TO FT4 Routine 11/26/2024 9 :54 AM EDT Type 2 diabetes mellitus with hyperglycemia, without long-term current use of insulin ([facility]) VITAMIN B12/FOLATE, SERUM PANEL Routine 11/26/2024 9:54 AM EDT Type 2 diabetes mellitus with hyperglycemia, without long-term current use of insulin (CMS/HCC) VITAMIN D,25-OH,TOTAL,IA Routine 11/26/2024 9:54 AM EDT Vitamin D deficiency COMPREHENSIVE METABOLIC PANEL Routine 11/26/2024 9:54 AM EDT Type 2 diabetes mellitus with hyperglycemia, without long-term current use of insulin (CMS/HCC) CBC WITH AUTO DIFFERENTIAL Routine 11/26/2024 9:54 AM EDT Type 2 diabetes mellitus with hyperglycemia, without long-term current use of insulin (CMS/HCC) POCT GLYCATED HEMOGLOBIN, TOTAL Routine 10/20/2024 10:09 AM EDT Type 2 diabetes mellitus with hyperglycemia, without long-term current use of insulin (CMS/HCC) POCT GLUCOSE Routine 10/20/2024 10:07 AM EDT Type 2 diabetes mellitus with hyperglycemia, without long-term current use of insulin (CMS/HCC) PAP SMEAR Routine 10/05/2024 10:55 AM EDT Cervical cancer screening HPV DNA, LOW/HIGH RISK Routine 10:55 AM EDT BI MAMMOGRAM SCREENING TOMOSYNTHESIS BILATERAL [...] Relevant to Health Maintenance Results * (ABNORMAL) POCT glucose manually resulted (12/14/2024 3:16 PM EDT) Only the most recent of2 resultswithin the time period is included. Glucose Blood, POC 258(A) 60 - 200 mg/dL QC Media Lot # [id number] Lot# Expiration Date Blood Capillary blood specimen / Unknown 12/14/2024 3:16 PM EDT Bianka Perales MD POINT OF CARE TEST EN TER/EDIT ORDERABLES Final Result * MR Cervical Spine w/o Contrast (12/09/2024 7:03 PM EDT) Anatomical Region Laterality Modality Spine, C-spine Magnetic Resonan ce 12/09/2024 7:03 PM EDT Narrative 12/10/2024 7:29 AM EDT [place] [address] Magnetic Resonance Report Signed Patient: Jany Welsh I MR#: [id number] : 1975 Acct:[id number] Age/Sex: 49 / F ADM Date: 12/09/24 Loc: .MRI Attending Dr: Jossue Blanco MD Ordering Physician: Jossue Blanco MD Date of Service: 12/09/24 Procedure(s): MR cervical spine wo con Accession Number(s): [id number] cc: Jossue Blanco MD; Libby Redd MD EXAMINATION: MR CERVICAL SPINE WITHOUT CONTRAST CLINICAL INFORMATION: Disease of the spinal cord. COMPARISON: None available. TECHNIQUE: MRI of the cervical spine was obtained using routine sequences without contrast. FINDINGS: Craniocervical junction is intact. Normal position of the cerebellar tonsils. No bone marrow STIR signal abnormality. S-shaped curvature of the cervical thoracic spine. Cervical spinal cord signal is normal. There is disc desiccation at C5-6 and to a lesser extent C4-5. Grade 1 anterolisthesis C7-T1. C2-3: No herniated disc. No neuroforamina stenosis. C3-4: Broad-based disc osteophyte complex formation resulting in ventral deformity of the thecal sac. Facet joint hypertrophy. No cord compression. Left neuroforamina narrowing. C4-5: Broad-based disc osteophyte complex formation resulting in ventral deformity of the thecal sac. No cord compression. Bilateral neuroforamina narrowing. Facet joint hypertrophy. C5-6: Broad-based disc osteophyte complex formation resulting in ventral deformity of the thecal sac. No cord compression. No neuroforamina stenosis. C6-7: Central disc osteophyte complex formation resulting in ventral deformity of the spinal cord. No cord compression. No neuroforamina stenosis. C7-T1: No disc herniation. No neuroforamina stenosis. No prevertebral compartment hematoma, mass or fluid collections. Flow-void signal within the main vessels is normal. Left vertebral artery is slightly dominant. Bilateral multiple, nonspecific prominent cervical lymph nodes, the largest at the right 2 level. MR/MR cervical spine wo con IMPRESSION: Multilevel cervical spondylosis C3 C7 pronounced at C4-5, C3-4 and C5-6 without cord compression, cord edema and or myelopathy. Prominent cervical lymph nodes, nonspecific. Electronically signed by: Trenton Kohli MD 12/10/2024 07:26 AM EDT Dictated By: Trenton Mack MD Signed By: <Electronically signed by Trenton Cabrera MD in [place]> 12/10/24725 DD/ 02 TD/TT: 12/09/242019 Television Maintenance Man: Procedure Note Donotuseinterpreter, Image - 12/10/2024 [place] [address] Magnetic Resonance Report Signed Patient: Jany Welsh [facility]#: M [id number] : 1975Acct:[id number] Age/Sex: 49 / FADM Date: 12/09/24 Loc: HO.MRI Attending Dr: Jossue Blanco MD Ordering Physician: Jossue Blanco MD Date of Service: 12/09/24 Procedure(s): MR cervical spine wo con Accession Number(s): [id number] cc: Jossue Blanco MD; Libby Redd MD EXAMINATION: MR CERVICAL SPINE WITHOUT CONTRAST CLINICAL INFORMATION: Disease of the spinal cord. COMPARISON: None available. TECHNIQUE: MRI of the cervical spine was obtained using routine sequences without contrast. FINDINGS: Craniocervical junction is intact. Normal position of the cerebellar tonsils. No bone marrow STIR signal abnormality. S-shaped curvature of the cervical thoracic spine. Cervical spinal cord signal is normal. There is disc desiccation at C5-6 and to a lesser extent C4-5. Grade 1 anterolisthesis C7-T1. C2-3: No herniated disc. No neuroforamina stenosis. C3-4: Broad-based disc osteophyte complex formation resulting in ventral deformity of the thecal sac. Facet joint hypertrophy. No cord compression. Left neuroforamina narrowing. C4-5: Broad-based disc osteophyte complex formation resulting in ventral deformity of the thecal sac. No cord compression. Bilateral neuroforamina narrowing. Facet joint hypertrophy. C5-6: Broad-based disc osteophyte complex formation resulting in ventral deformity of the thecal sac. No cord compression. No neuroforamina stenosis. C6-7: Central disc osteophyte complex formation resulting in ventral deformity of the spinal cord. No cord compression. No neuroforamina stenosis. C7-T1: No disc herniation. No neuroforamina stenosis. No prevertebral compartment hematoma, mass or fluid collections. Flow-void signal within the main vessels is normal. Left vertebral artery is slightly dominant. Bilateral multiple, nonspecific prominent cervical lymph nodes, the largest at the right 2 level. MR/MR cervical spine wo con IMPRESSION: Multilevel cervical spondylosis C3 C7 pronounced at C4-5, C3-4 and C5-6 without cord compression, cord edema and or myelopathy. Prominent cervical lymph nodes, nonspecific. Electronically signed by: Trenton Kohli MD 12/10/2024 07:26 AM EDT Dictated By: Trenton Mack MD Signed By: <Electronically signed by Trenton Cabrera MDin OV> 12/10/24725 DD/ 02 TD/TT: 12/09/242019 Television Maintenance Man: [facility] External Provider IMG MRI PROCEDURES Final Result * Hematoxylin and Eosin Stain (12/02/2024 8:52 AM EDT) 12/02/2024 8:52 AM EDT 12/02/2024 9:22 AM EDT Narrative [facility] - 12/06/2024 3:58 PM EDT ----- ------- Name: SandovalJany Dey I Age/Sex: 49/F : 1975 Unit#: [id number] Attend Dr: Belinda Murray MD Re12/02/24 Status: [facility] Location: HO.[facility] Disch: ----- ------- SPEC : [id number] RECD: 12/02/24 STATUS: ALAYNA DWYER NUM: [id number] CHIDI: 12/02/[address] [facility] [address]: Belinda Murray MD ENTERED: 12/02/24 SP TYPE: Surgical OTHR DR: Libby Redd MD ORDERED: HE Stain/12, Gross Micro L4/4, IHC/2, Special st. 2/3, H. pylori/2, AB/PAS/3 Diagnosis A. Stomach, antrum, biopsy: - Antral-type mucosa with moderate chronic, focally active, inflammation. - Positive for H pylori. B. Stomach, body, biopsy: - Antral-type mucosa with moderate chronic inactive inflammation. - Positive for H pylori. C. EG junction, biopsy: - Cardiac-type mucosa with moderate chronic inactive inflammation; no intestinal metaplasia seen. - Active esophagitis (maximum eosinophil count 1 per high powered field). D. Colon, sigmoid, polypectomy: Colonic mucosa with mild surface hyperplastic changes. Clinical History Pre-Op Dx: GERD, abdominal pain, family history of colon cancer Post-Op Dx: Possible Bazzi's esophagus, external hemorrhoids, colon polyp Microscopic Description A-D. Microscopic sections examined. No metaplastic changes are seen, supported by AB/PAS stains (A, B and C); Helicobacter organisms are seen, supported by H. pylori immunostain (A). Material Received A. Gastric antrum bx's B. Gastric body bx C. EG junction bx's - r/o Bazzi's esophagus D. Sigmoid colon polyp Gross Description Received in four parts. Part A: Received in formalin labeled gastric antrum bx's are four parker-pink irregular and rectangular tissue fragments ranging from 0.2-0.35 cm, submitted in toto in a cassette labeled A. Part B: Received in formalin labeled gastric body bx's are three parker-pink irregular and CONTINUED ON NEXT PAGE ----- ------- Name: Jaime NavarreteJany I Age/Sex: 49/F : 1975 Unit#: [id number] Attend Dr: Belinda Murray MD Re12/02/24 Status: [facility] Location: [facility] Disch: ----- ------- SPEC : [id number] RECD: 12/02/24 STATUS: ALAYNA DWYER NUM: [id number] CHIDI: 12/02/[address] [facility] [address]: Belinda Murray MD ENTERED: 12/02/24 SP TYPE: Surgical OTHR DR: Libby Redd MD ORDERED: HE Stain/12, Gross Micro L4/4, IHC/2, Special st. 2/, H. pylori/2, AB/PAS/3 Gross Description (Continued) rectangular tissue fragments ranging from 0.15-0.35 cm, submitted in toto in a cassette labeled B. Part C: Received in formalin labeled GE junction bx's, rule out Bazzi's are two parker- pink irregular tissue fragments measuring 0.15 and 0.3 cm, submitted in toto in a cassette labeled C. Part D: Received in formalin labeled sigmoid colon polyp is a 0.3 cm castillo-pink papular tissue fragment, submitted in toto in a cassette labeled D. CEDS Special studies ordered and performed: Immunostain for H. pylori on A; AB/PAS stains on A, B and C IHC S/NG Disclaimer NOTE: Unless otherwise stated, all tissue is formalin-fixed and paraffin-embedded. Some or all of the immunohistochemical tests reported herein may have been developed and their performance characteristics determined by [facility]. They have not been cleared or approved by the U.S. Food and Drug Administration (FDA). However, the FDA has determined that such clearance or approval is not necessary. This laboratory is certified under the Clinical Laboratory Improvement Amendments of 1988 (CLIA) as qualified to perform high complexity clinical laboratory testing. Copies To: Libby Redd MD [address] [place] [address] Belinda Murray MD [facility] [address] [place] [address] [phone] [email or web address] ----- ------- Signed (signature on file) Tc Pinedo MD 12/06/24 1558 ----- ------- END OF REPORT Generic External Data Provider LAB BLOOD ORDERAB LES Final Result Performing Organization Address [facility] de Phone Number [facility] [address] [place] [address] [phone] * (ABNORMAL) Glucose, Whole Blood (12/02/2024 7:24 AM EDT) [facility] Signature Glucose, Whole Blood 194(H) 60 - 115 mg/dL [facility] Comment:METER #: [id number] 12/02/2024 7:24 AM EDT 12/02/2024 7:28 AM EDT Generic External Data Provider LAB BLOOD ORDERAB LES Final Result Performing Organization Address [facility] de Phone Number [facility] [address] [place] [phone] * XR Knee 3 Views Right (11/26/2024 9:56 AM EDT) Anatomical Region Laterality Modality Lower Extremities, Knee Right Radiogra phic Imaging 11/26/2024 9:56 AM EDT Narrative 11/26/2024 10:19 AM EDT [address] [address] XRay Report Signed Patient: Jany Welsh I MR#: M [id number] : 1975 Acct:[id number] Age/Sex: 49 / F ADM Date: 11/26/24 Loc: HO.LAB Attending Dr: Libby Redd MD Ordering Physician: Libby Redd MD Date of Service: 11/26/24 Procedure(s): XR knee RT 3V Accession Number(s): [id number] cc: Libby Redd MD EXAMINATION: XR KNEE, RIGHT CLINICAL INFORMATION: 49 yo F with right knee pain, DJD send to [facility] COMPARISON: None available. TECHNIQUE: AP lateral and sunrise views of the right knee. FINDINGS: No acute cortical disruption or malalignment. Joint space narrowing involving the medial compartment. No suprapatellar bursa joint effusion. Small exostosis at the quadriceps tendon insertion and the patellar tendon insertion. No lytic or blastic lesions. No subcutaneous emphysema. XR/XR knee RT 3V IMPRESSION: Medial compartment osteoarthrosis, mild. Enthesopathy, quadriceps tendon and patellar tendon. Electronically signed by: Trenton Kohli MD 11/26/2024 10:16 AM EDT Dictated By: Trenton Mack MD Signed By: <Electronically signed by Trenton Cabrera MD in OV> 11/26/24 1016 DD/ 0956 TD/TT: 11/26/24 1013 Television Maintenance Man: Procedure Note Donotuseinterpreter, Image - 11/26/2024 [place] [address] XRay Report Signed Patient: Jany Welsh IMR#: M [id number] : 1975Acct:[id number] Age/Sex: 49 / FADM Date: 11/26/24 Loc: HO.LAB Attending Dr: Libby Redd MD Ordering Physician: Libby Redd MD Date of Service: 11/26/24 Procedure(s): XR knee RT 3V Accession Number(s): [id number] cc: Libby Redd MD EXAMINATION: XR KNEE, RIGHT CLINICAL INFORMATION: 49 yo F with right knee pain, DJD send to [facility] COMPARISON: None available. TECHNIQUE: AP lateral and sunrise views of the right knee. FINDINGS: No acute cortical disruption or malalignment. Joint space narrowing involving the medial compartment. No suprapatellar bursa joint effusion. Small exostosis at the quadriceps tendon insertion and the patellar tendon insertion. No lytic or blastic lesions. No subcutaneous emphysema. XR/XR knee RT 3V IMPRESSION: Medial compartment osteoarthrosis, mild. Enthesopathy, quadriceps tendon and patellar tendon. Electronically signed by: Trenton Kohli MD 11/26/2024 10:16 AM EDT Dictated By: Trenton Mack MD Signed By: <Electronically signed by Trenton Cabrera MDin OV> 11/26/24 1016 DD/ 0956 TD/TT: 11/26/24 1013 Television Maintenance Man: us Libby Redd MD IMG XR PROCEDURES Edited Resu lt - Final * Vitamin D, 25-Hydroxy, Total, Immunoassay (11/26/2024 9:54 AM EDT) Vitamin D 25-OH Total 35.1 >30 ng/mL [facility] Comment: Health Based Reference Values*< 20 ng/mL Hawwguhcb44-22 ng/mL Insufficient> 30 ng/mL Sufficient*Barak SNEED. N Engl J Med. 2007;357:266-280There is no well-established upper level of normal vitamin Dlevels. Some laboratories use 50 ng/mL as an upper limit ofnormal. However, toxicity is patient-dependent and may occurat any level. Careful correlation with the patient'spresentation is necessary and, if there is concern forvitamin D toxicity, treatment should be consideredirrespective of the serum level.Care must be taken in interpreting Vitamin D results fromdifferent laboratories and methodologies. Published datademonstrated that results from patients undergoinghemodialysis may show a negative bias when tested withvarious automated 25-OH vitamin D assays when compared toLC-MS/MS.When testing samples from patients whose predominant form ofVitamin D is Vitamin D2, such as patients receiving VitaminD2 supplementation, results that are subtherapeutic shouldbe confirmed with another method such as LC-MS/MS. Blood Venous blood specimen / Unknown 11/26/2024 9:54 AM EDT 11/26/2024 9:54 AM EDT Libby Redd MD LAB BLOOD ORDERABLES Final Re sult Performing Organization Address City/[facility]/ZIP Co de Phone Number [facility] [address] [place] [phone] * Vitamin B12 (Cobalamin) and Folate Panel, Serum (11/26/2024 9:54 AM EDT) Vitamin B12 810 200 - 900 pg/mL [facility] Comment:NORMAL 200-900 PG/ML INDETERMINATE 160-199 PG/ML DEFICIENT < 160 PG/ML Folate 11.7 > or = 4.0 ng/mL [facility] Comment:Reference Values:> o r = 4.0 ng/mL< 4.0 ng/mL suggests folate deficiency Methotrexate, aminopterin and folinic acid(leucovorin) are chemotherapeutic agents whose molecularstructures are similar to folate; therefore, the Architectfolate assay cannot be used for patients using these drugs. Blood Venous blood specimen / Unknown 11/26/2024 9:54 AM EDT 11/26/2024 9:54 AM EDT us Libby Redd MD LAB BLOOD ORDERABLES Final Re sult Performing Organization Address [facility]/ZIP Co de Phone Number [facility] [address] [place] [phone] * TSH W/Reflex to FT4 (11/26/2024 9:54 AM EDT) TSH reflex Free T4 1.74 0.32 - 4.0 uIU/mL [facility] Blood Venous blood specimen / Unknown 11/26/2024 9:54 AM EDT 11/26/2024 9:54 AM EDT us Libby Redd MD LAB BLOOD ORDERABLES Final Re sult [facility] [address] [place] [phone] * (ABNORMAL) CBC auto differential (11/26/2024 9:54 AM EDT) White Blood Count 10.2 4.8 - 10.8 X10*3/uL [facility] Red Blood Count 4.82 4.20 - 5.50 X10*6/uL [facility] Hemoglobin 13.8 12.0 - 16.0 g/dl [facility] Hematocrit 42.1 37.0 - 47.0 % [facility] Mean Corpuscular Volume 87.3 80.0 - 98.0 fL [facility] Mean Corpuscular Hemoglobin 28.6 27.0 - 33.0 pg [facility] Mean Corpuscular HGB Conc 32.8 31.0 - 35.0 g/dl [facility] Red Cell Distribution Width 14.4 11.0 - 16.0 % [facility] Platelet Count 239 160 - 400 X10*3/uL [facility] Mean Platelet Volume 10.8 9.4 - 12.3 fL [facility] Neutrophils Percent Auto 58.9 45 - 73 % [facility] Imm Gran Pct Auto 0.6(H) 0.0 - 0.4 % [facility] Lymphocytes Percent Auto 28.4 20 - 40 % [facility] Monocytes Percent Auto 6.1 2 - 11 % [facility] Eosinophils Percent Auto 5.2(H) 0 - 4 % [facility] Basophils Percent Auto 0.8 0 - 2 % [facility] NRBC Pct Auto 0.0 0.0 - 0.2 /100WBC [facility] Neutrophils Absolute Auto 6.0 2.0 - 8.3 x10*3/uL [facility] Imm Gran Abs Auto 0.06(H) 0.00 - 0.03 X10*3/uL [facility] Lymphocytes Absolute Auto 2.9 1.2 - 4.9 X10*3/uL [facility] Monocytes Absolute Auto 0.6 0.1 - 1.2 X10*3/uL [facility] Eosinophils Absolute Auto 0.5(H) 0.0 - 0.4 X10*3/uL [facility] Basophils Absolute Auto 0.1 0.0 - 0.2 X10*3/uL [facility] NRBC Abs Auto 0.000 0.0 - 0.012 X10*3/uL [facility] Blood Venous blood specimen / Unknown 11/26/2024 9:54 AM EDT 11/26/2024 9:54 AM EDT us Libby Redd MD LAB BLOOD ORDERABLES Final Re sult [facility] [address] [place] [phone] * (ABNORMAL) Comprehensive Metabolic Panel (11/26/2024 9:54 AM EDT) Sodium 141 135 - 145 mmol/L [facility] Potassium 4.5 3.3 - 5.1 mmol/L [facility] Chloride 106 96 - 108 mmol/L [facility] Carbon Dioxide 28 22 - 29 mmol/L [facility] Anion Gap 12 12 - 20 [facility] Urea Nitrogen (BUN) 14 9 - 16 mg/dL [facility] Creatinine, Serum 0.92 0.5 - 1.4 mg/dL [facility] Estimated Glomerular Filt Rate >60 [facility] Comment:Chronic Kidney Disea se: Estimated GFR < 60 mL/min/1.82p0Uzcjhi Kidney Disease: Estimated GFR < 15 mL/min/1.73m2 Glucose 237(H) 60 - 115 mg/dL [facility] Calcium 9.3 8.4 - 10.2 mg/dL [facility] Bilirubin, Total 1.0 0.0 - 1.0 mg/dL [facility] Aspartate Amino Transferase 36(H) 5 - 31 U/L [facility] Alanine Aminotransferase 61(H) 0 - 31 U/L [facility] Total Protein 7.4 6.5 - 8.0 g/dL [facility] Albumin Level 4.3 3.5 - 5.0 g/dL [facility] Alkaline Phosphatase 134(H) 39 - 117 U/L [facility] Blood Venous blood specimen / Unknown 11/26/2024 9:54 AM EDT 11/26/2024 9:54 AM EDT Libby Redd MD LAB BLOOD ORDERABLES Final Re sult [facility] [address] [place] [phone] * (ABNORMAL) POCT A1C (10/20/2024 10:09 AM EDT) Hemoglobin A1C 9.5(A) 4.0 - 6.0 % QC Media Lot # Comment:[id number] Lot# Expiration Date Comment:05/26/2026 Blood 10/20/2024 10:0 9 AM EDT Libby Redd MD POINT OF CARE TEST ENTER/EDIT ORDERABLES Final Result * HPV DNA, Low/High Risk (10/05/2024 10:55 AM EDT) HPV High Risk Negative Negative [facility] HPV Genotype 16 Negative Negative [facility] HPV Genotype 18 Negative Negative [facility] Comment:HPV testing performe d at [facility] (CLIA#[id number]), [address] [place] [phone].Testing for HPV was performed using the [employer] Razoom0system. The presence of HPV in the female genital tract isassociated with a number of diseases, including cervicalcarcinoma. The HPV DNA high risk pool tests for HPV 31, 33,35, 39, 45, 51, 52, 56, 58, 59, 66 and 68. The testing forHPV 16 and 18 genotypes has also been performed. A positiveresult indicates detection of nucleic acid sequences fromone or more subtypes, whereas a negative result indicatessuch sequences were not detected. 10/05/2024 10:5 5 AM EDT 10/06/2024 7:38 AM EDT us Adriana Abraham CNM LAB BLOOD ORDERABLES Renee l Result [facility] [address] [place] [phone] * Pap Smear (10/05/2024 10:55 AM EDT) Swab Cervix uteri structure / Unknown 10/05/2024 10:55 AM EDT 10/06/2024 7:38 AM EDT Narrative [facility] - 10/08/2024 12:14 PM EDT ----- ------- Name: Jany Welsh I Age/Sex: 49/F : 1975 Unit#: [id number] Attend Dr: ADRIANA ABRAHAM CNM Re10/05/24 Status: DEP REF Location: HO.HHCLNP Disch: ----- ------- SPEC : [id number] RECD: 10/06/24 STATUS: ALAYNA DWYER NUM: [id number] CHIDI: 10/05/24-[address] [facility] [address]: ADRIANA ABRAHAM CNM ENTERED: 10/06/24 SP TYPE: Pap Smr OTHR DR: ORDERED: Pap Smear Interpretation Satisfactory for evaluation. Negative for intraepithelial lesion or malignancy. HPV High Risk: Negative HPV Genotyping 16: Negative HPV Genotyping 18: Negative Clinical Information LMP: Unknown date Previous PAP test: WN Other history: Cervical cancer screening Material Received ThinPrep-Cervical PAP Disclaimer As of February 25, 2024, the technical services to include automated prescreening performed by the ThinPrep Imaging System, PAP screening and HPV testing will be performed at [facility] (CLIA #[id number]), [address] [place] [address]. Testing for HPV was performed using the [employer] Razoom0 system. The presence of HPV in the female genital tract is associated with a number of diseases, including cervical carcinoma. The HPV DNA high risk pool tests for HPV 31, 33, 35, 39, 45, 51, 52, 56, 58, 59, 66 and 68. The testing for HPV 16 and 18 genotypes has also been performed. A positive result indicates detection of nucleic acid sequences from one or more subtypes, whereas a negative result indicates such sequences were not detected. All professional services are performed by [facility] ([address] [place], [place] [id number]; ; CLIA #[id number]). The PAP Test is a screening procedure with the inherent possibility of both false negative and false positive results. Results should be interpreted in the context of historic and current clinical findings. Reliability of the PAP Test is enhanced by performing the test on a regular repetitive basis. ----- ------- Signed (signature on file) JOHN Hughes ([facility]) 10/08/24 1214 ----- ------- END OF REPORT us Adriana Abraahm [facility] CYTOLOGY ORDERABLES F inal Result [facility] [address] [place] [phone] * BI Mammogram Screening Tomosynthesis Bilateral (05/14/2024 8:50 AM EST) Anatomical Region Laterality Modality Breast Bilateral Mammography 05/14/2024 8:50 AM EST Narrative 05/21/2024 12:38 PM EST [facility] [address] [place] [address] Mammography Report Signed Patient: Jany Welsh I MR#: M [id number] : 1975 Acct:[id number] Age/Sex: 48 / F ADM Date: 05/14/24 Loc: CHRIS Attending Dr: Libby Redd MD Ordering Physician: Libby Redd MD Results: 1Nega tive Date of Service: 05/14/24 Follow Up: 1 Year From Orig inal Mammogram Procedure(s): MM tomosynthesis screening BI Accession Number(s): [id number] cc: Libby Redd MD EXAMINATION: MM SCREENING [...] 05/21/24 1235 DD/ 0850 TD/TT: 05/14/24 0910 Television Maintenance Man: Procedure Note Donotuseinterpreter, Image - 05/21/2024 [facility] [address] [place] [address] Mammography Report Signed Patient: Jany Welsh [facility]#: M [id number] : 1975Acct:[id number] Age/Sex: 48 / FADM Date: 05/14/24 Loc: ZENOBIAO Attending Dr: Libby Redd MD Ordering Physician: Libby Redd MDResults: 1Nega tive Date of Service: 05/14/24Follow Up: 1 Year From Orig ina Mammogram Procedure(s): MM tomosynthesis screening BI Accession Number(s): [id number] cc: Libby Redd MD EXAMINATION: MM SCREENING [...] Radha Aguirre DO 05/21/2024 12:35 PM EST RP Dictated By: Radha Aguirre DO Signed By: <Electronically signed by Radha Aguirre DO in OV> 05/21/24 1235 DD/ 0850 TD/TT: 05/14/24 0910 Television Maintenance Man: us Libby Redd MD IMG BI PROCEDURES Edited Resu lt - Final * (ABNORMAL) Lipid Panel, Standard (04/21/2024 10:16 AM EST) Triglycerides 72 <150 mg/dL [facility] Comment:Desirable Triglyceri de: less than 150 mg/dLBorderline High Triglyceride 150-199 mg/dLHigh Triglyceride: 200-499 mg/dLVery High Triglyceride: greater than or equal to 5OO mg/dL Cholesterol 134 <200 mg/dL [facility] Comment:Desirable Cholestero l: less than 200 mg/dLBorderline High Cholesterol: 200-239 mg/dLHigh Cholesterol: greater than 239 mg/dL LDL Cholesterol Calculated 90 <100 mg/dL [facility] Comment:Desirable LDL: less than 100 mg/dLNear Optimal/Above Optimal LDL: 110- 129 mg/dLBorderline High LDL: 130-159 mg/dLHigh LDL: 160-189 mg/dLVery High LDL: greater than or equal to 190 mg/dL HDL Cholesterol 30(L) >40 mg/dL [facility] Comment:Desirable HDL: great er than 40 mg/dL Note: This HDL assay may give artificially low results in patients with liver disease. Blood Venous blood specimen / Unknown 04/21/2024 10:16 AM EST 04/21/2024 2:06 PM EST Libby Redd MD LAB BLOOD ORDERABLES Final Re sult Performing Organization Address [facility] Co de Phone Number [facility] [address] [place] [phone] * Hepatitis C Ab (01/16/2023 12:40 PM EDT) Hepatitis C Antibody Nonreactive Nonreactive [facility] Comment:Antibodies to HCV no t detected; does not exclude early acuteHCV infection. Blood 01/16/2023 12:4 0 PM EDT 01/16/2023 2:08 PM EDT Libby Redd MD LAB BLOOD ORDERABLES Final Re sult Performing Organization Address [facility] de Phone Number [facility] [address] [place] [phone] * HIV 1/2 ANTIGEN/ANTIBODY,FOURTH GENERATION W/RFL (11/18/2019 2:28 PM EDT) Pathologist [facility] HIV-1/2 ANTIGEN AND ANTIBODIES, 4TH GENERATION W/ REFLEX NON-REACT [facility] NON-REACT [facility] Comment: HIV-1 antigen and HIV-1/HIV-2 antibodies were not detected. There is no laboratory evidence of HIV infection. PLEASE NOTE: This information has been disclosed to you from records whose confidentiality may be protected by state law. If your state requires such protection, then the state law prohibits you from making any further disclosure of the information without the specific written consent of the person to whom it pertains, or as otherwise permitted by law. A general authorization for the release of medical or other information is NOT sufficient for this purpose. For additional information please refer to http://education.Jusp/faq/IPD841 (This link is being provided for informational/ educational purposes only.) The performance of this assay has not been clinically validated in patients less than 2 years old. HIV-1/2 ANTIGEN AND ANTIBODIES, 4TH GENERATION W/ REFLEX NON-REACT [facility] NON-[facility]ACT [facility] Comment: HIV-1 antigen and HIV-1/HIV-2 antibodies were not detected. There is no laboratory evidence of HIV infection. PLEASE NOTE: This information has been disclosed to you from records whose confidentiality may be protected by state law. If your state requires such protection, then the state law prohibits you from making any further disclosure of the information without the specific written consent of the person to whom it pertains, or as otherwise permitted by law. A general authorization for the release of medical or other information is NOT sufficient for this purpose. For additional information please refer to http://SocialMedia.com.[employer].Ringostat/faq/QTE933 (This link is being provided for informational/ educational purposes only.) The performance of this assay has not been clinically validated in patients less than 2 years old. HIV-1/2 ANTIGEN AND ANTIBODIES, 4TH GENERATION W/ REFLEX NON-[facility]ACT [facility] Comment: HIV-1 antigen and HIV-1/HIV-2 antibodies were not detected. There is no laboratory evidence of HIV infection. PLEASE NOTE: This information has been disclosed to you from records whose confidentiality may be protected by state law. If your state requires such protection, then the state law prohibits you from making any further disclosure of the information without the specific written consent of the person to whom it pertains, or as otherwise permitted by law. A general authorization for the release of medical or other information is NOT sufficient for this purpose. For additional information please refer to http://SocialMedia.com.[employer].Ringostat/faq/JYC465 (This link is being provided for informational/ educational purposes only.) The performance of this assay has not been clinically validated in patients less than 2 years old. HIV-1/2 ANTIGEN AND ANTIBODIES, 4TH GENERATION W/ REFLEX NON-REACT [facility] Comment: HIV-1 antigen and HIV-1/HIV-2 antibodies were not detected. There is no laboratory evidence of HIV infection. PLEASE NOTE: This information has been disclosed to you from records whose confidentiality may be protected by state law. If your state requires such protection, then the state law prohibits you from making any further disclosure of the information without the specific written consent of the person to whom it pertains, or as otherwise permitted by law. A general authorization for the release of medical or other information is NOT sufficient for this purpose. For additional information please refer to http://education.[employer].Ringostat/faq/XOS770 (This link is being provided for informational/ educational purposes only.) The performance of this assay has not been clinically validated in patients less than 2 years old. 11/18/2019 2:28 PM EDT us Kirstin Collier MD LAB BLOOD ORDERABLES Final Resul t [facility] [address] from Last 3 Months or Most Recently Relevant to Health Maintenance Insurance [facility] C3 Care Teams Urology Teacher Relationship Specialty Start Date End Date Libby Redd MD [address] [place] [id number] PCP - General Family Medicine 01/09/23 Jodee Jean LETTER OF CREDIT DOCUMENT EXAMINER Nurse Practitioner Gastroenterology 10/20/24
--- OUTSIDE RECORDS SUMMARY | 2024-12-27 14:50 | XMS_ITS | Encounter Summary ---
Author Organization [employer] Address [address] [facility] 7t [place] [address] Care Team Providers Care Woodworking Machine Setter Name Role Phone Nina Haider MD Primary Care Provider [phone] Libby Redd MD Primary Care Provider [phone] Encounter Details Date Type Department Care Team (Late st Contact Info) Description 07/31/2022 Orders Only [facility] CHC MED & PEDS [address] [place], [place] [phone] Sondra Valera LPN Social History Tobacco Use [...] on filedocumented in this encounter Care Teams Woodworking Machine Setter Relationship Specialty Start Date End Date Nina Haider MD [address] [place] [address] [phone] PCP - General Family Medicine 10/31/21 01/08/23 Libby Redd MD [address] [place] [address] PCP - General Family Medicine 01/09/23 Jodee Jean CARDIAC CATHETERIZATION TECHNOLOGIST Nurse Practitioner Gastroenterology 10/20/24 documented as of this encounter
--- OUTSIDE RECORDS SUMMARY | 2024-12-27 14:50 | XMS_ITS | Encounter Summary ---
Author Organization [employer] Address 75 [facility] 7t [place] [address] Care Team Providers Care Salon Sales Consultant Name Role Phone Nina Haider MD Primary Care Provider [phone] Libby Redd MD Primary Care Provider [phone] Encounter Details Date Type Department Care Team (Late st Contact Info) Description 08/13/2022 Telephone [facility] MEDICINE [address] [place], [place] [phone] Nina Haider MD [address] [place] [address] [phone] Social History Tobacco Use Types Packs/Day Years [...] on filedocumented in this encounter Care Teams Salon Sales Consultant Relationship Specialty Start Date End Date Nina Haider MD [address] [place] [address] [phone] PCP - General Family Medicine 10/31/21 01/08/23 Libby Redd MD [address] [place] [address] PCP - General Family Medicine 01/09/23 Jodee Jean MAID HOUSEKEEPER Nurse Practitioner Gastroenterology 10/20/24 documented as of this encounter
--- OUTSIDE RECORDS SUMMARY | 2024-12-27 14:50 | XMS_ITS | Encounter Summary ---
Author Organization [employer] Address 75 [facility] 7t [place] [address] Care Team Providers Care Outside Operator Name Role Phone Nina Haider MD Primary Care Provider [phone] Libby Redd MD Primary Care Provider [phone] Encounter Details Date Type Department Care Team (Late st Contact Info) Description 07/12/2022 Orders Only [facility] CHC MED & PEDS [address] [place], [place] [phone] Sondra Valera LPN Social History Tobacco Use [...] on filedocumented in this encounter Care Teams Outside Operator Relationship Specialty Start Date End Date Nina Haider MD [address] [place], [place] [phone] PCP - General Family Medicine 10/31/21 01/08/23 Libby Redd MD [address] [place], [place] [phone] PCP - General Family Medicine 01/09/23 Jodee Jean NP Nurse Practitioner Gastroenterology 10/20/24 documented as of this encounter
--- OUTSIDE RECORDS SUMMARY | 2024-12-27 14:50 | XMS_ITS | Encounter Summary ---
Author Organization [employer] Address [address] [facility] 7t [place] [address] Care Team Providers Care Helicopter Utility Aircrewman Name Role Phone Libby Redd MD Primary Care Provider [phone] Reason for Visit * Reason Onset Date Comments PCP/Location 09/24/2024 Encounter Details Date Type Department Care Team ([facility] st Contact Info) Description 09/24/2024 Telephone [facility] CHC MED & PEDS [address] [place], [place] [phone] Libby Redd MD 505 [place] [address] PCP/Location Social History Tobacco Use Types Packs/Day Years [...] your housing situation today? I have tex sing 09/24/[address] you li [...] encounter Miscellaneous Notes * Telephone Encounter - Jh Carl - 11/02/2024 11:03 AM EDT Tc from patient calling in regards to prior message. Pt no longer wants to switch and would like heladiotay vu PCP. * Telephone Encounter - Estefany Avalos - 09/24/2024 2:50 PM EDT Tc from pt requesting location change from [facility] to [facility] due to transportation. Pt lives in [place]. Contact pt at [phone] (belgian) documented in this encounter Plan of Treatment Not on file documented as of this encounter Visit Diagnoses Not on filedocumented in this encounter Additional Health Concerns Assessment Noted Time PHQ-9 Depression Total Score: 21 024 8:35 AM EDT documented as of this encounter Care Teams Helicopter Utility Aircrewman Relationship Specialty Start Date End Date Libby Redd MD [address] [place] [phone] PCP - General Family Medicine 01/09/23 Jodee Jean TREATMENT COUNSELOR Nurse Practitioner Gastroenterology 10/20/24 documented as of this encounter
--- OUTSIDE RECORDS SUMMARY | 2024-12-27 14:50 | XMS_ITS | Encounter Summary ---
Author Organization [employer] Address [address] [facility] 7t [place] [address] Care Team Providers Care Computer Application Developer Name Role Phone Libby Redd MD Primary Care Provider [phone] Reason for Visit * Reason Comments Med Refill Encounter Details Date Type Department Care Team ([facility] st Contact Info) Description 11/12/2024 Refill [facility] CHC MED & PEDS 505 [place], [place] [phone] Libby Redd MD 505 [place] [address] Chronic bilateral thoracic back pain Social History Tobacco Use Types Packs/Day Years [...] Q2 Not on file 10/11/2024 Comments No Sex and Gender Information Value Date Recorded Sex Assigned at Female 03/04/2022 10:37 AM EDT Legal Sex Female 10:37 AM EDT Gender Identity Female 03/04/2022 10:37 AM EDT Sexual Orientation Straight 06/12/2023 4: 51 PM EST documented as of this encounter Plan of Treatment Not on file documented as of this encounter Visit Diagnoses Diagnosis Chronic bilateral thoracic back pain documented in this encounter Additional Health Concerns Assessment Noted Time PHQ-9 Depression Total Score: 15 025 11:13 AM EDT documented as of this encounter Care Teams Computer Application Developer Relationship Specialty Start Date End Date Libby Redd MD [address] [place] [phone] PCP - General Family Medicine 01/09/23 Jodee Jean DEPUTY COUNTY COUNSEL Nurse Practitioner Gastroenterology 10/20/24 documented as of this encounter
== END 2024-12-27 14:26 | disposition home or self-care (01) ==
LOC: HO.HGI 13:32
PROVIDERS: PCP Family Medicine; Visit Provider Nurse Practitioner Family
DX: K21.9 Gastro-esophageal reflux disease without esophagitis (principal); K59.09 Other constipation; R14.0 Abdominal distension (gaseous)
CPT/HCPCS: 99214

== ENCOUNTER → 2024-12-27 13:31 | Outpatient (BNVA) | payer MEDICAID, SELFPAY | PROVIDERS: PCP Family Medicine; Visit Provider Nurse Practitioner Family | DX: R10.13 Epigastric pain (principal); K76.0 Fatty (change of) liver, not elsewhere classified; R74.8 Abnormal levels of other serum enzymes; K21.9 Gastro-esophageal reflux disease without esophagitis; K59.09 Other constipation; R14.0 Abdominal distension (gaseous) | CPT/HCPCS: 99212 ==

== ENCOUNTER 2025-01-10 11:02 | Outpatient (REF) | payer MEDICAID, SELFPAY ==
--- OUTSIDE RECORDS SUMMARY | 2025-01-10 13:32 | XMS_ITS | Encounter Summary ---
Author Organization [employer] [facility] Address [address] [place] [address] 7 [place] [address] Care Team Providers Care Relief Mate Name Role Phone Nina Haider MD Primary Care Provider [phone] Libby Redd MD Primary Care Provider [phone] Encounter Details Date Type Department Care Team (Late st Contact Info) Description 07/12/2022 Orders Only [facility] MED & PEDS [address] [place], [place] [phone] Sondra Valera LPN Social History Tobacco Use [...] Care Team (Late st Contact Info) Description 01/13/2025 11:00 AM EDT Nutrition [facility] DIABETES/NTRN [address] [place], [place] [phone] Ritu Martinez RD [address] [place], [place] [phone] documented as of this encounter Visit Diagnoses Not on filedocumented in this encounter Care Teams Relief Mate Relationship Specialty Start Date End Date Nina Haider MD [address] [place], [place] [phone] PCP - General Family Medicine 10/31/21 01/08/23 Libby Redd MD [address] [place] [id number] PCP - General Family Medicine 01/09/23 Jodee Jean BEAUTY CONSULTANT Nurse Practitioner Gastroenterology 10/20/24 documented as of this encounter
--- OUTSIDE RECORDS SUMMARY | 2025-01-10 13:32 | XMS_ITS | Encounter Summary ---
Author Organization [employer] Address 75 [facility] 7t [place] [address] Care Team Providers Care Cruise Director Name Role Phone Libby Redd MD Primary Care Provider [phone] Reason for Visit * Reason Comments Med Refill Encounter Details Date Type Department Care Team ([facility] st Contact Info) Description 01/04/2025 Refill [facility] CHC MED & PEDS [address] [place], [place] [phone] Madison Hung MD 505 [place] [address] Social History Tobacco Use Types Packs/Day Years [...] Info) Description 01/13/2025 11:00 AM EDT Nutrition [facility] DIABETES/NTRN 505 [place] [address] Ritu Martinez, RD 230 [place] [address] documented as of this encounter Visit Diagnoses Not on filedocumented in this encounter Additional Health Concerns Assessment Noted Time PHQ-9 Depression Total Score: 15 025 11:13 AM EDT documented as of this encounter Care Teams Cruise Director Relationship Specialty Start Date End Date Libby Redd MD [address] [place] [address] PCP - General Family Medicine 01/09/23 Jodee Jean RN TRAVELING Nurse Practitioner Gastroenterology 10/20/24 documented as of this encounter
--- OUTSIDE RECORDS SUMMARY | 2025-01-10 13:32 | XMS_ITS | Encounter Summary ---
Author Organization [employer] Address 75 [facility] 7t [place] [address] Care Team Providers Care Accounts Payable Manager Name Role Phone Libby Redd MD Primary Care Provider [phone] Reason for Visit * Reason Onset Date Comments PCP/Location 09/24/2024 Encounter Details Date Type Department Care Team ([facility] st Contact Info) Description 09/24/2024 Telephone [facility] CHC MED & PEDS 505 [place], [place] [phone] Libby Redd MD 505 [place] [address] PCP/Location Social History Tobacco Use Types Packs/Day [...] longer wants to switch and would [facility] PCP. * Telephone Encounter - Estefany Avalos - 09/24/2024 2:50 PM EDT Tc from pt requesting location change from [facility] to [facility] due to transportation. Pt lives in [place]. Contact pt at [phone] (turkmen) documented in this encounter Plan of Treatment Upcoming Encounters Date Type Department Care Team (Late st Contact Info) Description 01/13/2025 11:00 AM EDT Nutrition [facility] DIABETES/NTRN 505 [place], [place] [phone] Ritu Martinez RD 230 [place] [address] documented as of this encounter Visit Diagnoses Not on filedocumented in this encounter Additional Health Concerns Assessment Noted Time PHQ-9 Depression Total Score: 21 024 8:35 AM EDT documented as of this encounter Care Teams Accounts Payable Manager Relationship Specialty Start Date End Date Libby Redd MD [address] [place] [address] PCP - General Family Medicine 01/09/23 Jodee Jean NP Nurse Practitioner Gastroenterology 10/20/24 documented as of this encounter
--- OUTSIDE RECORDS SUMMARY | 2025-01-10 13:32 | XMS_ITS | Encounter Summary ---
Author Organization [employer] Address 75 [facility] 7t [place] [address] Care Team Providers Care Security Alarm Technician Name Role Phone Libby Redd MD Primary Care Provider [phone] Reason for Visit * Reason Onset Date Comments Results 06/07/2024 Encounter Details Date Type Department Care Team ([facility] Contact Info) Description 06/07/2024 Telephone [facility] CHC MED & PEDS 505 [place], [place] [phone] Libby Redd MD [address] [place] [address] Results Social History Tobacco Use Types Packs/Day [...] mammogram Date when done: 2-3 weeks Facility: [facility] documented in this encounter Plan of Treatment Upcoming Encounters Date Type Department Care Team (Late st Contact Info) Description 01/13/2025 11:00 AM EDT Nutrition [facility] DIABETES/NTRN 505 [place] [address] Ritu Martinez, RD 230 [place] [address] documented as of this encounter Visit Diagnoses Not on filedocumented in this encounter Additional Health Concerns Assessment Noted Time PHQ-9 Depression Total Score: 21 024 8:35 AM EDT documented as of this encounter Care Teams Security Alarm Technician Relationship Specialty Start Date End Date Libby Redd MD [address] [place] [address] PCP - General Family Medicine 01/09/23 Jodee Jean ELECTRONICS TECHNICIAN APPRENTICE Nurse Practitioner Gastroenterology 10/20/24 documented as of this encounter
--- OUTSIDE RECORDS SUMMARY | 2025-01-10 13:32 | XMS_ITS | Encounter Summary ---
Author Organization [employer] Address [address] [facility] 7t [place] [address] Care Team Providers Care Desktop Engineer Name Role Phone Nina Haider MD Primary Care Provider [phone] Libby Redd MD Primary Care Provider [phone] Encounter Details Date Type Department Care Team (Late Contact Info) Description 07/31/2022 Orders Only [facility] MED & PEDS [address] [place] [address] Sondra Valera LPN Social History Tobacco Use [...] Department Care Team (Late Contact Info) Description 01/13/2025 11:00 AM EDT Nutrition [facility] DIABETES/NTRN 505 [place] [address] Ritu Martinez, RD [address] [place], [place] [phone] documented as of this encounter Visit Diagnoses Not on filedocumented in this encounter Care Teams Desktop Engineer Relationship Specialty Start Date End Date Nina Haider MD [address] [place] [address] PCP - General Family Medicine 10/31/21 01/08/23 Libby Redd MD [address] [place] [address] PCP - General Family Medicine 01/09/23 Jodee Jean VOLTAGE INSPECTOR Nurse Practitioner Gastroenterology 10/20/24 documented as of this encounter
--- OUTSIDE RECORDS SUMMARY | 2025-01-10 13:32 | XMS_ITS | Clinical Summary ---
Author Organization [email or web address] Address [address] [facility] [address] [place] [address] Care Team Providers Care Tractor Operator Helper Name Role Phone Libby Redd MD Primary Care Provider [phone] Allergies No known active allergies Medications * [...] hyperglycemia, without long-term current use of insulin ([facility]) 1 each if needed (to [...] FOR ALLERGIES 90 tablet 1 024 Active magnesium oxide (Mag-Ox) 400 MG tablet [...] hyperglycemia, without long-term current use of insulin ([facility]) USE DIRECTED TO TEST BLOOD SUGAR TWICE [...] not crush, chew, or split. 28 tablet Active pantoprazole (ProtoNix) 40 MG EC tabletIndication s:Gastroesophage al reflux disease without esophagitis Take 1 tablet (40 mg) by mouth before breakfast. Do not crush, chew, or split. 90 tablet 3 Active bismuth subsalicylate (Pepto Bismol) 262 MG/15ML suspension Take 17 mL by mouth every 4 (four) hours if needed for indigestion. 360 mL Active glipiZIDE (Glucotrol) 5 MG tablet TAKE 1 TABLET BY MOUTH TWICE DAILY BEFORE BREAKFAST AND BEFORE SUPPER 180 tablet Active D3-1000 25 MCG (1000 UT) capsule TAKE 1 CAPSULE BY MOUTH EVERY MORNING 90 capsule 1 Active D3-1000 25 MCG (1000 UT) capsule TAKE 1 CAPSULE BY MOUTH EVERY MORNING 90 capsule 1 025 2024 Discontinued glipiZIDE (Glucotrol) 5 MG tablet Take 1 [...] times daily for 14 days. 42 tablet 2024 bismuth subsalicylate (Pepto-Bismol) 262 MG chewable [...] -Prescribed : Guaifenesin-codeine (Robitussin-AC) 100-10 MG/5ML syrup Nkodgkfv-hwevfjmjrz-ovwdvyjlme (Cetacaine) 2-2-14 % spray Insomnia 10/03/2023 Assessment [...] of fatty liver disease, confirmed by a filtering machine tender. Previous liver function tests showed inflammation. The condition is likely exacerbated by uncontrolled diabetes and potentially by diet. Plan: - Reinforce dietary recommendations: reduce sugar intake, limit artificial sweeteners - Encourage weight loss through diet modifications and tolerated exercise - Monitor liver function tests - following with GI in [facility] Strain of lumbar region 09/04/2023 Chronic pain of left knee 09/04/2023 Assessment & Plan (09/04/2023 1:51 PM EDT): Ordering XR imaging of Left Knee for further investigation of symptoms. Referring Orthopaedic for further evaluation. Discussed possible joint aspiration for later date. Continue current Ibuprofen medication for relief of symptoms. Elevated parathyroid hormone 01/21/2023 Vitamin D deficiency 01/10/2023 Uses Nauruan as primary spoken language 10/19/19 23 Obesity [...] recommended reduction of 20-30% of maintenance calories; seal delivery vehicle officer referral offered. Recommended to decrease soda and sugary beverage consumption. Recommended at least 20 g per meal of protein to assist with satiety. Recommended at least 150 min/week of moderate intensity exercise. Assessment & Plan (01/10/2023 9:10 AM EDT): Advised patient to maintain active with physical activity with alternative workout methods. Referred to a Rubber Extrusion Machine Operator. History of tubal ligation 10/18/2022 Allergic [...] especially in the morning - Referral to seal delivery vehicle officer for diabetic diet education - Follow-up in 6 weeks for diabetes management - Patient to bring glucose logs for review - Laboratory tests ordered: Comprehensive metabolic panel, lipid panel, HbA1c - Pt will followup then with new PCP in [facility] due to location Assessment & Plan (04/19/2024 [...] Encounters Date Type Department Care Team Description 01/04/2025 Refill [facility] [address] [place] [address] Madison Hung MD 12/31/2024 Telephone [facility] [address] [place] [phone] Libby Redd MD Referral 12/14/2024 3:00 PM EDT Office Visit [facility] [address] [place] [phone] Tamanna Chaparro MD Vertigo (Primary Dx); Dizziness; H. pylori infection; Heart murmur 12/14/2024 Telephone [facility] [address] [place] [phone] Libby Redd MD Referral 12/14/2024 Telephone [facility] [address] [place] [phone] Libby Redd MD In person triage 12/14/2024 Travel 12/14/2024 Telephone [facility] [address] [place] [address] Libby Redd MD Nurse Triage 12/13/2024 Refill [facility] [address] [place] [address] Debbie Gil FNP 12/12/2024 Refill [facility] [address] [place] [address] Libby Redd MD 12/08/2024 Telephone [facility] [address] [place] [address] Libby Redd MD 12/07/[address] [address] Libby Redd MD 12/07/2024 Results Follow-Up [facility] [address] [place] [address] Libby Redd MD Glucose, Whole Blood, Hematoxylin and Eosin Stain 12/02/2024 Orders Only GENERIC EXTERNAL DATA DEPARTMENT Provider, Generic External Data 12/01/2024 Telephone [facility] [address] [place] [phone] Matthew Zhu MD No Show 11/30/2024 Telephone [facility] [address] [place] [address] Libby Redd MD Chart Prep 11/29/[address] [address] Libby Redd MD Referral 11/29/[address] [address] Libby Redd MD Nurse Triage 11/25/2024 Telephone [facility] [address] [place] [address] Libby Redd MD order for referral 11/25/2024 Refill [facility] [address] [place] [address] Libby Redd MD Chronic bilateral thoracic back pain 11/12/2024 Refill [facility] [address] [place] [address] Libby Redd MD Chronic bilateral thoracic back pain 11/03/2024 Telephone [facility] [address] [place] [address] Libby Redd MD 10/22/2024 Refill [facility] [address] [place] [address] Celeste Lake ANP Type 2 diabetes mellitus with hyperglycemia, without long-term current use of insulin (CMS/HCC) 10/20/2024 10:30 AM EDT Office Visit [facility] [address] [place] [address] Libby Redd MD Chronic pain of left knee (Primary Dx); Type 2 diabetes mellitus with hyperglycemia, without long-term current use of insulin ([facility]); Chronic pain of right knee; Dietary counseling; Exercise counseling; Class 2 severe obesity with serious comorbidity and body mass index (BMI) of 36.0 to 36.9 in adult, unspecified obesity type (CMS/HCC); Chronic bilateral thoracic back pain; Metabolic dysfunction-associat ed steatotic liver disease (MASLD); Vitamin D deficiency 10/20/2024 Refill [facility] [address] [place] [address] Libby Redd MD 10/20/2024 Travel 10/19/2024 Telephone [facility] [address] [place] [address] Libby Redd MD chart prep 10/11/2024 9:15 AM EDT Office Visit [facility] [address] [place] [address] Abel, Shira, OD Presbyopia (Primary Dx) 10/11/2024 Patient Outreach [facility] [address] [place] [address] Libby Redd MD Care Coordination (CHW outreach SDOH pest control - referral completed ) 10/11/2024 Patient Outreach [facility] [address] [place] [address] Libby Redd MD Pre-visit Planning (SDOH screening positive and Tobacco screening negative) 10/11/2024 Travel 10/11/2024 Results Follow-Up [facility] [address] [place] [address] Adriana Abraham CNM Pap Smear from Last 3 Months Immunizations Immunization Administration [...] 10/20/2024 10:06 AM EDT Plan of Treatment Upcoming Encounters Date Type Department Care Team (Late st Contact Info) Description 01/13/2025 11:00 AM EDT Nutrition [facility] [address] [place] [address] Ritu Martinez, RD [address] [place], [place] [phone] Health Maintenance Due Date Last Done Comments CT Colonography 1973 FIT DNA/Cologuard 1973 FIT 1973 FOBT 1975 Sigmoidoscopy 1975 Disability Screening 1973 Alcohol/Substance Use Screening 1985 Diabetes: Urine Protein Screening 1992 Diabetes: Foot Exam 01/08/2023 Colonoscopy 06/26/2023 Colorectal Cancer Screening 06/26/2023 Hepatitis A Vaccines (2 of 2 - Risk 2-dose series) 10/18/2024 04/19/2024 COVID-19 Vaccine ( season) 2025 05/29/2021, 09/15/2020, 08/18/2020 Influenza Vaccine (#1) 2025 01/29/2024, 2022 Diabetes: Hemoglobin A1C 01/20/2025 025, 01/29/2024, 10/03/2023, Additional history exists Depression Monitoring 04/21/2025 10/20/2024, 025 Lipid Panel [...] this topic Meningococcal Vaccine Aged Out No il michelle eligible based on patient's age to [...] hyperglycemia, without long-term current use of insulin ([facility]) VITAMIN B12/FOLATE, SERUM PANEL Routine 11/26/2024 9:54 AM EDT Type 2 diabetes mellitus with hyperglycemia, without long-term current use of insulin ([facility]) VITAMIN D,25-OH,TOTAL,IA Routine 11/26/2024 9:54 AM EDT Vitamin D deficiency COMPREHENSIVE METABOLIC PANEL Routine 11/26/2024 9:54 AM EDT Type 2 diabetes mellitus with hyperglycemia, without long-term current use of insulin ([facility]) CBC WITH AUTO DIFFERENTIAL Routine 11/26/2024 9:54 [...] without long-term current use of insulin (CMS/HCC) HPV DNA, LOW/HIGH RISK Routine 10:55 AM EDT PAP SMEAR Routine 10/05/2024 10:55 AM EDT Cervical cancer screening BI MAMMOGRAM SCREENING TOMOSYNTHESIS BILATERAL Routine 05/14/2024 [...] PM EDT Narrative 12/10/2024 7:29 AM EDT [address] [address] Magnetic Resonance Report Signed Patient: Jany Welsh I MR#: M [id number] : 1975 Acct:[id number] Age/Sex: 49 / F ADM Date: 12/09/24 Loc: HO.MRI Attending Dr: Jossue Blanco MD Ordering Physician: Jossue Blanco MD Date of Service: 12/09/24 Procedure(s): MR cervical spine wo con Accession Number(s): [id number] cc: Jossue Blanco MD; Libby Redd MD [...] Trenton Kohli MD 12/10/2024 07:26 AM EDT RP Dictated By: Trenton Mack MD Signed By: <Electronically signed by Trenton Cabrera MD in OV> 12/10/24725 DD/ 02 TD/TT: 12/09/242019 Straw Hat Presser: Procedure Note Donotuseinterpreter, Image - 12/10/2024 [place] [address] Magnetic Resonance Report Signed Patient: Jany Welsh IMR#: M [id number] : 1975Acct:[id number] Age/Sex: 49 / FADM Date: 12/09/24 Loc: .MRI Attending Dr: Jossue Blanco MD Ordering Physician: Jossue Blanco MD Date of Service: 12/09/24 Procedure(s): MR cervical spine wo con Accession Number(s): [id number] cc: Jossue Blanco MD; Libby Redd MD [...] <Electronically signed by Trenton Cabrera MDin OV> 12/10/24 0726 DD/ 02 TD/TT: 12/09/242019 Straw Hat Presser: [facility] External Provider IMG MRI PROCEDURES Final Result * Hematoxylin and Eosin Stain (12/02/2024 8:52 AM EDT) 12/02/2024 8:52 AM EDT 12/02/2024 9:22 AM EDT Shanti [facility] - 12/06/2024 3:58 PM EDT ----- ------- Name: Jany Welsh I Age/Sex: 49/F : 1975 [facility]#: [id number] Unit#: [id number] Attend Dr: Belinda Murray MD Re12/02/24 Status: [facility] Location: [facility] Disch: ----- ------- SPEC : [id number] RECD: 12/02/24 STATUS: ALAYNA DWYER NUM: [id number] CHIDI: 12/02/[address] [facility] [address]: Belinda Murray MD ENTERED: 12/02/24 [...] CONTINUED ON NEXT PAGE ----- ------- Name: Jany Welsh I Age/Sex: 49/F : 1975 Unit#: [id number] Attend Dr: Belinda Murray MD Re12/02/24 Status: [facility] Location: [facility] Disch: ----- ------- SPEC : [id number] RECD: 12/02/24 STATUS: ALAYNA DWYER NUM: [id number] CHIDI: 12/02/[address] [facility] [address]: Belinda Murray MD ENTERED: 12/02/24 SP TYPE: Surgical OTHR DR: Libby Redd MD ORDERED: HE Stain/12, Gross Micro L4/4, IHC/2, Special st. 2/3, H. pylori/2, AB/PAS/3 Gross Description (Continued) rectangular [...] developed and their performance characteristics determined by [facility]. They have not been cleared or approved by the U.S. Food and Drug Administration (FDA). However, the FDA has determined that such clearance or approval is not necessary. This laboratory is certified under the Clinical Laboratory Improvement Amendments of 1988 (CLIA) as qualified to perform high complexity clinical laboratory testing. Copies To: Libby Redd MD [address] [place] [phone] Belinda Murray MD [facility] [address] [place] [phone] [email or web address] ----- ------- Signed (signature on file) Tc Pinedo MD 12/06/24 1558 ----- ------- END OF REPORT us Generic External Data Provider LAB BLOOD ORDERAB LES Final Result Performing Organization Address [facility] Co de Phone Number [facility] [address] [place] [phone] * (ABNORMAL) Glucose, Whole Blood (12/02/2024 7:24 AM EDT) Glucose, Whole Blood 194(H) 60 - 115 mg/dL [facility] Comment:METER #: [id number] 12/02/2024 7:24 AM EDT 12/02/2024 7:28 AM EDT us Generic External Data Provider LAB BLOOD ORDERAB LES Final Result Performing Organization Address [facility] de Phone Number [facility] [address] [place] [phone] * XR Knee 3 Views Right (11/26/2024 9:56 AM EDT) Anatomical Region Laterality Modality Lower Extremities, Knee Right Radiogra phic Imaging 11/26/2024 9:56 AM EDT Narrative 11/26/2024 10:19 AM EDT [address] [address] XRay Report Signed Patient: Jany Welsh I MR#: M [id number] : 1975 Acct:[id number] Age/Sex: 49 / F ADM Date: 11/26/24 Loc: HO.LAB Attending Dr: Libby Redd MD Ordering Physician: Libby Redd MD Date of Service: 11/26/24 Procedure(s): XR knee RT 3V Accession Number(s): [id number] cc: Libby Redd MD EXAMINATION: XR KNEE, RIGHT CLINICAL INFORMATION: 49 yo F with right knee pain, DJD send to [facility] COMPARISON: None available. TECHNIQUE: AP lateral and [...] 11/26/24 1016 DD/ 0956 TD/TT: 11/26/24 1013 Straw Hat Presser: Procedure Note Donotuseinterpreter, Image - 11/26/2024 [place] [address] XRay Report Signed Patient: Jany Welsh IMR#: M [id number] : 1975Acct:[id number] Age/Sex: 49 / FADM Date: 11/26/24 Loc: HO.LAB Attending Dr: Libby Redd MD Ordering Physician: Libby Redd MD Date of Service: 11/26/24 Procedure(s): XR knee RT 3V Accession Number(s): [id number] cc: Libby Redd MD EXAMINATION: XR KNEE, RIGHT CLINICAL INFORMATION: 49 yo F with right knee pain, DJD send to [facility] COMPARISON: None available. TECHNIQUE: AP lateral and [...] Trenton Kohli MD 11/26/2024 10:16 AM EDT RP Dictated By: Trenton Mack MD Signed By: <Electronically signed by Trenton Cabrera MDin OV> 11/26/24 1016 DD/ 0956 TD/TT: 11/26/24 1013 Straw Hat Presser: Libby Redd MD IMG XR PROCEDURES Edited Resu lt - Final * Vitamin D, 25-Hydroxy, Total, Immunoassay (11/26/2024 9:54 AM EDT) Vitamin D 25-OH Total 35.1 >30 ng/mL [facility] Comment: Health Based Reference Values*< 20 ng/mL Rieppbgrg54-29 ng/mL Insufficient> 30 ng/mL Sufficient*Barak SNEED. N [...] MD LAB BLOOD ORDERABLES Final Re sult [facility] [address] [place] [phone] * Vitamin B12 (Cobalamin) and Folate Panel, Serum (11/26/2024 9:54 AM EDT) Pathologist [facility] Vitamin B12 810 200 - 900 pg/mL [facility] Comment:NORMAL 200-900 PG/M L INDETERMINATE 160-199 PG/ML DEFICIENT < 160 PG/ML Folate 11.7 > or = 4.0 ng/mL [facility] Comment:Reference Values:> o r = [...] ORDERABLES Final Re sult Performing Organization Address City/[facility]/ZIP Co de Phone Number [facility] [address] [place] [phone] * TSH W/Reflex to FT4 (11/26/2024 9:54 AM EDT) [facility] TSH reflex Free T4 1.74 0.32 - 4.0 uIU/mL [facility] Blood Venous blood specimen / Unknown 11/26/2024 9:54 AM EDT 11/26/2024 9:54 AM EDT us Libby Redd MD LAB BLOOD ORDERABLES Final Re sult Performing Organization Address City/[facility]/ZIP Co de Phone Number [facility] [address] [place] [phone] * (ABNORMAL) CBC auto differential (11/26/2024 9:54 AM EDT) [facility] White Blood Count 10.2 4.8 - 10.8 X10*3/uL [facility] Red Blood Count 4.82 4.20 - 5.50 X10*6/uL [facility] Hemoglobin 13.8 12.0 - 16.0 g/dl [facility] Hematocrit 42.1 37.0 - 47.0 % [facility] Mean Corpuscular Volume 87.3 80.0 - 98.0 fL [facility] Mean Corpuscular Hemoglobin 28.6 27.0 - 33.0 pg [facility] Mean Corpuscular HGB Conc 32.8 31.0 - 35.0 g/dl [facility] Red Cell Distribution Width 14.4 11.0 - 16.0 % [facility] Platelet Count 239 160 - 400 X10*3/uL [facility] Mean Platelet Volume 10.8 9.4 - 12.3 fL [facility] Neutrophils Percent Auto 58.9 45 - 73 % [facility] Imm Gran Pct Auto 0.6(H) 0.0 - 0.4 % [facility] Lymphocytes Percent Auto 28.4 20 - 40 % [facility] Monocytes Percent Auto 6.1 2 - 11 % [facility] Eosinophils Percent Auto 5.2(H) 0 - 4 % [facility] Basophils Percent Auto 0.8 0 - 2 % [facility] NRBC Pct Auto 0.0 0.0 - 0.2 /100WBC [facility] Neutrophils Absolute Auto 6.0 2.0 - 8.3 x10*3/uL [facility] Imm Gran Abs Auto 0.06(H) 0.00 - 0.03 X10*3/uL [facility] Lymphocytes Absolute Auto 2.9 1.2 - 4.9 X10*3/uL [facility] Monocytes Absolute Auto 0.6 0.1 - 1.2 X10*3/uL [facility] Eosinophils Absolute Auto 0.5(H) 0.0 - 0.4 X10*3/uL [facility] Basophils Absolute Auto 0.1 0.0 - 0.2 X10*3/uL [facility] NRBC Abs Auto 0.000 0.0 - 0.012 X10*3/uL [facility] Blood Venous blood specimen / Unknown 11/26/2024 9:54 AM EDT 11/26/2024 9:54 AM EDT us Libby Redd MD LAB BLOOD ORDERABLES Final Re sult [facility] [address] [place] [phone] * (ABNORMAL) Comprehensive Metabolic Panel (11/26/2024 9:54 AM EDT) Sodium 141 135 - 145 mmol/L [facility] Potassium 4.5 3.3 - 5.1 mmol/L [facility] Chloride 106 96 - 108 mmol/L [facility] Carbon Dioxide 28 22 - 29 mmol/L [facility] Anion Gap 12 12 - 20 [facility] Urea Nitrogen (BUN) 14 9 - 16 mg/dL [facility] Creatinine, Serum 0.92 0.5 - 1.4 mg/dL [facility] Estimated Glomerular Filt Rate >60 [facility] Comment:Chronic Kidney Disea se: Estimated GFR < 60 mL/min/1.40w8Fxsksz Kidney Disease: Estimated GFR < 15 mL/min/1.73m2 Glucose 237(H) 60 - 115 mg/dL [facility] Calcium 9.3 8.4 - 10.2 mg/dL [facility] Bilirubin, Total 1.0 0.0 - 1.0 mg/dL [facility] Aspartate Amino Transferase 36(H) 5 - 31 U/L [facility] Alanine Aminotransferase 61(H) 0 - 31 U/L [facility] Total Protein 7.4 6.5 - 8.0 g/dL [facility] Albumin Level 4.3 3.5 - 5.0 g/dL [facility] Alkaline Phosphatase 134(H) 39 - 117 U/L [facility] Blood Venous blood specimen / Unknown 11/26/2024 9:54 AM EDT 11/26/2024 9:54 AM EDT Libby Redd MD LAB BLOOD ORDERABLES Final Re sult [facility] [address] [place] [phone] * (ABNORMAL) POCT A1C (10/20/2024 10:09 AM EDT) Hemoglobin A1C 9.5(A) 4.0 - 6.0 % QC Media Lot # Comment:[id number] Lot# Expiration Date Comment:05/26/2026 Blood 10/20/2024 10:0 9 AM EDT Libby Redd MD POINT OF CARE TEST ENTER/EDIT ORDERABLES Final Result * HPV DNA, Low/High Risk (10/05/2024 10:55 AM EDT) HPV High Risk Negative Negative [facility] HPV Genotype 16 Negative Negative [facility] HPV Genotype 18 Negative Negative [facility] Comment:HPV testing performe d at [facility] (CLIA#[id number]), [address] [place] [address].Testing for HPV was performed using the Santos KATY 6800system. The presence of HPV in the female [...] 5 AM EDT 10/06/2024 7:38 AM EDT Adriana WASHINGTON LAB BLOOD ORDERABLES Renee l Result [facility] [address] [place] [phone] [phone] * Pap Smear (10/05/2024 10:55 AM EDT) Swab Cervix uteri structure / Unknown 10/05/2024 10:55 AM EDT 10/06/2024 7:38 AM EDT Shanti [facility] - 10/08/2024 12:14 PM EDT ----- ------- Name: Jany Welsh I Age/Sex: 49/F : 1975 Unit#: [id number] Attend Dr: ADRIANA ABRAHAM CNM Re10/05/24 Status: [facility] ----- ------- SPEC : [id number] RECD: 10/06/24 STATUS: ALAYNA DWYER NUM: [id number] CHIDI: 10/05/24-[address] [facility] [address]: ADRIANA ABRAHAM CNM ENTERED: 10/06/241164 SP TYPE: Pap Smr OTHR DR: ORDERED: Pap Smear Interpretation Satisfactory for evaluation. Negative for intraepithelial lesion or malignancy. HPV High Risk: Negative HPV Genotyping 16: Negative HPV Genotyping 18: Negative Clinical Information LMP: Unknown date Previous PAP test: WNL Other history: Cervical cancer screening Material Received ThinPrep-Cervical PAP Disclaimer As of February 25, 2024, the technical services to include automated prescreening performed by the ThinPrep Imaging System, PAP screening and HPV testing will be performed at [facility] (CLIA #[id number]), [address] [place] [id number]. Testing for HPV was performed using the Santos KATY 6800 system. The presence of HPV in the [...] detected. All professional services are performed by [facility] ([address] [place] [address]; ; CLIA #[id number]). The PAP Test is a screening procedure with the inherent possibility of both false negative and false positive results. Results should be interpreted in the context of historic and current clinical findings. Reliability of the PAP Test is enhanced by performing the test on a regular repetitive basis. ----- ------- Signed (signature on file) JOHN Hughes ([facility]) 10/08/24 1214 ----- ------- END OF REPORT us Adriana Alvareznadya [facility] CYTOLOGY ORDERABLES F inal Result [facility] [address] [facility] [place] [address] [phone] * BI Mammogram Screening Tomosynthesis Bilateral (05/14/2024 8:50 AM EST) Anatomical Region Laterality Modality Breast Bilateral Mammography 05/14/2024 8:50 AM EST Narrative 05/21/2024 12:38 PM EST [facility] [address] [place] [address] Mammography Report Signed Patient: Jany Welsh I MR#: M [id number] : 1975 Acct:[id number] Age/Sex: 48 / F ADM Date: 05/14/24 Loc: CHRIS Attending Dr: Libby Redd MD Ordering Physician: Libby Redd MD Results: 1Nega tive Date of Service: 05/14/24 Follow Up: 1 Year From Orig inal Mammogram Procedure(s): MM tomosynthesis screening BI Accession Number(s): [id number] cc: Libby Redd MD EXAMINATION: MM SCREENING [...] 05/21/24 1235 DD/ 0850 TD/TT: 05/14/24 0910 Straw Hat Presser: Procedure Note Donotuseinterpreter, Image - 05/21/2024 [facility] [address] [place] [address] Mammography Report Signed Patient: Jany Welsh IMR#: M [id number] : 1975Acct:[id number] Age/Sex: 48 / FADM Date: 05/14/24 Loc: HOSarahMAMMO Attending Dr: Libby Redd MD Ordering Physician: Libby Redd MDResults: 1Nega tive Date of Service: 05/14/24Follow Up: 1 Year From Orig inal Mammogram Procedure(s): MM tomosynthesis screening BI Accession Number(s): [id number] cc: Libby Redd MD EXAMINATION: MM SCREENING [...] 05/21/24 1235 DD/ 0850 TD/TT: 05/14/24 0910 Straw Hat Presser: Libby Redd MD IMG BI PROCEDURES Edited Resu lt - Final * (ABNORMAL) Lipid Panel, Standard (04/21/2024 10:16 AM EST) Triglycerides 72 <150 mg/dL [facility] Comment:Desirable Triglyceri de: less than 150 mg/dLBorderline High Triglyceride 150-199 mg/dLHigh Triglyceride: 200-499 mg/dLVery High Triglyceride: greater than or equal to 5OO mg/dL Cholesterol 134 <200 mg/dL [facility] Comment:Desirable Cholestero l: less than 200 mg/dLBorderline High Cholesterol: 200-239 mg/dLHigh Cholesterol: greater than 239 mg/dL LDL Cholesterol Calculated 90 <100 mg/dL [facility] Comment:Desirable LDL: less than 100 mg/dLNear Optimal/Above Optimal LDL: 110- 129 mg/dLBorderline High LDL: 130-159 mg/dLHigh LDL: 160-189 mg/dLVery High LDL: greater than or equal to 190 mg/dL HDL Cholesterol 30(L) >40 mg/dL [facility] Comment:Desirable HDL: great er than 40 mg/dL Note: This HDL assay may give artificially low results in patients with liver disease. Blood Venous blood specimen / Unknown 04/21/2024 10:16 AM EST 04/21/2024 2:06 PM EST us Libby Redd MD LAB BLOOD ORDERABLES Final Re sult [facility] [address], [place] [phone] * Hepatitis C Ab (01/16/2023 12:40 PM EDT) Hepatitis C Antibody Nonreactive Nonreactive [facility] Comment:Antibodies to HCV no t detected; does not exclude early acuteHCV infection. Blood 01/16/2023 12:4 0 PM EDT 01/16/2023 2:08 PM EDT us Libby Redd MD LAB BLOOD ORDERABLES Final Re sult [facility] [address] [place] [address] [phone] * HIV 1/2 ANTIGEN/ANTIBODY,FOURTH GENERATION W/RFL [...] purpose. For additional information please refer to http://Flats&Houses.[employer]/faq/FPI528 (This link is being provided for informational/ [...] purpose. For additional information please refer to http://education.[employer]/faq/ZUS968 (This link is being provided for informational/ educational purposes only.) The performance of this assay has not been clinically validated in patients less than 2 years old. HIV-1/2 ANTIGEN AND ANTIBODIES, 4TH GENERATION W/ REFLEX NON-REACT LORA NON-REACT LORA [facility] Comment: HIV-1 antigen and HIV-1/HIV-2 [...] purpose. For additional information please refer to http://Vupen/faq/XSH708 (This link is being provided for informational/ educational purposes only.) The performance of this assay has not been clinically validated in patients less than 2 years old. HIV-1/2 ANTIGEN AND ANTIBODIES, 4TH GENERATION W/ REFLEX NON-REACT LORA NON-REACT LORA [facility] Comment: HIV-1 antigen and HIV-1/HIV-2 [...] purpose. For additional information please refer to http://Flats[employer]Houses.[employer]/faq/JCC949 (This link is being provided for informational/ educational purposes only.) The performance of this assay has not been clinically validated in patients less than 2 years old. 11/18/2019 2:28 PM EDT us Kirstin Collier MD LAB BLOOD ORDERABLES Final Resul t [facility] [address] from Last 3 Months or Most Recently Relevant to Health Maintenance Insurance [facility] C[facility] * Guarantor: Jany Welsh I Account Type Relation to Patient Date of Phone Billing Address Personal/Family Self [address] Care Teams Tractor Operator Helper Relationship Specialty Start Date End Date Libby Redd MD [address] [place] [phone] PCP - General Family Medicine 01/09/23 Jodee Jean SHIP MANAGER Nurse Practitioner Gastroenterology 10/20/24
--- OUTSIDE RECORDS SUMMARY | 2025-01-10 13:32 | XMS_ITS | Encounter Summary ---
Author Organization [employer] Address [address] [facility] 7t [place] [address] Care Team Providers Care Panel Fitter Name Role Phone Nina Haider MD Primary Care Provider [phone] Libby Redd MD Primary Care Provider [phone] Encounter Details Date Type Department Care Team (Late st Contact Info) Description 08/13/2022 Telephone [facility] [address] [place], [place] [phone] Nina Haider MD [address] [place], [place] [phone] Social History Tobacco Use Types Packs/Day Years [...] Info) Description 01/13/2025 11:00 AM EDT Nutrition [facility] DIABETES/NTRN [address] [place], [place] [phone] Ritu Martinez RD [address] [place] [address] documented as of this encounter Visit Diagnoses Not on filedocumented in this encounter Care Teams Panel Fitter Relationship Specialty Start Date End Date Nina Haider MD [address] [place] [phone] PCP - General Family Medicine 10/31/21 01/08/23 Libby Redd MD [address] [place] [address] PCP - General Family Medicine 01/09/23 Jodee Jean CAD DETAILER Nurse Practitioner Gastroenterology 10/20/24 documented as of this encounter
--- OUTSIDE RECORDS SUMMARY | 2025-01-10 13:32 | XMS_ITS | Encounter Summary ---
Author Organization [employer] Address [address] [facility] 7t [place] [address] Care Team Providers Care Machine Design Checker Name Role Phone Nina Haider MD Primary Care Provider [phone] Libby Redd MD Primary Care Provider [phone] Reason for Visit * Reason Onset Date Comments Nurse Triage 10/14/2022 Encounter Details Date Type Department Care Team (Late st Contact Info) Description 10/14/2022 Telephone [facility] [address] [place], [place] [phone] Nina Haider MD [address] [place] [phone] Nurse Triage Social History Tobacco Use Types [...] 2:45 PM EDT Triage call with [place] [employer] [place] [id number] Pt reports wide spread rash all over body. Rash is red, bumpy and very itchy. Pt reports it has increased in itchiness each day. Pt denies fever, sore throat, or difficulty breathing. Pt hasn't changed detergent or started using some other soaps or body wash. Pt is advised to come to [facility] to be seenby provider and Pt agrees. [...] The caller accepted this outcome Patient speak amharic documented in this encounter Plan of Treatment Upcoming Encounters Date Type Department Care Team (Late st Contact Info) Description 01/13/2025 11:00 AM EDT Nutrition [facility] DIABETES/NTRN [address] [place], [place] [phone] Ritu Martinez, [place]NOLD [address] [place] [address] documented as of this encounter Visit Diagnoses Not on filedocumented in this encounter Care Teams Machine Design Checker Relationship Specialty Start Date End Date Nina Haider MD [address] [place] [address] PCP - General Family Medicine 10/31/21 01/08/23 Libby Redd MD [address] [place] [address] PCP - General Family Medicine 01/09/23 Jodee Jean COBOL PROGRAMMER Nurse Practitioner Gastroenterology 10/20/24 documented as of this encounter
--- OUTSIDE RECORDS SUMMARY | 2025-01-10 13:32 | XMS_ITS | Encounter Summary ---
Author Organization [employer] Address [address] [facility] 7t [place] [address] Care Team Providers Care Atv Mechanic Name Role Phone Libby Redd MD Primary Care Provider Reason for Visit * Reason Comments Med Refill Encounter Details Date Type Department Care Team ([facility] st Contact Info) Description 11/12/[address] [facility] CHC MED & PEDS [address] [place], [place] [phone] Libby Redd MD [address] [place] [address] Chronic bilateral thoracic back pain Social History [...] Info) Description 01/13/2025 11:00 AM EDT Nutrition [facility] DIABETES/NTRN [address] [place] [address] Ritu Martinez, ARNOLD [address] [place] [address] documented as of this encounter Visit Diagnoses Diagnosis Chronic bilateral thoracic back pain documented in this encounter Additional Health Concerns Assessment Noted Time PHQ-9 Depression Total Score: 15 025 11:13 AM EDT documented as of this encounter Care Teams Atv Mechanic Relationship Specialty Start Date End Date Libby Redd MD [address] [place] [address] PCP - General Family Medicine 01/09/23 Jodee Jean PROTECTIVE SIGNAL REPAIRER Nurse Practitioner Gastroenterology 10/20/24 documented as of this encounter
--- OUTSIDE RECORDS SUMMARY | 2025-01-10 13:32 | XMS_ITS | Encounter Summary ---
Author Organization [employer] Address [address] [facility] 7t [place] [address] Care Team Providers Care Packer Sausage And Wiener Name Role Phone Nina Haider MD Primary Care Provider [phone] Libby Redd MD Primary Care Provider [phone] Encounter Details Date Type Department Care Team (Late Contact Info) Description 05/08/2022 Telephone [facility] [address] [place] [address] Nina Haider MD [address] [place], [place] [phone] Social History Tobacco Use Types Packs/Day Years [...] Info) Description 01/13/2025 11:00 AM EDT Nutrition [facility] DIABETES/NTRN [address] [place], [place] [phone] Ritu Martinez RD [address] [place], [place] [phone] documented as of this encounter Visit Diagnoses Not on filedocumented in this encounter Care Teams Packer Sausage And Wiener Relationship Specialty Start Date End Date Nina Haider MD [address] [place] [address] PCP - General Family Medicine 10/31/21 01/08/23 Libby Redd MD [address] [place] [address] PCP - General Family Medicine 01/09/23 Jodee Jean CARDIOVASCULAR DISEASE SPECIALIST Nurse Practitioner Gastroenterology 10/20/24 documented as of this encounter
[2025-01-10 14:01] LABS: MANUAL DIFF FLAG NO
[2025-01-10 14:06] LABS: Hematocrit 44.3 % (37.0-47.0); Hemoglobin 14.2 g/dl (12.0-16.0); Imm Gran Abs Auto 0.03 X10*3/uL (0.00-0.03); Imm Gran Pct Auto 0.3 % (0.0-0.4); Lymphocytes Absolute Auto 3.0 X10*3/uL (1.2-4.9); Mean Corpuscular HGB Conc 32.1 g/dl (31.0-35.0); Mean Corpuscular Hemoglobin 28.2 pg (27.0-33.0); Mean Corpuscular Volume 88.1 fL (80.0-98.0); NRBC Abs Auto 0.000 X10*3/uL (0.0-0.012); NRBC Pct Auto 0.0 /100WBC (0.0-0.2); Platelet Count 237 X10*3/uL (160-400); Red Blood Count 5.03 X10*6/uL (4.20-5.50); White Blood Count 10.2 X10*3/uL (4.8-10.8)
[2025-01-10 14:32] LABS: Alanine Aminotransferase 80 U/L (0-31); Albumin Level 4.4 g/dL (3.5-5.0); Alkaline Phosphatase 126 U/L (39-117); Anion Gap 11 (12-20); Aspartate Amino Transferase 59 U/L (5-31); Blood Urea Nitrogen 14 mg/dL (9-16); Calcium 9.0 mg/dL (8.4-10.2); Carbon Dioxide 28 mmol/L (22-29); Chloride 105 mmol/L (96-108); Cholesterol 134 mg/dL (<200); Estimated Glomerular Filt Rate > 60; HDL Cholesterol 29 mg/dL (>40); Potassium 4.0 mmol/L (3.3-5.1); Sodium 140 mmol/L (135-145); Total Protein 7.7 g/dL (6.5-8.0); Triglycerides 80 mg/dL (<150)
== END 2025-01-10 11:03 | disposition home or self-care (01) ==
LOC: HO.HHCL 11:02
PROVIDERS: Registered Nurse Psychiatric/Mental Health; PCP Family Medicine; Visit Provider Family Medicine
DX: Z79.899 Other long term (current) drug therapy (principal)
CPT/HCPCS: 36415; 80053; 80061; 82248; 84443; 85025

== ENCOUNTER 2025-02-02 10:05 | Outpatient (AMB) | payer MEDICAID, SELFPAY ==
--- NOTE | 2025-02-02 10:06 | A.OFFVIS_ITS ---
Vital Signs 02/02/25 10:15 Height 5 ft Weight 194 lb BMI 37.9 BP 132/72 Blood Pressure Location Rt brachial Position Sitting Pulse 64 Pulse Source Pulse Oximeter Pulse Oximetry (%) 96 Oxygen Delivery Method Room Air Intake Visit Reasons: 5W Intake Note: Established patient for mgmt of GERD, abd pain. Discuss H Pylori tx. CC; C.O. epigastric pain and GERD persistence despite current therapies. No additional sx or concerns per pt. Fish Bait Processing Supervisor Required: Yes Fish Bait Processing Supervisor Services: Fish Bait Processing Supervisor Present Fish Bait Processing Supervisor Name: [id number] Sim Accompanied by: Significant Other Allergies No Known Allergies Allergy (Verified 02/02/25 10:07) HPI HPI 5W: Details: LAST VISIT: Elevated liver enzymes NAFLD (nonalcoholic fatty liver disease) Abdominal pain Chronic GERD Chronic constipation Postprandial abdominal bloating Encounter for screening for malignant neoplasm of colon Postprandial epigastric pain Plan Continue Nexium. Patient will stop taking tetracycline and will take doxycycline instead. Continue metronidazole and bismuth. Patient was encouraged to take Zofran in the morning and in the afternoon to help with nausea if needed. Take medication with food. Patient was also encouraged to avoid dietary triggers and late night snacking. Staying upright for minimal 3 hours after meals discussed with patient. Patient was encouraged to increase fluid intake and activity to promote better bowel motility. Explained to patient that she is on Trulicity and sometimes that can cause constipation. She was encouraged to increase fiber in his diet as well. Patient will return to the office in 5 weeks so we can schedule retesting for H pylori. Patient is agreeable to this plan and verbalizes understanding of instructions. She was given the opportunity to ask questions and all questions answered. ? Thank you for allowing me to participate in her care New ondansetron 4 mg PO Q8H PRN 30 tabs 0RF nausea and vomiting doxycycline hyclate 100 mg PO BID 28 caps 0RF 14 days Refilled esomeprazole magnesium (Nexium) 40 mg PO DAILY 90 caps 3RF K21.9 TODAY'S VISIT Patient is here today for follow-up. Patient reports that she was unable to t gray her antibiotics daily. Patient reports that she spread out the antibiotics and is still finishing them there was days that she only took it 1 to 2 per week. H pylori was found on upper endoscopy via biopsy, however patient had negative stool H pylori couple years ago. Patient still has epigastric pain in frequent no matter what she eats. She continues to take Nexium in the morning. Patient reports occasional dyspepsia without dysphagia or odynophagia. Denies any nausea or vomiting. Patient reports also constipation. She is on Trulicity and reports that her symptoms are worse specially couple days after she takes it. Denies melena, hematochezia, unintentional weight loss or ribbon like stools. [facility] Medical History Postprandial abdominal bloating Asthma Diabetes NAFLD (nonalcoholic fatty liver disease) GERD (gastroesophageal reflux disease) Morbid obesity Internal and external bleeding hemorrhoids Surgical History Hx of arthroscopic knee surgery Hx of colonoscopy History of esophagogastroduodenoscopy (EGD) History of laparoscopic cholecystectomy History of tubal ligation Family History Father No problems noted. Sister Breast tumor Sister Pancreatic cancer Social History Household Members: Spouse Are you a primary wound care technician to a significant other at home: No Do you presently have visiting nurse or other home services: No Alcohol intake: never Comment: COUNTS CORRECT Patient Tobacco Use Status: Never used Tobacco Review of Systems Const Denies weight gain and Denies weight loss ENT Reports no additional complaints, Denies dysphagia and Denies odynophagia Card Reports no additional complaints Resp Reports no additional complaints GI Reports abdominal pain, Denies belching, Denies melena, Reports bloating, Denies change in bowel habits, Reports constipation, Denies dysphagia, Denies excessive flatus, Denies dyspepsia, Reports heartburn, Denies diarrhea, Reports loose stools, Denies nausea, Denies odynophagia and Denies vomiting Reports no additional complaints Musc Reports no additional complaints Neuro Reports no additional complaints Psych Reports no additional complaints Endo Reports no additional complaints Physical Exam Vital Signs: Last Vital Signs Pulse 64 02/02/25 10:15 BP 132/72 02/02/25 10:15 Pulse Ox 96 02/02/25 10:15 Oxygen Delivery Method Room Air 02/02/25 10:15 BMI result Body Mass Index 37.9 Const General: healthy appearing and no acute distress Nutritional Appearance: obese Orientation/consciousness: patient oriented x3 Resp Effort & Inspection: normal respiratory effort, able to speak in complete sentences, no tracheal deviation and symmetric chest movement Auscultation: clear to auscultation bilaterally Cardio Rate: regular rate GI Inspection: Yes normal to inspection, No distended and Yes obesity Palpation (GI): Soft to palpation, not firm, nontender and No hepatosplenomegaly present Auscultation: normal bowel sounds General: Yes no CVA tenderness Back/Spine/Pelvis Back: no CVA tenderness Skin General skin exam: elasticity normal, turgor normal and dry skin Neuro General: patient oriented x3 Psych Appearance: grossly normal Mental Status: mental status grossly normal Assessment & Plan Assessment & Plan (1) Chronic GERD: Code(s): K21.9 - Gastro-esophageal reflux disease without esophagitis Category: Medical (2) Elevated liver enzymes: Code(s): R74.8 - Abnormal levels of other serum enzymes Category: Medical (3) NAFLD (nonalcoholic fatty liver disease): Comment: Overweight Code(s): K76.0 - Fatty (change of) liver, not elsewhere classified Category: Medical (4) Helicobacter pylori (H. pylori): Code(s): A04.8 - Other specified bacterial intestinal infections Plan Will check lipase and H pylori. Patient will stop taking Nexium for couple weeks and will take famotidine. Stop famotidine 24-48 hours before doing the test. Will treat empirically if positive. We will try different therapy if quadruple therapy was too much for patient. Patient will take senna daily. Increase fluid intake and activity to promote better bowel motility. Changing G LP 1 to tirzepatide as may have less GI issues like constipation which patient is dealing with currently. Patient was encouraged to increase fiber. She may take [id number] fiber with pre and probiotics. I will see her in the office in 3 months, sooner on as needed basis. She is agreeable to this plan a nd verbalizes understanding of instructions. She was given the opportunity to ask questions and all questions answered. Thank you for allowing me to participate in her care Orders: Orders Lipase Today R10.9 - Unspecified abdominal pain H Pylori Breath Test Today K21.9 - Gastro-esophageal reflux disease without esophagitis Medications: New famotidine (Pepcid) 20 mg PO BID 30 tabs 0RF K29.70 - Gastritis, unspecified, without bleeding sennosides (Natural Senna Laxative) 17.2 mg (2 x 8.6 mg) PO BEDTIME 60 tabs 3RF constipation K59.00 - Constipation, unspecified Coding Level of Care Code Est Pt Level 4 (34267) Complex EM visit Add On G2211 Diagnoses Chronic GERD K21.9 Elevated liver enzymes R74.8 NAFLD (nonalcoholic fatty liver disease) K76.0 Helicobacter pylori (H. pylori) A04.8 Time Spent (min) 35 Comment 25 minutes spent with patient and additional 10 minutes spent reviewing her records
[2025-02-02 10:15] VITALS: BP 132/72; PULSE 64; O2SAT 96; BMI 37.9
--- OUTSIDE RECORDS SUMMARY | 2025-02-02 11:20 | XMS_ITS | Encounter Summary ---
Author Organization [employer] Address [address] [facility] 7t [place] [address] Care Team Providers Care Sales Developer Name Role Phone Libby Redd MD Primary Care Provider [phone] Reason for Visit * Reason Comments Med Refill Encounter Details Date Type Department Care Team ([facility] st Contact Info) Description 11/12/2024 Refill [facility] CHC MED & PEDS [address] [place], [place] [phone] Libby Redd MD [address] [place] [address] Chronic bilateral thoracic back pain Social History [...] Care Team (Late st Contact Info) Description 02/03/2025 1:00 PM EDT Clinical Support [facility] DIABETES/NTRN [address] [place] [address] [place] [address] 03/14/2025 10:15 AM EST Office Visit [facility] MED & PEDS [address] [place] [address] Libby Redd MD [address] [place] [address] documented as of this encounter Visit Diagnoses Diagnosis Chronic bilateral thoracic back pain documented in this encounter Additional Health Concerns Assessment Noted Time PHQ-9 Depression Total Score: 15 025 11:13 AM EDT documented as of this encounter Care Teams Sales Developer Relationship Specialty Start Date End Date Libby Redd MD [address] [place] [address] PCP - General Family Medicine 01/09/23 Jodee Jean DRY MAN Nurse Practitioner Gastroenterology 10/20/24 documented as of this encounter
--- OUTSIDE RECORDS SUMMARY | 2025-02-02 11:20 | XMS_ITS | Clinical Summary ---
Author Organization [employer] Address [address] [place] [address] [address] [place] [address] Care Team Providers Care Solution Specialist Name Role Phone Libby Redd MD Primary Care Provider [phone] Allergies No known active allergies Medications * [...] hyperglycemia, without long-term current use of insulin (HCC) 1 each if needed (to clean skin). 100 each 11 023 Active Blood Glucose Monitoring Suppl (FreeStyle Lite) w/Device kitIndications:T ype 2 diabetes mellitus with hyperglycemia, without long-term current use of insulin (HCC) 1 each in the morning. 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 Previous liver function tests showed inflammation. The condition is likely exacerbated by uncontrolled diabetes and potentially by diet. Plan: - Reinforce dietary recommendations: reduce sugar intake, limit artificial sweeteners - Encourage weight loss through diet modifications and tolerated exercise - Monitor liver function tests - following with GI in [facility] Strain of lumbar region 09/04/2023 Chronic pain of left knee 09/04/2023 Assessment & Plan (09/04/2023 1:51 PM EDT): Ordering XR imaging of Left Knee for further investigation of symptoms. Referring Orthopaedic for further evaluation. Discussed possible joint aspiration for later date. Continue current Ibuprofen medication for relief of symptoms. Elevated parathyroid hormone 01/21/2023 Vitamin D deficiency 01/10/2023 Uses German as primary spoken language 10/19/19 23 Obesity [...] recommended reduction of 20-30% of maintenance calories; locomotive engineer electric referral offered. Recommended to decrease soda and sugary beverage consumption. Recommended at least 20 g per meal of protein to assist with satiety. Recommended at least 150 min/week of moderate intensity exercise. Assessment & Plan (01/10/2023 9:10 AM EDT): Advised patient to maintain active with physical activity with alternative workout methods. Referred to a Milk Handler. History of tubal ligation 10/18/2022 Allergic reaction 10/18/2022 Assessment & Plan (01/10/2023 9:14 AM EDT): Will send labs for allergy testing Assessment & Plan (10/18/2022 11:08 AM EDT): Itchy rash with reaction to plants? Not sure otherwise detergents and soaps are the same - antihistamine, long-acting - steroid cream to lesions Autoimmune hepatitis (CMS/HCC) 10/18/2022 Assessment & Plan (10/18/2022 11:58 AM [...] especially in the morning - Referral to locomotive engineer electric for diabetic diet education - Follow-up in 6 weeks for diabetes management - Patient to bring glucose logs for review - Laboratory tests ordered: Comprehensive metabolic panel, lipid panel, HbA1c - Pt will followup then with new PCP in [facility] due to location Assessment & Plan (04/19/2024 [...] Encounters Date Type Department Care Team Description 01/20/2025 1:00 PM EDT Clinical Support [facility] DIABETES/NTRN [address] [place] [address] Fatty liver (Primary Dx) 01/20/2025 Travel 01/18/2025 Telephone [facility] ADULT DENTAL [address] [place] [phone] Zonia Nicholson, DDS 01/13/2025 11:00 AM EDT Nutrition [facility] DIABETES/NTRN [address] [place] [address] Metabolic dysfunction-associa huseyin steatotic liver disease (MASLD) 01/13/2025 Travel 01/10/2025 Orders Only GENERIC EXTERNAL DATA DEPARTMENT Provider, Generic External Data 01/04/2025 Refill [facility] MED & PEDS [address] [place] [address] Madison Hung MD 12/31/[address] [address] Libby Redd MD Referral 12/14/2024 3:00 PM EDT Office Visit [facility] WALK[facility] [address] [address] Tamanna Chaparro MD Vertigo (Primary Dx); Dizziness; H. pylori infection; Heart murmur 12/14/2024 Telephone [facility] MEDICINE [address] [place] [phone] Libby Redd MD Referral 12/14/2024 Telephone [facility] [address] [place] [address] Libby Redd MD In person triage 12/14/2024 Travel 12/14/2024 Telephone [facility] MED & PEDS [address] [place] [address] Libby Redd MD Nurse Triage 12/13/2024 Refill [facility] MED & PEDS [address] [place] [address] Debbie Gil FNP 12/12/2024 Refill [facility] MED [facility] PED[facility] [address] [place], [place] [phone] Libby Redd MD 12/08/2024 Telephone [facility] MED [facility] PED[facility] [address] [place], [place] [phone] Libby Redd MD 12/07/[address] [address] Libby Redd MD 12/07/2024 Results Follow-Up [facility] MED & PEDS [address] [place], [place] [phone] Libby Redd MD Glucose, Whole Blood, Hematoxylin and Eosin Stain 12/02/2024 Orders Only GENERIC EXTERNAL DATA DEPARTMENT Provider, Generic External Data 12/01/2024 Telephone [facility] MED & PEDS [address] [place] [address] Matthew Zhu MD No Show 11/30/2024 Telephone [facility] MED & PEDS [address] [place] [address] Libby Redd MD Chart Prep 11/29/[address] [address] Libby Redd MD Referral 11/29/[address] [address] Libby Redd MD Nurse Triage 11/25/2024 Telephone [facility] MED & PEDS [address] [place], [place] [phone] Libby Redd MD order for referral 11/25/2024 Refill [facility] MED & PEDS [address] [place], [place] [phone] Libby Redd MD Chronic bilateral thoracic back pain 11/12/2024 Refill [facility] MED & PEDS [address] [place], [place] [phone] Libby Redd MD Chronic bilateral thoracic back pain 11/03/2024 Telephone [facility] PEDS [address] [place] [address] Libby Redd MD from Last 3 Months [...] EDT Inhaled Oxygen Concentration - - Weight 89.9 kg (198 lb 3.2 oz) 01/14/2025 11:21 AM EDT Height 157.5 cm (5' 2 ) 01/14/2025 11:21 AM EDT Body Mass Index 36.25 01/14/2025 11:21 AM EDT Plan of Treatment Upcoming Encounters Date Type Department Care Team (Late st Contact Info) Description 02/03/2025 1:00 PM EDT Clinical Support [facility] DIABETES/NTRN [address] [place] [address] Ritu Martinez, [place] [address] [place] [address] 03/14/2025 10:15 AM EST Office Visit [facility] MED & PEDS [address] [place] [address] Libby Redd MD [address] [place] [address] Health Maintenance Due Date Last Done Comments [...] history exists Depression Monitoring 04/21/2025 10/20/2024, 025 Family Planning (PISQ) 10/05/2025 10/05/2024 SDOH Screening 10/11/2025 10/11/2024 Tobacco Screening 10/20/2025 10/20/2024 Lipid Panel 01/10/2026 01/10/2025, 04/04, 09/08/2023, Additional history exists Mammogram 05/14/2026 05/14/2024 Eye Exam 09/07/2026 09/07/2024, 05/10/2024, 09/07/2024, Additional history exists Cervical Cancer Screening [...] Procedure Name Priority Date/Time Associated Diagnosis Comments TSH W/REFLEX TO FT4 Routine 01/10/2025 1 1:07 AM EDT LIPID PANEL, STANDARD Routine 01/10/2025 11:07 AM EDT GLUCOSE Routine 01/10/2025 11:07 AM EDT HEPATIC FUNCTION PANEL Routine 11:07 AM EDT COMPREHENSIVE METABOLIC PANEL Routine 01/10/2025 11:07 AM EDT CBC WITH AUTO DIFFERENTIAL Routine 01/10/2025 11:07 AM EDT POCT GLUCOSE Routine 12/14/2024 3:16 PM EDT [...] long-term current use of insulin (CMS/HCC) VITAMIN B12/FOLATE, SERUM PANEL Routine 11/26/2024 9:54 [...] AM EST Breast cancer screening by mammogram HEPATITIS C ANTIBODY Routine 01/16/2023 12:40 PM EDT Transaminitis HIV 1/2 ANTIGEN/ANTIBODY, FOURTH GENERATION W/RFL Routine 11/18/2019 2:28 PM EDT from Last 3 Months or Most Recently Relevant to Health Maintenance Results * TSH with Reflex to Free T4 (01/10/2025 11:07 AM EDT) Only the most recent of2 resultswithin the time period is included. TSH reflex Free T4 1.71 0.32 - 4.0 uIU/mL [facility] 01/10/2025 11:0 7 AM EDT 01/10/2025 1:56 PM EDT us Generic External Data Provider LAB BLOOD ORDERAB LES Final Result [facility] [address] [place] [address] [phone] * CBC auto differential (01/10/2025 11:07 AM EDT) Only the most recent of2 resultswithin the time period is included. White Blood Count 10.2 4.8 - 10.8 X10*3/uL [facility] Red Blood Count 5.03 4.20 - 5.50 X10*6/uL [facility] Hemoglobin 14.2 12.0 - 16.0 g/dl [facility] Hematocrit 44.3 37.0 - 47.0 % [facility] Mean Corpuscular Volume 88.1 80.0 - 98.0 fL [facility] Mean Corpuscular Hemoglobin 28.2 27.0 - 33.0 pg [facility] Mean Corpuscular HGB Conc 32.1 31.0 - 35.0 g/dl [facility] Red Cell Distribution Width 14.6 11.0 - 16.0 % [facility] Platelet Count 237 160 - 400 X10*3/uL [facility] Mean Platelet Volume 10.9 9.4 - 12.3 fL [facility] Neutrophils Percent Auto 59.2 45 - 73 % [facility] Imm Gran Pct Auto 0.3 0.0 - 0.4 % [facility] Lymphocytes Percent Auto 29.4 20 - 40 % [facility] Monocytes Percent Auto 6.8 2 - 11 % [facility] Eosinophils Percent Auto 3.6 0 - 4 % [facility] Basophils Percent Auto 0.7 0 - 2 % [facility] NRBC Pct Auto 0.0 0.0 - 0.2 /100WBC [facility] Neutrophils Absolute Auto 6.0 2.0 - 8.3 x10*3/uL [facility] Imm Gran Abs Auto 0.03 0.00 - 0.03 X10*3/uL [facility] Lymphocytes Absolute Auto 3.0 1.2 - 4.9 X10*3/uL [facility] Monocytes Absolute Auto 0.7 0.1 - 1.2 X10*3/uL [facility] Eosinophils Absolute Auto 0.4 0.0 - 0.4 X10*3/uL [facility] Basophils Absolute Auto 0.1 0.0 - 0.2 X10*3/uL [facility] NRBC Abs Auto 0.000 0.0 - 0.012 X10*3/uL [facility] 01/10/2025 11:0 7 AM EDT 01/10/2025 1:56 PM EDT Generic External Data Provider LAB BLOOD ORDERAB LES Final Result Performing Organization Address [facility] Co de Phone Number [facility] [address] [place] [phone] * (ABNORMAL) Glucose (01/10/2025 11:07 AM EDT) Glucose Fasting 126(H) 60 - 99 mg/dL [facility] Comment:A fasting glucose of 126 mg/dl or greater on more than oneoccasion is considered diagnostic of diabetes. 01/10/2025 11:0 7 AM EDT 01/10/2025 1:56 PM EDT us Generic External Data Provider LAB BLOOD ORDERAB LES Final Result Performing Organization Address [facility] Co de Phone Number [facility] [address] [place] [phone] * Hepatic Function Panel (01/10/2025 11:07 AM EDT) Bilirubin, Direct 0.3 0.0 - 0.5 mg/dL [facility] 01/10/2025 11:0 7 AM EDT 01/10/2025 1:56 PM EDT us Generic External Data Provider LAB BLOOD ORDERAB LES Final Result Performing Organization Address City/[facility]/ZIP Co de Phone Number [facility] [address] [place] [address] [phone] * (ABNORMAL) Lipid Panel, Standard (01/10/2025 11:07 AM EDT) Triglycerides 80 <150 mg/dL [facility] Comment:Desirable Triglyceri de: less than 150 mg/dLBorderline High Triglyceride 150-199 mg/dLHigh Triglyceride: 200-499 mg/dLVery High Triglyceride: greater than or equal to 5OO mg/dL Cholesterol 134 <200 mg/dL [facility] Comment:Desirable Cholestero l: less than 200 mg/dLBorderline High Cholesterol: 200-239 mg/dLHigh Cholesterol: greater than 239 mg/dL LDL Cholesterol Calculated 89 <100 mg/dL [facility] Comment:Desirable LDL: less than 100 mg/dLNear Optimal/Above Optimal LDL: 110- 129 mg/dLBorderline High LDL: 130-159 mg/dLHigh LDL: 160-189 mg/dLVery High LDL: greater than or equal to 190 mg/dL HDL Cholesterol 29(L) >40 mg/dL [facility] Comment:Desirable HDL: great er than 40 mg/dL Note: This HDL assay may give artificially low results in patients with liver disease. 01/10/2025 11:0 7 AM EDT 01/10/2025 1:56 PM EDT us Generic External Data Provider LAB BLOOD ORDERAB LES Final Result Performing Organization Address City/[facility]/ZIP Co de Phone Number [facility] [address] [place] [address] [phone] * (ABNORMAL) Comprehensive Metabolic Panel (01/10/2025 11:07 AM EDT) Only the most recent of2 resultswithin the time period is included. Sodium 140 135 - 145 mmol/L [facility] Potassium 4.0 3.3 - 5.1 mmol/L [facility] Chloride 105 96 - 108 mmol/L [facility] Carbon Dioxide 28 22 - 29 mmol/L [facility] Anion Gap 11(L) 12 - 20 [facility] Urea Nitrogen (BUN) 14 9 - 16 mg/dL [facility] Creatinine, Serum 0.81 0.5 - 1.4 mg/dL [facility] Estimated Glomerular Filt Rate >60 [facility] Comment:Chronic Kidney Disea se: Estimated GFR < 60 mL/min/1.46j0Cwnvfa Kidney Disease: Estimated GFR < 15 mL/min/1.73m2 Glucose 125(H) 60 - 115 mg/dL [facility] Calcium 9.0 8.4 - 10.2 mg/dL [facility] Bilirubin, Total 0.9 0.0 - 1.0 mg/dL [facility] Aspartate Amino Transferase 59(H) 5 - 31 U/L [facility] Alanine Aminotransferase 80(H) 0 - 31 U/L [facility] Total Protein 7.7 6.5 - 8.0 g/dL [facility] Albumin Level 4.4 3.5 - 5.0 g/dL [facility] Alkaline Phosphatase 126(H) 39 - 117 U/L [facility] 01/10/2025 11:0 7 AM EDT 01/10/2025 1:56 PM EDT us Generic External Data Provider LAB BLOOD ORDERAB LES Final Result [facility] [address] [place] [address] [phone] * (ABNORMAL) POCT glucose manually resulted (12/14/2024 3:16 PM EDT) Glucose Blood, POC 258(A) 60 - 200 mg/dL QC Media Lot # [id number] Lot# Expiration Date ,164 Blood Capillary blood specimen / Unknown 12/14/2024 3:16 PM EDT Bianka Perales MD POINT OF CARE TEST EN TER/EDIT ORDERABLES Final Result * MR Cervical Spine w/o Contrast (12/09/2024 7:03 PM EDT) Anatomical Region Laterality Modality Spine, C-spine Magnetic Resonan ce 12/09/2024 7:03 PM EDT Narrative 12/10/2024 7:29 AM EDT [place] [address] Magnetic Resonance Report Signed Patient: Jany Welsh I MR#: M [id number] : 1975 Acct:[id number] Age/Sex: 49 / F ADM Date: 12/09/24 Loc: HO.MRI Attending Dr: Jossue Blanco MD Ordering Physician: Jossue Blanco MD Date of Service: 12/09/24 Procedure(s): MR cervical spine wo con Accession Number(s): [id number] cc: Jossue Blanco MD; Libby Redd MD [...] in OV> 12/10/24725 DD/ 02 TD/TT: 12/09/242019 Paper Coater: Procedure Note Donotuseinterpreter, Image - 12/10/2024 [place] [address] Magnetic Resonance Report Signed Patient: Jany Welsh IMR#: M [id number] : 1975Acct:[id number] Age/Sex: 49 / FADM Date: 12/09/24 Loc: HO.MRI Attending Dr: Jossue Blanco MD Ordering Physician: Jossue Blanco MD Date of Service: 12/09/24 Procedure(s): MR cervical spine wo con Accession Number(s): [id number] cc: Jossue Blanco MD; Libby Redd MD [...] MDin OV> 12/10/24725 DD/ 02 TD/TT: 12/09/242019 Paper Coater: [facility] External Provider IMG MRI PROCEDURES Final Result * Hematoxylin and Eosin Stain (12/02/2024 8:52 AM EDT) 12/02/2024 8:52 AM EDT 12/02/2024 9:22 AM EDT [facility] - 12/06/2024 3:58 PM EDT ----- ------- Name: Jany Welsh I Age/Sex: 49/F : 1975 Unit#: [id number] Attend Dr: Belinda Murray MD Re12/02/24 Status: [facility] Location: [facility] Disch: ----- ------- SPEC : [id number] RECD: 12/02/24 STATUS: ALAYNA REYMUNDO NUM: [id number] CHIDI: 12/02/24 [facility] DR: Belinda Murray MD ENTERED: 12/02/24 SP [...] ON NEXT PAGE ----- ------- Name: Jaime CrewsJany cespedes I Age/Sex: 49/F : 1975 [id number]#: [id number] Attend Dr: Belinda Murray MD Re12/02/24 Status: [facility] Location: [facility] Disch: ----- ------- SPEC : [id number] RECD: 12/02/24 STATUS: ALAYNA DWYER NUM: [id number] CHIDI: 12/02/24 [facility] DR: Belinda Murray MD ENTERED: 12/02/24 SP [...] developed and their performance characteristics determined by [facility]. They have not been cleared or approved by the U.S. Food and Drug Administration (FDA). However, the FDA has determined that such clearance or approval is not necessary. This laboratory is certified under the Clinical Laboratory Improvement Amendments of 1988 (CLIA) as qualified to perform high complexity clinical laboratory testing. Copies To: Libby Redd MD [address] [place] [address] Belinda Murray MD [facility] [address] [place] [address] [email or web address] ----- ------- Signed (signature on file) Tc Pinedo MD 12/06/24 1558 ----- ------- END OF REPORT Generic External Data Provider LAB BLOOD ORDERAB LES Final Result Performing Organization Address [facility] Co de Phone Number [facility] [address] [place] [address] [phone] * (ABNORMAL) Glucose, Whole Blood (12/02/2024 7:24 AM EDT) Glucose, Whole Blood 194(H) 60 - 115 mg/dL [facility] Comment:METER #: [id number] 12/02/2024 7:24 AM EDT 12/02/2024 7:28 AM EDT Generic External Data Provider LAB BLOOD ORDERAB LES Final Result Performing Organization Address [facility] de Phone Number [facility] [address] [place] [address] [phone] * XR Knee 3 Views Right (11/26/2024 9:56 AM EDT) Anatomical Region Laterality Modality Lower Extremities, Knee Right Radiogra phic Imaging 11/26/2024 9:56 AM EDT Narrative 11/26/2024 10:19 AM EDT [address] [address] XRay Report Signed Patient: Jany Welsh I MR#: M [id number] : 1975 Acct:[id number] Age/Sex: 49 / F ADM Date: 11/26/24 Loc: HO.LAB Attending Dr: Libby Redd MD Ordering Physician: Libby Redd MD Date of Service: 11/26/24 Procedure(s): XR knee RT 3V Accession Number(s): [id number] cc: Libby Redd MD EXAMINATION: XR KNEE, RIGHT CLINICAL INFORMATION: 49 yo F with right knee pain, DJD send to [facility] COMPARISON: None available. TECHNIQUE: AP lateral and [...] 11/26/24 1016 DD/ 0956 TD/TT: 11/26/24 1013 Paper Coater: Procedure Note Donotuseinterpreter, Image - 11/26/2024 [place] [address] XRay Report Signed Patient: Jany Welsh [facility]#: M [id number] : 1975Acct:[id number] Age/Sex: 49 / FADM Date: 11/26/24 Loc: HO.LAB Attending Dr: Libby Redd MD Ordering Physician: Libby Redd MD Date of Service: 11/26/24 Procedure(s): XR knee RT 3V Accession Number(s): [id number] cc: Libby Redd MD EXAMINATION: XR KNEE, RIGHT CLINICAL INFORMATION: 49 yo F with right knee pain, DJD send to [facility] COMPARISON: None available. TECHNIQUE: AP lateral and [...] 11/26/24 1016 DD/ 0956 TD/TT: 11/26/24 1013 Paper Coater: Libby Redd MD IMG XR PROCEDURES Edited Resu lt - Final * Vitamin D, 25-Hydroxy, Total, Immunoassay (11/26/2024 9:54 AM EDT) Vitamin D 25-OH Total 35.1 >30 ng/mL [facility] Comment: Health Based Reference Values*< 20 ng/mL Eqlsiyjpf34-70 ng/mL Insufficient> 30 ng/mL Sufficient*Barak SNEED. N [...] ORDERABLES Final Re sult Performing Organization Address [facility]/ZIP Co de Phone Number [facility] [address] [place] [phone] * Vitamin B12 (Cobalamin) and Folate Panel, Serum (11/26/2024 9:54 AM EDT) Vitamin B12 810 200 - 900 pg/mL [facility] Comment:NORMAL 200-900 PG/ML INDETERMINATE 160-199 PG/ML DEFICIENT < 160 PG/ML Folate 11.7 > or = 4.0 ng/mL [facility] Comment:Reference Values:> o r = [...] ORDERABLES Final Re sult Performing Organization Address [facility] Co de Phone Number [facility] [address] [place] [phone] * (ABNORMAL) POCT A1C (10/20/2024 10:09 AM EDT) [facility] Hemoglobin A1C 9.5(A) 4.0 - 6.0 % QC Media Lot # Comment:[id number] Lot# Expiration Date Comment:05/26/2026 Blood 10/20/2024 10:0 9 AM EDT Libby Redd MD POINT OF CARE TEST ENTER/EDIT ORDERABLES Final Result * HPV DNA, Low/High Risk (10/05/2024 10:55 AM EDT) Pathologist [facility] HPV High Risk Negative Negative [facility] HPV Genotype 16 Negative Negative [facility] HPV Genotype 18 Negative Negative [facility] Comment:HPV testing performe d at [facility] (CLIA#[id number]), [address] [place] [address].Testing for HPV was performed using the Santos [...] AM EDT 10/06/2024 7:38 AM EDT Adriana Abraham [facility] BLOOD ORDERABLES Renee carol Result [facility] [address] [place] [phone] * Pap Smear (10/05/2024 10:55 AM EDT) Swab Cervix uteri structure / Unknown 10/05/2024 10:55 AM EDT 10/06/2024 7:38 AM EDT Narrative [facility] - 10/08/2024 12:14 PM EDT ----- ------- Name: Jany Welsh I Age/Sex: 49/F : 1975 Unit#: [id number] Attend Dr: ADRIANA ABRAHAM CNM Re10/05/24 Status: [facility] REF Location: [facility] Disch: ----- ------- SPEC : [id number] RECD: 10/06/2438 STATUS: ALAYNA DYWER NUM: [id number] CHIDI: 10/05/24-1055 [facility] DR: ADRIANA ABRAHAM [facility] ENTERED: 10/06/244 SP TYPE: Pap Smr OTHR DR: ORDERED: [...] and HPV testing will be performed at [facility] (CLIA #[id number]), [address] [place] [address]. Testing for HPV was performed using the [...] detected. All professional services are performed by [facility] ([address] [place], [place] [id number]; ; CLIA #[id number]). The PAP Test is a screening procedure with the inherent possibility of both false negative and false positive results. Results should be interpreted in the context of historic and current clinical findings. Reliability of the PAP Test is enhanced by performing the test on a regular repetitive basis. ----- ------- Signed (signature on file) JOHN Hughes ([facility]) 10/08/24 1214 ----- ------- END OF REPORT us Adriana Abraham [facility] CYTOLOGY ORDERABLES F inal Result [facility] [address] [place] [address] [phone] * BI Mammogram Screening Tomosynthesis Bilateral (05/14/2024 8:50 AM EST) Anatomical Region Laterality Modality Breast Bilateral Mammography 05/14/2024 8:50 AM EST Narrative 05/21/2024 12:38 PM EST [facility] [address] [place] [address] [place] [address] Mammography Report Signed Patient: Jany Welsh I MR#: M [id number] : 1975 Acct:[id number] Age/Sex: 48 / F ADM Date: 05/14/24 Loc: [facility] Attending Dr: Libby Redd MD Ordering Physician: Libby Redd MD Results: 1Nega tive Date of Service: 05/14/24 Follow Up: 1 Year From Orig inal Mammogram Procedure(s): MM tomosynthesis screening BI Accession Number(s): [id number] cc: Libby Redd MD EXAMINATION: MM SCREENING [...] by: Radha Aguirre DO 05/21/2024 12:35 PM [facility] Dictated By: Radha Aguirre DO Signed By: <Electronically signed by Radha Aguirre DO in OV> 05/21/24 1235 DD/ 0850 TD/TT: 05/14/24 0910 Paper Coater: Procedure Note Donotuseinterpreter, Image - 05/21/2024 [facility] [address] [place] [address] Dr. Yung, PIPPA [address] Mammography Report Signed Patient: Jany Welsh IMR#: [id number] : 1975Acct:[id number] Age/Sex: 48 / FADM Date: 05/14/24 Loc: HO.MAMMO Attending Dr: Libby Redd MD Ordering Physician: Libby Redd MDResults: 1Nega tive Date of Service: 05/14/24Follow Up: 1 Year From Orig inal Mammogram Procedure(s): MM tomosynthesis screening BI Accession Number(s): [id number] cc: Libby Redd MD EXAMINATION: MM SCREENING [...] 05/21/24 1235 DD/ 0850 TD/TT: 05/14/24 0910 Paper Coater: Libby Redd MD IMG BI PROCEDURES Edited Resu lt - Final * Hepatitis C Ab (01/16/2023 12:40 PM EDT) Hepatitis C Antibody Nonreactive Nonreactive [facility] Comment:Antibodies to HCV no t detected; does not exclude early acuteHCV infection. Blood 01/16/2023 12:4 0 PM EDT 01/16/2023 2:08 PM EDT Libby Redd MD LAB BLOOD ORDERABLES Final Re sult [facility] [address] [place] [phone] * HIV 1/2 ANTIGEN/ANTIBODY,FOURTH GENERATION W/RFL [...] purpose. For additional information please refer to http://Reunify.MyNewPlace/faq/WYM508 (This link is being provided for informational/ [...] purpose. For additional information please refer to http://education.[employer].Yapp Media/faq/VCR695 (This link is being provided for informational/ [...] purpose. For additional information please refer to http://Reunify.MyNewPlace/faq/QEP255 (This link is being provided for informational/ educational purposes only.) The performance of this assay has not been clinically validated in patients less than 2 years old. HIV-1/2 ANTIGEN AND ANTIBODIES, 4TH GENERATION W/ REFLEX NON-REACT LORA NON-REACT LORA [facility] Comment: HIV-1 antigen and HIV-1/HIV-2 [...] purpose. For additional information please refer to http://Reunify.[employer].Yapp Media/faq/HNX040 (This link is being provided for informational/ educational purposes only.) The performance of this assay has not been clinically validated in patients less than 2 years old. 11/18/2019 2:28 PM EDT us Kirstin Collier MD LAB BLOOD ORDERABLES Final Resul t [facility] [address] from Last 3 Months or Most Recently Relevant to Health Maintenance Insurance [facility] C3 Care Teams Solution Specialist Relationship Specialty Start Date End Date Libby Redd MD [address] [place] [address] PCP - General Family Medicine 01/09/23 Jodee Jean TALENT REP Nurse Practitioner Gastroenterology 10/20/24
--- OUTSIDE RECORDS SUMMARY | 2025-02-02 11:20 | XMS_ITS | Encounter Summary ---
Author Organization [employer] Address [address] [facility] 7t [place] [address] Care Team Providers Care Hot Mill Tin Roller Name Role Phone Nina Haider MD Primary Care Provider [phone] Libby Redd MD Primary Care Provider [phone] Encounter Details Date Type Department Care Team (Late st Contact Info) Description 08/13/2022 Telephone [facility] MEDICINE 230 [place], [place] [phone] Nina Haider MD 230 [place], [place] [phone] Social History Tobacco Use Types Packs/Day Years [...] Description 02/03/2025 1:00 PM EDT Clinical Support [facility] DIABETES/NTRN 505 [place], [place] [phone] Ritu [address] 230 [place] [address] 03/14/2025 10:15 AM EST Office Visit [facility] MED & PEDS 505 [place], [place] [phone] Libby Redd MD 505 [place] [address] documented as of this encounter Visit Diagnoses Not on filedocumented in this encounter Care Teams Hot Mill Tin Roller Relationship Specialty Start Date End Date Nina Haider MD 230 [place] [address] PCP - General Family Medicine 10/31/21 01/08/23 Libby Redd MD 230 [place] [address] PCP - General Family Medicine 01/09/23 Jodee Jean PICKLE WATER PUMP OPERATOR Nurse Practitioner Gastroenterology 10/20/24 documented as of this encounter
--- OUTSIDE RECORDS SUMMARY | 2025-02-02 11:20 | XMS_ITS | Encounter Summary ---
Author Organization [employer] Address 75 [facility] 7t [place] [address] Care Team Providers Care Propeller Engineer Name Role Phone Libby Redd MD Primary Care Provider [phone] Encounter Details Date Type Department Care Team ([facility] Contact Info) Description 01/18/2025 Telephone [facility] ADULT DENTAL 230 [place] [address] Zonia Nicholson, DDS 230 [place], [place] [phone] Social History Tobacco Use Types Packs/Day Years [...] Description 02/03/2025 1:00 PM EDT Clinical Support [facility] DIABETES/NTRN 505 [place] [address] Ritu Martinez, RD 230 [place] [address] 03/14/2025 10:15 AM EST Office Visit [facility] MED & PEDS 505 [place] [address] Libby Redd MD 505 [place] [address] documented as of this encounter Visit Diagnoses Not on filedocumented in this encounter Additional Health Concerns Assessment Noted Time PHQ-9 Depression Total Score: 15 025 11:13 AM EDT documented as of this encounter Care Teams Propeller Engineer Relationship Specialty Start Date End Date Libby Redd MD 230 [place] [address] PCP - General Family Medicine 01/09/23 Jodee Jean DIVISION MERCHANDISE MANAGER Nurse Practitioner Gastroenterology 10/20/24 documented as of this encounter
--- OUTSIDE RECORDS SUMMARY | 2025-02-02 11:20 | XMS_ITS | Encounter Summary ---
Author Organization [employer] Address [address] [facility] 7 [place] [address] Care Team Providers Care Forging Press Operator Name Role Phone Libby Redd MD Primary Care Provider [phone] Reason for Visit * Reason Onset Date Comments Results 06/07/2024 Encounter Details Date Type Department Care Team ([facility] st Contact Info) Description 06/07/[address] [facility] CH[facility] MED & PEDS 505 [place], [place] [phone] Libby Redd MD 505 [place] [address] Results Social History Tobacco Use Types Packs/Day [...] mammogram Date when done: 2-3 weeks Facility: [facility] documented in this encounter Plan of Treatment Upcoming Encounters Date Type Department Care Team (Late st Contact Info) Description 02/03/2025 1:00 PM EDT Clinical Support [facility] DIABETES/NTRN 505 [place] [address] Ritu Martinez, RD 230 [place] [address] 03/14/2025 10:15 AM EST Office Visit [facility] MED & PEDS 505 [place] [address] Libby Redd MD 505 [place] [address] documented as of this encounter Visit Diagnoses Not on filedocumented in this encounter Additional Health Concerns Assessment Noted Time PHQ-9 Depression Total Score: 21 024 8:35 AM EDT documented as of this encounter Care Teams Forging Press Operator Relationship Specialty Start Date End Date Libby Redd MD 230 [place] [address] PCP - General Family Medicine 01/09/23 Jodee Jean NP Nurse Practitioner Gastroenterology 10/20/24 documented as of this encounter
--- OUTSIDE RECORDS SUMMARY | 2025-02-02 11:20 | XMS_ITS | Encounter Summary ---
Author Organization [employer] Address [address] [place] [address] 7t [place] [address] Care Team Providers Care Clearance Rep Name Role Phone Nina Haider MD Primary Care Provider [phone] Libby Redd MD Primary Care Provider [phone] Reason for Visit * Reason Onset Date Comments Nurse Triage 10/14/2022 Encounter Details Date Type Department Care Team (Late st Contact Info) Description 10/14/2022 Telephone [facility] MEDICINE 230 [place], [place] [phone] Nina Haider MD 230 [place], [place] [phone] Nurse Triage Social History Tobacco Use Types [...] 2:45 PM EDT Triage call with pacific [place]man [place] [id number] Pt reports wide spread rash all over body. Rash is red, bumpy and very itchy. Pt reports it has increased in itchiness each day. Pt denies fever, sore throat, or difficulty breathing. Pt hasn't changed detergent or started using some other soaps or body wash. Pt is advised to come to [facility] to be seenby provider and Pt agrees. [...] The caller accepted this outcome Patient speak estonian documented in this encounter Plan of Treatment Upcoming Encounters Date Type Department Care Team ([facility] st Contact Info) Description 02/03/2025 1:00 PM EDT Clinical Support [facility] DIABETES/NTRN 505 [place], [place] [phone] Ritu Martinez, ARNOLD 230 [place] [address] 03/14/2025 10:15 AM EST Office Visit [facility] CHC MED & PEDS 505 [place] [address] Libby Redd MD 505 [place] [address] documented as of this encounter Visit Diagnoses Not on filedocumented in this encounter Care Teams Clearance Rep Relationship Specialty Start Date End Date Nina Haider MD 230 [place] [address] PCP - General Family Medicine 10/31/21 01/08/23 Libby Redd MD 230 [place] [address] PCP - General Family Medicine 01/09/23 Jodee Jean COMMUNICATION ELECTRONIC TECHNICIAN Nurse Practitioner Gastroenterology 10/20/24 documented as of this encounter
--- OUTSIDE RECORDS SUMMARY | 2025-02-02 11:20 | XMS_ITS | Encounter Summary ---
Author Organization [employer] Address [address] [place] [address] 7t [place] [address] Care Team Providers Care Compensator Worker Name Role Phone Nina Haider MD Primary Care Provider [phone] Libby Redd MD Primary Care Provider [phone] Encounter Details Date Type Department Care Team (Late st Contact Info) Description 07/31/2022 Orders Only [facility] MED & PEDS 505 [place] [address] Sondra Valera LPN Social History Tobacco Use [...] Department Care Team (Late Contact Info) Description 02/03/2025 1:00 PM EDT Clinical Support [facility] DIABETES/NTRN 505 [place] [address] Ritu Martinez, ARNOLD [address] [place], [place] [phone] 03/14/2025 10:15 AM EST Office Visit [facility] MED & PEDS [address] [place] [address] Libby Redd MD [address] [place] [address] documented as of this encounter Visit Diagnoses Not on filedocumented in this encounter Care Teams Compensator Worker Relationship Specialty Start Date End Date Nina Haider MD 230 [place] [address] PCP - General Family Medicine 10/31/21 01/08/23 Libby Redd MD 230 [place] [address] PCP - General Family Medicine 01/09/23 Jodee Jean CORRECTIONAL PROBATION OFFICER Nurse Practitioner Gastroenterology 10/20/24 documented as of this encounter
--- OUTSIDE RECORDS SUMMARY | 2025-02-02 11:20 | XMS_ITS | Encounter Summary ---
Author Organization [employer] Address [address] [facility] 7t [place] [address] Care Team Providers Care New Car Salesperson Name Role Phone Nina Haider MD Primary Care Provider [phone] Libby Redd MD Primary Care Provider [phone] Encounter Details Date Type Department Care Team (Late st Contact Info) Description 05/08/2022 Telephone [facility] MEDICINE 230 [place], [place] [phone] Nina Haider MD 230 [place], [place] [phone] Social History Tobacco Use Types Packs/Day Years [...] Description 02/03/2025 1:00 PM EDT Clinical Support [facility] CHC DIABETES/NTRN 505 [place], [place] [phone] Ritu Martinez RD 230 [place] [address] 03/14/2025 10:15 AM EST Office Visit [facility] CHC MED & PEDS 505 [place] [address] Libby Redd MD 505 [place] [address] documented as of this encounter Visit Diagnoses Not on filedocumented in this encounter Care Teams New Car Salesperson Relationship Specialty Start Date End Date Nina Haider MD 230 [place] [address] PCP - General Family Medicine 10/31/21 01/08/23 Libby Redd MD 230 [place] [address] PCP - General Family Medicine 01/09/23 Jodee Jean POTATO LOADER Nurse Practitioner Gastroenterology 10/20/24 documented as of this encounter
--- OUTSIDE RECORDS SUMMARY | 2025-02-02 11:20 | XMS_ITS | Encounter Summary ---
Author Organization [employer] Address [address] [place] [address] 7 [place] [address] Care Team Providers Care Consumer Affairs Specialist Name Role Phone Nina Haider MD Primary Care Provider [phone] Libby Redd MD Primary Care Provider [phone] Encounter Details Date Type Department Care Team (Late st Contact Info) Description 07/12/2022 Orders Only [facility] MED & PEDS 505 [place] [address] Sondra Valera LPN Social History Tobacco Use [...] Description 02/03/2025 1:00 PM EDT Clinical Support [facility] DIABETES/NTRN 505 [place] [address] Ritu Martinez, ARNOLD 230 [place], [place] [phone] 03/14/2025 10:15 AM EST Office Visit [facility] MED & PEDS 505 [place] [address] Libby Redd MD 505 [place] [address] documented as of this encounter Visit Diagnoses Not on filedocumented in this encounter Care Teams Consumer Affairs Specialist Relationship Specialty Start Date End Date Nina Haider MD 230 [place] [address] PCP - General Family Medicine 10/31/21 01/08/23 Libby Redd MD 230 [place] [address] PCP - General Family Medicine 01/09/23 Jodee Jean PASTRY FINISHER Nurse Practitioner Gastroenterology 10/20/24 documented as of this encounter
--- OUTSIDE RECORDS SUMMARY | 2025-02-02 11:20 | XMS_ITS | Encounter Summary ---
Author Organization [employer] Address [address] [place] [address] 7 [place] [address] Care Team Providers Care Hose Builder Name Role Phone Libby Redd MD Primary Care Provider [phone] Reason for Visit * Reason Onset Date Comments PCP/Location 09/24/2024 Encounter Details Date Type Department Care Team ([facility] st Contact Info) Description 09/24/2024 Telephone [facility] MED & PEDS 505 [place], [place] [phone] Libby Redd MD 505 [place] [address] PCP/Location Social History Tobacco Use Types Packs/Day [...] is your housing situation today? I have texana cutler 09/24/[address] you [...] wants to switch and would [facility] PCP. * Telephone Encounter - Estefany Avalos - 09/24/2024 2:50 PM EDT Tc from pt requesting location change [facility] to [facility] due to transportation. Pt lives in [place]. Contact pt at [phone] (malaysian) documented in this encounter Plan of Treatment Upcoming Encounters Date Type Department Care Team (Late st Contact Info) Description 02/03/2025 1:00 PM EDT Clinical Support [facility] DIABETES/NTRN 505 [place], [place] [phone] Ritu [address] 230 [place] [address] 03/14/2025 10:15 AM EST Office Visit [facility] MED & PEDS 505 [place], [place] [phone] Libby Redd MD 505 [place] [address] documented as of this encounter Visit Diagnoses Not on filedocumented in this encounter Additional Health Concerns Assessment Noted Time PHQ-9 Depression Total Score: 21 024 8:35 AM EDT documented as of this encounter Care Teams Hose Builder Relationship Specialty Start Date End Date Libby Redd MD [address] [place] [address] PCP - General Family Medicine 01/09/23 Jodee Jean CUTTING ROOM SUPERVISOR Nurse Practitioner Gastroenterology 10/20/24 documented as of this encounter
== END 2025-02-02 10:44 | disposition home or self-care (01) ==
LOC: HO.HGI 10:06
PROVIDERS: PCP Family Medicine; Visit Provider Nurse Practitioner Family
DX: K21.9 Gastro-esophageal reflux disease without esophagitis (principal); R74.8 Abnormal levels of other serum enzymes; K76.0 Fatty (change of) liver, not elsewhere classified; A04.8 Other specified bacterial intestinal infections
CPT/HCPCS: 99214

== ENCOUNTER → 2025-02-02 10:05 | Outpatient (BNVA) | payer MEDICAID, SELFPAY | PROVIDERS: PCP Family Medicine; Visit Provider Nurse Practitioner Family | DX: K21.9 Gastro-esophageal reflux disease without esophagitis (principal); K76.0 Fatty (change of) liver, not elsewhere classified; R74.8 Abnormal levels of other serum enzymes; A04.8 Other specified bacterial intestinal infections | CPT/HCPCS: 99212 ==

== ENCOUNTER → 2025-02-04 14:38 | Outpatient (REF) | payer MEDICAID, SELFPAY ==
--- OUTSIDE RECORDS SUMMARY | 2025-02-04 14:42 | XMS_ITS | Encounter Summary ---
Author Organization [employer] Address [address] [facility] 7t [place] [address] Care Team Providers Care Order Clerk Name Role Phone Libby Redd MD Primary Care Provider [phone] Encounter Details Date Type Department Care Team ([facility] Contact Info) Description 01/18/2025 Telephone [facility] ADULT DENTAL 230 [place] [address] Zonia Nicholson, DDS 230 [place], [place] [phone] Social History Tobacco Use Types Packs/Day Years [...] Care Team (Late st Contact Info) Description 03/14/2025 10:15 AM EST Office [facility] MED & PEDS 505 [place] [address] Libby Redd MD 505 [place] [address] documented as of this encounter Visit Diagnoses Not on filedocumented in this encounter Additional Health Concerns Assessment Noted Time PHQ-9 Depression Total Score: 15 025 11:13 AM EDT documented as of this encounter Care Teams Order Clerk Relationship Specialty Start Date End Date Libby Redd MD 230 [place] [address] PCP - General Family Medicine 01/09/23 Jodee Jean FINISHING MACHINE OPERATOR AUTOMATIC Nurse Practitioner Gastroenterology 10/20/24 documented as of this encounter
--- OUTSIDE RECORDS SUMMARY | 2025-02-04 14:42 | XMS_ITS | Encounter Summary ---
Author Organization [employer] Address [address] [place] [address] 7t [place] [address] Care Team Providers Care Stove Carriage Operator Name Role Phone Nina Haider MD Primary Care Provider [phone] Libby Redd MD Primary Care Provider Encounter Details Date Type Department Care Team (Late st Contact Info) Description 08/13/2022 Telephone [facility] MEDICINE 230 [place] [address] Nina Haider MD 230 [place] [address] Social History Tobacco Use Types Packs/Day Years [...] Description 03/14/2025 10:15 AM EST Office Visit [facility] CHC MED & PEDS 505 [place], [place] [phone] Libby Redd MD [address] [place] [address] documented as of this encounter Visit Diagnoses Not on filedocumented in this encounter Care Teams Stove Carriage Operator Relationship Specialty Start Date End Date Nina Haider MD [address] [place] [address] PCP - General Family Medicine 10/31/21 01/08/23 Libby Redd MD 230 [place] [address] PCP - General Family Medicine 01/09/23 Jodee Jean TRUCK ASSEMBLER Nurse Practitioner Gastroenterology 10/20/24 documented as of this encounter
--- OUTSIDE RECORDS SUMMARY | 2025-02-04 14:42 | XMS_ITS | Encounter Summary ---
Author Organization [employer] Address [address] [place] [address] 7t [place] [address] Care Team Providers Care Technical Manager Name Role Phone Nina Hadier MD Primary Care Provider [phone] Libby Redd MD Primary Care Provider [phone] Encounter Details Date Type Department Care Team (Late st Contact Info) Description 05/08/2022 Telephone [facility] MEDICINE 230 [place] [address] Nina Haider MD 230 [place] [address] Social History Tobacco Use Types Packs/Day Years [...] Description 03/14/2025 10:15 AM EST Office Visit [facility] CHC MED & PEDS 505 [place] [address] Libby Redd MD 505 [place], [place] [phone] documented as of this encounter Visit Diagnoses Not on filedocumented in this encounter Care Teams Technical Manager Relationship Specialty Start Date End Date Nina Haider MD 230 [place] [address] PCP - General Family Medicine 10/31/21 01/08/23 Libby Redd MD 230 [place] [address] PCP - General Family Medicine 01/09/23 Jodee Jean CHIEF RELAY TESTER Nurse Practitioner Gastroenterology 10/20/24 documented as of this encounter
--- OUTSIDE RECORDS SUMMARY | 2025-02-04 14:42 | XMS_ITS | Encounter Summary ---
Author Organization [employer] Address [address] [place] [address] 7t [place] [address] Care Team Providers Care Addiction Social Worker Name Role Phone Nina Haider MD Primary Care Provider [phone] Libby Redd MD Primary Care Provider [phone] Encounter Details Date Type Department Care Team (Late st Contact Info) Description 07/31/2022 Orders Only [facility] MED & PEDS 505 [place] [address] Sondra Valera LPN Social History Tobacco Use [...] Description 03/14/2025 10:15 AM EST Office Visit [facility] MED & PEDS 505 [place] [address] Libby Redd MD 505 [place] [address] documented as of this encounter Visit Diagnoses Not on filedocumented in this encounter Care Teams Addiction Social Worker Relationship Specialty Start Date End Date Nina Haider MD 230 [place] [address] PCP - General Family Medicine 10/31/21 01/08/23 Libby Redd MD 230 [place] [address] PCP - General Family Medicine 01/09/23 Jodee Jean BIOFUELS PRODUCTION TECHNICIAN Nurse Practitioner Gastroenterology 10/20/24 documented as of this encounter
--- OUTSIDE RECORDS SUMMARY | 2025-02-04 14:42 | XMS_ITS | Encounter Summary ---
Author Organization [employer] Address [address] [place] [address] 7t [place] [address] Care Team Providers Care Yarn Dyer Name Role Phone Nina Haider MD Primary Care Provider [phone] Libby Redd MD Primary Care Provider [phone] Reason for Visit * Reason Onset Date Comments Nurse Triage 10/14/2022 Encounter Details Date Type Department Care Team (Late st Contact Info) Description 10/14/[address] [facility] MEDICINE 230 [place], [place] [phone] Nina Haider MD 230 [place], [place] [phone] Nurse Triage Social History Tobacco Use Types [...] 2:45 PM EDT Triage call with pacific Sr. [employer] System Administrator ID [id number] Pt reports wide spread rash all over body. Rash is red, bumpy and very itchy. Pt reports it has increased in itchiness each day. Pt denies fever, sore throat, or difficulty breathing. Pt hasn't changed detergent or started using some other soaps or body wash. Pt is advised to come to [facility] to be seenby provider and Pt [...] The caller accepted this outcome Patient speak mauritian documented in this encounter Plan of Treatment Upcoming Encounters Date Type Department Care Team ([facility] st Contact Info) Description 03/14/2025 10:15 AM EST Office Visit [facility] MED & PEDS 505 [place] [address] Libby Redd MD 505 [place] [address] documented as of this encounter Visit Diagnoses Not on filedocumented in this encounter Care Teams Yarn Dyer Relationship Specialty Start Date End Date Nina Haider MD 230 [place] [address] PCP - General Family Medicine 10/31/21 01/08/23 Libby Redd MD 230 [place] [address] PCP - General Family Medicine 01/09/23 Jodee Jean ANATOMIC PATHOLOGY ASSISTANT Nurse Practitioner Gastroenterology 10/20/24 documented as of this encounter
--- OUTSIDE RECORDS SUMMARY | 2025-02-04 14:42 | XMS_ITS | Encounter Summary ---
Author Organization [employer] Address [address] [place] [address] 7 [place] [address] Care Team Providers Care Biometrics Instructor Name Role Phone Libby Redd MD Primary Care Provider [phone] Reason for Visit * Reason Onset Date Comments Results 06/07/2024 Encounter Details Date Type Department Care Team ([facility] st Contact Info) Description 06/07/[address] [facility] MED & PEDS [address] [place], [place] [phone] Libby Redd MD [address] [place] [address] Results Social History Tobacco Use Types Packs/Day [...] Date when done: 2-3 weeks Facility: [facility] documented in this encounter Plan of Treatment Upcoming Encounters Date Type Department Care Team (Late st Contact Info) Description 03/14/2025 10:15 AM EST Office Visit [facility] MED & PEDS [address] [place] [address] Libby Redd MD [address] [place] [address] documented as of this encounter Visit Diagnoses Not on filedocumented in this encounter Additional Health Concerns Assessment Noted Time PHQ-9 Depression Total Score: 21 024 8:35 AM EDT documented as of this encounter Care Teams Biometrics Instructor Relationship Specialty Start Date End Date Libby Redd MD [address] [place] [id number] PCP - General Family Medicine 01/09/23 Jodee Jean RAG GRADER Nurse Practitioner Gastroenterology 10/20/24 documented as of this encounter
--- OUTSIDE RECORDS SUMMARY | 2025-02-04 14:42 | XMS_ITS | Encounter Summary ---
Author Organization [employer] Address [address] [place] [address] 7 [place] [address] Care Team Providers Care Mcat Instructor Name Role Phone Libby Redd MD Primary Care Provider [phone] Reason for Visit * Reason Onset Date Comments PCP/Location 09/24/2024 Encounter Details Date Type Department Care Team ([facility] st Contact Info) Description 09/24/2024 Telephone [facility] MED & PEDS [address] [place], [place] [phone] Libby Redd MD [address] [place] [address] PCP/Location Social History Tobacco Use Types Packs/Day [...] [facility]. * Telephone Encounter - Estefany Avalos - 09/24/2024 2:50 PM EDT Tc from pt requesting location change from [facility] to [facility] due to transportation. Pt lives in [place]. Contact pt at [phone] (icelandic) documented in this encounter Plan of Treatment Upcoming Encounters Date Type Department Care Team (Late st Contact Info) Description 03/14/2025 10:15 AM EST Office Visit [facility] MED & PEDS [address] [place] [address] Libby Redd MD [address] [place] [address] documented as of this encounter Visit Diagnoses Not on filedocumented in this encounter Additional Health Concerns Assessment Noted Time PHQ-9 Depression Total Score: 21 024 8:35 AM EDT documented as of this encounter Care Teams Mcat Instructor Relationship Specialty Start Date End Date Libby Redd MD [address] [place] [address] PCP - General Family Medicine 01/09/23 Jodee Jean LPN RN Nurse Practitioner Gastroenterology 10/20/24 documented as of this encounter
--- OUTSIDE RECORDS SUMMARY | 2025-02-04 14:42 | XMS_ITS | Encounter Summary ---
Author Organization [employer] Address [address] [facility] [address] [place] [address] Care Team Providers Care Gut Cleaner Name Role Phone Libby Redd MD Primary Care Provider [phone] Reason for Visit * Reason Comments Med Refill Encounter Details Date Type Department Care Team ([facility] st Contact Info) Description 11/12/2024 Refill [facility] MED & PEDS [address] [place], [place] [phone] Libby Redd MD [address] [place] [address] Chronic bilateral thoracic back pain Social History [...] Description 03/14/2025 10:15 AM EST Office Visit [facility] MED & PEDS [address] [place] [address] Libby Redd MD [address] [place] [address] documented as of this encounter Visit Diagnoses Diagnosis Chronic bilateral thoracic back pain documented in this encounter Additional Health Concerns Assessment Noted Time PHQ-9 Depression Total Score: 15 025 11:13 AM EDT documented as of this encounter Care Teams Gut Cleaner Relationship Specialty Start Date End Date Libby Redd MD [address] [place] [id number] PCP - General Family Medicine 01/09/23 Jodee Jean COAT CHECK ATTENDANT Nurse Practitioner Gastroenterology 10/20/24 documented as of this encounter
--- OUTSIDE RECORDS SUMMARY | 2025-02-04 14:42 | XMS_ITS | Encounter Summary ---
Author Organization [employer] Address [address] [place] [address] 7 [place] [address] Care Team Providers Care Inletter Name Role Phone Nina Haider MD Primary Care Provider [phone] Libby Redd MD Primary Care Provider [phone] Encounter Details Date Type Department Care Team (Late st Contact Info) Description 07/12/[address] [facility] MED & PEDS [address] [place] [address] Sondra Valera LPN Social History Tobacco Use [...] Department Care Team (Late Contact Info) Description 03/14/2025 10:15 AM EST Office Visit [facility] MED & PEDS [address] [place] [address] Libby Redd MD [address] [place] [address] documented as of this encounter Visit Diagnoses Not on filedocumented in this encounter Care Teams Inletter Relationship Specialty Start Date End Date Nina Haider MD [address] [place] [address] PCP - General Family Medicine 10/31/21 01/08/23 Libby Redd MD [address] [place] [phone] PCP - General Family Medicine 01/09/23 Jodee Jean [employer] Nurse Practitioner Gastroenterology 10/20/24 documented as of this encounter
--- OUTSIDE RECORDS SUMMARY | 2025-02-04 14:42 | XMS_ITS | Clinical Summary ---
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 Bisacodyl EC 5 MG EC tablet TAKE 2 TABLETS BY MOUTH AT NOON THE DAY BEFORE PROCEDURE 06/25/19 23 Active SM Fiber Laxative 500 MG tablet [...] skin). 100 each 11 12/05/19 23 Active Blood Glucose Monitoring Suppl [...] itching. 90 tablet 3 02/08/20 23 Active fluticasone (Flonase) 50 MCG/ACT nasal sprayIndications: Allergic rhinitis, unspecified seasonality, unspecified trigger USE 2 SPRAYS IN EACH NOSTRIL TWICE DAILY 48 g 1 04/03/20 23 Active fexofenadine (Tianna) 180 MG tabletIndications :Urticaria TAKE 1 TABLET BY MOUTH DAILY NEEDED FOR ALLERGIES 90 tablet 1 09/25/19 24 Active magnesium oxide (Mag-Ox) 400 MG tablet TAKE 1 TABLET BY MOUTH AT BEDTIME 90 tablet 1 07/20/19 25 Active metFORMIN XR (Glucophage-XR) 500 MG 24 hr tablet TAKE 1 TABLET BY MOUTH AT BEDTIME. DO NOT BREAK, CRUSH, DISSOLVE OR CHEW 90 tablet 1 07/20/19 25 Active lidocaine (Lidoderm) 5 % patch APPLY 1 PATCH TOPICALLY TO SKIN, LEAVE ON FOR 12 HOURS AND OFF FOR 12 HOURS DIRECTED 30 patch 2 09/14/19 25 Active esomeprazole (NexIUM) [address] capsule Take 1 capsule by mouth Once per day. 10/14/19 25 Active diclofenac (Cataflam) 50 MG tabletIndications :Chronic bilateral thoracic back pain Take 1 tablet (50 mg) by mouth 3 times daily. 90 tablet 10/21/19 25 Active Ozempic, 0.25 or 0.5 MG/DOSE, 2 MG/3ML solution pen-injector INJECT 0.25 MG SUBCUTANEOUSLY ONCE WEEKLY 3 mL 2 10/21/19 25 Active glucose blood (FREESTYLE LITE) test stripIndications: Type 2 diabetes mellitus with hyperglycemia, without long-term current use of insulin (HCC) USE DIRECTED TO TEST BLOOD SUGAR TWICE DAILY 100 strip 11 10/23/19 25 Active cyclobenzaprine (Flexeril) 10 MG tabletIndications :Chronic bilateral thoracic back pain TAKE 1 TABLET BY MOUTH AT BEDTIME 30 tablet 11/27/19 25 Active loratadine (Claritin) 10 MG tablet Take 1 tablet (10 mg) by mouth Once per day. TAKE 1 TABLET BY MOUTH DAILY IN THE MORNING 90 tablet 1 12/09/19 25 Active pantoprazole (Protonix) 40 MG EC tablet Take 1 tablet (40 mg) by mouth 2 times daily for 14 days. Do not crush, chew, or split. 28 tablet 12/09/19 25 Active pantoprazole (ProtoNix) 40 MG EC tabletIndications :Gastroesophageal reflux disease without esophagitis Take 1 tablet (40 mg) by mouth before breakfast. Do not crush, chew, or split. 90 tablet 3 12/09/19 25 Active bismuth subsalicylate (Pepto Bismol) 262 MG/15ML suspension Take 17 mL by mouth every 4 (four) hours if needed for indigestion. 360 mL 12/09/19 25 Active glipiZIDE (Glucotrol) 5 MG tablet TAKE 1 TABLET BY MOUTH TWICE DAILY BEFORE BREAKFAST AND BEFORE SUPPER 180 tablet 12/15/19 25 Active D3-1000 25 MCG (1000 UT) capsule TAKE 1 CAPSULE BY MOUTH EVERY MORNING 90 capsule 1 01/06/20 25 Active Active Problems Problem Noted Date Diagnosed [...] -Prescribed : Guaifenesin-codeine (Robitussin-AC) 100-10 MG/5ML syrup Wyrqknec-wemejhucvm-gjsilqxarl (Cetacaine) 2-2-14 % spray Insomnia 10/03/2023 Assessment [...] of fatty liver disease, confirmed by a potato spotter. Previous liver function tests showed inflammation. The condition is likely exacerbated by uncontrolled diabetes and potentially by diet. Plan: - Reinforce dietary recommendations: reduce sugar intake, limit artificial sweeteners - Encourage weight loss through diet modifications and tolerated exercise - Monitor liver function tests - following with GI in [facility] Strain of lumbar region 09/04/2023 Chronic pain of left knee 09/04/2023 Assessment & Plan (09/04/2023 1:51 PM EDT): Ordering XR imaging of Left Knee for further investigation of symptoms. Referring Orthopaedic for further evaluation. Discussed possible joint aspiration for later date. Continue current Ibuprofen medication for relief of symptoms. Elevated parathyroid hormone 01/21/2023 Vitamin D deficiency 01/10/2023 Uses Ukrainian as primary spoken language 10/19/19 23 Obesity [...] recommended reduction of 20-30% of maintenance calories; medical records assistant referral offered. Recommended to decrease soda and sugary beverage consumption. Recommended at least 20 g per meal of protein to assist with satiety. Recommended at least 150 min/week of moderate intensity exercise. Assessment & Plan (01/10/2023 9:10 AM EDT): Advised patient to maintain active with physical activity with alternative workout methods. Referred to a Refrigeration Lead. History of tubal ligation 10/18/2022 Allergic reaction [...] especially in the morning - Referral to medical records assistant for diabetic diet education - Follow-up in 6 weeks for diabetes management - Patient to bring glucose logs for review - Laboratory tests ordered: Comprehensive metabolic panel, lipid panel, HbA1c - Pt will followup then with new PCP in [facility] due to location Assessment & Plan [...] Description 01/20/2025 1:00 PM EDT Clinical Support [facility] [address] [place] [address] Fatty liver (Primary Dx) 01/20/2025 Travel 01/18/2025 Telephone [facility] [address] [place] [phone] Zonia Nicholson, DDS 01/13/2025 11:00 AM EDT Nutrition [facility] [address] [place] [address] Metabolic dysfunction-associa huseyin steatotic liver disease (MASLD) 01/13/2025 Travel 01/10/2025 Orders Only GENERIC EXTERNAL DATA DEPARTMENT Provider, Generic External Data 01/04/2025 Refill [facility] [address] [place] [address] Madison Hung MD 12/31/[address] [address] Libby Redd MD Referral 12/14/2024 3:00 PM EDT Office Visit [facility] [address] [address] Tamanna Chaparro MD Vertigo (Primary Dx); Dizziness; H. pylori infection; Heart murmur 12/14/2024 Telephone [facility] [address] [place] [phone] Libby Redd MD Referral 12/14/2024 Telephone [facility] [address] [place] [phone] Libby Redd MD In person triage 12/14/2024 Travel 12/14/2024 Telephone [facility] [address] [place] [address] Libby Redd MD Nurse Triage 12/13/2024 Refill [facility] [address] [place] [address] Debbie Gil FNP 12/12/2024 Refill [facility] [address] [place] [address] Libby Redd MD 12/08/2024 Telephone [facility] [address] [place] [address] Libby Redd MD 12/07/2024 Refill [facility] [address] [place] [phone] Libby Redd MD 12/07/2024 Results Follow-Up [facility] [address] [place] [address] Libby Redd MD Glucose, Whole Blood, Hematoxylin and Eosin Stain 12/02/2024 Orders Only GENERIC EXTERNAL DATA DEPARTMENT Provider, Generic External Data 12/01/2024 Telephone [facility] [address] [place] [address] Matthew Zhu MD No Show 11/30/2024 Telephone [facility] [address] [place] [address] Libby Redd MD Chart Prep 11/29/[address] [address] Libby Redd MD Referral 11/29/[address] [address] Libby Redd MD Nurse Triage 11/25/2024 Telephone [facility] [address] [place] [address] Libby Redd MD order for referral 11/25/2024 Refill [facility] [address] [place] [address] Libby Redd MD Chronic bilateral thoracic back pain 11/12/2024 Refill [facility] [address] [place] [address] Libby Redd MD Chronic bilateral thoracic back pain from Last 3 Months Immunizations Immunization Administration [...] Description 03/14/2025 10:15 AM EST Office Visit [facility] [address] [place] [address] Libby Redd MD [address] [place] [address] Health Maintenance Due Date Last Done Comments [...] Mammogram 05/14/2026 05/14/2024 Eye Exam 09/07/2026 09/07/2024, 10/2024, 09/07/2024, Additional history exists Cervical Cancer [...] hyperglycemia, without long-term current use of insulin ([facility]/HCC) POCT GLYCATED HEMOGLOBIN, TOTAL Routine 10/20/2024 10:09 AM EDT Type 2 diabetes mellitus with hyperglycemia, without long-term current use of insulin ([facility]/HCC) HPV DNA, LOW/HIGH RISK Routine 10:55 AM [...] Free T4 1.71 0.32 - 4.0 uIU/mL [facility] 01/10/2025 11:0 7 AM EDT 01/10/2025 1:56 PM EDT us Generic External Data Provider LAB BLOOD ORDERAB LES Final Result [facility] [address] [place] [phone] * CBC auto differential (01/10/2025 11:07 AM EDT) Only the most recent of2 resultswithin the time period is included. White Blood Count 10.2 4.8 - 10.8 X10*3/uL [facility] Red Blood Count 5.03 4.20 - 5.50 X10*6/uL [facility] Hemoglobin 14.2 12.0 - 16.0 g/dl [facility] Hematocrit 44.3 37.0 - 47.0 % [facility] Mean Corpuscular Volume 88.1 80.0 - 98.0 fL [facility] Mean Corpuscular Hemoglobin 28.2 27.0 - 33.0 pg [facility] Mean Corpuscular HGB Conc 32.1 31.0 - 35.0 g/dl [facility] Red Cell Distribution Width 14.6 11.0 - 16.0 % [facility] Platelet Count 237 160 - 400 X10*3/uL [facility] Mean Platelet Volume 10.9 9.4 - 12.3 fL [facility] Neutrophils Percent Auto 59.2 45 - 73 % [facility] Imm Gran Pct Auto 0.3 0.0 - 0.4 % [facility] Lymphocytes Percent Auto 29.4 20 - 40 % [facility] Monocytes Percent Auto 6.8 2 - 11 % [facility] Eosinophils Percent Auto 3.6 0 - 4 % [facility] Basophils Percent Auto 0.7 0 - 2 % [facility] NRBC Pct Auto 0.0 0.0 - 0.2 /100WBC [facility] Neutrophils Absolute Auto 6.0 2.0 - 8.3 x10*3/uL [facility] Imm Gran Abs Auto 0.03 0.00 - 0.03 X10*3/uL [facility] Lymphocytes Absolute Auto 3.0 1.2 - 4.9 X10*3/uL [facility] Monocytes Absolute Auto 0.7 0.1 - 1.2 X10*3/uL [facility] Eosinophils Absolute Auto 0.4 0.0 - 0.4 X10*3/uL [facility] Basophils Absolute Auto 0.1 0.0 - 0.2 X10*3/uL [facility] NRBC Abs Auto 0.000 0.0 - 0.012 X10*3/uL [facility] 01/10/2025 11:0 7 AM EDT 01/10/2025 1:56 PM EDT us Generic External Data Provider LAB BLOOD ORDERAB LES Final Result Performing Organization Address [facility] Co de Phone Number [facility] [address] [place] [phone] * (ABNORMAL) Glucose (01/10/2025 11:07 AM EDT) Glucose Fasting 126(H) 60 - 99 mg/dL [facility] Comment:A fasting glucose of 126 mg/dl or greater on more than oneoccasion is considered diagnostic of diabetes. 01/10/2025 11:0 7 AM EDT 01/10/2025 1:56 PM EDT Generic External Data Provider LAB BLOOD ORDERAB LES Final Result Performing Organization Address [facility] de Phone Number [facility] [address] [place] [phone] * Hepatic Function Panel (01/10/2025 11:07 AM EDT) Bilirubin, Direct 0.3 0.0 - 0.5 mg/dL [facility] 01/10/2025 11:0 7 AM EDT 01/10/2025 1:56 PM EDT Generic External Data Provider LAB BLOOD ORDERAB LES Final Result Performing Organization Address [facility] Co de Phone Number [facility] [address] [place] [phone] * (ABNORMAL) Lipid Panel, Standard (01/10/2025 11:07 AM EDT) Triglycerides 80 <150 mg/dL [facility] Comment:Desirable Triglyceri de: less than 150 mg/dLBorderline High Triglyceride 150-199 mg/dLHigh Triglyceride: 200-499 mg/dLVery High Triglyceride: greater than or equal to 5OO mg/dL Cholesterol 134 <200 mg/dL [facility] Comment:Desirable Cholestero l: less than 200 mg/dLBorderline High Cholesterol: 200-239 mg/dLHigh Cholesterol: greater than 239 mg/dL LDL Cholesterol Calculated 89 <100 mg/dL [facility] Comment:Desirable LDL: less than 100 mg/dLNear Optimal/Above Optimal LDL: 110- 129 mg/dLBorderline High LDL: 130-159 mg/dLHigh LDL: 160-189 mg/dLVery High LDL: greater than or equal to 190 mg/dL HDL Cholesterol 29(L) >40 mg/dL [facility] Comment:Desirable HDL: great er than 40 mg/dL Note: This HDL assay may give artificially low results in patients with liver disease. 01/10/2025 11:0 7 AM EDT 01/10/2025 1:56 PM EDT us Generic External Data Provider LAB BLOOD ORDERAB LES Final Result [facility] [address] [place] [phone] * (ABNORMAL) Comprehensive Metabolic Panel (01/10/2025 11:07 AM EDT) Only the most recent of2 resultswithin the time period is included. Sodium 140 135 - 145 mmol/L [facility] Potassium 4.0 3.3 - 5.1 mmol/L [facility] Chloride 105 96 - 108 mmol/L [facility] Carbon Dioxide 28 22 - 29 mmol/L [facility] Anion Gap 11(L) 12 - 20 [facility] Urea Nitrogen (BUN) 14 9 - 16 mg/dL [facility] Creatinine, Serum 0.81 0.5 - 1.4 mg/dL [facility] Estimated Glomerular Filt Rate >60 [facility] Comment:Chronic Kidney Disea se: Estimated GFR < 60 mL/min/1.25a0Tpqcmx Kidney Disease: Estimated GFR < 15 mL/min/1.73m2 Glucose 125(H) 60 - 115 mg/dL [facility] Calcium 9.0 8.4 - 10.2 mg/dL [facility] Bilirubin, Total 0.9 0.0 - 1.0 mg/dL [facility] Aspartate Amino Transferase 59(H) 5 - 31 U/L [facility] Alanine Aminotransferase 80(H) 0 - 31 U/L [facility] Total Protein 7.7 6.5 - 8.0 g/dL [facility] Albumin Level 4.4 3.5 - 5.0 g/dL [facility] Alkaline Phosphatase 126(H) 39 - 117 U/L [facility] 01/10/2025 11:0 7 AM EDT 01/10/2025 1:56 PM EDT us Generic External Data Provider LAB BLOOD ORDERAB LES Final Result [facility] [address] [place] [phone] * (ABNORMAL) POCT glucose manually resulted (12/14/2024 3:16 PM EDT) Glucose Blood, POC 258(A) 60 - 200 mg/dL QC Media Lot # [id number] Lot# Expiration Date Blood Capillary blood specimen / Unknown 12/14/2024 3:16 PM EDT us Bianka Perales MD POINT OF CARE TEST EN TER/EDIT ORDERABLES Final Result * MR Cervical Spine w/o Contrast (12/09/2024 7:03 PM EDT) Anatomical Region Laterality Modality Spine, C-spine Magnetic Resonan ce 12/09/2024 7:03 PM EDT Narrative 12/10/2024 7:29 AM EDT [address] [address] Magnetic Resonance Report Signed Patient: Jany Welsh I MR#: M [id number] : 1975 Acct:[id number] Age/Sex: 49 / F ADM Date: 12/09/24 Loc: HO.MRI Attending Dr: Jossue Blanco MD Ordering Physician: Jossue Blanco MD Date of Service: 12/09/24 Procedure(s): MR cervical spine wo con Accession Number(s): [id number] cc: Jossue Blanco MD; Libby Redd MD [...] signed by Trenton Cabrera MD in OV> 12/10/24 07 DD/ 02 TD/TT: 12/09/242019 Press Operator Printing: Procedure Note Donotuseinterpreter, Image - 12/10/2024 [place] [address] Magnetic Resonance Report Signed Patient: Jany Welsh IMR#: M [id number] : 1975Acct:[id number] Age/Sex: 49 / FADM Date: 12/09/24 Loc: HO.MRI Attending Dr: Jossue Blanco MD Ordering Physician: Jossue Blanco MD Date of Service: 12/09/24 Procedure(s): MR cervical spine wo con Accession Number(s): [id number] cc: Jossue Blanco MD; Libby Redd MD [...] MDin OV> 12/10/24725 DD/ 02 TD/TT: 12/09/242019 Press Operator Printing: [facility] External Provider IMG MRI PROCEDURES Final Result * Hematoxylin and Eosin Stain (12/02/2024 8:52 AM EDT) 12/02/2024 8:52 AM EDT 12/02/2024 9:22 AM EDT [facility] - 12/06/2024 3:58 PM EDT ----- ------- Name: Jany Welsh Kings Age/Sex: 49/F : 1975 Unit#: [id number] Attend Dr: Belinda Murray MD Re12/02/24 [facility] Location: [facility] Disch: ----- ------- SPEC : [id number] RECD: 12/02/24 STATUS: ALAYNA DWYER NUM: [id number] CHIDI: 12/02/[address] [facility] [address]: Belinda Murray MD ENTERED: 12/02/24 SP TYPE: Surgical OTHR DR: Libby Redd MD ORDERED: HE Stain/12, Gross Micro L4/4, IHC/2, Special st. 2/, H. pylori/2, AB/PAS/3 Diagnosis A. Stomach, antrum, [...] NavarreteJany I Age/Sex: 49/F : 1975 Unit#: [id number] Attend Dr: Belinda Murray MD Re12/02/24 Status: [facility] Location: HO.SSS Disch: ----- ------- SPEC : [id number] RECD: 12/02/24 STATUS: ALAYNA DWYER NUM: [id number] CHIDI: 12/02/[address] [facility] [address]: Belinda Murray MD ENTERED: 12/02/24 [...] developed and their performance characteristics determined by [facility]. They have not been cleared or approved by the U.S. Food and Drug Administration (FDA). However, the FDA has determined that such clearance or approval is not necessary. This laboratory is certified under the Clinical Laboratory Improvement Amendments of 1988 (CLIA) as qualified to perform high complexity clinical laboratory testing. Copies To: Libby Redd MD [address] [place] [address] [phone] Belinda Murray MD [facility] [address] [place] [phone] [email or web address] ----- ------- Signed (signature on file) Tc Pinedo MD 12/06/24 1558 ----- ------- END OF REPORT us Generic External Data Provider LAB BLOOD ORDERAB LES Final Result [facility] [address] [place] [phone] [phone] * (ABNORMAL) Glucose, Whole Blood (12/02/2024 7:24 AM EDT) Glucose, Whole Blood 194(H) 60 - 115 mg/dL [facility] Comment:METER #: [id number] 12/02/2024 7:24 AM EDT 12/02/2024 7:28 AM EDT us Generic External Data Provider LAB BLOOD ORDERAB LES Final Result [facility] [address] [place] [phone] * XR Knee 3 Views Right (11/26/2024 9:56 AM EDT) Anatomical Region Laterality Modality Lower Extremities, Knee Right Radiogra phic Imaging 11/26/2024 9:56 AM EDT Narrative 11/26/2024 10:19 AM EDT [address] [address] XRay Report Signed Patient: Jany Welsh I MR#: M [id number] : 1975 Acct:[id number] Age/Sex: 49 / F ADM Date: 11/26/24 Loc: HO.LAB Attending Dr: Libby Redd MD Ordering Physician: Libby Redd MD Date of Service: 11/26/24 Procedure(s): XR knee RT 3V Accession Number(s): [id number] cc: Libby Redd MD EXAMINATION: XR KNEE, RIGHT CLINICAL INFORMATION: 49 yo F with right knee pain, DJD send to [facility] COMPARISON: None available. TECHNIQUE: AP lateral and [...] 11/26/24 1016 DD/ 0956 TD/TT: 11/26/24 1013 Press Operator Printing: Procedure Note Donotuseinterpreter, Image - 11/26/[address] [address] XRay Report Signed Patient: Jany Welsh IMR#: M [id number] : 1975Acct:[id number] Age/Sex: 49 / FADM Date: 11/26/24 Loc: HO.LAB Attending Dr: iLbby Redd MD Ordering Physician: Libby Redd MD Date of Service: 11/26/24 Procedure(s): XR knee RT 3V Accession Number(s): [id number] cc: Libby Redd MD EXAMINATION: XR KNEE, RIGHT CLINICAL INFORMATION: 49 yo F with right knee pain, DJD send to [facility] COMPARISON: None available. TECHNIQUE: AP lateral and [...] 11/26/24 1016 DD/ 0956 TD/TT: 11/26/24 1013 Press Operator Printing: us Libby Redd MD IMG XR PROCEDURES Edited Resu lt - Final * Vitamin D, 25-Hydroxy, Total, Immunoassay (11/26/2024 9:54 AM EDT) Vitamin D 25-OH Total 35.1 >30 ng/mL [facility] Comment: Health Based Reference Values*< 20 ng/mL Bcweklucd76-35 ng/mL Insufficient> 30 ng/mL Sufficient*Barak SNEED. N [...] MD LAB BLOOD ORDERABLES Final Re sult [facility] [address] [place] [phone] * Vitamin B12 (Cobalamin) and Folate Panel, Serum (11/26/2024 9:54 AM EDT) Vitamin B12 810 200 - 900 pg/mL [facility] Comment:NORMAL 200-900 PG/ML INDETERMINATE 160-199 PG/ML DEFICIENT < 160 PG/ML Folate 11.7 > or = 4.0 ng/mL [facility] Comment:Reference Values:> o r = 4.0 ng/mL< 4.0 ng/mL suggests folate deficiency Methotrexate, aminopterin and folinic acid(leucovorin) are chemotherapeutic agents whose molecularstructures are similar to folate; therefore, the Architectfolate assay cannot be used for patients using these drugs. Blood Venous blood specimen / Unknown 11/26/2024 9:54 AM EDT 11/26/2024 9:54 AM EDT Libby Redd MD LAB BLOOD ORDERABLES Final Re sult [facility] [address] [place] [phone] * (ABNORMAL) POCT A1C (10/20/2024 10:09 AM EDT) Hemoglobin A1C 9.5(A) 4.0 - 6.0 % QC Media Lot # Comment:[id number] Lot# Expiration Date Comment:05/26/2026 Blood 10/20/2024 10:0 9 AM EDT Libby Redd MD POINT OF CARE TEST ENTER/EDIT ORDERABLES Final Result * HPV DNA, Low/High Risk (10/05/2024 10:55 AM EDT) HPV High Risk Negative Negative [facility] HPV Genotype 16 Negative Negative [facility] HPV Genotype 18 Negative Negative [facility] Comment:HPV testing performe d at [facility] (CLIA#[id number]), [address] [place] [address].Testing for HPV was performed using the [employer] KATY 6800system. The presence of HPV in [...] Adriana Abraham CNM LAB BLOOD ORDERABLES Renee carol Result [facility] [address] [place] [phone] * Pap Smear (10/05/2024 10:55 AM EDT) Swab Cervix uteri structure / Unknown 10/05/2024 10:55 AM EDT 10/06/2024 7:38 AM EDT Narrative [facility] - 10/08/2024 12:14 PM EDT ----- ------- Name: Jaime NavarreteJany I Age/Sex: 49/F : 1975 Unit#: [id number] Attend Dr: ADRIANA ABRAHAM CNM Re10/05/24 Status: DEP REF Location: HO.HHCLNP Disch: ----- ------- SPEC : [id number] RECD: 10/06/24 STATUS: ALAYNA DWYER NUM: [id number] CHIDI: 10/05/[address] [facility] [address]: ADRIANA ABRAHAM CNM ENTERED: 10/06/24 SP TYPE: Pap Smr OT DR: ORDERED: Pap Smear Interpretation Satisfactory for evaluation. Negative for intraepithelial lesion or malignancy. HPV High Risk: Negative HPV Genotyping 16: Negative HPV Genotyping 18: Negative Clinical Information LMP: Unknown date Previous PAP test: Other history: Cervical cancer screening Material Received ThinPrep-Cervical PAP Disclaimer As of February 25, 2024, the technical services to include automated prescreening performed by the ThinPrep Imaging System, PAP screening and HPV testing will be performed at [facility] (CLIA #[id number]), [address] [place] [address]. Testing for HPV was performed using the [...] detected. All professional services are performed by [facility] ([address] [place] [address]; ; CLIA #[id number]). The PAP Test is a screening procedure with the inherent possibility of both false negative and false positive results. Results should be interpreted in the context of historic and current clinical findings. Reliability of the PAP Test is enhanced by performing the test on a regular repetitive basis. ----- ------- Signed (signature on file) Guilherme Luis CT ([facility]) 10/08/24 1214 ----- ------- END OF REPORT us Adriana Abraham [facility] CYTOLOGY ORDERABLES F inal Result [facility] [address] [place] [phone] * BI Mammogram Screening Tomosynthesis Bilateral (05/14/2024 8:50 AM EST) Anatomical Region Laterality Modality Breast Bilateral Mammography 05/14/2024 8:50 AM EST Narrative 05/21/2024 12:38 PM EST [address] [place] [address] Mammography Report Signed Patient: Jany Welsh I MR#: M [id number] : 1975 Acct:[id number] Age/Sex: 48 / F ADM Date: 05/14/24 Loc: HO.MAMMO Attending Dr: Libby Redd MD Ordering Physician: Libby Redd MD Results: 1Nega tive Date of Service: 05/14/24 Follow Up: 1 Year From Orig inal Mammogram Procedure(s): MM tomosynthesis screening BI Accession Number(s): [id number] cc: Libby Redd MD EXAMINATION: MM SCREENING [...] 05/21/24 1235 DD/ 0850 TD/TT: 05/14/24 0910 Press Operator Printing: Procedure Note Donotuseinterpreter, Image - [facility]21/[facility] [address] [place] [address] [address] Mammography Report Signed Patient: Jany Welsh IMR#: [id number] : 1975Acct:[id number] Age/Sex: 48 / FADM Date: 05/14/24 Loc: HO.MAMMO Attending Dr: Libby Redd MD Ordering Physician: Libby Redd MDResults: 1Nega tive Date of Service: 05/14/24Follow Up: 1 Year From Orig ina Mammogram Procedure(s): MM tomosynthesis screening BI Accession Number(s): [id number] cc: Lbiby Redd MD EXAMINATION: MM SCREENING DIGITAL BREAST [...] 05/21/24 1235 DD/ 0850 TD/TT: 05/14/24 0910 Press Operator Printing: Libby Redd MD IMG BI PROCEDURES Edited Resu lt - Final * Hepatitis C Ab (01/16/2023 12:40 PM EDT) Hepatitis C Antibody Nonreactive Nonreactive [facility] Comment:Antibodies to HCV no t detected; does not exclude early acuteHCV infection. Blood 01/16/2023 12:4 0 PM EDT 01/16/2023 2:08 PM EDT Libby Redd MD LAB BLOOD ORDERABLES Final Re sult [facility] [address] [place] [phone] * HIV 1/2 ANTIGEN/ANTIBODY,FOURTH GENERATION W/RFL (11/18/2019 2:28 PM EDT) HIV-1/2 ANTIGEN AND ANTIBODIES, 4TH GENERATION W/ REFLEX NON-REACT LORA NON-REACT LORA [facility] Comment: HIV-1 antigen and [...] purpose. For additional information please refer to http://Poll Everywhere.[employer]/faq/FWS746 (This link is being provided for informational/ [...] purpose. For additional information please refer to http://[employer]/faq/EQA523 (This link is being provided for informational/ [...] purpose. For additional information please refer to http://Poll Everywhere.[employer]/faq/QFZ980 (This link is being provided for informational/ [...] purpose. For additional information please refer to http://education.[employer]/faq/JRS176 (This link is being provided for informational/ educational purposes only.) The performance of this assay has not been clinically validated in patients less than 2 years old. 11/18/2019 2:28 PM EDT us Kirstin Collier MD LAB BLOOD ORDERABLES Final Resul t Performing Organization Address City/State/[facility] Co de Phone Number [facility] [address] from Last 3 Months or Most Recently Relevant to Health Maintenance Insurance [facility] C3 Care Teams Die Storage Worker Relationship Specialty Start Date End Date Libby Redd MD [address] [place] [address] PCP - General Family Medicine 01/09/23 Jodee Jean PCA ASSISTED LIVING Nurse Practitioner Gastroenterology 10/20/24
--- NOTE | 2025-02-04 14:43 | CA_ITS ---
Transthoracic Echocardiogram Patient (Last, First, Middle): Jany Welsh I Gender: Female Date of : 1975 Age: 49 Procedure Date: 02/04/2025 Procedure Type: Transthoracic Echocardiogram Location: OP Height: 154. cm Weight: 87.55 kg BSA: 1.85 m2 Heart Rate: 71 bpm BP: 135 / 80 mmHg Zinc Etcher: HERSON Referring MD: Tamanna Chaparro MD Symptoms: R01.1 MURMUR Study Quality: Adequate ECG Rhythm: Sinus Conclusions: - The left ventricular systolic function is normal. The calculated ejection fraction is 62% by biplane method. - No obvious valvular pathology seen on this study. Findings Left Ventricle Normal left ventricular cavity size. There is normal left ventricular wall thickness. The left ventricular systolic function is normal. The calculated ejection fraction is 62% by biplane method. There is no evidence of regional wall motion abnormalities. Diastolic function is normal for age. Right Ventricle Normal right ventricular cavity size and systolic function. Atria Both atria are normal in size. Aortic Valve There is a normal trileaflet aortic valve. There is no aortic valve regurgitation. Slightly increased aortic valve gradients but there is no significant aortic stenosis. Mitral Valve The mitral valve appears normal. There is trace mitral valve regurgitation. There is no mitral valve stenosis. Pulmonic Valve There is trace pulmonic valve regurgitation. Tricuspid Valve There is trace tricuspid valve regurgitation. There is no evidence of pulmonary hypertension. Great Vessels The asc aorta and aortic arch are normal in size. Venous The inferior vena cava is normal in size and collapses greater than 50% with inspiration. Pericardium/Pleural There is no evidence of pericardial effusion. Prior Study Comparison No prior study available for comparison. Recommendations, Care & Conclusions No obvious valvular pathology seen on this study. Measurements 2D Linear Measurements IVSd: 0.75 0.6-0.9/0.6-1.0 cm LVIDd: 4.33 3.9-5.3/4.2-5.9 cm LVIDd Index: 2.34 2.4-3.2/2.2-3.1 cm/m2 LVIDs: 2.64 2.0-3.6 cm LVPWd: 0.84 0.7-1.1 cm LA Diam: 3.20 2.7-3.8/3.0-4.0 cm LAIDs Index: 1.73 1.5-2.3 cm/m2 LV Mass: 131.56 67-162/88-224 g LV Mass Index: 71.11 43-95/49-115 g/m2 LVOT Diam: 1.70 3.0+(-)1.3 cm 2D Systolic Function EF 4C: 55.90 >55% EF 2C: 66.20 >55% EF BiP: 61.50 >55% Mitral Valve MV Pk E: 1.09 MV PK A: 0.96 MV Decel Time: 230.00 E/A: 1.10 E'Lateral: 7.83 E'Medial: 7.72 E/E' Med: 14.10 E/E' Lat: 13.90 PHT: 67.00 MVA PHT: 3.28 Decel Upson: 4.74 Aortic Valve AoV Pk Rickey: 2.10 AoV Mn Rickey: 1.39 AoV VTI: 0.41 AoV Pk Grad: 18.00 Aov Mn Grad: 9.00 CHOLO Cont.VTI: 1.54 LVOT LVOT Pk Rickey: 1.38 LVOT Mn Rickey: 0.97 LVOT VTI: 0.28 LVOT Pk Grad: 8.00 LVOT Mn Grad: 4.00 LVOT Diam: 1.70 LVOT Area: 2.27 Diastolic Function MV Pk E: 1.09 MV Pk A: 0.96 E/A: 1.10 E'Medial: 7.72 E/E' Med: 14.10 E' Laterial: 7.83 E/E' Lat: 13.90 Right Ventricle TAPSE (mm): 23.40 TVS' Rickey: 11.30 Tricuspid Valve TR Pk Rickey: 2.14 TR Pk Grad: 18.00 RA Press: 3.00 RVSP: 21.00 Great Vessels Aorta Sinus of Valsalva: 2.60 2.0-3.5 cm Ao Asc: 2.90 2.1-3.4 cm Ao Arch: 2.70 Pulmonary Veins Pulm Vein S/D 1.40 Pulmonary Valve PV Pk Rickey: 1.33 Peak PV Grad: 7.00 Updated in Other Vendor System with Status of Final Braydon Jones MD electronically signed on 02/05/2025 3:26:54 PM with status of Final
== END ==
LOC: HO.CARD 14:38
PROVIDERS: PCP Family Medicine; Visit Provider Internal Medicine
DX: R01.1 Cardiac murmur, unspecified (principal)
CPT/HCPCS: 93306

== ENCOUNTER → 2025-02-04 14:43 | Outpatient (BNV) | payer MEDICAID, SELFPAY | PROVIDERS: PCP Family Medicine; Visit Provider Internal Medicine | DX: R01.1 Cardiac murmur, unspecified (principal) | CPT/HCPCS: 93306 ==

== ENCOUNTER 2025-02-11 13:39 | Outpatient (REF) | payer MEDICAID, SELFPAY ==
[2025-02-11 17:15] LABS: Lipase 32 U/L (8-78)
== END 2025-02-11 13:40 | disposition home or self-care (01) ==
LOC: HO.LAB 13:39
PROVIDERS: PCP Family Medicine; Visit Provider Nurse Practitioner Family
DX: R10.9 Unspecified abdominal pain (principal)
CPT/HCPCS: 36415; 83690

== ENCOUNTER 2025-02-17 08:44 | Outpatient (AMB) | payer MEDICAID, SELFPAY ==
--- OUTSIDE RECORDS SUMMARY | 2025-02-17 09:32 | XMS_ITS | Encounter Summary ---
Author Organization [employer] Address [address] [place] [address] 7 [place] [address] Care Team Providers Care Tool Repair Technician Name Role Phone Nina Haider MD Primary Care Provider [phone] Libby Redd MD Primary Care Provider [phone] Encounter Details Date Type Department Care Team (Late st Contact Info) Description 07/12/2022 Orders Only [facility] [address] [place] [address] Sondra Valera LPN Social History Tobacco Use [...] Description 03/14/2025 10:15 AM EST Office Visit [facility] [address] [place] [address] Libby Redd MD [address] [place] [address] documented as of this encounter Visit Diagnoses Not on filedocumented in this encounter Care Teams Tool Repair Technician Relationship Specialty Start Date End Date Nina Haider MD [address] [place] [address] PCP - General Family Medicine 10/31/21 01/08/23 Libby Redd MD [address] [place] [address] PCP - General Family Medicine 01/09/23 Jodee Jean STRICKLER ATTENDANT Nurse Practitioner Gastroenterology 10/20/24 documented as of this encounter
--- OUTSIDE RECORDS SUMMARY | 2025-02-17 09:32 | XMS_ITS | Encounter Summary ---
Author Organization [employer] Address [address] [place] [address] 7 [place] [address] Care Team Providers Care Crystal Syrup Maker Name Role Phone Libby Redd MD Primary Care Provider [phone] Reason for Visit * Reason Onset Date Comments PCP/Location 09/24/2024 Encounter Details Date Type Department Care Team ([facility] st Contact Info) Description 09/24/2024 Telephone [facility] [address] [place], [place] [phone] Libby Redd MD [address] [place] [address] PCP/Location Social History Tobacco Use Types Packs/Day [...] [facility] PCP. * Telephone Encounter - Estefany Avalos - 09/24/2024 2:50 PM EDT Tc from pt requesting location change from [facility] to [facility] due to transportation. Pt lives in [place]. Contact pt at [phone] (belgian) documented in this encounter Plan of Treatment Upcoming Encounters Date Type Department Care Team (Late st Contact Info) Description 03/14/2025 10:15 AM EST Office Visit [facility] [address] [place] [address] Libby Redd MD [address] [place] [address] documented as of this encounter Visit Diagnoses Not on filedocumented in this encounter Additional Health Concerns Assessment Noted Time PHQ-9 Depression Total Score: 21 024 8:35 AM EDT documented as of this encounter Care Teams Crystal Syrup Maker Relationship Specialty Start Date End Date Libby Redd MD [address] [place] [address] PCP - General Family Medicine 01/09/23 Jodee Jean ACCREDITATION SPECIALIST Nurse Practitioner Gastroenterology 10/20/24 documented as of this encounter
--- OUTSIDE RECORDS SUMMARY | 2025-02-17 09:32 | XMS_ITS | Encounter Summary ---
Author Organization [employer] Address [address] [facility] 7t [place] [address] Care Team Providers Care Project Economist Name Role Phone Libby Redd MD Primary Care Provider [phone] Reason for Visit * Reason Comments Med Refill Encounter Details Date Type Department Care Team ([facility] st Contact Info) Description 11/12/2024 Refill [facility] [address] [place], [place] [phone] Libby Redd MD [address] [place] [address] Chronic bilateral thoracic back pain Social History [...] Description 03/14/2025 10:15 AM EST Office Visit [facility] [address] [place] [address] Libby Redd MD [address] [place] [address] documented as of this encounter Visit Diagnoses Diagnosis Chronic bilateral thoracic back pain documented in this encounter Additional Health Concerns Assessment Noted Time PHQ-9 Depression Total Score: 15 025 11:13 AM EDT documented as of this encounter Care Teams Project Economist Relationship Specialty Start Date End Date Libby Redd MD [address] [place] [address] PCP - General Family Medicine 01/09/23 Jodee Jean MARKETING DEVELOPMENT MANAGER Nurse Practitioner Gastroenterology 10/20/24 documented as of this encounter
--- OUTSIDE RECORDS SUMMARY | 2025-02-17 09:32 | XMS_ITS | Encounter Summary ---
Author Organization [employer] Address [address] [place] [address] 7t [place] [address] Care Team Providers Care Gun Synchronizer Name Role Phone Nina Haider MD Primary Care Provider [phone] Libby Redd MD Primary Care Provider [phone] Encounter Details Date Type Department Care Team (Late st Contact Info) Description 08/13/2022 Telephone [facility] MEDICINE [address] [place] [address] Nina Haider MD [address] [place] [address] Social History Tobacco Use Types Packs/Day Years [...] Description 03/14/2025 10:15 AM EST Office Visit [facility] [address] [place], [place] [phone] Libby Redd MD [address] [place] [address] documented as of this encounter Visit Diagnoses Not on filedocumented in this encounter Care Teams Gun Synchronizer Relationship Specialty Start Date End Date Nina Haider MD [address] [place] [address] PCP - General Family Medicine 10/31/21 01/08/23 Libby Redd MD [address] [place] [address] PCP - General Family Medicine 01/09/23 Jodee Jean PURCHASE REQUEST EDITOR Nurse Practitioner Gastroenterology 10/20/24 documented as of this encounter
--- OUTSIDE RECORDS SUMMARY | 2025-02-17 09:32 | XMS_ITS | Encounter Summary ---
Author Organization [employer] Address [address] [place] [address] 7 [place] [address] Care Team Providers Care Is Consultant Name Role Phone Libby Redd MD Primary Care Provider [phone] Reason for Visit * Reason Onset Date Comments Results 06/07/2024 Encounter Details Date Type Department Care Team ([facility] st Contact Info) Description 06/07/2024 Telephone [facility] [address] [place], [place] [phone] Libby Redd MD [address] [place] [address] Results Social History Tobacco Use Types Packs/Day [...] mammogram Date when done: 2-3 weeks Facility: [facility] documented in this encounter Plan of Treatment Upcoming Encounters Date Type Department Care Team (Late st Contact Info) Description 03/14/2025 10:15 AM EST Office Visit [facility]ED[facility] [address] [place] [address] Libby Redd MD [address] [place] [address] documented as of this encounter Visit Diagnoses Not on filedocumented in this encounter Additional Health Concerns Assessment Noted Time PHQ-9 Depression Total Score: 21 024 8:35 AM EDT documented as of this encounter Care Teams Is Consultant Relationship Specialty Start Date End Date Libby Redd MD [address] [place] [address] PCP - General Family Medicine 01/09/23 Jodee Jean RIVETER PORTABLE MACHINE Nurse Practitioner Gastroenterology 10/20/24 documented as of this encounter
--- OUTSIDE RECORDS SUMMARY | 2025-02-17 09:32 | XMS_ITS | Encounter Summary ---
Author Organization [employer] Address [address] [facility] 7t [place] [address] Care Team Providers Care Car Repairer Helper Name Role Phone Libby Redd MD Primary Care Provider [phone] Encounter Details Date Type Department Care Team ([facility] Contact Info) Description 01/18/2025 Telephone [facility] ADULT DENTAL [address] [place] [address] Zonia Nicholson, DDS [address] [place], [place] [phone] Social History Tobacco Use Types Packs/Day Years [...] Description 03/14/2025 10:15 AM EST Office Visit [facility] [address] [place] [address] Libby Redd MD [address] [place] [address] documented as of this encounter Visit Diagnoses Not on filedocumented in this encounter Additional Health Concerns Assessment Noted Time PHQ-9 Depression Total Score: 15 025 11:13 AM EDT documented as of this encounter Care Teams Car Repairer Helper Relationship Specialty Start Date End Date Libby Redd MD [address] [place] [address] PCP - General Family Medicine 01/09/23 Jodee Jean FRONT LINE LEADER Nurse Practitioner Gastroenterology 10/20/24 documented as of this encounter
--- OUTSIDE RECORDS SUMMARY | 2025-02-17 09:32 | XMS_ITS | Encounter Summary ---
Author Organization [employer] Address [address] [place] [address] 7t [place] [address] Care Team Providers Care Battery Recharger Name Role Phone Nina Haider MD Primary Care Provider [phone] Libby Redd MD Primary Care Provider [phone] Reason for Visit * Reason Onset Date Comments Nurse Triage 10/14/2022 Encounter Details Date Type Department Care Team (Late st Contact Info) Description 10/14/2022 Telephone [facility] MEDICINE [address] [place], [place] [phone] Nina Haider MD [address] [place], [place] [phone] Nurse Triage Social History Tobacco Use Types [...] 2:45 PM EDT Triage call with [place] Aeronautical Engineer [place] [id number] Pt reports wide spread rash all over body. Rash is red, bumpy and very itchy. Pt reports it has increased in itchiness each day. Pt denies fever, sore throat, or difficulty breathing. Pt hasn't changed detergent or started using some other soaps or body wash. Pt is advised to come to [facility] to be seenby provider and [...] The caller accepted this outcome Patient speak slovenian documented in this encounter Plan of Treatment Upcoming Encounters Date Type Department Care Team ([facility] st Contact Info) Description 03/14/2025 10:15 AM EST Office Visit [facility] MED & PED[facility] [address] [place] [address] Libby Redd MD [address] [place] [address] documented as of this encounter Visit Diagnoses Not on filedocumented in this encounter Care Teams Battery Recharger Relationship Specialty Start Date End Date Nina Haider MD [address] [place] [address] PCP - General Family Medicine 10/31/21 01/08/23 Libby Redd MD [address] [place] [address] PCP - General Family Medicine 01/09/23 Jodee Jean AUTOMOTIVE PARTS PERSON Nurse Practitioner Gastroenterology 10/20/24 documented as of this encounter
--- OUTSIDE RECORDS SUMMARY | 2025-02-17 09:32 | XMS_ITS | Encounter Summary ---
Author Organization [employer] Address [address] [place] [address] 7t [place] [address] Care Team Providers Care Tower Operator Name Role Phone Nina Haider MD Primary Care Provider [phone] Libby Redd MD Primary Care Provider [phone] Encounter Details Date Type Department Care Team (Late st Contact Info) Description 07/31/2022 Orders Only [facility] [address] [place] [address] Sondra Valera LPN Social History Tobacco Use [...] 03/14/2025 10:15 AM EST Office Visit [facility] [address] [place] [address] Libby Redd MD [address] [place] [address] documented as of this encounter Visit Diagnoses Not on filedocumented in this encounter Care Teams Tower Operator Relationship Specialty Start Date End Date Nina Haider MD [address] [place] [address] PCP - General Family Medicine 10/31/21 01/08/23 Libby Redd MD [address] [place] [address] PCP - General Family Medicine 01/09/23 Jodee Jean HEEL STAINER Nurse Practitioner Gastroenterology 10/20/24 documented as of this encounter
--- OUTSIDE RECORDS SUMMARY | 2025-02-17 09:32 | XMS_ITS | Encounter Summary ---
Author Organization [employer] Address [address] [place] [address] 7t [place] [address] Care Team Providers Care Supervisor Natural Gas Plant Name Role Phone Nina Haider MD Primary Care Provider [phone] Libby Redd MD Primary Care Provider [phone] Encounter Details Date Type Department Care Team (Late st Contact Info) Description 05/08/2022 Telephone [facility] MEDICINE [address] [place] [address] Nina Haider MD [address] [place] [address] Social History Tobacco Use Types Packs/Day Years [...] 10:15 AM EST Office Visit [facility] [address] [place] [address] Libby Redd MD 505 [place], [place] [phone] documented as of this encounter Visit Diagnoses Not on filedocumented in this encounter Care Teams Supervisor Natural Gas Plant Relationship Specialty Start Date End Date Nina Haider MD [address] [place] [address] PCP - General Family Medicine 10/31/21 01/08/23 Libby Redd MD [address] [place] [address] PCP - General Family Medicine 01/09/23 Jodee Jean HYDROGEN PLANT OPERATIONS MANAGER Nurse Practitioner Gastroenterology 10/20/24 documented as of this encounter
--- OUTSIDE RECORDS SUMMARY | 2025-02-17 09:32 | XMS_ITS | Clinical Summary ---
Author Organization [employer] Address [address] [place] [address] [address] [place] [address] Care Team Providers Care Drawing In Machine Tender Helper Name Role Phone Libby Redd MD Primary Care Provider Allergies No known active allergies Medications * [...] OR CHEW 90 tablet 1 025 Active esomeprazole (NexIUM) [address] [...] hours if needed for indigestion. 360 mL 025 Active glipiZIDE (Glucotrol) 5 MG tablet TAKE 1 TABLET BY MOUTH TWICE DAILY BEFORE BREAKFAST AND BEFORE SUPPER 180 tablet Active D3-1000 25 MCG (1000 UT) capsule TAKE 1 CAPSULE BY MOUTH EVERY MORNING 90 capsule 1 025 Active lidocaine (Lidoderm) 5 % patch APPLY 1 PATCH TOPICALLY TO SKIN, LEAVE ON FOR 12 HOURS AND OFF FOR 12 HOURS DIRECTED 30 patch 2 025 Active lidocaine (Lidoderm) 5 % patch APPLY 1 PATCH TOPICALLY TO SKIN, LEAVE ON FOR 12 HOURS AND OFF FOR 12 HOURS DIRECTED 30 patch 2 025 2024 Discontinued Active Problems Problem Noted [...] -Prescribed : Guaifenesin-codeine (Robitussin-AC) 100-10 MG/5ML syrup Jzviylie-ytwyagqbcv-aybcdbrdng (Cetacaine) 2-2-14 % spray Insomnia 10/03/2023 Assessment [...] of fatty liver disease, confirmed by a linen aide. Previous liver function tests showed inflammation. The condition is likely exacerbated by uncontrolled diabetes and potentially by diet. Plan: - Reinforce dietary recommendations: reduce sugar intake, limit artificial sweeteners - Encourage weight loss through diet modifications and tolerated exercise - Monitor liver function tests - [place] [facility] Strain of lumbar region 09/04/2023 Chronic pain of left knee 09/04/2023 Assessment & Plan (09/04/2023 1:51 PM EDT): Ordering XR imaging of Left Knee for further investigation of symptoms. Referring Orthopaedic for further evaluation. Discussed possible joint aspiration for later date. Continue current Ibuprofen medication for relief of symptoms. Elevated parathyroid hormone 01/21/2023 Vitamin D deficiency 01/10/2023 Uses Tunisian as primary spoken language 10/19/19 23 Obesity [...] recommended reduction of 20-30% of maintenance calories; health aide referral offered. Recommended to decrease soda and sugary beverage consumption. Recommended at least 20 g per meal of protein to assist with satiety. Recommended at least 150 min/week of moderate intensity exercise. Assessment & Plan (01/10/2023 9:10 AM EDT): Advised patient to maintain active with physical activity with alternative workout methods. Referred to a Wrapping Machine Tender. History of tubal ligation 10/18/2022 Allergic reaction [...] especially in the morning - Referral to health aide for diabetic diet education - Follow-up in 6 weeks for diabetes management - Patient to bring glucose logs for review - Laboratory tests ordered: Comprehensive metabolic panel, lipid panel, HbA1c - Pt will followup then with new PCP in [facility] due to location Assessment & Plan (04/19/2024 [...] Encounters Date Type Department Care Team Description 02/11/2025 Orders Only GENERIC EXTERNAL DATA DEPARTMENT Provider, Generic External Data 02/05/2025 Refill [facility] [address] [place] [address] Libby Redd MD 01/20/2025 1:00 PM EDT Clinical Support [facility] [address] [place] [address] Fatty liver (Primary Dx) 01/20/2025 Travel 01/18/2025 Telephone [facility] ADULT DENTAL [address] [place] [phone] Zonia Nicholson DDS 01/13/2025 11:00 AM EDT Nutrition [facility] [address] [place] [address] Metabolic dysfunction-associa huseyin steatotic liver disease (MASLD) 01/13/2025 Travel 01/10/2025 Orders Only GENERIC EXTERNAL DATA DEPARTMENT Provider, Generic External Data 01/04/2025 Refill [facility] [address] [place] [address] Madison Hung MD 12/31/2024 Telephone [facility] MEDICINE [address] [place] [phone] Libby Redd MD Referral 12/14/2024 3:00 PM EDT Office Visit [facility] [address] [place] [phone] Tamanna Chaparro MD Vertigo (Primary Dx); Dizziness; H. pylori infection; Heart murmur 12/14/2024 Telephone [facility] MEDICINE [address] [place] [phone] Libby Redd MD Referral 12/14/2024 Telephone [facility] [address] [place] [address] [phone] Libby Redd MD In person triage 12/14/2024 Travel 12/14/2024 Telephone [facility] [address] [place], [place] [phone] Libby Redd MD Nurse Triage 12/13/2024 Refill [facility] [address] [place], [place] [phone] Debbie Gil FNP 12/12/2024 Refill [facility] [address] [place], [place] [phone] Libby Redd MD 12/08/2024 Telephone [facility] [address] [place], [place] [phone] Libby Redd MD 12/07/[address] [address] Libby Redd MD 12/07/2024 Results Follow-Up [facility] [address] [place], [place] [phone] Libby Redd MD Glucose, Whole Blood, Hematoxylin and Eosin Stain 12/02/2024 Orders Only GENERIC EXTERNAL DATA DEPARTMENT Provider, Generic External Data 12/01/2024 Telephone [facility] [address] [place] [address] Matthew Zhu MD No Show 11/30/2024 Telephone [facility] [address] [place], [place] [phone] Libby Redd MD Chart Prep 11/29/2024 Telephone [facility] [address] [place] [phone] Libby Redd MD Referral 11/29/[address] [address] Libby Redd MD Nurse Triage 11/25/2024 Telephone [facility] [address] [place], [place] [phone] Libby Redd MD order for referral 11/25/2024 Refill [facility] [address] [place], [place] [phone] Libby Redd MD Chronic bilateral thoracic back [...] 03/14/2025 10:15 AM EST Office Visit [facility] [address] [place] [address] Libby Redd MD [address] [place] [address] Health Maintenance Due Date Last Done Comments CT Colonography 1973 FIT DNA/Cologuard 1973 FIT 1973 FOBT 1975 Sigmoidoscopy 1973 Disability Screening 1973 Alcohol/Substance Use Screening 1985 Diabetes: Urine Protein Screening 1992 Diabetes: Foot Exam 01/08/2023 Colonoscopy 06/26/2023 Colorectal Cancer Screening 06/26/2023 Hepatitis A Vaccines (2 of 2 - Risk 2-dose series) 10/18/2024 04/19/2024 COVID-19 Vaccine (4 - 2025-26 season) 2025 05/29/2021, 09/15/2020, 08/18/2020 Influenza Vaccine [...] Procedure Name Priority Date/Time Associated Diagnosis Comments LIPASE Routine 02/11/2025 1:55 PM EDT TSH W/REFLEX TO FT4 Routine 01/10/2025 1 [...] hyperglycemia, without long-term current use of insulin ([facility]) VITAMIN B12/FOLATE, SERUM PANEL Routine 11/26/2024 9:54 [...] Recently Relevant to Health Maintenance Results * Lipase (02/11/2025 1:55 PM EDT) Lipase 32 8 - 78 U/L [facility] 02/11/2025 1:55 PM EDT 02/11/2025 1:55 PM EDT us Generic External Data Provider LAB BLOOD ORDERAB LES Final Result [facility] [address] [place] [address] [phone] * TSH with Reflex to Free T4 (01/10/2025 11:07 AM EDT) Only the most recent of2 resultswithin the time period is included. Pathologist [facility] TSH reflex Free T4 1.71 0.32 - 4.0 uIU/mL [facility] 01/10/2025 11:0 7 AM EDT 01/10/2025 1:56 PM EDT us Generic External Data Provider LAB BLOOD ORDERAB LES Final Result [facility] [address] [place] [phone] * CBC auto differential (01/10/2025 11:07 AM EDT) Only the most recent of2 resultswithin the time period is included. [facility] White Blood Count 10.2 4.8 - 10.8 [...] ORDERAB LES Final Result Performing Organization Address [facility]/State/ZIP Co de Phone Number [facility] [address] [place] [phone] * (ABNORMAL) Glucose (01/10/2025 11:07 AM EDT) Glucose Fasting 126(H) 60 - 99 mg/dL [facility] Comment:A fasting glucose of 126 mg/dl or greater on more than oneoccasion is considered diagnostic of diabetes. 01/10/2025 11:0 7 AM EDT 01/10/2025 1:56 PM EDT us Generic External Data Provider LAB BLOOD ORDERAB LES Final Result Performing Organization Address City/[facility]/ZIP Co de Phone Number [facility] [address] [place] [address] [phone] * Hepatic Function Panel (01/10/2025 11:07 AM EDT) Bilirubin, Direct 0.3 0.0 - 0.5 mg/dL [facility] 01/10/2025 11:0 7 AM EDT 01/10/2025 1:56 PM EDT us Generic External Data Provider LAB BLOOD ORDERAB LES Final Result Performing Organization Address [facility] Co de Phone Number [facility] [address] [place] [phone] * (ABNORMAL) Lipid Panel, Standard (01/10/2025 11:07 AM EDT) Triglycerides 80 <150 mg/dL [facility] Comment:Desirable Triglyceri de: less than 150 [...] 190 mg/dL HDL Cholesterol 29(L) >40 mg/dL [facility] Comment:Desirable HDL: great er than 40 mg/dL Note: This HDL assay may give artificially low results in patients with liver disease. 01/10/2025 11:0 7 AM EDT 01/10/2025 1:56 PM EDT us Generic External Data Provider LAB BLOOD ORDERAB LES Final Result [facility] [address] [place] [address] [phone] * (ABNORMAL) Comprehensive Metabolic Panel (01/10/2025 [...] Kidney Disea se: Estimated GFR < 60 mL/min/1.36b4Vvzzln Kidney Disease: Estimated GFR < 15 mL/min/1.73m2 [...] LES Final Result [facility] [address] [place] [phone] * (ABNORMAL) POCT glucose manually resulted [...] PM EDT Narrative 12/10/2024 7:29 AM EDT [address] [address] Magnetic Resonance Report Signed Patient: Jany Welsh I MR#: M [id number] : 1975 Acct:[id number] Age/Sex: 49 / F ADM Date: 12/09/24 Loc: HO.MRI Attending Dr: Jossue Blanco MD Ordering Physician: Jossue Blanco MD Date of Service: 12/09/24 Procedure(s): MR cervical spine wo con Accession Number(s): [id number] cc: Jossue Blanco MD; Libby Redd MD [...] by Trenton Cabrera MD in OV> 12/10/24 0726 DD/ 02 TD/TT: 12/09/242019 Third Miller: Procedure Note Donotuseinterpreter, Image - 12/10/[address] [address] Magnetic Resonance Report Signed Patient: Jany Welsh [facility]#: M [id number] : 1975Acct:[id number] Age/Sex: 49 / FADM Date: 12/09/24 Loc: HO.MRI Attending Dr: Jossue Blanco MD Ordering Physician: Jossue Blanco MD Date of Service: 12/09/24 Procedure(s): MR cervical spine wo con Accession Number(s): [id number] cc: Jossue Blanco MD; Libby Redd MD [...] MDin OV> 12/10/24725 DD/ 02 TD/TT: 12/09/242019 Third Miller: [facility] External Provider IMG MRI PROCEDURES Final Result * Hematoxylin and Eosin Stain (12/02/2024 8:52 AM EDT) 12/02/2024 8:52 AM EDT 12/02/2024 9:22 AM EDT Narrative [facility] - 12/06/2024 3:58 PM EDT ----- ------- Name: SandovalJany Dey I Age/Sex: 49/F : 1975 Unit#: [id number] Attend Dr: Belinda Murray MD Re12/02/24 Status: [facility] Location: HO.SSS Disch: ----- ------- SPEC : [id number] RECD: 12/02/24 STATUS: ALAYNA DWYER NUM: [id number] CHIDI: 12/02/[address] [facility] DR: Belinda Murray MD ENTERED: 12/02/24 [...] NavarreteJany I Age/Sex: 49/F : 1975 Unit#: [id number] Attend Dr: Belinda Murray MD Re12/02/24 Status: [facility] Location: [facility] Disch: ----- ------- SPEC : [id number] RECD: 12/02/24 STATUS: ALAYNA DWYER NUM: [id number] CHIDI: 12/02/[address] [facility] [address]: Belinda Murray MD ENTERED: 12/02/24 [...] developed and their performance characteristics determined by [facility]. They have not been cleared or approved by the U.S. Food and Drug Administration (FDA). However, the FDA has determined that such clearance or approval is not necessary. This laboratory is certified under the Clinical Laboratory Improvement Amendments of 1988 (CLIA) as qualified to perform high complexity clinical laboratory testing. Copies To: Libby Redd MD [address] [place] [phone] Belinda Murray MD [facility] [address] [place] [phone] [email or web address] ------- Signed (signature on file) Tc Pinedo MD 12/06/24 1558 ----- ------- END OF REPORT Generic External Data Provider LAB BLOOD ORDERAB LES Final Result Performing Organization Address City/[facility] Co de Phone Number [facility] [address] [place] [address] [phone] * (ABNORMAL) Glucose, Whole Blood (12/02/2024 7:24 AM EDT) [facility] Signature Glucose, Whole Blood 194(H) 60 - 115 mg/dL [facility] Comment:METER #: [id number] 12/02/2024 7:24 AM EDT 12/02/2024 7:28 AM EDT Generic External Data Provider LAB BLOOD ORDERAB LES Final Result Performing Organization Address [facility] Co de Phone Number [facility] [address] [place] [address] [phone] * XR Knee 3 Views Right (11/26/2024 9:56 AM EDT) Anatomical Region Laterality Modality Lower Extremities, Knee Right Radiogra phic Imaging 11/26/2024 9:56 AM EDT Narrative 11/26/2024 10:19 AM EDT [address] [address] XRay Report Signed Patient: Jaime NavarreteJany I MR#: M [id number] : 1975 Acct:[id number] Age/Sex: 49 / F ADM Date: 11/26/24 Loc: HO.LAB Attending Dr: Libby Redd MD Ordering Physician: Libby Redd MD Date of Service: 11/26/24 Procedure(s): XR knee RT 3V Accession Number(s): [id number] cc: Libby Redd MD EXAMINATION: XR KNEE, RIGHT CLINICAL INFORMATION: 49 yo F with right knee pain, DJD send to [facility] COMPARISON: None available. TECHNIQUE: AP lateral and [...] 11/26/24 1016 DD/ 0956 TD/TT: 11/26/24 1013 Third Miller: Procedure Note Donotuseinterpreter, Image - 11/26/[address] [address] XRay Report Signed Patient: Jany Welsh IMR#: M [id number] : 1975Acct:[id number] Age/Sex: 49 / FADM Date: 11/26/24 Loc: HO.LAB Attending Dr: Libby Redd MD Ordering Physician: Libby Redd MD Date of Service: 11/26/24 Procedure(s): XR knee RT 3V Accession Number(s): [id number] cc: Libby Redd MD EXAMINATION: XR KNEE, RIGHT CLINICAL INFORMATION: 49 yo F with right knee pain, DJD send to [facility] COMPARISON: None available. TECHNIQUE: AP lateral and [...] 11/26/24 1016 DD/ 0956 TD/TT: 11/26/24 1013 Third Miller: us Libby Redd MD IMG XR PROCEDURES Edited Resu lt - Final * Vitamin D, 25-Hydroxy, Total, Immunoassay (11/26/2024 9:54 AM EDT) Vitamin D 25-OH Total 35.1 >30 ng/mL [facility] Comment: Health Based Reference Values*< 20 ng/mL Wmmrhqqrv61-10 ng/mL Insufficient> 30 ng/mL Sufficient*Barak SNEED. N [...] ORDERABLES Final Re sult Performing Organization Address [facility] Co de Phone Number [facility] [address] [place] [phone] * Vitamin B12 (Cobalamin) and Folate [...] ORDERABLES Final Re sult Performing Organization Address [facility] Co de Phone Number [facility] [address] [place] [phone] * (ABNORMAL) POCT A1C (10/20/2024 10:09 AM EDT) Hemoglobin A1C 9.5(A) 4.0 - 6.0 % QC Media Lot # Comment:[id number] Lot# Expiration Date Comment:05/26/2026 Blood 10/20/2024 10:0 9 AM EDT us Libby Redd MD POINT OF CARE TEST ENTER/EDIT ORDERABLES Final Result * HPV DNA, Low/High Risk (10/05/2024 10:55 AM EDT) HPV High Risk Negative Negative [facility] HPV Genotype 16 Negative Negative [facility] HPV Genotype 18 Negative Negative [facility] Comment:HPV testing performe d at [facility] (CLIA#[id number]), [address] [place] [phone].Testing for HPV was performed using the [employer] Spl[employer].me0system. The presence of HPV in the female [...] 10/06/2024 7:38 AM EDT us Adriana Abraham [facility] BLOOD ORDERABLES Renee l Result [facility] [address] [place] [phone] * Pap Smear (10/05/2024 10:55 AM EDT) Swab Cervix uteri structure / Unknown 10/05/2024 10:55 AM EDT 10/06/2024 7:38 AM EDT Narrative [facility] - 10/08/2024 12:14 PM EDT ----- ------- Name: Jany Welsh I Age/Sex: 49/F : 1975 Unit#: [id number] Attend Dr: ADRIANA ABRAHAM CNM Re10/05/24 Status: DEP [facility] ----- ------- SPEC : [id number] RECD: 10/06/2438 STATUS: ALAYNA DWYER NUM: [id number] CHIDI: 10/05/24-[address] [facility] [address]: ADRIANA ABRAHAM CNM ENTERED: 10/06/242164 SP TYPE: Pap Smr OTHR : ORDERED: Pap Smear Interpretation Satisfactory for evaluation. [...] and HPV testing will be performed at [facility] (CLIA #[id number]), [address] [place] [address]. Testing for HPV was performed using the [employer] 6800 system. The presence of HPV in [...] detected. All professional services are performed by [facility] ([address] [place] [phone]; ; CLIA #[id number]). The PAP Test is a screening procedure with the inherent possibility of both false negative and false positive results. Results should be interpreted in the context of historic and current clinical findings. Reliability of the PAP Test is enhanced by performing the test on a regular repetitive basis. ----- ------- Signed (signature on file) JOHN Hughes ([facility]) 10/08/24 1214 ----- ------- END OF REPORT us Adriana Abraham [facility] CYTOLOGY ORDERABLES F inal Result [facility] [address] [place] [address] [phone] * BI Mammogram Screening Tomosynthesis Bilateral (05/14/2024 8:50 AM EST) Anatomical Region Laterality Modality Breast Bilateral Mammography 05/14/2024 8:50 AM EST Narrative 05/21/2024 12:38 PM EST [place] [place] [address] Mammography Report Signed Patient: Jany Welsh I MR#: M [id number] : 1975 Acct:[id number] Age/Sex: 48 / F ADM Date: 05/14/24 Loc: HO.MAMMO Attending Dr: Libby Redd MD Ordering Physician: Libby Redd MD Results: 1Nega tive Date of Service: 05/14/24 Follow Up: 1 Year From Orig inal Mammogram Procedure(s): MM tomosynthesis screening BI Accession Number(s): [id number] cc: Libby Redd MD EXAMINATION: MM SCREENING [...] by: Radha Aguirre DO 05/21/2024 12:35 PM [facility] Dictated By: Radha Aguirre DO Signed By: <Electronically signed by Radha Aguirre DO in OV> 05/21/24 1235 DD/ 0850 TD/TT: 05/14/24 0910 Third Miller: Procedure Note Donotuseinterpreter, Image - 05/21/[address] [place] [address] Mammography Report Signed Patient: Jany Welsh IMR#: M [id number] : 1975Acct:[id number] Age/Sex: 48 / FADM Date: 05/14/24 Loc: HO.MAMMO Attending Dr: Libby Redd MD Ordering Physician: Libby Redd MDResults: 1Nega tive Date of Service: 05/14/24Follow Up: 1 Year From Orig ina Mammogram Procedure(s): MM tomosynthesis screening BI Accession Number(s): [id number] cc: Libby Redd MD EXAMINATION: MM SCREENING [...] by: Radha Aguirre DO 05/21/2024 12:35 PM [facility] Dictated By: Radha Aguirre DO Signed By: <Electronically signed by Radha Aguirre DO in OV> 05/21/24 1235 DD/ 0850 TD/TT: 05/14/24 0910 Third Miller: us Libby Redd MD IMG BI PROCEDURES [...] Final Re sult [facility] [address] [place] [address] [phone] * HIV 1/2 ANTIGEN/ANTIBODY,FOURTH GENERATION W/RFL [...] purpose. For additional information please refer to http://[employer]/faq/UMA626 (This link is being provided for informational/ [...] purpose. For additional information please refer to http://[employer]/faq/YTS559 (This link is being provided for informational/ [...] purpose. For additional information please refer to http://[employer]/faq/HVF113 (This link is being provided for informational/ educational purposes only.) The performance of this assay has not been clinically validated in patients less than 2 years old. HIV-1/2 ANTIGEN AND ANTIBODIES, 4TH GENERATION W/ REFLEX NON-REACT LORA NON-REACT LORA [facility] Comment: HIV-1 antigen and HIV-1/HIV-2 [...] purpose. For additional information please refer to http://[employer]/faq/TPT567 (This link is being provided for informational/ educational purposes only.) The performance of this assay has not been clinically validated in patients less than 2 years old. 11/18/2019 2:28 PM EDT us Kirstin Collier MD LAB BLOOD ORDERABLES Final Resul t [facility] [address] from Last 3 Months or Most Recently Relevant to Health Maintenance Insurance [facility] C3 Care Teams Drawing In Machine Tender Helper Relationship Specialty Start Date End Date Libby Redd MD [address] [place] [address] PCP - General Family Medicine 01/09/23 Jodee Jean [employer]LLER INSPECTOR AND MENDER Nurse Practitioner Gastroenterology 10/20/24
--- NOTE | 2025-02-17 09:56 | AM.OFFVISNUR ---
Intake Visit Reasons: h pylori Intake Note: Patient presents for collection of?H Pylori?breath test. Patient has been fasting for 1 hour (nothing to eat, drink, no chewing gum or smoking) has not taken any antacid medication for at least 2 weeks and has no allergies to artificial sweeteners.?? Allergies No Known Allergies Allergy (Verified 02/02/25 10:07) Assessment & Plan Assessment & Plan (1) Chronic GERD: Code(s): K21.9 - Gastro-esophageal reflux disease without esophagitis Category: Medical Plan Patient presents for collection of?H Pylori?breath test. Patient has been fasting for 1 hour (nothing to eat, drink, no chewing gum or smoking) has not taken any antacid medication for at least 2 weeks and has no allergies to artificial sweeteners.???This test checks for an overgrowth of bacteria in your stomach. We all have bacteria but some may have more than others. It is treatable. if the test comes back negative there is nothing else to do. If the test result is positive we will treat you with 2 antibiotics and a medication to decrease the acid in your stomach (PPI) for 2 weeks. Two weeks after you have completed the treatment we will retest you to make sure the overgrowth has resolved. Coding Level of Care Code Est Pt Level 1 (43266) Diagnoses Chronic GERD K21.9
== END 2025-02-17 11:01 | disposition home or self-care (01) ==
LOC: HO.HGI 08:44
PROVIDERS: PCP Family Medicine; Visit Provider Nurse Practitioner Family
DX: K21.9 Gastro-esophageal reflux disease without esophagitis (principal)

== ENCOUNTER 2025-02-17 08:44 | Outpatient (REF) | payer MEDICAID, SELFPAY | END 2025-02-17 08:45 | disposition home or self-care (01) | LOC: HO.LAB 08:44 | PROVIDERS: PCP Family Medicine; Visit Provider Nurse Practitioner Family | DX: K21.9 Gastro-esophageal reflux disease without esophagitis (principal) | CPT/HCPCS: 83013; 99211 ==

== ENCOUNTER 2025-03-18 15:17 | Outpatient (REF) | payer MEDICAID, SELFPAY ==
[2025-03-18 18:45] LABS: Gamma Glutamyl Transpeptidase 66 U/L (7-33)
[2025-03-21 21:14] LABS: Alk.Phos Iso. Macrohepatic 0 % (<=0); Alk.Phos Isoenzymes Bone 49 % (28-66); Alk.Phos Isoenzymes Intest 0 % (1-24); Alk.Phos Isoenzymes Liver 51 % (25-69); Alk.Phos Isoenzymes Placental 0 % (<=0); Alk.Phos Isoenzymes Total 109 U/L (37-153)
== END 2025-03-18 15:18 | disposition home or self-care (01) ==
LOC: HO.CHCLDS 15:17
PROVIDERS: Visit Provider Family Medicine
DX: E11.65 Type 2 diabetes mellitus with hyperglycemia (principal); R74.8 Abnormal levels of other serum enzymes
CPT/HCPCS: 36415; 82306; 82570; 82977; 84080